=== PATIENT | female | born 1955 | race Caucasian/White ===

== ENCOUNTER → 2018-02-27 07:04 | Outpatient (CLI) | payer OTHER, SELFPAY ==
[2018-02-27 08:33] LABS: AST(SGOT) 20 U/L (15-37); Alanine Aminotransfer ALT/SGPT 25 U/L (13-56); Albumin, Serum 4.2 g/dL (3.2-5.0); Alkaline Phosphatase 101 U/L (45-117); Bilirubin, Direct 0.16 mg/dL (0.00-0.30); Cholesterol 98 mg/dL (200); Globulin 3.2 g/dL (2.2-4.2); High Density Lipoprotein 42 mg/dL; Protein, Total 7.4 g/dL (6.4-8.2); Triglycerides 97 mg/dL; Very Low Density Lipoprotein 19 mg/dL (5-40)
== END ==
PROVIDERS: Family Provider Family Medicine; PCP Family Medicine; Visit Provider Physician Assistant Medical
DX: E78.5 Hyperlipidemia, unspecified (principal); Z79.899 Other long term (current) drug therapy
CPT/HCPCS: 36415; 80061; 80076

== ENCOUNTER → 2018-04-23 06:12 | Outpatient (CLI) | payer OTHER, SELFPAY ==
--- NOTE | 2018-04-23 08:55 | STRESSREP ---
Stress Test Report Exercise myocardial perfusion stress test. 62-year-old lady with a history of chest pain. Medications: Aspirin simvastatin metoprolol. Stress protocol: Resting EKG demonstrates sinus bradycardia with a rate of 48 bpm normal intervals are noted. The patient exercised according to the regular Ld protocol for a total duration of 12 minutes. The patient completed stage IV of the Ld protocol the maximum heart rate attained was 136 bpm which was 85% of maximum predicted heart rate the maximum workload was 13.4 metabolic equivalents. Patient maintained sinus rhythm throughout the recording at rest there were no ST or T-wave changes noted suggest ischemia peak exercise upsloping ST changes only were noted with no meet the criteria for ischemia no clinical angina was noted the test was terminated due to leg fatigue. The resting blood pressure is 104/68 with a peak blood pressure 142/78 mmHg. Myocardial perfusion protocol. 10.8 mCi of technetium 99m sestamibi was injected at rest. Patient exercised according to regular Ld protocol for 12 minutes at peak exercise 33.3 mCi of technetium 99m sestamibi was injected stress images were obtained stress and rest images were reconstructed and compared in the short axis vertical long and horizontal long axis. Gated images were also obtained. Perfusion SPECT analysis: Review of the stress images demonstrate normal uptake of tracer noted in all areas of the myocardium. The resting images similarly demonstrate normal uptake of tracer noted in all areas of the myocardium. No previous infarct is noted and no ischemia is present. Gated SPECT analysis: The gated ejection fraction is 71%. Conclusion: Normal exercise myocardial perfusion stress test at a high workload. Preserved ejection fraction. Excellent functional aerobic capacity.
== END ==
PROVIDERS: Family Provider Family Medicine; PCP Family Medicine; Visit Provider Internal Medicine Cardiovascular Disease
DX: Z95.5 Presence of coronary angioplasty implant and graft (principal)
CPT/HCPCS: 78452; 93017; A9500; A4216

== ENCOUNTER → 2019-02-24 | Outpatient (CLI) | payer OTHER, SELFPAY ==
[2019-01-18 08:15] VITALS: BMI 19.1
[2019-02-24 07:57] LABS: AST(SGOT) 29 U/L (15-37); Alanine Aminotransfer ALT/SGPT 34 U/L (13-56); Alkaline Phosphatase 118 U/L (45-117); Bilirubin, Direct 0.14 mg/dL (0.00-0.30); Cholesterol 123 mg/dL (200); High Density Lipoprotein 46 mg/dL; Triglycerides 118 mg/dL; Very Low Density Lipoprotein 24 mg/dL (5-40)
== END | disposition home or self-care (01) ==
LOC: LAB 07:08
PROVIDERS: Family Provider Family Medicine; PCP Family Medicine; Referring Provider Physician Assistant Medical; Visit Provider Physician Assistant Medical
DX: E78.5 Hyperlipidemia, unspecified (principal)
CPT/HCPCS: 36415; 80061; 80076

== ENCOUNTER → 2019-11-03 10:51 | Outpatient (CLI) | payer OTHER, SELFPAY ==
[2019-03-05 08:34] VITALS: BMI 18.6
[2019-11-03 12:25] LABS: Absolute Lymphocyte Count 1.28 X10^3/uL (0.83-4.51); Absolute Neutrophil Count 3.1 X10^3/uL (2.0-7.7); Basophil# 0.03 X10^3/uL; Basophil% 0.6 % (0-1); Eosinophil# 0.06 X10^3/uL; Eosinophils% 1.2 % (0-5); Hematocrit 40.4 % (37-47); Hemoglobin 12.9 g/dL (12.0-15.0); Lymphocyte # 1.28 X10^3/ul (4.0); Lymphocyte % 26.2 % (19-41); Mean Corp Hgb Conc 31.9 g/dL (32-36); Mean Corpuscular Hgb 28.4 pg (27.0-32.0); Mean Platelet Vol. 9.6 fl (6.2-12.0); Monocyte# 0.35 X10^3/uL; Monocyte% 7.2 % (0-10); NRBC Flagged by Analyzer 0 % (0-5); Neutrophil # 3.14 X10^3/uL (2.7-7.7); Neutrophil % 64.4 % (47-70); Platelet Count 329 K/mm3 (150-450); RBC Distribution Width CV 12.2 % (11.6-14.6); RBC Distribution Width SD 39.9 fl (35.1-43.9); Red Blood Count 4.54 M/mm3 (4.2-5.4); White Blood Count 4.9 K/mm3 (4.4-11.0)
[2019-11-03 13:01] LABS: ALB/GLOB Ratio 1.1 RATIO (0.9-2.4); AST(SGOT) 18 U/L (15-37); Alanine Aminotransfer ALT/SGPT 31 U/L (13-56); Alkaline Phosphatase 115 U/L (45-117); Anion Gap 4 (5-15); BUN 10 mg/dL (7-18); BUN/Creat Ratio 12.2 RATIO (10-20); Calcium,Total 9.2 mg/dL (8.5-10.1); Chloride 101 mmol/L (98-107); Creatinine, Serum 0.82 mg/dL (0.55-1.02); EST Glomerular Filtration Rate 75 mL/min (>60); Est Glom Filt Rate - Afr Amer 91 mL/min (>60); Ferritin 28 ng/mL (8-252); Globulin 3.6 g/dL (2.2-4.2); Glucose 77 mg/dL (74-106); Potassium 4.3 mmol/L (3.5-5.1); Protein, Total 7.6 g/dL (6.4-8.2); Sodium Level 134 mmol/L (136-145); Thyroid Stim Hormone (TSH) 2.63 uIU/mL (0.358-3.74)
[2019-11-04 11:42] LABS: Thyroid Peroxidase AB 81 IU/mL (0-34)
[2019-11-05 10:58] LABS: Anti-Nuclear Antibody Test Negative (.)
== END ==
PROVIDERS: Family Provider Family Medicine; PCP Family Medicine; Referring Provider Dermatology Pediatric Dermatology; Visit Provider Dermatology Pediatric Dermatology
DX: D64.9 Anemia, unspecified (principal); L82.0 Inflamed seborrheic keratosis; L53.8 Other specified erythematous conditions; L29.8 Other pruritus; L64.8 Other androgenic alopecia; L98.8 Other specified disorders of the skin and subcutaneous tissue
CPT/HCPCS: 36415; 80053; 82728; 84439; 84443; 84480; 85025; 86038; 86376

== ENCOUNTER → 2020-02-19 14:07 | Outpatient (CLI) | payer OTHER, SELFPAY ==
[2019-03-05 08:34] VITALS: BMI 18.6
[2020-02-19 16:22] LABS: Free T3 3.4 pg/mL (2.18-3.98); Thyroid Stim Hormone (TSH) 3.31 uIU/mL (0.358-3.74)
[2020-02-22 14:01] LABS: Thyroid Stim Immunoglob <0.10 IU/L (0.00-0.55)
== END ==
PROVIDERS: PCP Family Medicine; Referring Provider Family Medicine; Visit Provider Family Medicine
DX: E07.9 Disorder of thyroid, unspecified (principal)
CPT/HCPCS: 36415; 84436; 84443; 84445; 84481

== ENCOUNTER → 2020-02-25 13:08 | Outpatient (CLI) | payer OTHER, SELFPAY ==
[2019-03-05 08:34] VITALS: BMI 18.6
[2020-02-25 13:47] LABS: AST(SGOT) 22 U/L (15-37); Alanine Aminotransfer ALT/SGPT 25 U/L (13-56); Albumin, Serum 4.1 g/dL (3.2-5.0); Alkaline Phosphatase 107 U/L (45-117); Cholesterol 122 mg/dL (200); Globulin 3.1 g/dL (2.2-4.2); High Density Lipoprotein 47 mg/dL; Protein, Total 7.2 g/dL (6.4-8.2); Triglycerides 76 mg/dL; Very Low Density Lipoprotein 15 mg/dL (5-40)
== END ==
PROVIDERS: PCP Family Medicine; Referring Provider Internal Medicine Cardiovascular Disease; Visit Provider Internal Medicine Cardiovascular Disease
DX: E78.5 Hyperlipidemia, unspecified (principal)
CPT/HCPCS: 80061; 80076

== ENCOUNTER 2020-06-08 10:26 | Day surgery (SDC) | payer OTHER, SELFPAY ==
[2020-05-25 11:29] VITALS: BMI 18.1
--- NOTE | 2020-05-29 06:42 | HP_ITS ---
Intake Vital Signs 05/25/20 Height 5 ft 6 in 05/25/20 Weight: 112 lb 05/25/20 BMI 18.1 05/25/20 BP 165/76 H 05/25/20 Blood Pressure Location Rt brachial 05/25/20 Position Sitting 05/25/20 Respiration 18 05/25/20 Pulse 67 05/25/20 Pulse Source Monitor 05/25/20 Temp 97.5 F L 05/25/20 Temp Source Temporal 05/25/20 Pulse Oximetry (%) 100 05/25/20 Oxygen Delivery Method room air Intake Visit Reasons: Cyst top of left leg close to buttocks Chief Complaint: lump on buttocks Provider Relations Consultant Required: No Is patient in pain?: No Allergies cephalexin Allergy (Verified 05/25/20 11:29) Unknown latex Allergy (Verified 05/25/20 11:29) rash Penicillins Allergy (Verified 05/25/20 11:29) Unknown atorvastatin calcium [From Lipitor] Adverse Reaction (Verified 05/25/20 11:29) Unknown carvedilol [From Coreg] Adverse Reaction (Verified 05/25/20 11:29) myalgias, cough, diarrhea ticagrelor [From Brilinta] Adverse Reaction (Verified 05/25/20 11:29) rash bee stings Allergy (Uncoded 03/05/19 08:34) Swelling Medications Aspirin [Adult Low Dose Aspirin EC] 81 mg PO 11/30/15 [History Confirmed 05/25/20] flaxseed oil 1,000 mg capsule 1,000 mg PO DAILY 01/18/19 [History Confirmed 05/25/20] nitroglycerin 0.4 mg sublingual tablet 0.4 mg SUBLINGUAL Q5-15M PRN #25 tab 07/09/19 [Rx Confirmed 05/25/20] clopidogrel 75 mg tablet 75 mg PO .COMPLEX #45 tab 03/03/20 [Rx Confirmed 05/25/20] metoprolol succinate 25 mg tablet,extended release 24 hr 25 mg PO QDAY #90 tab 03/03/20 [Rx Confirmed 05/25/20] simvastatin 20 mg tablet 20 mg PO QHS #90 tab 03/03/20 [Rx Confirmed 05/25/20] [facility] Medical History 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 Thad Longoria MD) Smoking Status: Never smoker alcohol intake: never substance use type: does not use caffeine: Yes Type: coffee what type of physical activity do you participate in: weight training, other details: cardio frequency: 3-4 times per week duration: 30-45 minutes/day seatbelt use: always do you feel safe at home: Yes HPI HPI Surgical H&P: Yes HPI: CARRI ACEVEDO, is a 64 F who presents to the office today for Is subcutaneous lesion on her left buttocks. She is noticed this over the last 2 months is been increasing in size. It is firm and is irritating when she sits down.She cannot recall any trauma to the area. ROS General General: No weight change, appetite, fatigue, colon cancer, breast cancer or weakness HEENT HEENT: No difficulty swallowing, eye injury, eye surgery, swollen glands or hoarseness Endo Endocrine: No thyroid disease, diabetes mellitus, thyroid cancer, Hair loss, heat intolerance or cold intolerance Skin Skin: No rash or changing moles Breast Breast: No left breast lump, right breast lump, nipple discharge, breast pain, abnormal mammogram, abnormal US or breast enlargement Musc Musculoskeletal: No back problems, arthritis, rheumatoid arthritis, gout or joint pain Cardio Cardiovascular: Yes heart disease, heart attack and heart stent; no murmur, pacemaker, atrial fibrillation, high blood pressure, palpitations, shortness of breat with exertion or chest pain Psych Psychiatric: No depression, anxiety or hearing voices Resp Respiratory: No shortness of breath, No sleep apnea, No cough, No COPD, No asthma, No emphysema, No wheezing Gastro Gastrointestinal: No abdominal pain, No nausea or vomiting, No diarrhea, No constipation, No blood in stool, No acid reflux, No hemorrhoids, No ulcers, No gallbladder problem, No black,tarry stools [place] Hematologic: Yes blood thinners, No blood disorders, Yes bleeding, No anemia, No blood clots Neuro Neurologic: No system reviewed and no additional complaints, except as docu, No as per HPI, No abnormal walking, No abnormal hearing, No abnormal movements, No abnormal speech, No behavioral changes, No burning sensations, No confusion, No seizure-like activity, No unsteadiness, No dizziness, No localized weakness, No frequent falls, No headache(s), No lack of coordination, No loss of vision, No memory loss, No numbness, No other visual disturbances, No radiating pain, No restless legs, No sensory deficit, No fainting, No tingling, No tremor(s), No weakness, No other Exam Const General: no acute distress, well developed, well hydrated Orientation: oriented to person, oriented to place, oriented to time [facility] Head: normocephalic, atraumatic Ears: external ears normal Mouth: moist mucous membranes Eyes Sclera: sclerae normal Pupils: normal by confrontation Neck Neck: no lymphadenopathy noted Neck mass: No Thyroid: thyroid normal, symmetrical Chest Chest palpation & inspection: normal inspection of the chest Breast Palpation: No nipple discharge Resp Effort & Inspection: normal respiratory effort Auscultation: clear to auscultation bilaterally Percussion: percussion normal Cardio Rate: regular rate Rhythm: regular rhythm Heart Sounds: no murmurs GI Palpation: soft, no hepatosplenomegaly, no masses, nontender Rectal Exam: other Other: Rectal exam deferred. Skin Other: On her left buttocks when her knee is brought up to her chest you can clearly feel a 2.5 cm firm lesion. It is not appreciably tender to touch it is firm and is noticeable Extrem General: normal to inspection, no clubbing, cyanosis or edema Assessment & Plan Problems 1. Lesion of subcutaneous tissue L98.9 Plan My plan is to excise this in the OR. I think this can be safely done under local MAC. Risks include bleeding and infection. She also understands that she could have a recurrence. I told her given the location I am going to put sutures in the do have to be removed since this is going to be traumatized. Coding Level of Care Code Off vis,new,level 2 Diagnoses Lesion of subcutaneous tissue L98.9 COVID (Procedure Consent) Procedure Criteria Procedure Criteria: Yes Elective The surgeon/proceduralist and patient have discussed in detail the risk of exposure to and/or potential harm posed by the COVID-19 virus with having a surgery/procedure at this time versus the risk of? delaying the surgery/procedure. It is not possible to know either the risk of delaying the surgery or procedure or chance of getting an infection with perfect accuracy, but a joint decision was made between the patient and the surgeon/proceduralist ?to proceed at this time with the scheduled surgery/procedure as indicated on the consent form. 05/29/20 2512 <Electronically signed by Thad saab MD> Date _ Thad Longoria MD I have re-examined the patient. There are no clinical changes since date of exam.
[2020-06-08 10:55] VITALS: BP 141/67; PULSE 52; RESP 15; TEMP 36.6; O2SAT 100; BMI 18.5
[2020-06-08] MEDS: Lactated Ringers 1,000 ML 100 ML IV (11:07)
--- NOTE | 2020-06-08 12:07 | OP.PCM_ITS ---
Problem List (1) Lesion of subcutaneous tissue Status: Acute Report of Operation Date of Procedure: 06/08/20 Pre-Operative Diagnosis: 2-1/2 cm subcutaneous lesion to left buttocks Post-Operative Diagnosis: Same Surgery/Procedure Performed:: Excision of a 2-1/2 cm subcutaneous lesion to left buttocks Type of Anesthesia:: General Anesthesiologist: Winston Hoffman Specimen's removed: Subcutaneous lesion Estimated Blood Loss (mL): < 25 cc Description of Procedure: Patient was brought into the operating room. Placed in the supine position. Under excellent general trach intubation she was then placed on her left lateral decubitus side. Patient had a soft subcutaneous mass on her left buttocks. Local was injected 2-1/2 cm incision was made. Is I dissected down I got into the soft fatty tissue and I remove this but there was a much firmer larger mass down on the rami area. I dissected slightly further took out a little bit of thickened tissue but it was very clear that the mass that was originally seen was not the mass that I could feel when she was asleep I do not think doing an ything further was appropriate. I thought about sticking a needle in this however since I did not have any other imaging I thought it was best that we not do anything further. What I originally saw in the office and what I was feeling now while the patient was asleep was much deeper. I brought the wound together with subcu of 0 Vicryl. Deep dermals of 3-0 Vicryl then interrupted 4-0 nylon. Sterile dressings were applied and the patient tolerated the procedure well. I am to see her back in the office remove the sutures and more than likely get first some pelvis x-rays and then more likely an MRI of her pelvis to see what things look like. But it will take some time for this subcutaneous tissue to normalize from the surgery. - Admit VTE Documentation VTE Present on Admission: No VTE Mechan Device Prophylaxis: SCD's VTE Pharm Prophylaxis ordered?: No Reason prophylaxis not ordered:: Treatment Not Indicated 114x: [id number] Exc tr-ext b9+andrey 2.1-3cm/<
--- NOTE | 2020-06-08 12:09 | DCINST_ITS ---
Discharge Diet: Light diet - advance as tolerated - If you have questions about your diet instructions, please talk to your doctor. Discharge Activity: May Not Drive - for 1 week or while taking narcotic pain medicine. May shower in (days): 1 Lifting Restrictions: 10 pounds Call your doctor if your incision/area has: Continuous Slow Oozing, Sudden Increased Bleeding, Increased Pain/ Swelling, Increased Redness, Foul Smelling Discharge Call your doctor if you observe: Fever of 101 or Higher Suture Line Care: Avoid Pulling/Pushing, Avoid Pinching/Bending Additional Dressing/Incision Instructions:: Change or remove dressing in 4 days. Leave steri-strips in place for 1 week. Allergies/Adverse Reactions: Allergies cephalexin Allergy (Verified 06/08/20 10:49) Unknown latex Allergy (Verified 06/08/20 10:49) rash Penicillins Allergy (Verified 06/08/20 10:49) Unknown atorvastatin calcium [From Lipitor] Adverse Reaction (Verified 06/08/20 10:49) Unknown carvedilol [From Coreg] Adverse Reaction (Verified 06/08/20 10:49) myalgias, cough, diarrhea ticagrelor [From Brilinta] Adverse Reaction (Verified 06/08/20 10:49) rash bee stings Allergy (Uncoded 06/08/20 10:49) Swelling has epi pen Medications to take at Discharge Aspirin [Adult Low Dose Aspirin EC] 81 mg PO DAILY 11/30/15 flaxseed oil 1,000 mg capsule 1,000 mg PO DAILY 01/18/19 nitroglycerin 0.4 mg sublingual tablet 0.4 mg SUBLINGUAL Q5-15M PRN #25 tab 07/09/19 metoprolol succinate 25 mg tablet,extended release 24 hr 25 mg PO QDAY #90 tab 03/03/20 simvastatin 20 mg tablet 20 mg PO QHS #90 tab 03/03/20 Clopidogrel Bisulfate [Clopidogrel] 75 mg PO MOWEFR 06/01/20 Oxycodone HCl/Acetaminophen [Percocet 5/325] 1 - 2 tablet PO Q4H PRN PRN 6 Days #20 tablet 06/08/20 The following prescriptions were given: Oxycodone HCl/Acetaminophen [Percocet 5/325] 1 - 2 tablet PO Q4H PRN PRN 6 Days #20 tablet PRN Reason: Pain Transmission Status: Received by [id number] Primary Care Physician: Asad Baron MD [Primary Care Provider] - Test Results: Test results from this visit will be discussed in further detail at your follow- up appointment, if applicable. Please Follow Up With: Thad Longoria MD - [phone] When: Call to make an appointment to be seen in about 10 days.
--- NOTE | 2020-06-08 12:30 | LES_PTH ---
PATIENT: CARIR ACEVEDO LOC: [facility] U#:[id number] AGE/SX: 64/F ROOM: RE06/08/[address]: Dr. Thad Longoria MD : [id number] BED: DIS: 06/08/2020 SPEC #: [id number] RECD: 06/08/20 13:50 STATUS: EVELIN VI #: [id number] BENNIE: 06/08/20 12:[address]: Thad Longoria DEPT: SURGICAL PATHOLOGY RECD BY: Viral Rivera ENTERED: 06/09/20 09:49 SP TYPE: Lesion OTHR DR: Dr. Asad Baron MD Tissues: Skin of buttock, NOS Procedures: Surgery Specimen Level IV HEADER OPERATION: Excision lipoma buttock PRE-OP DIAGNOSIS: Lesion of subcutaneous tissue TISSUE SUBMITTED: Lesion of subcutaneous tissue left buttock MICROSCOPIC DIAGNOSIS Soft tissue mass, left buttock, excision: Granulation with associated mild chronic inflammation. See comment. AM:varun 06/10/20 COMMENT Clinical correlation is suggested. Case has been reviewed in consultation with Dr. Rey who concurs with the above diagnosis. IDC:PATTI MICROSCOPIC DESCRIPTION Slides are reviewed. GROSS DESCRIPTION Received in fixative is one container labeled with the patient's name and designated lesion of subcutaneous tissue left buttock. The specimen consists of an irregular piece of fibroadipose tissue measuring 4 x 3.6 x 1 cm. The external surface appears focally congested. Sections reveal yellow adipose cut surfaces without any area of hemorrhage, necrosis or cystic degeneration. The specimen is inked and serially sectioned and reveals yellow adipose cut surfaces without area of hemorrhagic, necrosis or cystic degeneration. Tube Cutter sections are submitted in two cassettes. / PATTI:varun 06/09/20 TC:3 CPT: 79990
[2020-06-08] MEDS: Bupivacaine Mpf 0.5% 30 ML VIAL (12:35)
[2020-06-08 13:14] VITALS: BP 132/87; BP 141/67; PULSE 59; RESP 16; TEMP 36.7; O2SAT 100
[2020-06-08 13:30] VITALS: BP 140/76; BP 141/67; PULSE 50; RESP 16; O2SAT 100
[2020-06-08 13:45] VITALS: BP 141/67; BP 144/80; PULSE 49; RESP 16; O2SAT 100
[2020-06-08 14:01] VITALS: BP 136/79; BP 141/67; PULSE 48; RESP 16; TEMP 36.6; O2SAT 99
[2020-06-08 14:40] VITALS: BP 141/67; BP 141/74; PULSE 62; RESP 16; TEMP 36.7; O2SAT 99
== END 2020-06-08 15:01 | disposition home or self-care (01) ==
LOC: SDC 10:26 → AC 10:26
PROVIDERS: Anesthesiology; PCP Family Medicine; Referring Provider Surgery; Visit Provider Surgery
PROC: (CPT 11403; principal; 2020-06-08 12:15)
DX: L98.9 Disorder of the skin and subcutaneous tissue, unspecified (principal); Z11.59 Encounter for screening for other viral diseases; I25.2 Old myocardial infarction; E78.00 Pure hypercholesterolemia, unspecified; I25.10 Atherosclerotic heart disease of native coronary artery without angina pectoris; Z78.0 Asymptomatic menopausal state; Z95.5 Presence of coronary angioplasty implant and graft; Z79.82 Long term (current) use of aspirin; Z79.02 Long term (current) use of antithrombotics/antiplatelets; Z79.899 Other long term (current) drug therapy
CPT/HCPCS: 00400; 11403; 87635; 88305; 94799; J7120; J2405; U0003

== ENCOUNTER → 2020-07-12 10:52 | Outpatient (CLI) | payer OTHER, SELFPAY ==
--- NOTE | 2020-07-12 10:53 | MRI_ITS ---
STUDY: MRI BILATERAL HIPS T PELVIS WITH AND WITHOUT CONTRAST REASON FOR EXAM: Pelvic soft tissue mass, lipoma removed 06/08/2020. TECHNIQUE: Standardized fat and water weighted pulse sequences were obtained in all 3 orthogonal planes before and after intravenous administration of 10 mL of Dotarem. COMPARISON: None. FINDINGS: RIGHT HIP Normal hip joint without articular joint space narrowing. Normal right acetabulum. Normal right labrum. Normal right femoral head. Normal right femoral neck and intratrochanteric region. Normal right gluteus minimus, medius and iliopsoas tendons and distal insertions. Normal right superior and inferior pubic rami. Normal right pubic symphysis. Normal right ischial tuberosity. Normal origin of the right hamstring tendons. Normal visualized right iliac wing, sacroiliac joint, and sacral ala. LEFT HIP Normal left hip joint without articular joint space narrowing. Normal left acetabulum. Normal left labrum. There is a herniation pit at the anterolateral aspect of the left femoral head (inversion recovery coronal image 19). Normal left femoral neck and intratrochanteric region. Normal left gluteus minimus, medius and iliopsoas tendons and distal insertions. Normal left superior and inferior pubic rami. Normal left pubic symphysis. Normal left ischial tuberosity. Normal origin of the left hamstring tendons. Normal visualized left iliac wing, sacroiliac joint, and sacral ala. There is a well-defined lesion extending posteriorly and inferiorly from the left ischial tuberosity with fluid-fluid levels (T2 sagittal images 13-18) measuring 2.7 x 4.3 x 5.1 cm (AP x transverse x length). The lesion demonstrates mildly hyperintense T1 signal (T1 axial images 21-27) consistent with blood products. There is mild contrast enhancement of the wall of the lesion (postcontrast T1 axial images 20-26). MRI/Pelvis W/WO Contrast IMPRESSION: Soft tissue mass consistent with hematoma extending distal to the left ischial tuberosity. Electronically Signed: Neri Cantu MD at 12:25 EDT Tel , Service support ,
[2020-07-12 11:15] LABS: CREATININE FINGERSTICK 0.7 mg/dL (0.55-1.02); EGFR FINGERSTICK > 60.0000 mL/min (>60)
== END ==
PROVIDERS: PCP Family Medicine; Referring Provider Surgery; Visit Provider Surgery
DX: M79.89 Other specified soft tissue disorders (principal)
CPT/HCPCS: 72197; A9575

== ENCOUNTER → 2020-09-02 07:38 | Outpatient (CLI) | payer OTHER, SELFPAY ==
[2020-07-19 08:57] VITALS: BMI 18.5
[2020-09-02 10:39] LABS: AST(SGOT) 24 U/L (15-37); Alanine Aminotransfer ALT/SGPT 28 U/L (13-56); Albumin, Serum 4.2 g/dL (3.2-5.0); Alkaline Phosphatase 122 U/L (45-117); Bilirubin, Direct 0.17 mg/dL (0.00-0.30); Cholesterol 137 mg/dL (200); Globulin 3.2 g/dL (2.2-4.2); High Density Lipoprotein 57 mg/dL; Protein, Total 7.4 g/dL (6.4-8.2); Thyroid Stim Hormone (TSH) 4.09 uIU/mL (0.358-3.74); Triglycerides 103 mg/dL; Very Low Density Lipoprotein 21 mg/dL (5-40)
== END ==
PROVIDERS: Internal Medicine Cardiovascular Disease; PCP Family Medicine; Referring Provider Family Medicine; Visit Provider Family Medicine
DX: E78.00 Pure hypercholesterolemia, unspecified (principal); E78.5 Hyperlipidemia, unspecified; E07.9 Disorder of thyroid, unspecified
CPT/HCPCS: 36415; 80061; 80076; 84436; 84443; 84481

== ENCOUNTER → 2020-09-30 15:46 | Outpatient (CLI) | payer OTHER, SELFPAY ==
[2020-07-19 08:57] VITALS: BMI 18.5
--- NOTE | 2020-09-30 15:51 | CT_ITS ---
CT of the left hip without contrast INDICATION: Left buttock mass. The technique: Multiple thin section axial CT images of the left hip joint were obtained without the administration of intravenous contrast and filmed in soft tissue and bone windows. Furthermore, multiple sagittal and coronal reconstructions were performed. Dose limiting techniques were utilized. FINDINGS: No abnormal soft tissue mass, lymphadenopathy, fluid collection. Normal appearance to the musculature of the pelvis and hip. No acute fracture or dislocation. No lytic or blastic lesions. Normal appearance to the hip joint. IMPRESSION: Normal CT of the left hip. Electronically Signed: Jaspal Sterling MD at 11:41 EST Tel , Service support , CT/Extremity Lower without Contra
== END ==
PROVIDERS: PCP Family Medicine; Referring Provider Orthopaedic Surgery; Visit Provider Orthopaedic Surgery
DX: R22.2 Localized swelling, mass and lump, trunk (principal)
CPT/HCPCS: 73700

== ENCOUNTER → 2021-02-09 07:59 | Outpatient (CLI) | payer OTHER, SELFPAY ==
[2021-01-13 08:07] VITALS: BMI 19.1
--- NOTE | 2021-02-09 08:11 | MRI_ITS ---
STUDY: MRI BILATERAL HIPS T PELVIS WITH AND WITHOUT CONTRAST REASON FOR EXAM: Left hip pain for 3 weeks, resection of lipoma in April 2020. TECHNIQUE: Standardized fat and water weighted pulse sequences were obtained in all 3 orthogonal planes before and after intravenous administration of 10 mL of Dotarem. COMPARISON: MRI images 07/12/2020. FINDINGS: RIGHT HIP Normal hip joint without articular joint space narrowing. Normal right acetabulum. Normal right labrum. Normal right femoral head. Normal right femoral neck and intratrochanteric region. Normal right gluteus minimus, medius and iliopsoas tendons and distal insertions. Normal right superior and inferior pubic rami. Normal right pubic symphysis. Normal right ischial tuberosity. Normal origin of the right hamstring tendons. Normal visualized right iliac wing, sacroiliac joint, and sacral ala. LEFT HIP Normal left hip joint without articular joint space narrowing. Normal left acetabulum. Normal left labrum. There is a herniation pit in the anterior aspect of the left femoral head (T2 sagittal image 8) as on the prior study. Otherwise, unremarkable left femoral head. Normal left femoral neck and intratrochanteric region. Normal left gluteus minimus, medius and iliopsoas tendons and distal insertions. Normal left superior and inferior pubic rami. Normal left pubic symphysis. Normal left ischial tuberosity. Normal origin of the left hamstring tendons. Normal visualized left iliac wing, sacroiliac joint, and sacral ala. There is mild scarring of the medial aspect of the proximal left thigh at the site of prior previous surgery with complete resolution of the hematoma without demonstrated recurrent lipoma (T1 axial images 38, 39). There is mild contrast enhancement of the scarring (postcontrast T1 coronal images 7-9). MRI/Pelvis W/WO Contrast IMPRESSION: Mild scarring with mild contrast enhancement of the scarring along the medial aspect of the proximal left thigh without demonstrated recurrent lipoma, and resolution of the hematoma. Herniation pit in the anterior aspect of the left femoral head without interval change. Otherwise, unremarkable MRI of the pelvis/bilateral hips. Electronically Signed: Neri Cantu MD at 9:59 EDT Tel , Service support ,
[2021-02-09 08:26] LABS: CREATININE FINGERSTICK 0.9 mg/dL (0.55-1.02); EGFR FINGERSTICK > 60.0000 mL/min (>60)
== END ==
PROVIDERS: PCP Family Medicine; Referring Provider Orthopaedic Surgery; Visit Provider Orthopaedic Surgery
DX: R22.2 Localized swelling, mass and lump, trunk (principal); Z85.79 Personal history of other malignant neoplasms of lymphoid, hematopoietic and related tissues
CPT/HCPCS: 72197; A9575

== ENCOUNTER → 2021-02-17 07:03 | Outpatient (CLI) | payer OTHER, SELFPAY ==
[2021-01-13 08:07] VITALS: BMI 19.1
[2021-02-17 10:38] LABS: Vitamin D,25 Hydroxy 39.5 ng/mL
[2021-02-17 10:48] LABS: AST(SGOT) 20 U/L (15-37); Alanine Aminotransfer ALT/SGPT 29 U/L (13-56); Alkaline Phosphatase 110 U/L (45-117); Bilirubin, Direct 0.15 mg/dL (0.00-0.30); Cholesterol 133 mg/dL (200); Globulin 3.2 g/dL (2.2-4.2); High Density Lipoprotein 52 mg/dL; Protein, Total 7.2 g/dL (6.4-8.2); Triglycerides 110 mg/dL; Very Low Density Lipoprotein 22 mg/dL (5-40)
[2021-02-17 10:50] LABS: T4 Free Direct 1.14 ng/dL (0.76-1.46); Thyroid Stim Hormone (TSH) 2.06 uIU/mL (0.358-3.74)
== END ==
PROVIDERS: Internal Medicine Cardiovascular Disease; PCP Family Medicine; Referring Provider Internal Medicine Endocrinology, Diabetes & Metabolism; Visit Provider Internal Medicine Endocrinology, Diabetes & Metabolism
DX: E03.8 Other specified hypothyroidism (principal); E06.3 Autoimmune thyroiditis; E55.9 Vitamin D deficiency, unspecified; E78.00 Pure hypercholesterolemia, unspecified; E78.5 Hyperlipidemia, unspecified
CPT/HCPCS: 36415; 80061; 80076; 82306; 84439; 84443

== ENCOUNTER → 2021-09-05 08:06 | Outpatient (CLI) | payer OTHER, SELFPAY ==
[2021-09-05 10:40] LABS: ALB/GLOB Ratio 1.1 RATIO (0.9-2.4); AST(SGOT) 20 U/L (15-37); Alanine Aminotransfer ALT/SGPT 29 U/L (13-56); Albumin, Serum 3.7 g/dL (3.2-5.0); Alkaline Phosphatase 106 U/L (45-117); Anion Gap 2 (5-15); BUN 8 mg/dL (7-18); BUN/Creat Ratio 10.2 RATIO (10-20); Calcium,Total 8.8 mg/dL (8.5-10.1); Chloride 101 mmol/L (98-107); Cholesterol 121 mg/dL (200); Creatinine, Serum 0.78 mg/dL (0.55-1.02); EST Glomerular Filtration Rate 78 mL/min (>60); Est Glom Filt Rate - Afr Amer 95 mL/min (>60); Free T3 2.7 pg/mL (2.18-3.98); Globulin 3.3 g/dL (2.2-4.2); Glucose 80 mg/dL (74-106); High Density Lipoprotein 46 mg/dL; Potassium 4.6 mmol/L (3.5-5.1); Sodium Level 132 mmol/L (136-145); Thyroid Stim Hormone (TSH) 1.26 uIU/mL (0.358-3.74); Triglycerides 129 mg/dL; Very Low Density Lipoprotein 26 mg/dL (5-40)
== END ==
PROVIDERS: PCP Family Medicine; Referring Provider Family Medicine; Visit Provider Family Medicine
DX: E78.00 Pure hypercholesterolemia, unspecified (principal); E07.9 Disorder of thyroid, unspecified
CPT/HCPCS: 36415; 80053; 80061; 84443; 84481

== ENCOUNTER 2022-02-13 15:06 | Outpatient (CLI) | payer MEDICARE, SELFPAY ==
[2022-02-13 16:54] LABS: AST(SGOT) 17 U/L (15-37); Alanine Aminotransfer ALT/SGPT 28 U/L (13-56); Albumin, Serum 3.6 g/dL (3.2-5.0); Alkaline Phosphatase 114 U/L (45-117); Bilirubin, Direct 0.08 mg/dL (0.00-0.30); Cholesterol 131 mg/dL (200); Globulin 3.2 g/dL (2.2-4.2); High Density Lipoprotein 45 mg/dL; Protein, Total 6.8 g/dL (6.4-8.2); Triglycerides 138 mg/dL; Very Low Density Lipoprotein 28 mg/dL (5-40)
[2022-02-13 17:05] LABS: T4 Free Direct 1.14 ng/dL (0.76-1.46); Thyroid Stim Hormone (TSH) 0.77 uIU/mL (0.358-3.74)
== END 2022-02-13 23:59 | disposition home or self-care (01) ==
PROVIDERS: Internal Medicine Cardiovascular Disease; PCP Family Medicine; Referring Provider Internal Medicine Endocrinology, Diabetes & Metabolism; Visit Provider Internal Medicine Endocrinology, Diabetes & Metabolism
DX: E78.00 Pure hypercholesterolemia, unspecified (principal); E78.5 Hyperlipidemia, unspecified
CPT/HCPCS: 36415; 80061; 80076; 84439; 84443

== ENCOUNTER → 2022-03-15 | Outpatient (CLI) | payer MEDICARE, SELFPAY ==
--- NOTE | 2022-03-15 13:03 | STRESSREP ---
Stress Test Report Exercise mild cardial perfusion stress test. 66-year-old lady with a history of chest pain. Stress protocol: Resting EKG demonstrates normal sinus rhythm with a rate of 61 bpm normal intervals are noted resting blood pressure is 114/66 mmHg. The patient exercised according to regular Ld protocol for total duration of 12 minutes. Patient completed stage IV of the Ld protocol. The maximum heart rate attained was 134 bpm which was 86% of max impact at heart rate the maximum workload attained was 13.7 metabolic equivalents. At rest there were no ST or T wave changes noted to suggest ischemia and at peak exercise upsloping ST changes were noted which did not meet the criteria for ischemia. No clinical angina was noted. The test was terminated due to the target heart rate being achieved. Myocardial perfusion protocol. 11.3 mCi of technetium 99m sestamibi was injected at rest. The patient exercised according to regular Ld protocol for total duration of 12 minutes and at peak exercise 33.8 mCi of technetium 99m sestamibi was injected stress images were obtained stress and rest images were reconstructed and compared in the short axis vertical long and horizontal long axis. Gated images were also obtained. Perfusion SPECT analysis: Review of the stress images demonstrate normal uptake of tracer noted in all areas of the myocardium. The resting images similarly demonstrate normal uptake of tracer noted in all areas of the myocardium. No areas of reversibility are noted to suggest ischemia and no previous infarct is noted. Gated SPECT analysis: The gated ejection fraction is 76%. Conclusion: Normal exercise myocardial perfusion stress test at a high workload. Preserved ejection fraction.
== END | disposition home or self-care (01) ==
LOC: CVS 06:33
PROVIDERS: PCP Family Medicine; Referring Provider Internal Medicine Cardiovascular Disease; Visit Provider Internal Medicine Cardiovascular Disease
DX: I25.10 Atherosclerotic heart disease of native coronary artery without angina pectoris (principal)
CPT/HCPCS: 78452; 93017; A9500; A4216

== ENCOUNTER → 2022-04-23 | Outpatient (CLI) | payer MEDICARE, SELFPAY ==
--- NOTE | 2022-04-23 14:09 | BI_ITS ---
MAMMOGRAPHY - BILATERAL SCREENING REASON FOR EXAM: Female, 66 years old. Routine annual screening examination. PERTINENT HISTORY: Aunt with breast cancer. TECHNIQUE: Digital bilateral breast ramya (3D mammographic acquisition) in the CC and MLO projections. 2-D mediolateral oblique (MLO) and craniocaudad (CC) views of both breasts were obtained. CAD: Full Field Digital Mammography with Computer Added Detection was performed. COMPARISON: Comparison is made with prior outside examination dated 04/21/2021. FINDINGS: Breast Composition: There are scattered areas of fibroglandular density. There are no dominant masses or suspicious calcifications. No other significant abnormalities are identified. There has been no significant change since the prior study. BI/SCRN MAMM (CAD)W/RAMYA BILAT IMPRESSION: Stable bilateral screening mammogram. Yearly follow-up mammogram recommended. (A) ASSESSMENT CATEGORY: BIRADS Category 1: Negative. A letter regarding these results will be sent to the patient by the facility within 30 days. Approximately 10% of breast cancers are not detected by mammography. A normal mammogram should not delay biopsy of a clinically suspicious abnormality. [id number] Electronically Signed: Kevin Cox MD at 14:55 EDT ,
== END | disposition home or self-care (01) ==
LOC: OPBI 14:07
PROVIDERS: PCP Family Medicine; Visit Provider Family Medicine
DX: Z12.31 Encounter for screening mammogram for malignant neoplasm of breast (principal)
CPT/HCPCS: 77063; 77067

== ENCOUNTER → 2022-05-17 | Outpatient (CLI) | payer MEDICARE, SELFPAY ==
--- NOTE | 2022-05-17 12:29 | MRI_ITS ---
EXAM: MR HEAD WITHOUT AND WITH INTRAVENOUS CONTRAST, INTERNAL AUDITORY CANAL PROTOCOL CLINICAL INDICATION: ATAXIA;SENSORINEURAL HEARING LOSS TECHNIQUE: Multiplanar and multisequence MR images of the internal auditory canal were obtained without and with intravenous contrast. This report was created using [email or web address] report [employer] technology. CONTRAST: Dotarem 10 cc IV. COMPARISON: None. FINDINGS: CRANIAL NERVES: Unremarkable. No mass. No abnormal enhancement. COCHLEA AND SEMICIRCULAR CANALS: Unremarkable. CEREBELLOPONTINE ANGLES: Unremarkable. No mass. BRAIN AND EXTRA-AXIAL SPACES: Unremarkable as visualized. No intra- or extra-axial hemorrhage. No intracranial mass or mass effect. There is preservation of the medae/white matter interface. Posterior fossa structures are unremarkable. Ventricles are appropriate for age. No hydrocephalus. Basal cisterns are patent. BONES/JOINTS: Unremarkable. No discrete lytic or blastic abnormalities. SINUSES: Unremarkable as visualized. Clear. MASTOID AIR CELLS: Unremarkable as visualized. Clear. ORBITS: Unremarkable as visualized. Both globes, extraocular muscles, optic nerves and retrobulbar fat appear unremarkable. MRI/Brain W/WO Contrast IMPRESSION: Unremarkable MRI of the brain and internal auditory canals. Electronically Signed: Brody Persaud MD at 4:33 EDT ,
[2022-05-17 13:05] LABS: CREATININE FINGERSTICK < 0.9 mg/dL (0.55-1.02); EGFR FINGERSTICK > 60.0000 mL/min (>60)
== END | disposition home or self-care (01) ==
PROVIDERS: PCP Family Medicine; Referring Provider Otolaryngology Otolaryngology/Facial Plastic Surgery; Visit Provider Otolaryngology Otolaryngology/Facial Plastic Surgery
DX: H90.5 Unspecified sensorineural hearing loss (principal); R27.0 Ataxia, unspecified
CPT/HCPCS: 70553; A9575

== ENCOUNTER → 2023-02-01 | Outpatient (CLI) | payer MEDICARE, SELFPAY ==
[2023-02-01 10:45] LABS: ALB/GLOB Ratio 1.2 RATIO (0.9-2.4); AST(SGOT) 23 U/L (15-37); Alanine Aminotransfer ALT/SGPT 24 U/L (13-56); Albumin, Serum 3.9 g/dL (3.2-5.0); Alkaline Phosphatase 101 U/L (45-117); Anion Gap 6 (5-15); BUN 10 mg/dL (7-18); BUN/Creat Ratio 13.5 RATIO (10-20); Bilirubin, Direct 0.15 mg/dL (0.00-0.30); Calcium,Total 9.1 mg/dL (8.5-10.1); Chloride 102 mmol/L (98-107); Cholesterol 123 mg/dL (200); Creatinine, Serum 0.74 mg/dL (0.55-1.02); EST Glomerular Filtration Rate 83 mL/min (>60); Est Glom Filt Rate - Afr Amer 101 mL/min (>60); Free T3 2.7 pg/mL (2.18-3.98); Globulin 3.2 g/dL (2.2-4.2); Glucose 87 mg/dL (74-106); High Density Lipoprotein 51 mg/dL; Potassium 4.2 mmol/L (3.5-5.1); Protein, Total 7.1 g/dL (6.4-8.2); Sodium Level 137 mmol/L (136-145); T4 Free Direct 1.22 ng/dL (0.76-1.46); Thyroid Stim Hormone (TSH) 1.28 uIU/mL (0.358-3.74); Triglycerides 75 mg/dL; Very Low Density Lipoprotein 15 mg/dL (5-40)
== END | disposition home or self-care (01) ==
PROVIDERS: PCP Family Medicine; Referring Provider Family Medicine; Visit Provider Family Medicine
DX: E78.00 Pure hypercholesterolemia, unspecified (principal); E07.9 Disorder of thyroid, unspecified
CPT/HCPCS: 36415; 80053; 80061; 82248; 84439; 84443; 84481

== ENCOUNTER 2023-02-09 22:33 | Emergency (ER) | payer MEDICARE, SELFPAY ==
[2023-02-09 22:34] VITALS: BP 181/66; PULSE 65; RESP 16; TEMP 36.6; O2SAT 100; BMI 19.4
[2023-02-10] MEDS: Acetaminophen 325 MG Tablet 650 MG PO (02:05)
--- NOTE | 2023-02-10 04:24 | EX.ED.UPPERE ---
HPI History of Present Illness HPI Narrative: Patient is a 67-year-old female that is on aspirin and Plavix presenting with bleeding wound to her thumb. Patient states she was unloading the underwear hemmer when a glass broke in her hand and shattered. She cut the distal aspect of her right hand. She is right-hand dominant. She has tried ice and elevation but it continues to bleed. She came in for further evaluation. 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) Screening for osteoporosis Home Medications aspirin 81 mg tablet,delayed release 81 mg PO DAILY 11/30/15 [History Last Taken 05/31/20] flaxseed oil 1,000 mg capsule ([place]-3 Flaxseed Oil) 1,000 mg PO DAILY 01/18/19 [History Last Taken Unknown] epinephrine 0.3 mg/0.3 mL injection, auto-injector 0.3 mg IM Q5-15M PRN Allergy Symptoms 01/13/21 [History Last Taken Unknown] biotin 10,000 mcg capsule 10,000 mcg PO DAILY 03/02/21 [History Last Taken Unknown] cholecalciferol (vitamin D3) 50 mcg (2,000 unit) capsule 50 mcg PO DAILY 03/02/21 [History Last Taken Unknown] cyanocobalamin (vitamin B-12) 5,000 mcg capsule 5,000 mcg PO SA 03/02/21 [History Last Taken Unknown] metronidazole 0.75 % topical gel 1 applic topical DAILY PRN Rash 03/02/21 [History Last Taken Unknown] nitroglycerin 0.4 mg sublingual tablet (Nitrostat) 0.4 mg sublingual Q5-15M PRN chest pain #25 tabs 10/31/21 [Rx Last Taken Unknown] levothyroxine 50 mcg tablet 50 mcg PO DAILY #90 tabs 02/13/22 [Rx Last Taken Unknown] metoprolol succinate 25 mg tablet,extended release 24 hr (Toprol XL) 25 mg PO QDAY #90 tabs 04/05/22 [Rx Last Taken Unknown] simvastatin 20 mg tablet 20 mg PO QHS #90 tabs 04/05/22 [Rx Last Taken Unknown] clopidogrel 75 mg tablet 75 mg PO MOWEFR 02/09/23 [History Last Taken Unknown] Allergy/AdvReac Type Severity Reaction Status Date / Time cephalexin Allergy Unknown Verified 02/09/23 22:36 latex Allergy rash Verified 02/09/23 22:36 Penicillins Allergy Unknown Verified 02/09/23 22:36 venom-honey bee Allergy Swelling Verified 02/09/23 22:36 atorvastatin calcium AdvReac Unknown Verified 02/09/23 22:36 [From Lipitor] carvedilol [From Coreg] AdvReac myalgias, Verified 02/09/23 22:36 cough, diarrhea ticagrelor [From Brilinta] AdvReac rash Verified 02/09/23 22:36 Family History Father Myocardial infarction Heart disease Mother Colon cancer Aunt CAD (coronary artery disease) hx cardiac stents Other Cancer Melanoma Surgical History history excision buttock mass (06/08/20) History of coronary artery stent placement (11/01/15) History of hysterectomy (1995) Social History Smoking Status: Never smoker alcohol intake: never substance use type: does not use caffeine: Yes Type: coffee what type of physical activity do you participate in: weight training and other details: cardio frequency: 3-4 times per week duration: 30-45 minutes/day seatbelt use: always do you feel safe at home: Yes ROS ROS ED Constitutional Constitutional ED: Reports other Details: Denies lightheadedness ; Denies chills or fever(s) Eyes Eyes: Denies blurry vision Gastrointestinal Gastrointestinal: Denies nausea or vomiting Musculoskeletal Musculoskeletal: Reports other Details: Right thumb pain Integumentary Reports Abrasions Hematologic/Lymphatic Hematologic/Lymphatic: Reports easy bleeding and easy bruising EXAM Physical Exam Const Vital Signs: 02/09/23 22:34 02/09/23 23:45 Temperature 97.8 F Temperature Source Temporal Pulse Rate 65 Respiratory Rate 16 Blood Pressure 181/66 H Blood Pressure Mean 104 Pulse Ox 100 Oxygen Delivery Method Room Air Room Air Positive well nourished and well developed General Appearance ED: well developed and NAD HEENT Reports moist mucous membranes Eyes EOMs intact bilaterally Neck supple Chest Wall inspection of chest normal Resp normal respiratory effort Extremity normal to inspection and full ROM Extremity Narrative: No joint deformity. Normal range of motion of the thumb. Neuro Sensorium / Orientation: alert Psych mental status grossly normal Skin Skin Narrative: 2 superficial avulsion injuries to the tip of the right thumb. They are actively bleeding. They are partial-thickness. Not amenable to suture repair. MDM MDM MDM Narrative Medical decision making narrative: Patient is evaluated for a continuously bleeding wound from earlier in the day. It has not stopped despite direct pressure. Gelfoam was applied with direct pressure and it continues to bleed. Ultimately I had to inject lidocaine with epinephrine locally and then apply pressure dressing with Gelfoam in place to get the bleeding to stop. Patient tolerated this well. While she has continued to bleed she does not have symptoms consistent with acute blood loss anemia. I do not think lab work is indicated. Patient is given return precautions as well as wound care precautions. Is discharged home. Discharge Plan Triage Chief Complaint: Laceration ED Provider: Uzma Torres Dx/Rx/DC Orders Clinical Impression: Avulsion of skin of right thumb, Bleeding Instructions: ED Skin Avulsion Prescriptions: No Action flaxseed oil [[place]-3 Flaxseed Oil] 1,000 mg capsule 1,000 mg PO DAILY biotin 10,000 mcg capsule 10,000 mcg PO DAILY cyanocobalamin (vitamin B-12) 5,000 mcg capsule 5,000 mcg PO SA cholecalciferol (vitamin D3) 50 mcg (2,000 unit) capsule 50 mcg PO DAILY metronidazole 0.75 % gel 1 applic topical DAILY PRN (Reason: Rash) epinephrine 0.3 mg/0.3 mL auto-injector 0.3 mg IM Q5-15M PRN (Reason: Allergy Symptoms) Rx Instructions: do not exceed 3 doses per episode aspirin 81 MG tablet,delayed release (DR/EC) 81 mg PO DAILY clopidogrel 75 mg tablet 75 mg PO MOWEFR nitroglycerin [Nitrostat] 0.4 mg tablet, sublingual 0.4 mg SUBLINGUAL Q5-15M PRN (Reason: chest pain) Qty: 25 3RF levothyroxine 50 mcg tablet 50 mcg PO DAILY Qty: 90 3RF metoprolol succinate [Toprol XL] 25 mg tablet extended release 24 hr 25 mg PO QDAY Qty: 90 3RF simvastatin 20 mg tablet 20 mg PO QHS Qty: 90 3RF Primary Care Provider: Asad Baron Referrals: Asad Baron MD [Primary Care Provider] - Activity Restrictions/Additional Instructions: Keep pressure dressing on for at least 24 hours. When you change the dressing, keep the Gelfoam on it for at least 48 hours. If it does start bleeding again take the Gelfoam off, apply direct pressure and then put on new Gelfoam which you have been given. When you go to change the dressing to soak in water for so it comes off easily does not pull off any scabs. Disposition Disposition: Home, Self Care Discharge Date/Time: 02/10/23 04:31
[2023-02-10] MEDS: Lidocaine 1% /Epi 1:100 (20ml) 20 ML Vial INFILT (04:30)
== END 2023-02-10 04:31 | disposition home or self-care (01) ==
PROVIDERS: Emergency Provider Emergency Medicine; PCP Family Medicine; Visit Provider Emergency Medicine
DX: S61.011A Laceration without foreign body of right thumb without damage to nail, initial encounter (principal); I25.10 Atherosclerotic heart disease of native coronary artery without angina pectoris; Z79.82 Long term (current) use of aspirin; Z79.02 Long term (current) use of antithrombotics/antiplatelets; W25.XXXA Contact with sharp glass, initial encounter; Y93.G1 Activity, food preparation and clean up; E03.9 Hypothyroidism, unspecified; I25.2 Old myocardial infarction; E78.5 Hyperlipidemia, unspecified
CPT/HCPCS: 99283; A4216

== ENCOUNTER → 2023-05-01 | Outpatient (CLI) | payer MEDICARE, SELFPAY ==
--- NOTE | 2023-05-01 09:58 | BI_ITS ---
MAMMOGRAPHY - BILATERAL SCREENING REASON FOR EXAM: Female, 67 years old. Routine annual screening examination. PERTINENT HISTORY: Aunt with breast cancer. TECHNIQUE: Digital bilateral breast ramya (3D mammographic acquisition) in the CC and MLO projections. 2-D mediolateral oblique (MLO) and craniocaudad (CC) views of both breasts were obtained. CAD: Full Field Digital Mammography with Computer Added Detection was performed. COMPARISON: Comparison is made with prior study dated April 23, 2022. FINDINGS: Breast Composition: There are scattered areas of fibroglandular density. There are no dominant masses or suspicious calcifications. No other significant abnormalities are identified. There has been no significant change since the prior study. BI/SCRN MAMM (CAD)W/RAMYA BILAT IMPRESSION: Stable bilateral screening mammogram. Yearly follow-up mammogram recommended. (A) ASSESSMENT CATEGORY: BIRADS Category 1: Negative. A letter regarding these results will be sent to the patient by the facility within 30 days. Approximately 10% of breast cancers are not detected by mammography. A normal mammogram should not delay biopsy of a clinically suspicious abnormality. [id number] Electronically Signed: Kevin Cox MD at 11:22 EDT ,
== END | disposition home or self-care (01) ==
LOC: OPBI 09:57
PROVIDERS: PCP Family Medicine; Referring Provider Family Medicine; Visit Provider Family Medicine
DX: Z12.31 Encounter for screening mammogram for malignant neoplasm of breast (principal); Z80.3 Family history of malignant neoplasm of breast
CPT/HCPCS: 77063; 77067

== ENCOUNTER 2024-01-31 13:41 | Emergency (ER) | payer MEDICARE, SELFPAY ==
[2024-01-31 13:43] VITALS: BP 173/76; PULSE 53; RESP 14; TEMP 36.8; O2SAT 100; BMI 19.8
--- NOTE | 2024-01-31 13:56 | RAD_ITS ---
STUDY: X-RAY CHEST REASON FOR EXAM: Female, 68 years old. Chest pain TECHNIQUE: PA and lateral views of the chest. COMPARISON: Comparison is made with prior study dated November 01, 2015. FINDINGS: There is hyperinflation of the lungs consistent with chronic obstructive lung disease (COPD). There is no demonstrated pleural abnormality. Normal size heart. Normal mediastinum and obi. Normal visualized pulmonary arteries. Normal visualized aortic arch and descending thoracic aorta. There is a mild dextroscoliosis of the thoracic spine. Normal visualized ribs, clavicles, and shoulders. There is no demonstrated abnormality of the visualized soft tissue structures of the upper abdomen. RAD/Chest PA and Lateral IMPRESSION: Hyperinflation. The lungs are clear. Electronically Signed: Kevin Cox MD at 14:41 EDT ,
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
[2024-01-31 14:17] LABS: Absolute Neutrophil Count 3.8 X10^3/uL (2.0-7.7); Basophil# 0.03 X10^3/uL; Basophil% 0.5 % (0-1); Eosinophil# 0.06 X10^3/uL; Hematocrit 35.6 % (37-47); Hemoglobin 12.1 g/dL (12.0-15.0); Lymphocyte % 28.2 % (19-41); Mean Corpuscular Hgb 29.3 pg (27.0-32.0); Mean Corpuscular Volume 86.2 fL (81-99); Mean Platelet Vol. 9.1 fl (6.2-12.0); Monocyte# 0.46 X10^3/uL; Monocyte% 7.6 % (0-10); NRBC Flagged by Analyzer 0 % (0-5); Neutrophil # 3.76 X10^3/uL (2.7-7.7); Neutrophil % 62.4 % (47-70); Platelet Count 276 K/mm3 (150-450); RBC Distribution Width CV 12.1 % (11.6-14.6); RBC Distribution Width SD 38.4 fl (35.1-43.9); Red Blood Count 4.13 M/mm3 (4.2-5.4)
[2024-01-31 14:31] LABS: Anion Gap 5 (5-15); BUN 8 mg/dL (7-18); BUN/Creat Ratio 11.3 RATIO (10-20); Calcium,Total 8.8 mg/dL (8.5-10.1); Chloride 97 mmol/L (98-107); EST Glomerular Filtration Rate 88 mL/min (>60); Est Glom Filt Rate - Afr Amer 106 mL/min (>60); Estimated Creatinine Clearance 58.28 ml/min; Glucose 105 mg/dL (74-106); Potassium 4.1 mmol/L (3.5-5.1); Sodium Level 129 mmol/L (136-145); Troponin-I HS 6 pg/mL (3.0-54.0)
[2024-01-31] MEDS: Ketorolac 15 MG/ML Vial IV (14:52)
[2024-01-31 15:18] VITALS: BP 152/70; PULSE 80; RESP 16; TEMP 36.4; O2SAT 98
== END 2024-01-31 15:19 | disposition home or self-care (01) ==
PROVIDERS: Physician Assistant; Emergency Provider Emergency Medicine; PCP Family Medicine; Visit Provider Emergency Medicine
DX: R07.89 Other chest pain (principal); X58.XXXA Exposure to other specified factors, initial encounter; I25.10 Atherosclerotic heart disease of native coronary artery without angina pectoris; I25.2 Old myocardial infarction; E78.5 Hyperlipidemia, unspecified; Z79.82 Long term (current) use of aspirin; Z79.899 Other long term (current) drug therapy; E03.9 Hypothyroidism, unspecified; Z95.5 Presence of coronary angioplasty implant and graft; Z90.710 Acquired absence of both cervix and uterus
CPT/HCPCS: 71046; 80048; 84484; 85025; 93005; 96374; 99283; A4216

== ENCOUNTER → 2024-04-23 | Outpatient (CLI) | payer MEDICARE, SELFPAY ==
[2024-04-23 10:28] LABS: AST(SGOT) 22 U/L (15-37); Alanine Aminotransfer ALT/SGPT 25 U/L (13-56); Albumin, Serum 3.9 g/dL (3.2-5.0); Alkaline Phosphatase 113 U/L (45-117); Bilirubin, Direct 0.16 mg/dL (0.00-0.30); Cholesterol 124 mg/dL (200); Globulin 3.1 g/dL (2.2-4.2); High Density Lipoprotein 55 mg/dL; Triglycerides 92 mg/dL; Very Low Density Lipoprotein 18 mg/dL (5-40)
== END | disposition home or self-care (01) ==
LOC: MTLAB 08:07
PROVIDERS: PCP Family Medicine; Referring Provider Internal Medicine Cardiovascular Disease; Visit Provider Internal Medicine Cardiovascular Disease
DX: I25.10 Atherosclerotic heart disease of native coronary artery without angina pectoris (principal); E78.00 Pure hypercholesterolemia, unspecified
CPT/HCPCS: 36415; 80061; 80076

== ENCOUNTER → 2024-05-11 | Outpatient (CLI) | payer MEDICARE, SELFPAY ==
--- NOTE | 2024-05-11 11:49 | BI_ITS ---
MAMMOGRAPHY - BILATERAL SCREENING REASON FOR EXAM: Female, 68 years old. Routine annual screening examination. PERTINENT HISTORY: Aunt with breast cancer. TECHNIQUE: Digital bilateral breast ramya (3D mammographic acquisition) in the CC and MLO projections. 2-D mediolateral oblique (MLO) and craniocaudad (CC) views of both breasts were obtained. CAD: Full Field Digital Mammography with Computer Added Detection was performed. COMPARISON: Comparison is made with prior study dated May 01, 2023 and April 23, 2022. FINDINGS: Breast Composition: There are scattered areas of fibroglandular density. There are no dominant masses or suspicious calcifications. No other significant abnormalities are identified. There has been no significant change since the prior study. BI/SCRN MAMM (CAD)W/RAMYA BILAT IMPRESSION: Stable bilateral screening mammogram. Yearly follow-up mammogram recommended. (A) ASSESSMENT CATEGORY: BIRADS Category 1: Negative. A letter regarding these results will be sent to the patient by the facility within 30 days. Approximately 10% of breast cancers are not detected by mammography. A normal mammogram should not delay biopsy of a clinically suspicious abnormality. [id number] Electronically Signed: Kevin Cox MD at 13:19 EDT ,
== END | disposition home or self-care (01) ==
LOC: OPBI 11:49
PROVIDERS: PCP Family Medicine; Referring Provider Family Medicine; Visit Provider Family Medicine
DX: Z12.31 Encounter for screening mammogram for malignant neoplasm of breast (principal)
CPT/HCPCS: 77063; 77067

== ENCOUNTER → 2024-06-24 | Outpatient (CLI) | payer MEDICARE, SELFPAY ==
[2024-06-24 12:44] LABS: Anion Gap 7 (5-15); BUN 9 mg/dL (7-18); Calcium,Total 9.1 mg/dL (8.5-10.1); Chloride 95 mmol/L (98-107); Creatinine, Serum 0.75 mg/dL (0.55-1.02); EST Glomerular Filtration Rate 82 mL/min (>60); Est Glom Filt Rate - Afr Amer 99 mL/min (>60); Glucose 72 mg/dL (74-106); Sodium Level 130 mmol/L (136-145)
== END | disposition home or self-care (01) ==
LOC: MTLAB 10:14
PROVIDERS: PCP Family Medicine; Referring Provider Family Medicine; Visit Provider Family Medicine
DX: E87.1 Hypo-osmolality and hyponatremia (principal)
CPT/HCPCS: 36415; 80048

== ENCOUNTER → 2024-07-01 | Outpatient (CLI) | payer MEDICARE, SELFPAY ==
--- NOTE | 2024-07-01 12:32 | BD_ITS ---
STUDY: DUAL ENERGY X-RAY ABSORPTIOMETRY / DXA REASON FOR EXAM: Female, 68 years old. Z78.0 TECHNIQUE: Bone Mineral Density (BMD) measurements of lumbar spine and bilateral hips were obtained. COMPARISON: None. FINDINGS: Lumbar Spine (L1-L4): g/cm2 (0.816) / T-score (-2.2) / Z-score (-0.2) Findings are suggestive of osteopenia with a high fracture risk. Left Femur Total: g/cm2 (0.617) / T-score (-2.7) / Z-score (-1.3) Left Femoral Neck: g/cm2 (0.584) / T-score (-2.4) / Z-score (-0.7) Right Femur Total: g/cm2 (0.607) / T-score (-2.7) / Z-score (-1.4) Right Femoral Neck: g/cm2 (0.553) / T-score (-2.7) / Z-score (-1.0) BD/Dexa Bone Density Study IMPRESSION: The patient is considered osteoporotic as outlined below according to World [employer] Organization (WHO) criteria with a high fracture risk. Reference Information: The T-score is the number of standard deviations above or below the standard which is normal for young adults at their peak bone mineral density. The World Health Organization (WHO) interprets the T-scores as follows: Above -1 Normal bone density Between -1 and -2.5 Osteopenia Equal to / or below -2.5 Osteoporosis As a practical clinical guideline, osteopenia may be graded as follows: Mild -1 through -1.5 Moderate -1.6 through -2.0 Severe -2.1 through -2.4 The Z-score is the number of standard deviations above or below age-matched controls. A Z-score of less than -1.5 would be considered abnormal. References: 1. NIH Osteoporosis and Related Bone Diseases www osteo.org 2. International Society for Clinical Densitometry www iscd.org 3. National Osteoporosis Foundation www nof.org Electronically Signed: Kevin Cox MD at 13:27 EDT ,
== END | disposition home or self-care (01) ==
LOC: OPBD 12:26
PROVIDERS: PCP Family Medicine; Referring Provider Family Medicine; Visit Provider Family Medicine
DX: Z00.00 Encounter for general adult medical examination without abnormal findings (principal); Z78.0 Asymptomatic menopausal state
CPT/HCPCS: 77080

== ENCOUNTER → 2025-05-12 | Outpatient (CLI) | payer MEDICARE, SELFPAY ==
--- OUTSIDE RECORDS SUMMARY | 2025-05-12 08:49 | XMS RPT_ITS | CCD ---
Author Organization [facility] Care Team Providers Care Capacity Manager Name Role Phone RAO Fuchs, Kathy King Unavailable Rivka Garcia Unavailable Unavailable Loraine, Dr. Kamara Primary Care Provider Dr. Asad Baron Referring Provider Dr. Tony Dai Attending Provider Dr. Silvestre Lassiter Attending Provider Dr. Silvestre Lassiter Referring Provider Dr. Silvestre Lassiter Other Provider Asad Baron MD Primary Care Provider Agnes Murguia Unavailable Dr. Asad Baron Primary Care Provider Loraine, Dr. Kamara Referring Provider Alireza GALVAN, SHAHBAZC Alma Attending Provider Asad Baron Primary Care Unavailable Silvestre Lassiter Attending Unavailable Loraine, Asad Referring Unavailable Baron, Asad Primary Care Unavailable Sheri Larsen Attending Unavailable Baron, Asad Referring Unavailable Baron, Asad Primary Care Unavailable Baron, Asad Attending Unavailable Baron, Asad Referring Unavailable Baron, Asad Primary Care Unavailable Baron, Asad Attending Unavailable Baron, Asad Referring Unavailable Baron, Asad Primary Care Unavailable Baron, Asad Attending Unavailable Baron, Asad Referring Unavailable Baron, Asad Attending Unavailable Baron, Asad Referring Unavailable Baron, Asad Primary Care Unavailable Allergies Allergy Classification Reported Allergen(s) Allergy Type Date of Onset Reaction(s) Facility (5 sources) apis mellifera venom; Translations: [BEE STINGS] allergy to substance 6 Swelling [facility] Work Phone: [phone] (2 sources) atorvastatin Drug Allergy 6 Vomiting, diarrhea [facility] Work Phone: [phone] (2 sources) carvedilol Drug Allergy 6 Diarrhea, muscle aches, cough [facility] Work Phone: [phone] (10 sources) cephalexin; Translations: [cephalexin] Drug Allergy 6 Unknown [facility] Work Phone: [phone] (4 sources) Penicillins (Antibiotic) drug allergy 6 Rash, PCN [facility] Work Phone: [phone] (2 sources) BRILLINTA drug allergy 6 red rash [facility] Work Phone: [phone] (7 sources) atorvastatin; Translations: [atorvastatin calcium] Drug Allergy 2 Unknown [facility] (6 sources) carvedilol Drug Allergy 2 myalgias, cough, diarrhea [facility] (6 sources) Latex Allergy to substance 2 rash [facility] (8 sources) Penicillins; Translations: [Penicillins] Allergy to substance 6 Rash [facility] Work Phone: (6 sources) Ticagrelor Drug Allergy 2 rash [facility] (1 source) bee stings [Other] Propensity to adverse reactions 9 Rash, Swelling [facility] Work Phone: (3 sources) venom-honey bee Allergy to substance 2 Swelling [facility] (1 source) carvedilol Drug Allergy 4 [facility] (1 source) Latex Drug allergy (disorder) 4 [facility] (1 source) Ticagrelor Drug Allergy 4 [facility] (1 source) venom-honey bee Drug allergy (disorder) 4 [facility] Medications Current Medications Medication Drug Class(es) Dates Sig (Normalized) Sig (Original) aspirin 81 mg delayed release oral tablet (11 sources) Nonsteroidal Anti-inflammatory Drug Start: 11-21-2015 take 81 mg by mouth once daily Aspirin Active 81 MG PO DAILY November 30, 2015 1:00am Start: 04-25-2009 take 1 tablet by helio th once daily ASPIRIN 81 MG TABS One tablet by mouth daily ASPIRIN [id number] Jelly Redd, RANEJET Comment on above: Take one(1) tablet d aily. biotin 10 mg oral capsule (6 sources) Start: 03-02-20 take 79994 ug by mouth once daily Biotin Active 86851 MCG PO DAILY March 02, 2021 12:00am [id number] 0.3 ml EPINEPHrine 1 mg/ml auto-injector (6 sources) alpha-Adrenergic Agonist, beta-Adrenergic Agonist, Catecholamine Start: 01-14-20 Epinephrine Active 0.3 MG IM every 5 to 15 minutes January 13, 2021 12:00am do not exceed 3 doses per episode levothyroxine sodium 0.05 mg oral tablet (18 sources) l-Thyroxine Start: 01-02-20 End: 02-14-20 22 take 50 ug by mouth once daily Levothyroxine Active 50 MCG PO DAILY February 13, 2022 5:06pm Start: 01-13-2021 End: 01-01-2022 take 50 ug by mouth once daily Levothyroxine Discontin ued 50 MCG PO DAILY January 13, 2021 12:00am January 01, 2022 2:15pm 24 hr metoprolol succinate 25 mg extended release oral tablet (20 sources) beta-Adrenergic Jeanne Start: 07-30-2016 End: 10-29-2023 take 1 tablet by mouth once daily Metoprolol Succinate (Toprol Xl) 25 mg tablet extended release 24 hr Active 25 MG PO daily October 29, 2023 10:37am Comment on above: Take 25 mg by mouth once daily. metroNIDAZOLE 0.0075 mg/mg topical gel (19 sources) Nitroimidazole Antimicrobial Start: 03-02-2021 Metronidazole Active 1 APPLIC TOPICAL DAILY March 02, 2021 12:00am Start: 01-13-2021 End: 03-02-2021 Metronidazole Discontinued G TOPICAL January 13, 2021 12:00am March 02, 2021 11:04am Start: 03-04-2018 End: 01-18-2019 Metronidazole Discontinued T OPICAL 45 March 04, 2018 12:00am January 18, 2019 8:18am metroNIDAZOLE 1 % glwp Apply to affected area. 0 Active Comment on above: Apply to affected ar ea. simvastatin 20 mg oral tablet (20 sources) HMG-CoA Reductase Inhibitor Start: 6 End: 4 take 20 mg by mouth at bedtime Simvastatin Active 20 MG PO AT BEDTIME October 29, 2023 10:37am Comment on above: Take 20 mg by mouth once daily. vitamin b12 5 mg oral capsule (6 sources) Vitamin B12 Start: 1 Cyanocobalamin (Vitamin B-12) Active 5000 MCG PO SA March 02, 2021 12:00am Completed/Discontinued Medications Medication Drug Class(es) Dates Sig (Normalized) Sig (Original) acetaminophen 325 mg / oxyCODONE hydrochloride 5 mg oral tablet (6 sources) Opioid Agonist Start: 06-08-2020 End: 06-14-2020 take 1 tablet by mouth every four hours as needed Oxycodone-Acetamin ophen Discontinued 1 - 2 TABLET PO EVERY 4 HOURS NEEDED 16 04June 08, 2020 June 14, 2020 12:02am atorvastatin 80 mg oral tablet (4 sources) HMG-CoA Reductase Inhibitor Start: 11-21-2015 End: 11-23-2015 take 1 tablet by mouth once daily in the evening ATORVASTATIN CALCIUM 80 MG TABS One tablet by mouth every evening ATORVASTATIN CALCIUM [id number] Jelly Redd RN azithromycin 250 mg oral tablet (6 sources) Macrolide Antimicrobial Start: 01-18-2019 End: 03-05-2019 take 2-5 tablets by mouth once daily Azithromycin (Zithromax Z-Victor Hugo) 250 mg tablet Discontinued 0 PO .COMPLEX January 18, 2019 12:00am March 05, 2019 9:16am take 500 mg today (day 1), then 250 mg for 4 days (days 2-5) carvedilol 6.25 mg oral tablet (14 sources) alpha-Adrenergic Jeanne, beta-Adrenergic Jeanne Start: 11-21-2015 End: 03-03-2018 take 6.25 mg by mouth twice daily Carvedilol Discontinued 6.25 MG PO TWICE A DAY November 30, 2015 1:00am March 03, 2018 9:42am Start: 11-21-2015 End: 07-30-2016 take 1 tablet by mouth twice daily COREG 3.125 MG TABS One tablet by mouth twice daily CARVEDILOL [id number] Silvestre Lassiter MD cholecalciferol 0.05 mg oral capsule (6 sources) Vitamin D Start: 03-02-2021 End: 03-04-2023 take 50 ug by mouth once daily Cholecalciferol (Vitamin D3) Discontinued 50 MCG PO DAILY March 02, 2021 12:00am March 04, 2023 9:08am clopidogrel 75 mg oral tablet (20 sources) P2Y12 Platelet Inhibitor Start: 03-04-2018 End: 03-04-2023 take 1 tablet by mouth three times weekly Clopidogrel Discontinued 0 .ROUTE .COMPLEX 45 April 05, 2022 12:26pm February 09, 2023 11:47pm TAKE 1 TABLET BY MOUTH THREE TIMES A WEEK Start: 03-03-2018 End: 03-04-2018 take 1 tablet by mouth once daily Clopidogrel (Plavix) 75 mg tablet Discontinued 75 MG PO daily March 03, 2018 12:00am March 04, 2018 9:08am Start: 03-20-2016 take 1 tablet by helio th once daily PLAVIX 75 MG TABS One tablet by mouth daily CLOPIDOGREL BISULFATE [id number] Silvestre Lassiter MD doxycycline hyclate 100 mg oral capsule (3 sources) Tetracycline-class Drug Start: 08-11-2022 End: 08-21-2022 take 100 mg by mouth twice daily Doxycycline Hyclate Discontinued 100 MG PO TWICE A DAY 16 08August 11, 2022 12:00am August 21, 2022 12:05am 84 hr estradiol 0.39054 mg/hr transdermal system (10 sources) Estrogen Start: 11-21-2015 End: 12-13-2015 VIVELLE-DOT 0.05 MG/24HR PTTW transdermal as directed ESTRADIOL [id number] Jelly Redd RN Start: 11-01-2015 End: 03-03-2018 Estradiol Discontinued 1 PAT CH November 01, 2015 1:00am March 03, 2018 9:42am flaxseed extract (2 sources) Non-Standardized Food Allergenic Extract, Non-Standardized Plant Allergenic Extract Start: 02-01-2016 take 1 tablet by mouth once daily FLAX SEED OIL CAPS One tablet by mouth daily FLAXSEED (LINSEED) CAPS [id number] Jelly Redd RN Flaxseed Oil oil (1 source) Flaxseed Oil oil linseed oil 1000 mg oral capsule (12 sources) Start: 01-13-2021 End: 03-02-2021 take 1000 mg by mouth twice daily at mealtime Flaxseed Oil Discontinued 1000 MG PO TWICE A DAY January 13, 2021 12:00am March 02, 2021 11:01am administer with meals Start: 01-18-2019 take 1 capsule by mo [facility] once daily Flaxseed Oil ([place]-3 Flaxseed Oil) 1,000 mg capsule Active 1000 MG PO DAILY January 18, 2019 12:00am Multivitamin (Daily Multi-Vitamin) tablet (6 sources) Start: 01-13-2021 End: 03-02-2021 take 1 tablet by mouth once daily Multivitamin (Daily Multi-Vitamin) tablet Discontinued 1 TABLET PO DAILY January 13, 2021 8:07am March 02, 2021 11:02am Start: 01-13-2021 End: 03-02-2021 take 1 tablet by mouth once daily Multivitamin (Daily Multi-Vitamin) tablet Discontinued 1 TABLET PO DAILY January 13, 2021 12:00am March 02, 2021 11:02am multivitamins(DAILY MULTIVITAMIN TAB) (1 source) Start: 04-25-2009 multivitamins(DAILY MULTIVITAMIN TAB) Take one(1) tablet daily. 0 04/25/2009 Active Comment on above: Take one(1) tablet d aily. nitroglycerin 0.4 mg sublingual tablet (20 sources) Nitrate Vasodilator Start: 03-03-2018 End: 03-11-2023 Nitroglycerin (Nitrostat) 0.4 mg tablet, sublingual Discontinued 0.4 MG SL every 5 to 15 minutes October 31, 2021 2:01pm March 11, 2023 4:26pm Start: 11-23-2015 End: 03-03-2018 Nitroglycerin Discontinued Nneka márquez 2015 1:00am March 03, 2018 9:42am Start: 11-23-2015 NITROGLYCERIN 0.4 MG SUBL 1 tablet under the tongue every 5 minutes times 3 as needed for chest pain. NITROGLYCERIN [id number] Silvestre Lassiter MD Comment on above: Dissolve 0.3 mg unde r the tongue every 5 minutes as needed. sulfacetamide sodium 100 mg/ml / sulfur 10 mg/ml medicated liquid soap (1 source) Sulfonamide Antibacterial Sulfacetamide Sodium-Sulfur 10-1 % clsr Apply to affected area. 0 Active Comment on above: Apply to affected ar ea. ticagrelor 90 mg oral tablet (10 sources) Start: 2015 End: 2017 take 90 mg by mouth twice daily Ticagrelor Discontinued 90 MG PO TWICE A DAY November 30, 2015 1:00am March 03, 2018 9:42am triamcinolone acetonide 40 mg/ml injectable suspension (2 sources) Corticosteroid Start: 2017 End: 2017 inject 1 mg by intramuscular injection once Kenalog (triamcinolone acetonide) 10 mg/mL suspension for injection Discontinued 1 MG IM ONCE 0.1 March 03, 2018 2:17pm March 03, 2018 3:00pm Problems Active Problems Problem Classification Problem Date Documented Da te Episodic/Chronic Acute myocardial infarction (2 sources) Acute myocardial infarction of anterolateral wall; Translations: [ST elevation (STEMI) myocardial infarction involving other coronary artery of anterior wall] Onset: 11-21-2015 11-21-2015 Chronic Coronary atherosclerosis and other heart disease (18 sources) Old myocardial infarction; Translations: [Atherosclerotic heart disease of [place] coronary artery without angina pectoris] Onset: 10-28-2015 09-05-2016 Chronic Disorders of lipid metabolism (13 sources) Hyperlipidemia; Translations: [Hyperlipidemia, unspecified] Onset: 02-15-2016 02-15-2016 Chronic Hemorrhoids (2 sources) Internal hemorrhoids; Translations: [Other hemorrhoids] 04-22-2009 Episodic Menopausal disorders (1 source) Menopausal symptom; Translations: [Menopausal and female climacteric states] Onset: 09-08-2009 09-08-2009 Chronic Nonspecific chest pain (1 source) Chest wall pain; Translations: [Other chest pain] 01-31-2024 Episodic Open wounds of extremities (2 sources) Avulsion of skin; Translations: [Unspecified open wound of right thumb without damage to nail, initial encounter] 04-24-2023 Episodic Other circulatory disease (2 sources) Bleeding; Translations: [Hemorrhage, not elsewhere classified] 02-18-2023 Episodic Other screening for suspected conditions (not mental disorders or infectious disease) (11 sources) Patient encounter status; Translations: [Encounter for screening for osteoporosis] Onset: 05-28-2024 08-11-2022 Episodic Other skin disorders (6 sources) Disorder of subcutaneous tissue; Translations: [Disorder of the skin and subcutaneous tissue, unspecified] 02-15-2021 Episodic Other upper respiratory infections (9 sources) Acute maxillary sinusitis; Translations: [Acute maxillary sinusitis, unspecified] 08-11-2022 Episodic Thyroid disorders (8 sources) 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; Translations: [Other specified hypothyroidism] Chronic Unclassified (2 sources) Placement of stent in coronary artery ; Translations: [Presence of coronary angioplasty implant and graft] Onset: 11-21-2015 11-21-2015 Unclassified (2 sources) Long-term drug therapy; Translations: [Other continuous churn buttermaker (current) drug therapy] Onset: 11-21-2015 11-21-2015 Past or Other Problems Problem Classification Problem Date Documented Da te Episodic/Chronic Coronary atherosclerosis and other heart disease (3 sources) Presence of coronary angioplasty implant and graft; Translations: [Percutaneous transluminal coronary angioplasty status] Onset: 6 Episodic Fluid and electrolyte disorders (1 source) Hypo-osmolality and hyponatremia; Translations: [Hypo-osmolality and hyponatremia] Onset: 4 Episodic Other aftercare (2 sources) residential (current) use of antithrombotics/antipl atelets; Translations: [residential (current) use of antithrombotics/antipl atelets] Onset: 6 11-21-2015 Episodic Other connective tissue disease (2 sources) Prepatellar bursitis, right knee; Translations: [Prepatellar bursitis, right knee] Onset: 7 05-09-2017 Episodic Other gastrointestinal disorders (1 source) Diarrhea, unspecified; Translations: [Diarrhea, unspecified] Onset: 4 Episodic Other non-traumatic joint disorders (2 sources) Knee pain; Translations: [Pain in right knee] Onset: 7 04-29-2017 Episodic Residual codes; unclassified (1 source) Family history of malignant neoplasm of gastrointestinal tract; Translations: [Family history of malignant neoplasm of digestive organs] Onset: 9 04-25-2009 Episodic Superficial injury; contusion (2 sources) Contusion of right knee, initial encounter; Translations: [Contusion of right knee, initial encounter] Onset: 7 05-09-2017 Episodic Unclassified (2 sources) Family history of ischemic heart disease and other diseases of the circulatory system; Translations: [Family history of ischemic heart disease and other diseases of the circulatory system] 11-23-2015 Episodic Results Test Name Value Interpretation Reference Range Facility Gastroenterology Visit Repor ton 07-29-2024 Gastroenterology Visit Report [facility] [address] [place] [address] OFFICE VISIT Date of Service: 07/29/24 MR#: [id number] Acct: [id number] Name: IVETTE ACEVEDO Rep #: [id number] : 1955 Provider: LAWRENCE Luz Age/Sex: 68/F [place] [facility] [place]: Signed Intake Vital Signs 03/04/23 09:05 05/22/24 13:07 Height 5 ft 6 in 5 ft 5 in Intake Visit Reasons: Diarrhea Chief Complaint: establishment Allergies cephalexin Allergy (Verified 05/22/24 13:09) Unknown latex Allergy (Verified 05/22/24 13:09) rash Penicillins Allergy (Verified 05/22/24 13:09) Unknown venom-honey bee Allergy (Verified 05/22/24 13:09) Swelling atorvastatin calcium (From Lipitor) Adverse Reaction (Verified 05/22/24 13:09) Unknown carvedilol (From Coreg) Adverse Reaction (Verified 05/22/24 13:09) myalgias, cough, diarrhea ticagrelor (From Brilinta) Adverse Reaction (Verified 05/22/24 13:09) rash Medications ???Medication ???Instructions ???Recorded ???Confirmed ???Type aspirin 81 mg tablet,delayed 81 mg PO DAILY 11/30/15 07/29/24 History release flaxseed oil 1,000 mg capsule 1,000 mg PO DAILY 01/18/19 07/29/24 History ([place]-3 Flaxseed Oil) epinephrine 0.3 mg/0.3 mL 0.3 mg IM Q5-15M PRN Allergy 01/13/21 07/29/24 History injection, auto-injector Symptoms biotin 10,000 mcg capsule 10,000 mcg PO DAILY 03/02/21 07/29/24 History cyanocobalamin (vitamin B-12) 5,000 mcg PO SA 03/02/21 07/29/24 History 5,000 mcg capsule metronidazole 0.75 % topical gel 1 applic topical DAILY PRN Rash 03/02/21 07/29/24 History levothyroxine 50 mcg tablet 50 mcg PO DAILY #90 tabs 02/13/22 07/29/24 Rx nitroglycerin 0.4 mg sublingual 0.4 mg sublingual Q5-15M PRN chest 03/11/23 07/29/24 Rx tablet (Nitrostat) pain #25 tabs metoprolol succinate 25 mg 25 mg PO QDAY #90 tabs 10/29/23 07/29/24 Rx tablet,extended release 24 hr (Toprol XL) simvastatin 20 mg tablet 20 mg PO QHS #90 tabs 10/29/23 07/29/24 Rx Have you fallen in the past year?: No PFSH Medical History Rosacea Ganglion Constipation Screening for osteoporosis History of ST elevation myocardial infarction (STEMI) (11/01/15) 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 Bleeding disorder Arthritis Hematoma 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) HLD (hyperlipidemia) Atherosclerotic heart disease of [place] coronary artery without angina pectoris Surgical History history excision buttock mass (06/08/20) History of hysterectomy (1995) History of coronary artery stent placement (11/01/15) Family History Father Myocardial infarction Heart disease Mother Colon cancer Aunt CAD (coronary artery disease) hx cardiac stents Other Cancer Melanoma Social History Smoking Status: Never smoker alcohol intake: never substance use type: does not use caffeine: Yes Type: coffee what type of physical activity do you participate in: weight training and other details: cardio frequency: 3-4 times per week duration: 30-45 minutes/day seatbelt use: always do you feel safe at home: Yes HPI HPI Chief Complaint: establishment Details: IVETTE ACEVEDO, is a 68 F who presents to the office today for establishment with [facility]. Pt was previously seeing Dr. Rendon but wanted to move her care here. She has a family hx of colon cancer and has been having screening colonoscopies since age 41. Her mother was diagnosed with colon cancer at age 49 and 7 years later. Her last colonoscopy was in Nov. She has no complaints today. She denies abdominal pain, n/v, diarrhea, heartburn, constipation or diarrhea. ROS Const Constitutional: No fatigue, fever(s) or weight change ENT ENT: No difficulty swallowing Gastro GI: No abdominal pain, belching, bloating, change in bowel habits, change in stool character, coffee ground emesis, constipation, cramping, diarrhea, heartburn, difficulty swallowing, feeling full early, excessive flatus, incontinent of stools, Vomiting blood/hematemesis, Blood in stool, loose stools, Black,tarry stools, nausea/dyspepsia, pain with swallowing, vomiting or other Musc Musculoskeletal: Positive for back pain; No joint pain Skin Skin: No yellowing of the eye or itchy eyes Psych Psychiatric: No anxiety and No depression Endo Endocrine: No fatigue or weight change Aller/Imm Allergy/Immunologic: No itchy eyes Geovany/Lymp Hematologic/Lymphati c: No easy bleeding or easy bruising Exam Const General: cooperative and comfortable Nutritional Appearance: average body habitus and well nourished [facility] Head: (more content not included)... Normal [facility] Dexa Bone Density Studyon Dexa Bone Density Study [facility] Imaging Services [address] [place], [place] [id number] Dexa Bone Density Study MR#: [id number] Acct: [id number] Name: IVETTE ACEVEDO Rep #: [id number] : 1955 F 68 From: Kevin saravia MD PCP: Dr. Asad Baron MD Status: REG CLI Study: Dexa Bone Density Study Date of Exam: 07/01/24 Exam# [id number] Ordering Dr: Asad Baron MD [id number] STUDY: DUAL ENERGY X-RAY ABSORPTIOMETRY / DXA REASON FOR EXAM: Female, 68 years old. Z78.0 TECHNIQUE: Bone Mineral Density (BMD) measurements of lumbar spine and bilateral hips were obtained. COMPARISON: None. FINDINGS: Lumbar Spine (L1-L4): g/cm2 (0.816) / T-score (-2.2) / Z-score (-0.2) Findings are suggestive of osteopenia with a high fracture risk. Left Femur Total: g/cm2 (0.617) / T-score (-2.7) / Z-score (-1.3) Left Femoral Neck: g/cm2 (0.584) / T-score (-2.4) / Z-score (-0.7) Right Femur Total: g/cm2 (0.607) / T-score (-2.7) / Z-score (-1.4) Right Femoral Neck: g/cm2 (0.553) / T-score (-2.7) / Z-score (-1.0) BD/Dexa Bone Density Study IMPRESSION: The patient is considered osteoporotic as outlined below according to World [employer] Organization (WHO) criteria with a high fracture risk. Reference Information: The T-score is the number of standard deviations above or below the standard which is normal for young adults at their peak bone mineral density. The World Health Organization (WHO) interprets the T-scores as follows: Above -1 Normal bone density Between -1 and -2.5 Osteopenia Equal to / or below -2.5 Osteoporosis As a practical clinical guideline, osteopenia may be graded as follows: Mild -1 through -1.5 Moderate -1.6 through -2.0 Severe -2.1 through -2.4 The Z-score is the number of standard deviations above or below age-matched controls. A Z-score of less than -1.5 would be considered abnormal. References: 1. NIH Osteoporosis and Related Bone Diseases www osteo.org 2. International Society for Clinical Densitometry www iscd.org 3. National Osteoporosis Foundation www nof.org Electronically Signed: Kevin Cox MD at 13:27 EDT , CC: Dr. Asad Baron MD Data Reporting Analyst: Signed Normal [facility] Basic Metabolic Profile (BMP )on 06-24-2024 BUN/CRE 12.0 RATIO Normal 10-20 [facility] Comment on above: Performed By: #### L 500.2500 #### [facility] [address] [place], [address] CA,Total 9.1 mg/dL Normal 8.5-10.1 [facility] Comment on above: Performed By: #### L 500.2500 #### [facility] [address] [place], [address] Chloride [Moles/Vol] 95 mmol/L Low 98-107 [facility] Comment on above: Performed By: #### L 500.2500 #### [facility] [address] [place], [address] CO2 [Moles/Vol] 28.0 mmol/L Normal 21.0-32.0 [facility] Comment on above: Performed By: #### L 500.2500 #### [facility] [address] [place], [address] Creatinine [Mass/Vol] 0.75 mg/dL Normal 0.55-1.02 [facility] Comment on above: Result Comment: The validity of the calculated GFR GFRAA in patients over 70 years has not been determined. Clinical correlation is essential. Performed By: #### L 500.2500 #### [facility] [address] [place], [address] EST GFR - AA 99 mL/min Normal >60 [facility] Comment on above: Result Comment: Afri can [place] GFR Calc Performed By: #### L 500.2500 #### [facility] [address] [place], [address] GAP 7 Normal 5-15 [facility] Comment on above: Performed By: #### L 500.2500 #### [facility] [address] [place], [address] GFR/1.73 sq M.predicted among non-blacks MDRD (S/P/Bld) [Vol rate/Area] 82 mL/min/{1.73_m2} Normal >60 [facility] Comment on above: Result Comment: Non- GFR Calc Performed By: #### L 500.2500 #### [facility] [address] [place], [address] Glucose [Mass/Vol] 72 mg/dL Low 74-106 [facility] Comment on above: Performed By: #### L 500.2500 #### [facility] [address] [place], [address] Potassium [Moles/Vol] 4.0 mmol/L Normal 3.5-5.1 [facility] Comment on above: Performed By: #### L 500.2500 #### [facility] [address] [place], [address] Sodium [Moles/Vol] 130 mmol/L Low 136-145 [facility] Comment on above: Performed By: #### L 500.2500 #### [facility] [address] [place], [address] Urea nitrogen [Mass/Vol] 9 mg/dL Normal 7-18 [facility] Comment on above: Performed By: #### L 500.2500 #### [facility] [address] [place], [address] Cardiology Visit Reporton Cardiology Visit Report [facility] [address] [place] [address] OFFICE VISIT Date of Service: 05/22/24 MR#: [id number] Acct: [id number] Name: IVETTE ACEVEDO Rep #: [id number] : 1955 Provider: Dr. Silvestre Lassiter MD Age/Sex: 68/F Location: [facility] Status: Signed HPI HPI History of Present Illness Details: Ms. acevedo is a pleasant 68-year-old lady who presents to the office for a cardiovascular follow-up visit. She has a history of previous anterolateral myocardial infarction in October 2015.??? She had an LAD with a 90% stenosis, and a circumflex artery with an 80% stenosis for which she underwent angioplasty and stenting.??? She has been doing quite well.??? 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 Her last stress test did not demonstrate any evidence of ischemia she has been on a plant-based diet. She is tolerating this well. From a cardiac standpoint, the patient is doing well. She denies any palpitations, chest pain, pressure or heaviness. She denies SOB, Orthopnea, and PND. She states she was recently in the ER for a cut on her finger that she could not get to stop bleeding. She denies blood in urine, stool or nosebleeds. She denies any decrease in energy level, myalgias, or claudication. She does not have edema, or sudden weight gain. She denies dizziness, lightheadedness, syncopal or near syncopal episodes, and headaches. 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 Radioactive Waste Disposal Required: No Accompanied by: Self Is patient in pain?: No Allergies cephalexin Allergy (Verified 05/22/24 13:09) Unknown latex Allergy (Verified 05/22/24 13:09) rash Penicillins Allergy (Verified 05/22/24 13:09) Unknown venom-honey bee Allergy (Verified 05/22/24 13:09) Swelling atorvastatin calcium (From Lipitor) Adverse Reaction (Verified 05/22/24 13:09) Unknown carvedilol (From Coreg) Adverse Reaction (Verified 05/22/24 13:09) myalgias, cough, diarrhea ticagrelor (From Brilinta) Adverse Reaction (Verified 05/22/24 13:09) rash Medications ???Medication ???Instructions ???Recorded ???Confirmed ???Type aspirin 81 mg tablet,delayed 81 mg PO DAILY 11/30/15 05/22/24 History release flaxseed oil 1,000 mg capsule 1,000 mg PO DAILY 01/18/19 05/22/24 History ([place]-3 Flaxseed Oil) epinephrine 0.3 mg/0.3 mL 0.3 mg IM Q5-15M PRN Allergy 01/13/21 05/22/24 History injection, auto-injector Symptoms biotin 10,000 mcg capsule 10,000 mcg PO DAILY 03/02/21 05/22/24 History cyanocobalamin (vitamin B-12) 5,000 mcg PO SA 03/02/21 05/22/24 History 5,000 mcg capsule metronidazole 0.75 % topical gel 1 applic topical DAILY PRN Rash 03/02/21 05/22/24 History levothyroxine 50 mcg tablet 50 mcg PO DAILY #90 tabs 02/13/22 05/22/24 Rx nitroglycerin 0.4 mg sublingual 0.4 mg sublingual Q5-15M PRN chest 03/11/23 05/22/24 Rx tablet (Nitrostat) pain #25 tabs metoprolol succinate 25 mg 25 mg PO QDAY #90 tabs 10/29/23 05/22/24 Rx tablet,extended release 24 hr (Toprol XL) simvastatin 20 mg tablet 20 mg PO QHS #90 tabs 10/29/23 05/22/24 Rx Have you fallen in the past year?: No PFSH Medical History Rosacea Ganglion Constipation Screening for osteoporosis History of ST elevation myocardial infarction (STEMI) (11/01/15) 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 Bleeding disorder Arthritis Hematoma 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) HLD (hyperlipidemia) Atherosclerotic heart disease of [place] coronary artery without angina pectoris Surgical History history excision buttock mass (06/08/20) History of hysterectomy (1995) History of coronary artery stent placement (11/01/15) Family History Father Myocardial infarction Heart disease Mother Colon cancer Aunt CAD (coronary artery disease) hx cardiac stents Other Cancer Melanoma Social History Smoking Status: Never smoker alcohol intake: never substance use type: does not use caffeine: Yes Type: coffee what type of physical activity do you participate in: weight training and other details: cardio frequency: 3-4 times per week duration: 30-45 minutes/day seatbelt use: always do you feel safe at home: Yes ROS Const Const: Negative for fatigue, weakness, headache(s), daytime sleepiness or difficulty sleeping ENT ENT: Negative for headache(s), d (more content not included)... Normal [facility] SCRN MAMM (CAD)W/RAMYA BILATo n 05-11-2024 SCRN MAMM (CAD)W/RAMYA BILAT [facility] Imaging Services [address] [place] [address] SCRN MAMM (CAD)W/RAMYA BILAT MR#: [id number] Acct: [id number] Name: IVETTE ACEVEDO Rep #: [id number] : 1955 F 68 From: Kevin saravia MD PCP: Dr. Asad Baron MD Status: REG CLI Study: SCRN MAMM (CAD)W/RAMYA BILAT Date of Exam: 04/27 03/20 Exam# [id number] Ordering Dr: Asad Baron MD [id number] MAMMOGRAPHY - BILATERAL SCREENING REASON FOR EXAM: Female, 68 years old. Routine annual screening examination. PERTINENT HISTORY: Aunt with breast cancer. TECHNIQUE: Digital bilateral breast ramya (3D mammographic acquisition) in the CC and MLO projections. 2-D mediolateral oblique (MLO) and craniocaudad (CC) views of both breasts were obtained. CAD: Full Field Digital Mammography with Computer Added Detection was performed. COMPARISON: Comparison is made with prior study dated May 01, 2023 and April 23, 2022. FINDINGS: Breast Composition: There are scattered areas of fibroglandular density. There are no dominant masses or suspicious calcifications. No other significant abnormalities are identified. There has been no significant change since the prior study. BI/SCRN MAMM (CAD)W/RAMYA BILAT IMPRESSION: Stable bilateral screening mammogram. Yearly follow-up mammogram recommended. (A) ASSESSMENT CATEGORY: BIRADS Category 1: Negative. A letter regarding these results will be sent to the patient by the facility within 30 days. Approximately 10% of breast cancers are not detected by mammography. A normal mammogram should not delay biopsy of a clinically suspicious abnormality. [id number] Electronically Signed: Kevin Cox MD at 13:19 EDT , CC: Dr. Asad Baron MD Data Reporting Analyst: Signed Normal [facility] Absolute lymphocyte countOrd ered By: Italia Guerrero on 01-31-2024 Lymphocytes Auto (Unsp spec) [#/Vol] 1.70 10*3/uL 0.83-4.51 [facility] Automated lymphocyte count a s percentage of total leukocytesOrdered By: Italia Guerrero on 01-31-2024 Lymphocytes/100 WBC Auto (Unsp spec) 28.2 % 19-41 [facility] Basophil percentageOrdered B y: Italia Guerrero on 01-31-2024 Basophils/100 WBC (Bld) 0.5 % 0-1 [facility] Chloride [Moles/Vol] 97 mmol/L 98-107 [facility] Eosinophils/100 WBC (Bld) 1.0 % 0-5 [facility] Glucose [Mass/Vol] 105 mg/dL 74-106 [facility] Comment on above: Fasting Glucose resu lt from 100 to 125 mg/dL suggests IMPAIRED HOMEOSTASIS per A.D.A. criteria. Hemoglobin (Bld) [Mass/Vol] 12.1 g/dL 12.0-15.0 [facility] Monocytes/100 WBC (Bld) 7.6 % 0-10 [facility] Neutrophils (Bld) [#/Vol] 3.8 10*3/uL 2.0-7.7 [facility] Neutrophils/100 WBC (Bld) 62.4 % 47-70 [facility] Potassium [Moles/Vol] 4.1 mmol/L 3.5-5.1 [facility] Sodium [Moles/Vol] 129 mmol/L 136-145 [facility] WBC (Bld) [#/Vol] 6.0 10*3/uL 4.4-11.0 [facility] Determination of erythrocyte mean corpuscular volume (MCV)Ordered By: Italia Guerrero on 01-31-2024 MCV (RBC) [Entitic vol] 86.2 fL 81-99 [facility] Erythrocyte distribution wid th ratioOrdered By: Italia Guerrero on 01-31-2024 Erythrocyte distribution width (RBC) [Ratio] 12.1 % 11.6-14.6 [facility] Erythrocyte distribution wid th standard deviationOrdered By: Italia Guerrero on 01-31-2024 Erythrocyte distribution width (RBC) [Entitic vol] 38.4 fL 35.1-43.9 [facility] Hematocrit Auto (Bld) [Volum e fraction]Ordered By: Italia Guerrero on 01-31-2024 Hematocrit (Bld) [Volume fraction] 35.6 % 37-47 [facility] Immature granulocytes/100 WB C Auto (Bld)Ordered By: Italia Guerrero on 01-31-2024 Immature granulocytes/100 WBC (Bld) 0.300 % 0.0-0.9 [facility] Comment on above: IG% - Immature Granu locytes (promyelocytes, myelocytes and metamyelocytes) > 1% indicates that a LEFT SHIFT is Present. Laboratory - Chemistry and C hemistry - challengeOrdered By: Italia Guerrero on 01-31-2024 CO2 [Moles/Vol] 27.0 mmol/L 21.0-32.0 [facility] Urea nitrogen/Creatinine [Mass ratio] 11.3 mg/mg 10-20 [facility] - Hematology and Cell countsOrdered By: Italia Guerrero on 01-31-2024 MCH (RBC) [Entitic mass] 29.3 pg 27.0-32.0 [facility] MCHC (RBC) [Mass/Vol] 34.0 g/dL 32-36 [facility] Nucleated RBC/100 WBC (Bld) [Ratio] 0 % 0-5 [facility] Platelet mean volume (Bld) [Entitic vol] 9.1 fL 6.2-12.0 [facility] Platelets (Bld) [#/Vol] 276 10*3/uL 150-450 [facility] No Panel InformationOrdered By: Italia Guerrero on 01-31-2024 Estimated Creatinine Clearance Calc 58.28 ml/min [facility] Estimated GFR (MDRD) Amer 106 mL/min >60 [facility] Comment on above: GFR Calc Estimated GFR (MDRD) Non-Af Amer 88 mL/min >60 [facility] Comment on above: Non- GFR Calc Troponin I High Sensitivity 6 pg/mL 3.0-54.0 [facility] Comment on above: Please Note: New Laure t Units and Gender Specific Reference Ranges. For more information see Policy Stat Procedure [place] High Sensitivity Troponin (TNIH) and attachments. RBC Auto (Bld) [#/Vol]Ordere d By: Italia Guerrero on 01-31-2024 RBC (Bld) [#/Vol] 4.13 10*6/uL 4.2-5.[address] [facility] Serum or plasma calcium anderson urement (mass/volume)Ordered By: Italia Guerrero on 01-31-2024 Calcium [Mass/Vol] 8.8 mg/dL 8.5-10.1 [facility] Serum or plasma creatinine m easurement (mass/volume)Ordered By: Italia Guerrero on 01-31-2024 Creatinine [Mass/Vol] 0.70 mg/dL 0.55-1.02 [facility] Comment on above: The validity of the calculated GFR & GFRAA in patients over 70 years has not been determined. Clinical correlation is essential. Serum or plasma urea nitroge n measurement (mass/volume)Ordered By: Italia Guerrero on 01-31-2024 Urea nitrogen [Mass/Vol] 8 mg/dL 7-18 [facility] Thin prep Papanicolaou smear with manual screeningOrdered By: Italia Guerrero on 01-31-2024 Thin prep Papanicolaou smear with manual screening 5 5-15 [facility] Basophil percentageOrdered B y: Dr. Baron on 02-01-2023 Bilirubin [Mass/Vol] 0.50 mg/dL 0.20-1.00 [facility] Comment on above: For patients on eltr ombopag therapy, use of Dimension [place] TBIL is not recommended. Chloride [Moles/Vol] 102 mmol/L 98-107 [facility] Cholesterol [Mass/Vol] 123 mg/dL <200 [facility] Comment on above: <200 mg/dL Desirable 200-240 mg/dL Borderline >240 mg/dL High Risk Glucose [Mass/Vol] 87 mg/dL 74-106 [facility] Potassium [Moles/Vol] 4.2 mmol/L 3.5-5.1 [facility] Protein [Mass/Vol] 7.1 g/dL 6.4-8.2 [facility] Sodium [Moles/Vol] 137 mmol/L 136-145 [facility] Triglyceride [Mass/Vol] 75 mg/dL <199 [facility] Comment on above: The drugs N-Acetylcy steine and Metamizole may falsely depress this assay.Serum Triglycerides Reference Interval Normal <150 mg/dL Borderline high 150 - 199 mg/dL High 200 - 499 mg/dL Very High > or = 500 mg/dL Direct bilirubinOrdered By: Dr. Baron on 02-01-2023 Bilirubin.direct [Mass/Vol] 0.15 mg/dL 0.00-0.30 [facility] - Chemistry and C hemistry - challengeOrdered By: Dr. Baron on 02-01-2023 ALP [Catalytic activity/Vol] 101 U/L 45-117 [facility] ALT [Catalytic activity/Vol] 24 U/L 13-56 [facility] CO2 [Moles/Vol] 29.0 mmol/L 21.0-32.0 [facility] Free T4 [Mass/Vol] 1.22 ng/dL 0.76-1.46 [facility] Globulin (S) [Mass/Vol] 3.2 g/dL 2.2-4.2 [facility] Urea nitrogen/Creatinine [Mass ratio] 13.5 mg/mg 10-20 [facility] No Panel InformationOrdered By: Dr. Baron on 02-01-2023 Estimated GFR (MDRD) Amer 101 mL/min >60 [facility] Comment on above: GFR Calc Estimated GFR (MDRD) Non-Af Amer 83 mL/min >60 [facility] Comment on above: Non- GFR Calc Free Triiodothyronine (T3) pg/dL 2.7 pg/mL 2.18-3.98 [facility] Thyroid Stimulating Hormone (TSH) 1.28 uIU/mL 0.358-3.74 [facility] Serum or plasma albumin anderson urement (mass/volume)Ordered By: Dr. Baron on 02-01-2023 Albumin [Mass/Vol] 3.9 g/dL 3.2-5.0 [facility] Serum or plasma albumin/glob ulin mass ratioOrdered By: Dr. Baron on 02-01-2023 Albumin/Globulin [Mass ratio] 1.2 {ratio} 0.9-2.4 [facility] Serum or plasma calcium anderson urement (mass/volume)Ordered By: Dr. Baron on 02-01-2023 Calcium [Mass/Vol] 9.1 mg/dL 8.5-10.1 [facility] Serum or plasma cholesterol in HDL measurement (mass/volume)Ordered By: Dr. Baron on 02-01-2023 Cholesterol in HDL [Mass/Vol] 51 mg/dL >40 [facility] Comment on above: The drugs N-Acetylcy steine and Metamizole may falsely depress this assay. Reference Range HDL <40 mg/dL Low HDL Cholesterol HDL >or= 60 mg/dL High HDL Cholesterol Serum or plasma cholesterol in VLDL measurement (mass/volume)Ordered By: Dr. Baron on 02-01-2023 Cholesterol in VLDL [Mass/Vol] 15 mg/dL 5-40 [facility] Serum or plasma creatinine m easurement (mass/volume)Ordered By: Dr. Baron on 02-01-2023 Creatinine [Mass/Vol] 0.74 mg/dL 0.55-1.02 [facility] Comment on above: The validity of the calculated GFR & GFRAA in patients over 70 years has not been determined. Clinical correlation is essential. Serum or plasma low density lipoprotein (LDL) cholesterol measurement (mass/volume)Ordered By: Dr. Baron on 02-01-2023 Cholesterol in LDL [Mass/Vol] 57 mg/dL 0-130 [facility] Serum or plasma urea nitroge n measurement (mass/volume)Ordered By: Dr. Baron on 02-01-2023 Urea nitrogen [Mass/Vol] 10 mg/dL 7-18 [facility] Thin prep Papanicolaou smear with manual screeningOrdered By: Dr. Baron on 02-01-2023 Thin prep Papanicolaou smear with manual screening 23 U/L 15-37 [facility] Thin prep Papanicolaou smear with manual screening 6 5-15 [facility] CNPNon 04-09-2022 CNPN Telephone ([facility]) IVETTE ACEVEDO ([id number]) 1955 F Date Time Provider Department 04/09/22 ARPITA JAIMES During your visit today, we recorded the following information about you: Rom Montiel 04/09/2022 2:06 PM Signed Patient needs all mammograms sent to [facility] to their imaging dept. Thank you. Arpita Jaimes, PSS 04/09/2022 3:23 PM Signed Sent the last 2 yrs to [facility] release in syngo Allergies As of Date: 04/09/2022 Noted Allergy Reaction bee stings [Other] 09/08/2009 2 - Rash 7 - Swelling CEPHALEXIN 01/06/2018 16 - Unknown PENICILLINS 06/06/2006 2 - Rash Date Reviewed: 10/03/2018 Reviewed by: Stacy Galvin MA - Fully Assessed Reason for Visit: Mammogram Request [Other] Prescriptions as of 04/13/2022 - metroNIDAZOLE 1 % glwp Apply to affected area. - Sulfacetamide Sodium-Sulfur 10-1 % clsr Apply to affected area. - Flaxseed Oil oil - metoprolol succinate ER (TOPROL XL) 25 mg 24 hr tablet Take 25 mg by mouth once daily. - NITROSTAT 0.3 mg SL tablet Dissolve 0.3 mg under the tongue every 5 minutes as needed. - simvastatin (ZOCOR) 20 mg tablet Take 20 mg by mouth once daily. - multivitamins(DAILY MULTIVITAMIN TAB) Take one(1) tablet daily. - ASPIRIN 81 MG TAB Take one(1) tablet daily. Problem List As Of Date 04/09/2022 Noted Resolved Unspecified constipation [K59.00] 09/12/2010 INT HEMORRHOID W/O COMPL [K64.8] EXT HEMORRHOID W/O COMPL [K64.4] FAMILY HX GI MALIGNANCY [Z80.0] 04/25/2009 Symptomatic Menopausal or Female Climacteric St*09/08/2009 Encounter Status:Closed by ROM MONTIEL on 04/13/22 [facility] Basophil percentageon 2021 Bilirubin [Mass/Vol] 0.30 mg/dL 0.20-1.00 [facility] Work Phone: Comment on above: For patients on eltr ombopag therapy, use of Dimension [place] TBIL is not recommended. Cholesterol [Mass/Vol] 131 mg/dL <200 [facility] Work Phone: [phone] Comment on above: <200 mg/dL Desirable 200-240 mg/dL Borderline >240 mg/dL High Risk Protein [Mass/Vol] 6.8 g/dL 6.4-8.2 [facility] Work Phone: [phone] Triglyceride [Mass/Vol] 138 mg/dL <199 [facility] Work Phone: [phone] Comment on above: The drugs N-Acetylcy steine and Metamizole may falsely depress this assay.Serum Triglycerides Reference Interval Normal <150 mg/dL Borderline high 150 - 199 mg/dL High 200 - 499 mg/dL Very High > or = 500 mg/dL Direct bilirubinon Bilirubin.direct [Mass/Vol] 0.08 mg/dL 0.00-0.30 [facility] Work Phone: [phone] Laboratory - Chemistry and C hemistry - challengeon 02-13-2022 ALP [Catalytic activity/Vol] 114 U/L 45-117 [facility] Work Phone: [phone] ALT [Catalytic activity/Vol] 28 U/L 13-56 [facility] Work Phone: [phone] Free T4 [Mass/Vol] 1.14 ng/dL 0.76-1.46 [facility] Work Phone: [phone] Globulin (S) [Mass/Vol] 3.2 g/dL 2.2-4.2 [facility] Work Phone: [phone] No Panel Informationon 02-13 Thyroid Stimulating Hormone (TSH) 0.77 uIU/mL 0.358-3.74 [facility] Work Phone: [phone] Serum or plasma albumin anderson urement (mass/volume)on 02-13-2022 Albumin [Mass/Vol] 3.6 g/dL 3.2-5.0 [facility] Work Phone: [phone] Serum or plasma cholesterol in HDL measurement (mass/volume)on 02-13-2022 Cholesterol in HDL [Mass/Vol] 45 mg/dL >40 [facility] Work Phone: Comment on above: The drugs N-Acetylcy steine and Metamizole may falsely depress this assay. Reference Range HDL <40 mg/dL Low HDL Cholesterol HDL >or= 60 mg/dL High HDL Cholesterol Serum or plasma cholesterol in VLDL measurement (mass/volume)on 02-13-2022 Cholesterol in VLDL [Mass/Vol] 28 mg/dL 5-40 [facility] Work Phone: Serum or plasma low density lipoprotein (LDL) cholesterol measurement (mass/volume)on 02-13-2022 Cholesterol in LDL [Mass/Vol] 58 mg/dL 0-130 [facility] Work Phone: Thin prep Papanicolaou smear with manual screeningon 02-13-2022 Thin prep Papanicolaou smear with manual screening 17 U/L 15-37 [facility] Work Phone: [facility] 04-21-2021 [facility] HNO ID: [id number] Author: Mammography Coordinator Service: ? Author Type: Physician Type: Letter Filed: 04/24/2021 11:35 PM Note Text: April 21, 2021 PID: [id number] Ivette Acevedo [address] [place] [address] Dear Ms. Acevedo, We are pleased to inform you that the results of your recent breast imaging exam on 04/21/2021 are normal. Early detection of cancer is very important. We also understand recommendations regarding breast cancer screening are controversial. Please discuss with your primary care provider which strategy is best for you and whether a mammogram is right for you. Your imaging studies and report will be kept on file at [facility] as part of your permanent medical record and are available for your continuing care. Thank you for allowing us to help in meeting your health care needs. Sincerely, Dr. Perrin Interpreting Radiologist [facility] (Normal over 40) Normal [facility] SCREENING W TOMOon 04-21 CHUY SCREENING W RAMYA * * *Final Report* * * DATE OF EXAM: Apr 21 2021 10:00AM WRW [id number] - [facility] SCREENING W RAMYA / PROCEDURE REASON: breast cancer screening * * * * Physician Interpretation * * * * RESULT: #[id number] - [facility] SCREENING W RAMYA BILATERAL DIGITAL SCREENING MAMMOGRAM TOMOSYNTHESIS WITH CAD: 04/21/2021 HISTORY: Screening Mammogram with RAMYA - patient reports NO breast symptoms. RESULT: TECHNIQUE: The study was acquired using full field digital technology and interpreted from soft copy. Digital Breast Tomosynthesis (DBT) images were obtained and used to assist in the interpretation of this examination. Current study was also evaluated with a Computer Aided Detection (CAD). Comparison is made to exams dated: 04/01/2020 mammogram - [facility], 01/13/2019 mammogram, 01/06/2018 mammogram, 12/26/2015 mammogram, and 11/11/2014 mammogram - [facility]. There are scattered fibroglandular elements in both breasts. No significant masses, calcifications, or other findings are seen in either breast. There has been no significant interval change. IMPRESSION: NEGATIVE There is no mammographic evidence of malignancy. A 1 year screening mammogram is recommended. Lottie Perrin M.D. fa/penrad:04/21/2021 11:37:49 Rail Grinder(s): Brissa Hernandez RT(R)(M), [facility] letter sent: Normal over 40 Mammogram BI-RADS: 1 Negative Multiple national specialty organizations have released breast cancer screening guidelines for women at average risk for developing breast cancer - guidelines that are based on both evidence and opinion, yet differ on when to start and how often to screen for breast cancer. With representation from Breast Imaging, Internal Medicine, Women's Health, Family Medicine, and Medical/Surgical Oncology, the [facility] has carefully reviewed the data and reached the following consensus: 1) All women should engage in shared decision-making with their providers to decide when to start and how often to screen; 2) All women should have the opportunity to start screening mammography at age 40; 3) For women ages 45-55, we recommend annual screening mammograms; 4) For women ages 55 and over, we support both the transition from an annual to a biennial interval if this aligns more with patient's values and preferences, or continuation with annual screening; 5) All women should discuss with their providers when to stop screening mammograms. Data Reporting Analyst: Lyndsey Transcribe Date/Time: Apr 21 2021 9:22A Dictated by: LOTTIE PERRIN MD This examination was interpreted and the report reviewed and electronically signed by: LOTTIE PERRIN MD on Apr 21 2021 11:37AM EST [id number] CN Normal [facility] Lab Report: Lipid Profileon 09-06-2017 Cholesterol 139 mg/dL Invalid Interpretation Code 200 [employer] Work Phone: [phone] HDL Cholesterol 62 mg/dL Invalid Interpretation Code [employer] Work Phone: [phone] LDL Cholesterol 59 mg/dL Invalid Interpretation Code 0-130 [employer] Work Phone: [phone] Triglyceride 92 mg/dL Invalid Interpretation Code [employer] Work Phone: [phone] very low density lipoproteins 18 mg/dL Invalid Interpretation Code 5-40 [employer] Work Phone: [phone] Lab Report: Liver Profileon 09-06-2017 Alanine aminotransferase (ALT) 22 U/L Invalid Interpretation Code 12-78 [employer] Work Phone: [phone] Albumin 4.0 g/dL Invalid Interpretation Code 3.4-5.0 [employer] Phone: [phone] Alkaline phosphatase (ALP) 96 U/L Invalid Interpretation Code 45-117 [employer] Phone: [phone] Aspartate aminotransferase (AST) 17 U/L Invalid Interpretation Code 15-37 [employer] Phone: [phone] Bilirubin (direct) 0.15 mg/dL Invalid Interpretation Code 0.00-0.30 [employer] Work Phone: [phone] Bilirubin (total) 0.60 mg/dL Invalid Interpretation Code 0.20-1.00 [employer] Work Phone: [phone] Globulin 3.3 g/dL Invalid Interpretation Code 2.2-4.2 [employer] Phone: [phone] Protein 7.3 g/dL Invalid Interpretation Code 6.4-8.2 [employer] Phone: [phone] Office Visiton 04-29-2017 Documentation of current medications (procedure) Done Invalid Interpretation Code [employer] Work Phone: [phone] Tobacco use CPHS Never smoker Invalid Interpretation Code [employer] Work Phone: [phone] Office Visiton 03-05-2017 Fall risk assessment Fall risk assessment Invali d Interpretation Code [employer] Work Phone: [phone] Clinical Lists Update: community artist 03-01-2017 Left ventricular Ejection fraction 35-40 Invalid Interpretation Code [employer] Work Phone: [phone] External Other: Preferred Me thod of Contacton 11-23-2015 methcontact phone Invalid Interpretation Code [employer] Work Phone: [phone] Office Visiton 11-23-2015 cardiac risk group C Invalid Interpretation Code [employer] Work Phone: [phone] General cardiovascular disease 10Y risk [#] [place].Maria T'Lyssa N/A Invalid Interpretation Code [employer] Work Phone: [phone] Replaced Document: Renay Dutton CG Observationson 11-23-2015 EKG QRS axis 64 deg Invalid Interpretation Code [employer] Work Phone: [phone] Interpretation Sinus Bradycardia - Extensive T-abnormality - Anterior/lateral and inferior ischemia. ABNORMAL Invalid Interpretation Code [employer] Work Phone: [phone] P [place] 58 deg Invalid Interpretation Code [employer] Work Phone: [phone] [place] Interval 120 ms Invalid Interpretation Code [employer] Work Phone: [phone] Pulse (Heart Rate) 57 /min Invalid Interpretation Code [employer] Work Phone: [phone] QRS Duration 102 ms Invalid Interpretation Code [employer] Work Phone: [phone] QT Interval new path ms Invalid Interpretation Code [employer] Work Phone: [phone] QTc [place] 481 ms Invalid Interpretation Code [employer] Work Phone: [phone] T [place] 155 deg Invalid Interpretation Code [employer] Work Phone: [phone] Clinical Lists Update: Pre community artist 11-03-2015 Anion gap 9 mmol/L Invalid Interpretation Code [employer] Work Phone: [phone] Calcium 8.2 mg/dL Low [facility] Work Phone: [phone] Chloride 107 mmol/L Invalid Interpretation Code [facility] Work Phone: [phone] CO2 24 mmol/L Invalid Interpretation Code [facility] Work Phone: [phone] Creatinine 0.83 mg/dL Invalid Interpretation Code [facility] Work Phone: [phone] Erythrocytes (RBC) 4.35 10*6/uL Invalid Interpretation Code [facility] Work Phone: [phone] Glucose mass conc 91 mg/dL Invalid Interpretation Code [facility] Work Phone: [phone] Hematocrit (HCT) 37.2 % Invalid Interpretation Code [facility] Work Phone: [phone] Hemoglobin mass conc (Bld) 12.1 g/dL Invalid Interpretation Code [facility] Work Phone: [phone] Platelets 263 10*3/mm3 Invalid Interpretation Code [facility] Work Phone: [phone] Potassium molar conc 4.2 mmol/L Invalid Interpretation Code [facility] Work Phone: [phone] Sodium 135 mmol/L Invalid Interpretation Code [facility] Work Phone: [phone] Urea nitrogen 8 mg/dL Invalid Interpretation Code [facility] Work Phone: [phone] WBC (Leukocytes) 6.7 10*3/uL Invalid Interpretation Code [facility] Work Phone: [phone] Clinical Lists Update: 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 BUN/Creatinine Ratio 9.2 mg/mg Low [facility] Work Phone: [phone] Vital Signs Date Time Vital Sign Value Performing Clinician Faci lity 01-31-2024 15:18-0400 Body temperature 97.6 [degF] [facility] 01-31-2024 15:18-0400 Diastolic blood pressure 70 mm[Hg] [facility] 01-31-2024 15:18-0400 Heart rate 80 /min [facility] 01-31-2024 15:18-0400 Respiratory rate 16 /min [facility] 01-31-2024 15:18-0400 SaO2% (BldA) [Mass fraction] 98 % [facility] 01-31-2024 15:18-0400 Systolic blood pressure 152 mm[Hg] [facility] 01-31-2024 13:43-0400 Body height 165.1 cm [facility] 01-31-2024 13:43-0400 Body mass index (BMI) [Ratio] 19.8 kg/m2 [facility] 01-31-2024 13:43-0400 Body weight 54.1 kg [facility] 03-04-2023 09:05-0400 Body height 167.[address] Asad Baron Work Phone: [facility] 03-04-2023 09:05-0400 Heart rate 62 /min Dr. Asad Baron Work Phone: [facility] 03-04-2023 09:04-0400 Body mass index (BMI) [Ratio] 19 kg/m2 Dr. Asad Baron Work Phone: [facility] 03-04-2023 09:04-0400 Body weight 53.[address] Asad Baron Work Phone: [facility] 03-04-2023 09:04-0400 Diastolic blood pressure 81 mm[Hg] Dr. Asad Baron Work Phone: [facility] 03-04-2023 09:04-0400 Respiratory rate 18 /min Dr. Asad Baron Work Phone: [facility] 03-04-2023 09:04-0400 SaO2% (BldA) [Mass fraction] 100 % Dr. Asad Baron Work Phone: [facility] 03-04-2023 09:04-0400 Systolic blood pressure 131 mm[Hg] Dr. Asad Baron Work Phone: [facility] 02-09-2023 22:34-0400 Body mass index (BMI) [Ratio] 19.4 kg/m2 Dr. Asad Baron Work Phone: [facility] 02-09-2023 22:34-0400 Body temperature 97.8 [degF] Dr. Asad Baron Work Phone: [facility] 02-09-2023 22:34-0400 Body weight 54.[address] Asad Baron Work Phone: [facility] 02-09-2023 22:34-0400 Diastolic blood pressure 66 mm[Hg] Dr. Asad Baron Work Phone: [facility] 02-09-2023 22:34-0400 Heart rate 65 /min Dr. Asad Baron Work Phone: [facility] 02-09-2023 22:34-0400 Respiratory rate 16 /min Dr. Asad Baron Work Phone: [facility] 02-09-2023 22:34-0400 SaO2% (BldA) [Mass fraction] 100 % Dr. Asad Baron Work Phone: [facility] 02-09-2023 22:34-0400 Systolic blood pressure 181 mm[Hg] Dr. Asad Baron Work Phone: [facility] 03-06-2022 09:13-0400 Body height 166.[address] Asad Baron Work Phone: [facility] Work Phone: 03-06-2022 09:13-0400 Body mass index (BMI) [Ratio] 19.3 kg/m2 Dr. Asad Baron Work Phone: [facility] Work Phone: 03-06-2022 09:13-0400 Body weight 53.[address] Asad Baron Work Phone: [facility] Work Phone: 03-06-2022 09:13-0400 Diastolic blood pressure 67 mm[Hg] Dr. Asad Baron Work Phone: [facility] Work Phone: 03-06-2022 09:13-0400 Heart rate 71 /min Dr. Asad Baron Work Phone: [facility] Work Phone: 03-06-2022 09:13-0400 Respiratory rate 18 /min Dr. Asad Baron Work Phone: [facility] Work Phone: 03-06-2022 09:13-0400 SaO2% (BldA) [Mass fraction] 100 % Dr. Asad Baron Work Phone: [facility] Work Phone: 03-06-2022 09:13-0400 Systolic blood pressure 110 mm[Hg] Dr. Asad Baron Work Phone: [facility] Work Phone: 03-06-2022 09:13-0400 Body height 166.[address] Asad aBron Work Phone: [facility] Work Phone: 03-06-2022 09:13-0400 Body mass index (BMI) [Ratio] 19.3 kg/m2 Dr. Asad Baron Work Phone: [facility] Work Phone: 03-06-2022 09:13-0400 Body weight 53.[address] Asad Baron Work Phone: [facility] Work Phone: 03-06-2022 09:13-0400 Diastolic blood pressure 67 mm[Hg] Dr. Asad Baron Work Phone: [facility] Work Phone: 03-06-2022 09:13-0400 Heart rate 71 /min Dr. Asad Baron Work Phone: [facility] Work Phone: 03-06-2022 09:13-0400 Respiratory rate 18 /min Dr. Asad Baron Work Phone: [facility] Work Phone: 03-06-2022 09:13-0400 SaO2% (BldA) [Mass fraction] 100 % Dr. Asad Baron Work Phone: [facility] Work Phone: 03-06-2022 09:13-0400 Systolic blood pressure 110 mm[Hg] Dr. Asad Baron Work Phone: [facility] Work Phone: 02-13-2022 14:46-0400 Body mass index (BMI) [Ratio] 19.1 kg/m2 Dr. Asad Baron Work Phone: [facility] Work Phone: 02-13-2022 14:42-0400 Body mass index (BMI) [Ratio] 19.4 kg/m2 Dr. Asad Baron Work Phone: [facility] Work Phone: 02-13-2022 14:42-0400 Body temperature 96.8 [degF] Dr. Asad Baron Work Phone: [facility] Work Phone: 02-13-2022 14:42-0400 Body weight 53.[address] Asad Baron Work Phone: [facility] Work Phone: 02-13-2022 14:42-0400 Diastolic blood pressure 76 mm[Hg] Dr. Asad Baron Work Phone: [facility] Work Phone: 02-13-2022 14:42-0400 Heart rate 71 /min Dr. Asad Baron Work Phone: [facility] Work Phone: 02-13-2022 14:42-0400 Respiratory rate 16 /min Dr. Asad Baron Work Phone: [facility] Work Phone: 02-13-2022 14:42-0400 SaO2% (BldA) [Mass fraction] 88 % Dr. Asad Baron Work Phone: [facility] Work Phone: 02-13-2022 14:42-0400 Systolic blood pressure 110 mm[Hg] Dr. Asad Baron Work Phone: [facility] Work Phone: 02-13-2022 14:42-0400 Body height 166.[address] Asad Baron Work Phone: [facility] Work Phone: 02-13-2022 14:42-0400 Body mass index (BMI) [Ratio] 19.4 kg/m2 Dr. Asad Baron Work Phone: [facility] Work Phone: 02-13-2022 14:42-0400 Body temperature 96.8 [degF] Dr. Asad Baron Work Phone: [facility] Work Phone: 02-13-2022 14:42-0400 Body weight 53.[address] Asad Baron Work Phone: [facility] Work Phone: 02-13-2022 14:42-0400 Diastolic blood pressure 76 mm[Hg] Dr. Asad Baron Work Phone: [facility] Work Phone: 02-13-2022 14:42-0400 Heart rate 71 /min Dr. Asad Baron Work Phone: [facility] Work Phone: 02-13-2022 14:42-0400 Respiratory rate 16 /min Dr. Asad Baron Work Phone: [facility] Work Phone: 02-13-2022 14:42-0400 SaO2% (BldA) [Mass fraction] 88 % Dr. Asad Baron Work Phone: [facility] Work Phone: 02-13-2022 14:42-0400 Systolic blood pressure 110 mm[Hg] Dr. Asad Baron Work Phone: [facility] Work Phone: 04-29-2017 09:23-0400 BMI (Body Mass Index) 20.17 kg/m2 Kathy Fuchs PA-C [facility] Work Phone: 04-29-2017 09:23-0400 Weight 56.7 kg Kathy Fuchs PA-C [facility] Work Phone: 03-05-2017 11:18-0400 BP Diastolic 60 mm[Hg] Kathy Fuchs PA-C [facility] Work Phone: 03-05-2017 11:18-0400 BP Systolic 110 mm[Hg] [facility] Work Phone: 03-05-2017 11:18-0400 Height 167.64 cm Kathy Fuchs PA-C [facility] Work Phone: 03-05-2017 11:18-0400 Pulse (Heart Rate) 60 /min Kathy Fuchs PA-C [facility] Work Phone: 03-05-2017 11:18-0400 Respiratory Rate 20 /min Kathy Fuchs PA-C [facility] Work Phone: 09-05-2016 11:31-0500 BSA (Body Surface Area) 1.68 m2 Kathy Fuchs PA-C [facility] Work Phone: Encounters Encounter Date Encounter Type Care Provider Facility Start: 06-03-[facility] Start: 07-29-2024 End: 07-29-2024 ambulatory [facility] Start: 07-21-2024 Encounter for genera l adult medical examination without abnormal findings Asad Baron [facility] Start: 07-01-2024 End: 07-01-2024 ambulatory [facility] Facility:[facility] Start: 06-24-2024 End: 06-24-2024 ambulatory [facility] Facility:[facility] Start: 05-22-2024 End: 05-22-2024 ambulatory [facility] Start: 05-11-2024 End: 05-11-2024 ambulatory Asad Baron Facility:[facility] Start: 01-31-2024 End: 01-31-2024 Emergency department patient visit [facility] Work Phone: Start: 05-01-2023 End: 05-01-[address] Asad Baron Work Phone: [facility] Work Phone: Start: 05-01-2023 End: 05-01-[address] Asad Baron Work Phone: [facility] Work Phone: Start: 03-04-2023 End: 03-04-[address] Asad Baron Work Phone: [facility] Work Phone: Start: 02-09-2023 End: 02-10-2023 Emergency department patient visit Dr. Asad Baron Work Phone: [facility] Work Phone: Start: 02-01-2023 End: 02-01-2023 ambulatory [facility] Work Phone: Start: 02-01-2023 End: 02-01-2023 Patient encounter procedure [facility] Start: 04-23-2022 End: 04-23-[address] Asad Baron Work Phone: [facility] Start: 04-09-2022 Telephone encounter Arpita Jaimes PSS Radiology Comment on above: Mammogram Request Start: 03-15-2022 Non-patient / Non-visit Dr. Lawrence Baron Work Phone: [facility] Start: 03-15-2022 End: 03-15-[address] Asad Baron Work Phone: [facility] Start: 03-06-2022 End: 03-06-[address] Asad Baron Work Phone: [facility] Start: 02-13-2022 End: 02-13-[address] Asad Baron Work Phone: [facility]Laboratory, [facility] Procedures Date Procedure Procedure Detail Performing Clinician Start: 01-31-2024 Plain chest X-ray Start: 05-01-[address] Asad Baron Work Phone: Start: 04-23-[address] Asad Baron Work Phone: Start: 03-15-2022 Radionuclide imaging of perfusion of myocardium under exercise stress Dr. Asad Baron Work Phone: Start: 04-21-2021 Mammography Arpita Jaimes PSS Start: 08-28-2017 End: 09-09-2017 *Hepatic Function Panel Kathy lopez PA-C Work Phone: Start: 08-28-2017 End: 09-09-2017 Lipid 1996 panel - Serum or Plasma Kathy Fuchs PA-C Work Phone: Start: 04-29-2017 End: 05-09-2017 Arthrocentesis aspir&/inj major jt/bursa w/o us Agnes Cabrera Work Phone: Start: 03-05-2017 End: 03-05-2017 KENROY Lassiter MD Start: 03-05-2017 End: 03-05-2017 Follow Up Appt 1 year Silvestre Lassiter MD Start: 02-21-2017 End: 02-25-2017 *Hepatic Function Panel Kathy lopez PA-C Work Phone: Start: 02-21-2017 End: 02-25-2017 Lipid 1996 panel - Serum or Plasma Kathy Fuchs PA-C Work Phone: Start: 09-05-2016 End: 09-05-2016 KENROY Lassiter MD Start: 09-05-2016 End: 09-05-2016 Follow Up Appt 6 months Christine Velazco Start: 08-14-2016 End: 08-21-2016 *Hepatic Function Panel Christine Velazco Start: 08-14-2016 End: 08-21-2016 Lipid 1996 panel - Serum or Plasma Silvestre Lassiter MD Start: 06-11-2016 End: 06-11-2016 Nurse, Teaching, Wound Check (no charge) Silvestre Lassiter MD Start: 11-23-2015 End: 02-13-2016 *Hepatic Function Panel Christine Velazco Start: 11-23-2015 End: 11-23-2015 BUSINESS OFFICE MANAGER Silvestre Lassiter MD Start: 11-23-2015 End: 02-25-2017 Ecg routine ecg w/least 12 lds w/i&r Silvestre Lassiter MD Start: 11-23-2015 End: 11-23-2015 Follow Up Appt 3 months Christine Velazco Start: 11-23-2015 End: 02-13-2016 Lipid 1996 panel - Serum or Plasma Silvestre Lassiter MD Start: 11-01-2015 History of placement of stent for coronary artery disease History of coronary artery stent placement Dr. Asad Baron Work Phone: Start: 09-22-2014 Colonoscopy Arpita BESS Plan of Treatment Date Care Activity Detail Author Start: 01-31-2024 [facility] Start: 06-28-2022 Influenza vaccination INFLUENZA (Season Ended) [facility] Start: 04-21-2022 Mammography MAMMOGRAM [facility] Start: 10-28-2021 ADVANCE DIRECTIVE DISCUSSION ADVANCE DIRECTIVE DISCUSSION [facility] Start: 2021 PNEUMOCOCCAL: 65+ (1 - PCV) PNEUMOCOCCAL: 65+ (1 - PCV) [facility] Start: 10-03-2021 DIABETES SCREEN DIABETES SCREEN [facility] Start: 07-04-2021 COVID-19 VACCINE (3 - Booster for Pfizer series) COVID-19 VACCINE (3 - Booster for Pfizer series) [facility] Start: 11-02-2020 LIPID SCREEN LIPID SCREEN [facility] Start: 09-22-2019 Colonoscopy COLONOSCOPY [facility] Start: 09-22-2019 COLORECTAL CANCER SCREENING COLORECTAL CANCER SCREENING [facility] Start: 03-10-2018 End: 09-11-2017 *Hepatic Function Panel *Hepatic Function Panel [facility] Work Phone: Start: 03-10-2018 End: 09-11-2017 Lipid panel [AGGREGATE] *Lipid Profile CC PCP [facility] Work Phone: Start: 03-04-2018 End: 03-04-2018 Appointment Appointment [facility] Work Phone: Start: 08-28-2017 End: 09-09-2017 *Hepatic Function Panel *Hepatic Function Panel [facility] Work Phone: Start: 08-28-2017 End: 09-09-2017 Lipid panel [AGGREGATE] *Lipid Profile CC PCP [facility] Work Phone: Start: 04-29-2017 End: 04-29-2017 Radiologic exam knee complete 4/more views X-Ray, Knee [facility] Work Phone: Start: 03-05-2017 End: 03-05-2017 BUSINESS OFFICE MANAGER BUSINESS OFFICE MANAGER [facility] Work Phone: Start: 03-05-2017 End: 03-05-2017 Follow Up Appt 1 year Follow Up Appt 1 year [facility] Work Phone: Start: 02-21-2017 End: 02-25-2017 *Hepatic Function Panel *Hepatic Function Panel [facility] Work Phone: Start: 02-21-2017 End: 02-25-2017 Lipid panel [AGGREGATE] *Lipid Profile CC PCP [facility] Work Phone: Start: 09-05-2016 End: 09-05-2016 BUSINESS OFFICE MANAGER BUSINESS OFFICE MANAGER [facility] Work Phone: Start: 09-05-2016 End: 09-05-2016 Follow Up Appt 6 months Follow Up Appt 6 months [facility] Work Phone: Start: 08-14-2016 End: 08-21-2016 *Hepatic Function Panel *Hepatic Function Panel [facility] Work Phone: Start: 08-14-2016 End: 08-21-2016 Lipid panel [AGGREGATE] *Lipid Profile CC PCP [facility] Work Phone: Start: 02-21-2016 End: 02-21-2016 BUSINESS OFFICE MANAGER BUSINESS OFFICE MANAGER [facility] Work Phone: Start: 02-21-2016 End: 02-21-2016 Follow Up Appt 6 months Follow Up Appt 6 months [facility] Work Phone: Start: 02-21-2016 End: 02-21-2016 Nuclear stress test -exercise Nuclear stress test -exercise [facility] Work Phone: Start: 11-23-2015 End: 02-13-2016 *Hepatic Function Panel *Hepatic Function Panel [facility] Work Phone: Start: 11-23-2015 End: 11-23-2015 Cardiac Rehab Cardiac Rehab [facility] Work Phone: Start: 11-23-2015 End: 11-23-2015 BUSINESS OFFICE MANAGER BUSINESS OFFICE MANAGER [facility] Work Phone: Start: 11-23-2015 End: 02-25-2017 Ecg routine ecg w/least 12 lds w/i&r EKG (In office) [facility] Work Phone: Start: 11-23-2015 End: 11-23-2015 Follow Up Appt 3 months Follow Up Appt 3 months [facility] Work Phone: Start: 11-23-2015 End: 02-13-2016 Lipid panel [AGGREGATE] *Lipid Profile CC PCP [facility] Work Phone: Start: 2006 SHINGRIX VACCINE (1 of 2) SHINGRIX VACCINE (1 of 2) [facility] Start: 2001 COLOGUARD (FIT-DNA) COLOGUARD (FIT-DNA) [facility] Start: [address] COLONOGRAPHY [facility] Start: 2001 FECAL OCCULT BLOOD FECAL OCCULT BLOOD [facility] Start: 2001 SIGMOIDOSCOPY SIGMOIDOSCOPY [facility] Start: 1975 Urine microalbumin profile DTAP,TDAP,TD (1 - Tdap) [facility] Start: 1974 HEPATITIS C SCREENING HEPATITIS C SCREENING [facility] Start: 1974 HIV SCREENING HIV SCREENING [facility] Start: 1968 Adult depression screening assessment DEPRESSION SCREENING [facility] Patient Education [facility] Work Phone: Patient referral [facility] Work Phone: Payers Date Payer Category Payer Self-pay [id number] 2024 Private Health Insurance 101 [id number] 2020 Unknown [employer] PPO [id number] 2020-Present [phone] [address] [place] [address] PPO [id number] Unknown [id number] 62 Unknown [id number] 62 Unknown [id number] 62 Unknown [id number] 62 Unknown [id number] 62 Unknown [id number] Social History Date Type Detail Facility Start: 02-13-2022 End: 01-31-2024 Tobacco smoking status NHIS Unknown if ever smoked [facility] Start: 06-01-2020 Non-smoker [facility] Start: 1955 Sex Assigned At Female C [facility] Tobacco smoking stat us NHIS Never smoked tobacco [facility] Start: 01-06-2018 Alcohol intake Current non-dr operations assistant of alcohol (finding) [facility] Mental Status Date Assessment Result Facility 01-31-2024 Cognitive function Level Of Cons ciousness Awake;Alert;Appropriate;Follow s Commands [facility] Work Phone: Note 04-09-2022 Telephone Encounter - MARIA ALEJANDRA Luo - 04/09/2022 3:22 PM EDTTelephone Encounter - Rom Montiel - 04/09/2022 2:02 PM EDT Note Date & Type Note Facility 04-09-2022 Miscellaneous Notes Sent the last 2 yrs to [facility] release in [place] Patient needs all mammograms sent to [facility] to their imaging dept. Thank you. documented in this encounter [facility] Progress note 04-21-2021 Note Date & Type Note Facility 04-21-2021 Note HNO ID: [id number] Author: Jesika Amanda Service: ? Author Type: Print Line Supervisor Type: Progress Notes Filed: 04/21/2021 9:22 AM Note Text: Radiology Service Progress Note PATIENT NAME: Ivette Acevedo DATE OF SERVICE: April 21, 2021 TIME: 9:21 AM PATIENT IDENTITY VERIFICATION COMPLETED USING TWO (2) IDENTIFIERS: Name and Date of confirmed by patient verbally. FALL SCREENING: Has the patient had 2 falls in the last year or 1 fall with injury or currently using an Ambulatory Assistive Device (Walker, Cane, Wheelchair, Crutches, etc.)? No PATIENT GENDER DATA: Female. status: Unknown status: NO. 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 HLD (hyperlipidemia) chronic History of coronary artery stent placement November 01, 2015 resolved [facility] Work Phone: Evaluation note 11-01-2015 Note Date & Type Note Facility 11-01-2015 Evaluation note Diagnosis Onset Date HLD (hyperlipidemia) chronic History of coronary artery stent placement November 01, 2015 resolved [facility] Work Phone: History of Past illness Narrative 09-12-2010 Note Date & Type Note Facility 09-12-2010 History of Past i llness Narrative Problem Noted Date Resolved Date Unspecified constipation 010 documented as of this encounter (statuses as of 04/13/2022) [facility] Evaluation note Note Date & Type Note Facility Evaluation note No assessment information availa ble [facility] Work Phone: Hospital Discharge instructions Note Date & Type Note Facility Hospital Discharge instructions Additional Instructions Alternate Tylenol and ibuprofen every 3 hours as needed and use ice. 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 HLD (hyperlipidemia) History of coronary artery stent placement Chief Complaint 1 Y FU 1 Y FU CAD Coronary artery disease SCREENING NEED FILMS FROM [facility] Reason for Visit HLD (hyperlipidemia) 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 HLD (hyperlipidemia) History of coronary artery stent placement Chief Complaint 2 DRS/ 2 ORDERS- EOR KRUNAL FOR SANDI Chief Complaint 2 DRS/ 2 ORDERS- EOR KRUNAL FOR SANDI LACERATION 1 YR FU SCREENING Reason for Visit HLD (hyperlipidemia) History of coronary artery stent placement Chief Complaint STERNUM Family History No Family History Records Found Relationship Condition Age at Onset Recorded Date/T oneyda Not Specified Malignant melanoma Unknown Malignant neoplasm Unknown father Myocardial infarction Unknown Cardiac disease Unknown mother Malignant neoplasm of colon Unknown aunt Coronary artery disease Unknown Advance Directives No Advanced Directives Records Found Advance Directive Response Recorded Date/ Time Living Will Yes October 12, 020 10:45am Power of Major Donor Coordinator Yes October 12, 2020 10:45am Advance Directive Response Recorded Date/ Time Name of Medical Power of Major Donor Coordinator Juan Acevedo, February 09, 2023 11:48pm Living Will Yes February 09, 2023 11:48pm Power of Major Donor Coordinator Yes February 09 11:48pm Advance Directive Response Recorded Date/ Time Living Will Yes January 31, 2024 1:51pm Power of Major Donor Coordinator Yes January 30 1:51pm Name of Medical Power of Major Donor Coordinator agnes January 31, 2024 1:51pm Summary Purpose Additional Source Comments Goals (unrecognized section and content) Goals may be documented in a n alternate sectionGoals may be documented in an alternate sectionGoals may be documented in an alternate sectionGoals may be documented in an alternate sectionGoals may be documented in an alternate sectionGoals may be documented in an alternate section Source Comments (unrecognize d section and content) In the event this informatio n is protected by the Federal Confidentiality of Alcohol and Drug Abuse Patient Records regulations: The Federal rules restrict any use of the information to criminally investigate or prosecute any alcohol or drug abuse patient.[facility] Reason for Visit (unrecogniz ed section and content) Reason Comments Mammogram Request Care Teams (unrecognized sec tion and content) Capacity Manager Relationship Specialty Start Date End Date Asad Baron MD [address] [facility] [address] [place] [address] PCP - General Family Practice 04/01/20 Agnes Murguia [address] [facility] [place] [address] Referring General Surgery 07/05/20 Team Status: Active Member Role Status Dates Dr. Pineda Lucas MD Family Provider Active Dr. Asad Baron MD Primary Care Provider Active Team Status: Inactive Member Role Status Dates Dr. Asad Baron MD Primary Care Provi krunal, Attending Provider, Referring Provider Active Dr. Silvestre Lassiter MD Other Provider Active Team Status: Inactive Member Role Status Dates Dr. Asad Baron MD Primary Care Provider, Referring Provider Active Alma Lay SPECIAL INSPECTOR, SPECIAL INSPECTOR-C Attending Provider Active Team Status: Inactive Member Role Status Dates Dr. Asad Baron MD Primary Care Provider Active Dr. Uzma Torres DO Attending Provider, Emergency P anaid Active Team Status: Inactive Member Role Status Dates Dr. Asad Baron MD Primary Care Provi krunal, Attending Provider, Referring Provider Active Team Status: Inactive Member Role Status Dates Dr. Asad Baron MD Primary Care Provider Active Dr. Elina Alonzo MD Emergency Provider Active INFORMATION SOURCE (unrecogn ized section and content) DATE CREATED AUTHOR 04/14/2022 [facility] DATE CREATED AUTHOR AUTHOR'S ORGANIZ ATION 05/07/2025 [facility] FOR RECORDS PERTAINING TO PATIENTS WHO ARE OR HAVE BEEN ENROLLED IN A CHEMICAL DEPENDENCY/SUBSTANCEABUSE PROGRAM, SOME INFORMATION MAY BE OMITTED. This clinical summary was aggregated from multiple sources. Caution should be exercised in using it in the provision of clinical care. This summary normalizes information from multiple sources, and as a consequence, information in this document may materially change the coding, format and clinical context of patient data. In addition, data may be omitted in some cases. CLINICAL DECISIONS SHOULD BE BASED ON THE PRIMARY CLINICAL RECORDS. [employer] provides no warranty or guarantee of the accuracy or completeness of information in this document.
--- OUTSIDE RECORDS SUMMARY | 2025-05-12 08:49 | XMS RPT_ITS | CCD ---
Author Organization [facility] Care Team Providers Care Cardiac Nurse Practitioner Name Role Phone RAO Fuchs, Kathy King Unavailable Rivka Garcia Unavailable Unavailable Loraine, Dr. Kamara Primary Care Provider Dr. Asad Baron Referring Provider Dr. Tony Dai Attending Provider Dr. Silvestre Lassiter Attending Provider Dr. Silvestre Lassiter Referring Provider Dr. Silvestre Lassiter Other Provider Asad Baron MD Primary Care Provider [phone] Asad Baron Primary [...] [BEE STINGS] allergy to substance 6 Swelling [facility] Work Phone: [phone] (2 sources) atorvastatin Drug Allergy 6 Vomiting, diarrhea [facility] Work Phone: [phone] (2 sources) carvedilol Drug Allergy 6 Diarrhea, muscle aches, cough [facility] Work Phone: [phone] (10 sources) cephalexin; Translations: [cephalexin] Drug Allergy 6 Unknown [facility] Work Phone: [phone] (4 sources) Penicillins (Antibiotic) drug allergy 6 Rash, PCN [facility] Work Phone: [phone] (2 sources) BRILLINTA drug allergy 6 red rash [facility] Work Phone: [phone] (7 sources) atorvastatin; Translations: [atorvastatin calcium] Drug Allergy [address] [facility] (6 sources) carvedilol Drug Allergy 2 myalgias, cough, diarrhea [facility] (6 sources) Latex Allergy to substance [address] [facility] (8 sources) Penicillins; Translations: [Penicillins] Allergy to substance 6 Rash [facility] Work Phone: (6 sources) Ticagrelor Drug Allergy [address] [facility] (1 source) bee stings [Other] Propensity to adverse reactions 9 Rash, Swelling [facility] Work Phone: (3 sources) venom-honey bee Allergy to substance [address] [facility] (1 source) carvedilol Drug Allergy 4 [facility] (1 source) Latex Drug allergy (disorder) 4 [facility] (1 source) Ticagrelor Drug Allergy 4 [facility] (1 source) venom-honey bee Drug allergy (disorder) 4 [facility] Medications Current Medications Medication Drug [...] TABS One tablet by mouth daily ASPIRIN [id number] Jelly Redd, RANJEET Comment on above: Take one(1) tablet d aily. biotin 10 mg oral capsule (6 sources) Start: 03-02-20 take 45545 ug by mouth once daily Biotin Active 21426 MCG PO DAILY March 02, 2021 12:00am [id number] 0.3 ml EPINEPHrine 1 mg/ml auto-injector (6 [...] tablet by mouth every evening ATORVASTATIN CALCIUM [id number] Jelly Redd RN azithromycin 250 mg oral [...] One tablet by mouth twice daily CARVEDILOL [id number] Silvestre Lassiter MD cholecalciferol 0.05 mg oral [...] One tablet by mouth daily CLOPIDOGREL BISULFATE [id number] Silvestre Lassiter MD doxycycline hyclate 100 mg oral capsule (3 sources) Tetracycline-class Drug Start: 08-11-2022 End: 08-21-2022 take 100 mg by mouth twice daily Doxycycline Hyclate Discontinued 100 MG PO TWICE A DAY 16 08August 11, 2022 12:00am August 21, 2022 12:05am 84 hr estradiol 0.20513 mg/hr transdermal system (10 sources) Estrogen Start: 11-21-2015 End: 12-13-2015 VIVELLE-DOT 0.05 MG/24HR PTTW transdermal as directed ESTRADIOL [id number] Jelly Redd RN Start: 11-01-2015 End: 03-03-2018 Estradiol Discontinued 1 PAT CH November 01, 2015 1:00am March 03, 2018 9:42am flaxseed extract (2 sources) Non-Standardized Food Allergenic Extract, Non-Standardized Plant Allergenic Extract Start: 02-01-2016 take 1 tablet by mouth once daily FLAX SEED OIL CAPS One tablet by mouth daily FLAXSEED (LINSEED) CAPS [id number] Jelly Redd RN Flaxseed Oil oil (1 source) Flaxseed Oil oil linseed oil 1000 mg oral capsule (12 sources) Start: 01-13-2021 End: 03-02-2021 take 1000 mg by mouth twice daily at mealtime Flaxseed Oil Discontinued 1000 MG PO TWICE A DAY January 13, 2021 12:00am March 02, 2021 11:01am administer with meals Start: 01-18-2019 take 1 capsule by mo [facility] once daily Flaxseed Oil ([place]-3 Flaxseed Oil) 1,000 mg capsule Active 1000 [...] 3 as needed for chest pain. 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) drug therapy] Onset: 11-21-2015 11-21-2015 Past or Other Problems Problem Classification Problem Date Documented Da te Episodic/Chronic Coronary atherosclerosis and other heart disease (3 sources) Presence of coronary angioplasty implant and graft; Translations: [Percutaneous transluminal coronary angioplasty status] Onset: 6 Episodic Fluid and electrolyte disorders (1 source) Hypo-osmolality and hyponatremia; Translations: [Hypo-osmolality and hyponatremia] Onset: 4 Episodic Other aftercare (2 sources) senior living (current) use of antithrombotics/antipl atelets; Translations: [senior living (current) use of antithrombotics/antipl atelets] Onset: 6 [...] Visit Repor ton 07-29-2024 Gastroenterology Visit Report [facility] [address] [place] [address] OFFICE VISIT Date of Service: 07/29/24 MR#: [id number] Acct: [id number] Name: IVETTE ACEVEDO Rep #: [id number] : 1955 Provider: LAWRENCE Luz Age/Sex: 68/F [place] [facility] [place]: Signed Intake Vital Signs 03/04/23 09:05 [...] 1,000 mg PO DAILY 01/18/19 07/29/24 History ([place]-3 Flaxseed Oil) epinephrine 0.3 mg/0.3 mL 0.3 [...] (10/2015) HLD (hyperlipidemia) 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 Pt was previously seeing Dr. Rendon but [...] Appearance: average body habitus and well nourished [facility] Head: (more content not included)... Normal [facility] Dexa Bone Density Studyon Dexa Bone Density Study [facility] Imaging Services [address] [place], [place] [id number] Dexa Bone Density Study MR#: [id number] Acct: [id number] Name: IVETTE ACEVEDO Rep #: [id number] : 1955 F 68 From: Kevin saravia MD PCP: Dr. Asad Baron MD Status: REG CLI Study: Dexa Bone Density Study Date of Exam: 07/01/24 Exam# [id number] Ordering Dr: Asad Baron MD [id number] STUDY: DUAL ENERGY X-RAY ABSORPTIOMETRY / DXA [...] EDT , CC: Dr. Asad Baron MD Stone Finisher: Signed Normal [facility] Basic Metabolic Profile (BMP )on 06-24-2024 BUN/CRE 12.0 RATIO Normal 10-20 [facility] Comment on above: Performed By: #### L 500.2500 #### [facility] [address] [place], [address] CA,Total 9.1 mg/dL Normal 8.5-10.1 [facility] Comment on above: Performed By: #### L 500.2500 #### [facility] [address] [place], [address] Chloride [Moles/Vol] 95 mmol/L Low 98-107 [facility] Comment on above: Performed By: #### L 500.2500 #### [facility] [address] [place], [address] CO2 [Moles/Vol] 28.0 mmol/L Normal 21.0-32.0 [facility] Comment on above: Performed By: #### L 500.2500 #### [facility] [address] [place], [address] Creatinine [Mass/Vol] 0.75 mg/dL Normal 0.55-1.02 [facility] Comment on above: Result Comment: The validity of the calculated GFR GFRAA in patients over 70 years has not been determined. Clinical correlation is essential. Performed By: #### L 500.2500 #### [facility] [address] [place], [address] EST GFR - AA 99 mL/min Normal >60 [facility] Comment on above: Result Comment: Afri can Montserr[place]ian GFR Calc Performed By: #### L 500.2500 #### [facility] [address] [place], [address] GAP 7 Normal 5-15 [facility] Comment on above: Performed By: #### L 500.2500 #### [facility] [address] [place], [address] GFR/1.73 sq M.predicted among non-blacks MDRD (S/P/Bld) [Vol rate/Area] 82 mL/min/{1.73_m2} Normal >60 [facility] Comment on above: Result Comment: Non- GFR Calc Performed By: #### L 500.2500 #### [facility] [address] [place], [address] Glucose [Mass/Vol] 72 mg/dL Low 74-106 [facility] Comment on above: Performed By: #### L 500.2500 #### [facility] [address] [place], [address] Potassium [Moles/Vol] 4.0 mmol/L Normal 3.5-5.1 [facility] Comment on above: Performed By: #### L 500.2500 #### [facility] [address] [place], [address] Sodium [Moles/Vol] 130 mmol/L Low 136-145 [facility] Comment on above: Performed By: #### L 500.2500 #### [facility] [address] [place], [address] Urea nitrogen [Mass/Vol] 9 mg/dL Normal 7-18 [facility] Comment on above: Performed By: #### L 500.2500 #### [facility] [address] [place], [address] Cardiology Visit Reporton Cardiology Visit Report [facility] [place] [facility] [address] [place] [address] OFFICE VISIT Date of Service: 05/22/24 MR#: [id number] Acct: [id number] Name: IVETTE ACEVEDO Rep #: [id number] : 1955 Provider: Dr. Silvestre Lassiter MD Age/Sex: 68/F [place] [facility] Status: Signed HPI HPI History of Present [...] Monitor Intake Visit Reasons: 1 Y FU Operations Director Required: No Accompanied by: Self Is patient [...] 1,000 mg PO DAILY 01/18/19 05/22/24 History ([place]-3 Flaxseed Oil) epinephrine 0.3 mg/0.3 mL 0.3 [...] (10/2015) HLD (hyperlipidemia) Atherosclerotic heart disease of [place] coronary artery without angina pectoris Surgical History [...] headache(s), d (more content not included)... Normal [facility] SCRN MAMM (CAD)W/RAMYA BILATo n 05-11-2024 SCRN MAMM (CAD)W/RAMYA BILAT [facility] Imaging Services [address] [place] [address] SCRN MAMM (CAD)W/RAMYA BILAT MR#: [id number] Acct: [id number] Name: IVETTE ACEVEDO Rep #: [id number] : 1955 F 68 From: Kevin saravia MD PCP: Dr. Asad Baron MD Status: REG CLI Study: SCRN MAMM (CAD)W/RAMYA BILAT Date of Exam: 04/27 03/20 Exam# [id number] Ordering Dr: Asad Baron MD [id number] MAMMOGRAPHY - BILATERAL SCREENING REASON FOR EXAM: [...] delay biopsy of a clinically suspicious abnormality. [id number] Electronically Signed: Kevin Cox MD at 13:19 EDT , CC: Dr. Asad Baron MD Stone Finisher: Signed Normal [facility] Absolute lymphocyte countOrd ered By: Italia Guerrero on 01-31-2024 Lymphocytes Auto (Unsp spec) [#/Vol] 1.70 10*3/uL 0.83-4.51 [facility] Automated lymphocyte count a s percentage of total leukocytesOrdered By: Italia Guerrero on 01-31-2024 Lymphocytes/100 WBC Auto (Unsp spec) 28.2 % 19-41 [facility] Basophil percentageOrdered B y: Italia Guerrero on 01-31-2024 Basophils/100 WBC (Bld) 0.5 % 0-1 [facility] Chloride [Moles/Vol] 97 mmol/L 98-107 [facility] Eosinophils/100 WBC (Bld) 1.0 % 0-5 [facility] Glucose [Mass/Vol] 105 mg/dL 74-106 [facility] Comment on above: Fasting Glucose resu lt from 100 to 125 mg/dL suggests IMPAIRED HOMEOSTASIS per A.D.A. criteria. Hemoglobin (Bld) [Mass/Vol] 12.1 g/dL 12.0-15.0 [facility] Monocytes/100 WBC (Bld) 7.6 % 0-10 [facility] Neutrophils (Bld) [#/Vol] 3.8 10*3/uL 2.0-7.7 [facility] Neutrophils/100 WBC (Bld) 62.4 % 47-70 [facility] Potassium [Moles/Vol] 4.1 mmol/L 3.5-5.1 [facility] Sodium [Moles/Vol] 129 mmol/L 136-145 [facility] WBC (Bld) [#/Vol] 6.0 10*3/uL 4.4-11.0 [facility] Determination of erythrocyte mean corpuscular volume (MCV)Ordered By: Italia Guerrero on 01-31-2024 MCV (RBC) [Entitic vol] 86.2 fL 81-99 [facility] Erythrocyte distribution wid th ratioOrdered By: Italia Guerrero on 01-31-2024 Erythrocyte distribution width (RBC) [Ratio] 12.1 % 11.6-14.6 [facility] Erythrocyte distribution wid th standard deviationOrdered By: Italia Guerrero on 01-31-2024 Erythrocyte distribution width (RBC) [Entitic vol] 38.4 fL 35.1-43.9 [facility] Hematocrit Auto (Bld) [Volum e fraction]Ordered By: Italia Guerrero on 01-31-2024 Hematocrit (Bld) [Volume fraction] 35.6 % 37-47 [facility] Immature granulocytes/100 WB C Auto (Bld)Ordered By: Italia Guerrero on 01-31-2024 Immature granulocytes/100 WBC (Bld) 0.300 % 0.0-0.9 [facility] Comment on above: IG% - Immature Granu locytes (promyelocytes, myelocytes and metamyelocytes) > 1% indicates that a LEFT SHIFT is Present. Laboratory - Chemistry and C hemistry - challengeOrdered By: Italia Guerrero on 01-31-2024 CO2 [Moles/Vol] 27.0 mmol/L 21.0-32.0 [facility] Urea nitrogen/Creatinine [Mass ratio] 11.3 mg/mg 10-20 [facility] Laboratory - Hematology and Cell countsOrdered By: Italia Guerrero on 01-31-2024 MCH (RBC) [Entitic mass] 29.3 pg 27.0-32.0 [facility] MCHC (RBC) [Mass/Vol] 34.0 g/dL 32-36 [facility] Nucleated RBC/100 WBC (Bld) [Ratio] 0 % 0-5 [facility] Platelet mean volume (Bld) [Entitic vol] 9.1 fL 6.2-12.0 [facility] Platelets (Bld) [#/Vol] 276 10*3/uL 150-450 [facility] No Panel InformationOrdered By: Italia Guerrero on 01-31-2024 Estimated Creatinine Clearance Calc 58.28 ml/min [facility] Estimated GFR (MDRD) Amer 106 mL/min >60 [facility] Comment on above: GFR Calc Estimated GFR (MDRD) Non-Af Amer 88 mL/min >60 [facility] Comment on above: Non- GFR Calc Troponin I High Sensitivity 6 pg/mL 3.0-54.0 [facility] Comment on above: Please Note: New Laure t Units and Gender Specific Reference Ranges. For more information see Policy Stat Procedure [place] High Sensitivity Troponin (TNIH) and attachments. RBC Auto (Bld) [#/Vol]Ordere d By: Italia Guerrero on 01-31-2024 RBC (Bld) [#/Vol] 4.13 10*6/uL 4.2-5.4 [facility] Serum or plasma calcium anderson urement (mass/volume)Ordered By: Italia Guerrero on 01-31-2024 Calcium [Mass/Vol] 8.8 mg/dL 8.5-10.1 [facility] Serum or plasma creatinine m easurement (mass/volume)Ordered By: Italia Guerrero on 01-31-2024 Creatinine [Mass/Vol] 0.70 mg/dL 0.55-1.02 [facility] Comment on above: The validity of the calculated GFR & GFRAA in patients over 70 years has not been determined. Clinical correlation is essential. Serum or plasma urea nitroge n measurement (mass/volume)Ordered By: Italia Guerrero on 01-31-2024 Urea nitrogen [Mass/Vol] 8 mg/dL 7-18 [facility] Thin prep Papanicolaou smear with manual screeningOrdered By: Italia Guerrero on 01-31-2024 Thin prep Papanicolaou smear with manual screening 5 5-15 [facility] Basophil percentageOrdered B y: Dr. Baron on 02-01-2023 Bilirubin [Mass/Vol] 0.50 mg/dL 0.20-1.00 [facility] Comment on above: For patients on eltr ombopag therapy, use of Dimension [place] TBIL is not recommended. Chloride [Moles/Vol] 102 mmol/L 98-107 [facility] Cholesterol [Mass/Vol] 123 mg/dL <[address] [facility] Comment on above: <200 mg/dL Desirable 200-240 mg/dL Borderline >240 mg/dL High Risk Glucose [Mass/Vol] 87 mg/dL 74-106 [facility] Potassium [Moles/Vol] 4.2 mmol/L 3.5-5.1 [facility] Protein [Mass/Vol] 7.1 g/dL 6.4-8.2 [facility] Sodium [Moles/Vol] 137 mmol/L 136-145 [facility] Triglyceride [Mass/Vol] 75 mg/dL <199 [facility] Comment on above: The drugs N-Acetylcy steine and Metamizole may falsely depress this assay.Serum Triglycerides Reference Interval Normal <150 mg/dL Borderline high 150 - 199 mg/dL High 200 - 499 mg/dL Very High > or = 500 mg/dL Direct bilirubinOrdered By: Dr. Baron on 02-01-2023 Bilirubin.direct [Mass/Vol] 0.15 mg/dL 0.00-0.30 [facility] Laboratory - Chemistry and C hemistry - challengeOrdered By: Dr. Baron on 02-01-2023 ALP [Catalytic activity/Vol] 101 U/L 45-117 [facility] ALT [Catalytic activity/Vol] 24 U/L 13-56 [facility] CO2 [Moles/Vol] 29.0 mmol/L 21.0-32.0 [facility] Free T4 [Mass/Vol] 1.22 ng/dL 0.76-1.46 [facility] Globulin (S) [Mass/Vol] 3.2 g/dL 2.2-4.2 [facility] Urea nitrogen/Creatinine [Mass ratio] 13.5 mg/mg 10-20 [facility] No Panel InformationOrdered By: Dr. Baron on 02-01-2023 Estimated GFR (MDRD) Amer 101 mL/min >60 [facility] Comment on above: GFR Calc Estimated GFR (MDRD) Non-Af Amer 83 mL/min >60 [facility] Comment on above: Non- GFR Calc Free Triiodothyronine (T3) pg/dL 2.7 pg/mL 2.18-3.98 [facility] Thyroid Stimulating Hormone (TSH) 1.28 uIU/mL 0.358-3.74 [facility] Serum or plasma albumin anderson urement (mass/volume)Ordered By: Dr. Baron on 02-01-2023 Albumin [Mass/Vol] 3.9 g/dL 3.2-5.0 [facility] Serum or plasma albumin/glob ulin mass ratioOrdered By: Dr. Baron on 02-01-2023 Albumin/Globulin [Mass ratio] 1.2 {ratio} 0.9-2.4 [facility] Serum or plasma calcium anderson urement (mass/volume)Ordered By: Dr. Baron on 02-01-2023 Calcium [Mass/Vol] 9.1 mg/dL 8.5-10.1 [facility] Serum or plasma cholesterol in HDL measurement (mass/volume)Ordered By: Dr. Baron on 02-01-2023 Cholesterol in HDL [Mass/Vol] 51 mg/dL >40 [facility] Comment on above: The drugs N-Acetylcy steine and Metamizole may falsely depress this assay. Reference Range HDL <40 mg/dL Low HDL Cholesterol HDL >or= 60 mg/dL High HDL Cholesterol Serum or plasma cholesterol in VLDL measurement (mass/volume)Ordered By: Dr. Baron on 02-01-2023 Cholesterol in VLDL [Mass/Vol] 15 mg/dL 5-40 [facility] Serum or plasma creatinine m easurement (mass/volume)Ordered By: Dr. Baron on 02-01-2023 Creatinine [Mass/Vol] 0.74 mg/dL 0.55-1.02 [facility] Comment on above: The validity of the calculated GFR & GFRAA in patients over 70 years has not been determined. Clinical correlation is essential. Serum or plasma low density lipoprotein (LDL) cholesterol measurement (mass/volume)Ordered By: Dr. Baron on 02-01-2023 Cholesterol in LDL [Mass/Vol] 57 mg/dL 0-130 [facility] Serum or plasma urea nitroge n measurement (mass/volume)Ordered By: Dr. Baron on 02-01-2023 Urea nitrogen [Mass/Vol] 10 mg/dL 7-18 [facility] Thin prep Papanicolaou smear with manual screeningOrdered By: Dr. Baron on 02-01-2023 Thin prep Papanicolaou smear with manual screening 23 U/L 15-37 [facility] Thin prep Papanicolaou smear with manual screening 6 5-15 [facility] CNPNon 04-09-2022 CNPN Telephone ([facility]) IVETTE ACEVEDO ([id number]) 1955 F Date Time Provider Department 04/09/22 ARPITA JAIMES During your visit today, we recorded the following information about you: Rom Montiel 04/09/2022 2:06 PM Signed Patient needs all mammograms sent to [facility] to their imaging dept. Thank you. Arpita Jaimes, PSS 04/09/2022 3:23 PM Signed Sent the last 2 yrs to [facility] release in syngo Allergies As of Date: [...] Status:Closed by ROM MONTIEL on 04/13/22 [facility] Bas[facility] percentage[facility] 2021 Bilirubin [Mass/Vol] 0.30 mg/dL 0.20-1.00 [facility] Work Phone: Comment on above: For patients on eltr ombopag therapy, use of Dimension [place] TBIL is not recommended. Cholesterol [Mass/Vol] 131 mg/dL <[address] [facility] Work Phone: [phone] Comment on above: <200 mg/dL Desirable 200-240 mg/dL Borderline >240 mg/dL High Risk Protein [Mass/Vol] 6.8 g/dL 6.4-8.2 [facility] Work Phone: [phone] Triglyceride [Mass/Vol] 138 mg/dL <199 [facility] Work Phone: [phone] Comment on above: The drugs N-Acetylcy steine and Metamizole may falsely depress this assay.Serum Triglycerides Reference Interval Normal <150 mg/dL Borderline high 150 - 199 mg/dL High 200 - 499 mg/dL Very High > or = 500 mg/dL Direct bilirubinon Bilirubin.direct [Mass/Vol] 0.08 mg/dL 0.00-0.30 [facility] Work Phone: [phone] Laboratory - Chemistry and C hemistry - challengeon 02-13-2022 ALP [Catalytic activity/Vol] 114 U/L 45-117 [facility] Work Phone: [phone] ALT [Catalytic activity/Vol] 28 U/L 13-56 [facility] Work Phone: [phone] Free T4 [Mass/Vol] 1.14 ng/dL 0.76-1.46 [facility] Work Phone: [phone] Globulin (S) [Mass/Vol] 3.2 g/dL 2.2-4.2 [facility] Work Phone: [phone] No Panel Informationon 02-13 Thyroid Stimulating Hormone (TSH) 0.77 uIU/mL 0.358-3.74 [facility] Work Phone: [phone] Serum or plasma albumin anderson urement (mass/volume)on 02-13-2022 Albumin [Mass/Vol] 3.6 g/dL 3.2-5.0 [facility] Work Phone: [phone] Serum or plasma cholesterol in HDL measurement (mass/volume)on 02-13-2022 Cholesterol in HDL [Mass/Vol] 45 mg/dL >40 [facility] Work Phone: Comment on above: The drugs N-Acetylcy steine and Metamizole may falsely depress this assay. Reference Range HDL <40 mg/dL Low HDL Cholesterol HDL >or= 60 mg/dL High HDL Cholesterol Serum or plasma cholesterol in VLDL measurement (mass/volume)on 02-13-2022 Cholesterol in VLDL [Mass/Vol] 28 mg/dL 5-40 [facility] Work Phone: Serum or plasma low density lipoprotein (LDL) cholesterol measurement (mass/volume)on 02-13-2022 Cholesterol in LDL [Mass/Vol] 58 mg/dL 0-130 [facility] Work Phone: Thin prep Papanicolaou smear with manual screeningon 02-13-2022 Thin prep Papanicolaou smear with manual screening 17 U/L 15-37 [facility] Work Phone: [facility] 04-21-2021 [facility] HNO ID: [id number] Author: Mammography Coordinator Service: ? Author Type: Physician Type: Letter Filed: 04/24/2021 11:35 PM Note Text: April 21, 2021 PID: [id number] Ivette Acevedo [address] [place] [address] Dear Ms. Acevedo, We are pleased to [...] report will be kept on file at [facility] as part of your permanent medical record and are available for your continuing care. Thank you for allowing us to help in meeting your health care needs. Sincerely, Dr. Perrin Interpreting Radiologist [facility] (Normal over 40) Normal [facility] SCREENING W TOMOon 04-21 CHUY SCREENING W RAMYA * * *Final Report* * * DATE OF EXAM: Apr 21 2021 10:00AM [id number] - [facility] SCREENING W RAMYA / PROCEDURE REASON: breast cancer screening * * * * Physician Interpretation * * * * RESULT: #[id number] - [facility] SCREENING W RAMYA BILATERAL DIGITAL SCREENING MAMMOGRAM [...] made to exams dated: 04/01/2020 mammogram - [facility], 01/13/2019 mammogram, 01/06/2018 mammogram, 12/26/2015 mammogram, and 11/11/2014 mammogram - [facility]. There are scattered fibroglandular elements in both breasts. No significant masses, calcifications, or other findings are seen in either breast. There has been no significant interval change. IMPRESSION: NEGATIVE There is no mammographic evidence of malignancy. A 1 year screening mammogram is recommended. Lottie Perrin M.D. fa/penrad:04/21/2021 11:37:49 Arch Support Maker(s): Brissa Hernandez RT(R)(M), [facility] letter sent: Normal over 40 Mammogram BI-RADS: [...] Health, Family Medicine, and Medical/Surgical Oncology, [facility] [facility] has carefully reviewed the data and reached [...] their providers when to stop screening mammograms. Stone Finisher: Lyndsey Transcribe Date/Time: Apr 21 2021 9:22A Dictated by: LOTTIE PERRIN MD This examination was interpreted and the report reviewed and electronically signed by: LOTTIE PERRIN MD on Apr 21 2021 11:37AM EST [id number] CN Normal [facility] Lab Report: Lipid Profileon 09-06-2017 Cholesterol 139 mg/dL Invalid Interpretation Code 200 [facility] Work Phone: [phone] HDL Cholesterol 62 mg/dL Invalid Interpretation Code [facility] Work Phone: [phone] LDL Cholesterol 59 mg/dL Invalid Interpretation Code 0-130 [facility] Work Phone: [phone] Triglyceride 92 mg/dL Invalid Interpretation Code [facility] Work Phone: [phone] very low density lipoproteins 18 mg/dL Invalid Interpretation Code 5-40 [facility] Work Phone: [phone] Lab Report: Liver Profileon 09-06-2017 Alanine aminotransferase (ALT) 22 U/L Invalid Interpretation Code 12-78 [facility] Work Phone: [phone] Albumin 4.0 g/dL Invalid Interpretation Code 3.4-5.0 [facility] Phone: [phone] Alkaline phosphatase (ALP) 96 U/L Invalid Interpretation Code 45-117 [facility] Phone: [phone] Aspartate aminotransferase (AST) 17 U/L Invalid Interpretation Code 15-37 [facility] Phone: [phone] Bilirubin (direct) 0.15 mg/dL Invalid Interpretation Code 0.00-0.30 [facility] Work Phone: [phone] Bilirubin (total) 0.60 mg/dL Invalid Interpretation Code 0.20-1.00 [facility] Work Phone: [phone] Globulin 3.3 g/dL Invalid Interpretation Code 2.2-4.2 [facility] Phone: [phone] Protein 7.3 g/dL Invalid Interpretation Code 6.4-8.2 [facility] Phone: [phone] Office Visiton 04-29-2017 Documentation of current medications (procedure) Done Invalid Interpretation Code [facility] Work Phone: [phone] Tobacco use CPHS Never smoker Invalid Interpretation Code [facility] Work Phone: [phone] Office Visiton 03-05-2017 Fall risk assessment Fall risk assessment Invali d Interpretation Code [facility] Work Phone: [phone] Clinical Lists Update: 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 childhood worker 03-01-2017 Left ventricular Ejection fraction 35-40 Invalid Interpretation Code [facility] Work Phone: [phone] External Other: Preferred Me thod of Contacton 11-23-2015 methcontact phone Invalid Interpretation Code [facility] Work Phone: [phone] Office Visiton 11-23-2015 cardiac risk group C Invalid Interpretation Code [facility] Work Phone: [phone] General cardiovascular disease 10Y risk [#] [place].Maria T'Lyssa N/A Invalid Interpretation Code [facility] Work Phone: [phone] Replaced Document: Renay Dutton CG Observationson 11-23-2015 EKG QRS axis 64 deg Invalid Interpretation Code [facility] Work Phone: [phone] 00 Interpretation Sinus Bradycardia - Extensive T-abnormality - Anterior/lateral and inferior ischemia. ABNORMAL Invalid Interpretation Code [facility] Work Phone: [phone] P [place] 58 deg Invalid Interpretation Code [facility] Work Phone: [phone] UT Interval 120 ms Invalid Interpretation Code [facility] Work Phone: [phone] Pulse (Heart Rate) 57 /min Invalid Interpretation Code [facility] Work Phone: [phone] QRS Duration 102 ms Invalid Interpretation Code [facility] Work Phone: [phone] QT Interval new path ms Invalid Interpretation Code [facility] Work Phone: [phone] QTc Lambert 481 ms Invalid Interpretation Code [facility] Work Phone: [phone] T [place] 155 deg Invalid Interpretation Code [facility] Work Phone: [phone] Clinical 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 Anion gap 9 mmol/L Invalid Interpretation Code [facility] Work Phone: [phone] Calcium 8.2 mg/dL Low [facility] Work Phone: [phone] Chloride 107 mmol/L Invalid Interpretation Code [facility] Work Phone: [phone] CO2 24 mmol/L Invalid Interpretation Code [facility] Work Phone: [phone] Creatinine 0.83 mg/dL Invalid Interpretation Code [facility] Work Phone: [phone] Erythrocytes (RBC) 4.35 10*6/uL Invalid Interpretation Code [facility] Work Phone: [phone] Glucose mass conc 91 mg/dL Invalid Interpretation Code [facility] Work Phone: [phone] Hematocrit (HCT) 37.2 % Invalid Interpretation Code [facility] Work Phone: [phone] Hemoglobin mass conc (Bld) 12.1 g/dL Invalid Interpretation Code [facility] Work Phone: [phone] Platelets 263 10*3/mm3 Invalid Interpretation Code [facility] Work Phone: [phone] Potassium molar conc 4.2 mmol/L Invalid Interpretation Code [facility] Work Phone: [phone] Sodium 135 mmol/L Invalid Interpretation Code [facility] Work Phone: [phone] Urea nitrogen 8 mg/dL Invalid Interpretation Code [facility] Work Phone: [phone] WBC (Leukocytes) 6.7 10*3/uL Invalid Interpretation Code [facility] Work Phone: [phone] Clinical Lists Update: 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 01-31-2024 15:18-0400 Heart rate 80 /min [facility] 01-31-2024 15:18-0400 Respiratory rate 16 /min [facility] 01-31-2024 15:18-0400 SaO2% (BldA) [Mass fraction] 98 % [facility] 01-31-2024 15:18-0400 Systolic blood pressure 152 mm[Hg] [facility] 01-31-2024 13:43-0400 Body height 165.1 cm [facility] 01-31-2024 13:43-0400 Body mass index (BMI) [Ratio] 19.8 kg/m2 [facility] 01-31-2024 13:43-0400 Body weight 54.1 kg [facility] 03-04-2023 09:05-0400 Body height 167.[address] Asad Baron Work Phone: [facility] 03-04-2023 09:05-0400 Heart rate 62 /min Dr. Asad Baron Work Phone: [facility] 03-04-2023 09:04-0400 Body mass index (BMI) [Ratio] 19 kg/m2 Dr. Asad Baron Work Phone: [facility] 03-04-2023 09:04-0400 Body weight 53.[address] Asad Baron Work Phone: [facility] 03-04-2023 09:04-0400 Diastolic blood pressure 81 mm[Hg] Dr. Asad Baron Work Phone: [facility] 03-04-2023 09:04-0400 Respiratory rate 18 /min Dr. Asad Baron Work Phone: [facility] 03-04-2023 09:04-0400 SaO2% (BldA) [Mass fraction] 100 % Dr. Asad Baron Work Phone: [facility] 03-04-2023 09:04-0400 Systolic blood pressure 131 mm[Hg] Dr. Asad Baron Work Phone: [facility] 02-09-2023 22:34-0400 Body mass index (BMI) [Ratio] 19.4 kg/m2 Dr. Asad Baron Work Phone: [facility] 02-09-2023 22:34-0400 Body temperature 97.8 [degF] Dr. Asad Baron Work Phone: [facility] 02-09-2023 22:34-0400 Body weight 54.[address] Asad Baron Work Phone: [facility] 02-09-2023 22:34-0400 Diastolic blood pressure 66 mm[Hg] Dr. Asad Baron Work Phone: [facility] 02-09-2023 22:34-0400 Heart rate 65 /min Dr. Asad Baron Work Phone: [facility] 02-09-2023 22:34-0400 Respiratory rate 16 /min Dr. Asad Baron Work Phone: [facility] 02-09-2023 22:34-0400 SaO2% (BldA) [Mass fraction] 100 % Dr. Asad Baron Work Phone: [facility] 02-09-2023 22:34-0400 Systolic blood pressure 181 mm[Hg] Dr. Asad Baron Work Phone: [facility] 03-06-2022 09:13-0400 Body height 166.[address] Asad Baron Work Phone: [facility] Work Phone: 03-06-2022 09:13-0400 Body mass index (BMI) [Ratio] 19.3 kg/m2 Dr. Asad Baron Work Phone: [facility] Work Phone: 03-06-2022 09:13-0400 Body weight 53.[address] Asad Baron Work Phone: [facility] Work Phone: 03-06-2022 09:13-0400 Diastolic blood pressure 67 mm[Hg] Dr. Asad Baron Work Phone: [facility] Work Phone: 03-06-2022 09:13-0400 Heart rate 71 /min Dr. Asad Baron Work Phone: [facility] Work Phone: 03-06-2022 09:13-0400 Respiratory rate 18 /min Dr. Asad Baron Work Phone: [facility] Work Phone: 03-06-2022 09:13-0400 SaO2% (BldA) [Mass fraction] 100 % Dr. Asad Baron Work Phone: [facility] Work Phone: 03-06-2022 09:13-0400 Systolic blood pressure 110 mm[Hg] Dr. Asad Baron Work Phone: [facility] Work Phone: 03-06-2022 09:13-0400 Body height 166.[address] Asad Baron Work Phone: [facility] Work Phone: 03-06-2022 09:13-0400 Body mass index (BMI) [Ratio] 19.3 kg/m2 Dr. Asad Baron Work Phone: [facility] Work Phone: 03-06-2022 09:13-0400 Body weight 53.[address] Asad Baron Work Phone: [facility] Work Phone: 03-06-2022 09:13-0400 Diastolic blood pressure 67 mm[Hg] Dr. Asad Baron Work Phone: [facility] Work Phone: 03-06-2022 09:13-0400 Heart rate 71 /min Dr. Asad Baron Work Phone: [facility] Work Phone: 03-06-2022 09:13-0400 Respiratory rate 18 /min Dr. Asad Baron Work Phone: [facility] Work Phone: 03-06-2022 09:13-0400 SaO2% (BldA) [Mass fraction] 100 % Dr. Asad Baron Work Phone: [facility] Work Phone: 03-06-2022 09:13-0400 Systolic blood pressure 110 mm[Hg] Dr. Asad Baron Work Phone: [facility] Work Phone: 02-13-2022 14:46-0400 Body mass index (BMI) [Ratio] 19.1 kg/m2 Dr. Asad Baron Work Phone: [facility] Work Phone: 02-13-2022 14:42-0400 Body mass index (BMI) [Ratio] 19.4 kg/m2 Dr. Asad Baron Work Phone: [facility] Work Phone: 02-13-2022 14:42-0400 Body temperature 96.8 [degF] Dr. Asad Baron Work Phone: [facility] Work Phone: 02-13-2022 14:42-0400 Body weight 53.[address] Asad Baron Work Phone: [facility] Work Phone: 02-13-2022 14:42-0400 Diastolic blood pressure 76 mm[Hg] Dr. Asad Baron Work Phone: [facility] Work Phone: 02-13-2022 14:42-0400 Heart rate 71 /min Dr. Asad Baron Work Phone: [facility] Work Phone: 02-13-2022 14:42-0400 Respiratory rate 16 /min Dr. Asad Baron Work Phone: [facility] Work Phone: 02-13-2022 14:42-0400 SaO2% (BldA) [Mass fraction] 88 % Dr. Asad Baron Work Phone: [facility] Work Phone: 02-13-2022 14:42-0400 Systolic blood pressure 110 mm[Hg] Dr. Asad Baron Work Phone: [facility] Work Phone: 02-13-2022 14:42-0400 Body height 166.[address] Asad Baron Work Phone: [facility] Work Phone: 02-13-2022 14:42-0400 Body mass index (BMI) [Ratio] 19.4 kg/m2 Dr. Asad Baron Work Phone: [facility] Work Phone: 02-13-2022 14:42-0400 Body temperature 96.8 [degF] Dr. Asad Baron Work Phone: [facility] Work Phone: 02-13-2022 14:42-0400 Body weight 53.[address] Asad Baron Work Phone: [facility] Work Phone: 02-13-2022 14:42-0400 Diastolic blood pressure 76 mm[Hg] Dr. Asad Baron Work Phone: [facility] Work Phone: 02-13-2022 14:42-0400 Heart rate 71 /min Dr. Asad Baron Work Phone: [facility] Work Phone: 02-13-2022 14:42-0400 Respiratory rate 16 /min Dr. Asad Baron Work Phone: [facility] Work Phone: 02-13-2022 14:42-0400 SaO2% (BldA) [Mass fraction] 88 % Dr. Asad Baron Work Phone: [facility] Work Phone: 02-13-2022 14:42-0400 Systolic blood pressure 110 mm[Hg] Dr. Asad Baron Work Phone: [facility] Work Phone: 04-29-2017 09:23-0400 BMI (Body Mass Index) 20.17 kg/m2 Kathy Fuchs PA-C [facility] Work Phone: 04-29-2017 09:23-0400 Weight 56.7 kg Kathy Fuchs PA-C [facility] Work Phone: 03-05-2017 11:18-0400 BP Diastolic 60 mm[Hg] Kathy Fuchs PA-C [facility] Work Phone: 03-05-2017 11:18-0400 BP Systolic 110 mm[Hg] [facility] Work Phone: 03-05-2017 11:18-0400 Height 167.64 cm Kathy Fuchs PA-C [facility] Work Phone: 03-05-2017 11:18-0400 Pulse (Heart Rate) 60 /min Kathy Fuchs PA-C [facility] Work Phone: 03-05-2017 11:18-0400 Respiratory Rate 20 /min Kathy Fuchs PA-C [facility] Work Phone: 09-05-2016 11:31-0500 BSA (Body Surface Area) 1.68 m2 Kathy Fuchs PA-C [facility] Work Phone: Encounters Encounter Date Encounter Type Care Provider Facility Start: 06-03-2025 [facility] Start: 07-29-2024 End: 07-29-2024 ambulatory [facility] Start: 07-21-2024 Encounter for genera l adult medical examination without abnormal findings Asad Baron [facility] Start: 07-01-2024 End: 07-01-2024 ambulatory [facility] Facility:[facility] Start: 06-24-2024 End: 06-24-2024 ambulatory [facility] Facility:[facility] Start: 05-22-2024 End: 05-22-2024 ambulatory [facility] Facility[facility] Start: 05-11-2024 End: 05-11-2024 ambulatory Asad Baron Facility:[facility] Start: 01-31-2024 End: 01-31-2024 Emergency department patient visit [facility] Work Phone: Start: 05-01-2023 End: 05-01-[address] Asad Baron Work Phone: [facility] Work Phone: Start: 05-01-2023 End: 05-01-[address] Asad Baron Work Phone: [facility]-Outpatient Breast Imaging Work Phone: Start: 03-04-2023 End: 03-04-[address] Asad Baron Work Phone: [facility] Work Phone: Start: 02-09-2023 End: 02-10-2023 Emergency department patient visit Dr. Asad Baron Work Phone: [facility] Work Phone: Start: 02-01-2023 End: 02-01-[address] [facility] Work Phone: Start: 02-01-2023 End: 02-01-[address] [facility] Start: 04-23-2022 End: 04-23-[address] Asad Baron Work Phone: [facility]Outpatient Breast Imaging Start: 04-09-2022 Telephone encounter Arpita Jaimes PSS Radiology Comment on above: Mammogram Request Start: 03-15-2022 Non-patient / Non-visit Dr. Lawrence Baron Work Phone: [facility] Start: 03-15-2022 End: 03-15-[address] Asad Baron Work Phone: [facility]-Cardiovascular Services Start: 03-06-2022 End: 03-06-[address] Asad Baron Work Phone: [facility] Start: 02-13-2022 End: 02-13-[address] Asad Baron Work Phone: [facility]-Laboratory, [facility] Procedures Date Procedure Procedure Detail [...] Panel Christine Velazco Start: 11-23-2015 End: 11-23-2015 VP ANALYTICS Silvestre Lassiter MD Start: 11-23-2015 End: 02-25-2017 [...] Date Care Activity Detail Author Start: 01-31-2024 [facility] Start: 06-28-2022 Influenza vaccination INFLUENZA (Season Ended) [facility] Start: 04-21-2022 Mammography MAMMOGRAM [facility] Start: 10-28-2021 ADVANCE DIRECTIVE DISCUSSION ADVANCE DIRECTIVE DISCUSSION [facility] Start: 2021 PNEUMOCOCCAL: 65+ (1 - PCV) PNEUMOCOCCAL: 65+ (1 - PCV) [facility] Start: 10-03-2021 DIABETES SCREEN DIABETES SCREEN [facility] Start: 07-04-2021 COVID-19 VACCINE (3 - Booster for Pfizer series) COVID-19 VACCINE (3 - Booster for Pfizer series) [facility] Start: 11-02-2020 LIPID SCREEN LIPID SCREEN [facility] Start: 09-22-2019 Colonoscopy COLONOSCOPY [facility] Start: 09-22-2019 COLORECTAL CANCER SCREENING COLORECTAL CANCER SCREENING [facility] Start: 03-10-2018 End: 09-11-2017 *Hepatic Function Panel *Hepatic Function Panel [facility] Work Phone: Start: 03-10-2018 [...] Group Work Phone: Start: 03-05-2017 End: 03-05-2017 VP ANALYTICS VP A[facility] Work Phone: Start: 03-05-2017 End: 03-05-2017 Follow Up Appt 1 year Follow Up Appt 1 year [facility] Work Phone: Start: 02-21-2017 End: 02-25-2017 *Hepatic Function Panel *Hepatic Function Panel [facility] Work Phone: Start: 02-21-2017 End: 02-25-2017 Lipid panel [AGGREGATE] *Lipid Profile CC PCP [facility] Work Phone: Start: 09-05-2016 End: 09-05-2016 VP ANALYTICS VP ANALYTICS [facility] Work Phone: Start: 09-05-2016 End: 09-05-2016 Follow Up Appt 6 months Follow Up Appt 6 months [facility] Work Phone: Start: 08-14-2016 End: 08-21-2016 *Hepatic Function Panel *Hepatic Function Panel [facility] Work Phone: Start: 08-14-2016 End: 08-21-2016 Lipid panel [AGGREGATE] *Lipid Profile CC PCP [facility] Work Phone: Start: 02-21-2016 End: 02-21-2016 VP ANALYTICS VP ANALYTICS [facility] Work Phone: Start: 02-21-2016 End: 02-21-2016 Follow Up Appt 6 months Follow Up Appt 6 months [facility] Work Phone: Start: 02-21-2016 End: 02-21-2016 Nuclear stress test -exercise Nuclear stress test -exercise [facility] Work Phone: Start: 11-23-2015 End: 02-13-2016 *Hepatic Function Panel *Hepatic Function Panel [facility] Work Phone: Start: 11-23-2015 End: 11-23-2015 Cardiac Rehab Cardiac Rehab [facility] Work Phone: Start: 11-23-2015 End: 11-23-2015 VP ANALYTICS VP ANALYTICS [facility] Work Phone: Start: 11-23-2015 [...] of 2) SHINGRIX VACCINE (1 of 2) [facility] Start: 2001 COLOGUARD (FIT-DNA) COLOGUARD (FIT-DNA) [facility] Start: [address] COLONOGRAPHY [facility] Start: 2001 FECAL OCCULT BLOOD FECAL OCCULT BLOOD [facility] Start: 2001 SIGMOIDOSCOPY SIGMOIDOSCOPY [facility] Start: 1975 Urine microalbumin profile DTAP,TDAP,TD (1 - Tdap) [facility] Start: 1974 HEPATITIS C SCREENING HEPATITIS C SCREENING [facility] Start: 1974 HIV SCREENING HIV SCREENING [facility] Start: 1968 Adult depression screening assessment DEPRESSION SCREENING [facility] Patient Education [facility] Work Phone: Patient referral [facility] Work Phone: Payers Date Payer Category Payer Self-pay [id number] 2024 Private Health Insurance 101 [id number] 2020 Unknown [employer] PPO [id number] 2020-Present [phone] [address] [place] [address] PPO [id number] Unknown [id number] Unknown [id number] 62 Unknown [id number] 62 Unknown [id number] 62 Unknown [id number] 62 Unknown [id number] 62 Unknown [id number] Social History Date Type Detail Facility Start: 02-13-2022 End: 01-31-2024 Tobacco smoking status NHIS Unknown if ever smoked [facility] Start: 06-01-2020 Non-smoker [facility] Start: 1955 Sex Assigned At Female [facility] Tobacco smoking stat us NHIS Never smoked tobacco [facility] Start: 01-06-2018 Alcohol intake Current non-dr phone engineer of alcohol (finding) [facility] Mental Status Date Assessment Result Facility 01-31-2024 Cognitive function Level Of Cons ciousness Awake;Alert;Appropriate;Follow s Commands [facility] Work Phone: Note 04-09-2022 Telephone Encounter - MARIA ALEJANDRA Luo - 04/09/2022 3:22 PM EDTTelephone Encounter - Rom Montiel - 04/09/2022 2:02 PM EDT Note Date & Type Note Facility 04-09-2022 Miscellaneous Notes Sent the last 2 yrs to [facility] release in [place] Patient needs all mammograms sent to [facility] to their imaging dept. Thank you. documented in this encounter [facility] Progress note 04-21-2021 Note Date & Type Note Facility 04-21-2021 Note HNO ID: [id number] Author: Jesika Amanda Service: ? 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 Work Phone: Evaluation note 11-01-2015 Note Date & Type Note Facility 11-01-2015 Evaluation note Diagnosis Onset Date HLD (hyperlipidemia) chronic History of coronary artery stent placement November 01, [address] [facility] Work Phone: History of Past illness Narrative 09-12-2010 Note Date & Type Note Facility 09-12-2010 History of Past i llness Narrative Problem Noted Date Resolved Date Unspecified constipation 010 documented as of this encounter (statuses as of 04/13/2022) [facility] Evaluation note Note Date & Type Note Facility Evaluation note No assessment information availa ble [facility] Work Phone: Hospital Discharge instructions Note Date & Type Note Facility Hospital Discharge instructions Additional Instructions Alternate Tylenol and ibuprofen every 3 hours as needed and use ice. [facility] Work Phone: Chief Complaint and Reason [...] Yes October 12, 020 10:45am Power of Latent Print Examiner Yes October 12, 2020 10:45am Advance Directive Response Recorded Date/ Time Name of Medical Power of Latent Print Examiner Juan Acevedo, February 09, 2023 11:48pm Living Will Yes February 09, 2023 11:48pm Power of Latent Print Examiner Yes February 09 11:48pm Advance Directive Response Recorded Date/ Time Living Will Yes January 31, 2024 1:51pm Power of Latent Print Examiner Yes January 30 1:51pm Name of Medical Power of Latent Print Examiner agnes January 31, 2024 1:51pm Summary Purpose [...] or prosecute any alcohol or drug abuse patient.[facility] Reason for Visit (unrecogniz ed section and content) Reason Comments Mammogram Request Care Teams (unrecognized sec tion and content) Cardiac Nurse Practitioner Relationship Specialty Start Date End Date Asad Baron MD [address] [facility][1] [address] [place] [address] PCP - General Family Practice 04/01/20 Agnes Murguia [address] [facility] [place] [address] Referring General Surgery 07/05/20 Team [...] Care Provider, Referring Provider Active Alma Lay [employer], [employer] Attending Provider Active Team Status: Inactive Member [...] section and content) DATE CREATED AUTHOR 04/14/2022 [facility] DATE CREATED AUTHOR AUTHOR'S ORGANIZ ATION 05/07/2025 [facility] FOR RECORDS PERTAINING TO PATIENTS WHO [...] BE BASED ON THE PRIMARY CLINICAL RECORDS. [employer] provides no warranty or guarantee of the accuracy or completeness of information in this document.
[2025-05-12 12:50] LABS: AST(SGOT) 26 U/L (<=31); Alanine Aminotransfer ALT/SGPT 15 U/L (<=34); Albumin, Serum 4.3 g/dL (3.4-4.8); Alkaline Phosphatase 78 U/L (35-104); Bilirubin, Direct 0.23 mg/dL (0.00-0.30); Cholesterol 129 mg/dL (<=200); Globulin 2.5 g/dL (2.2-4.2); Low Density Lipoprotein Calc. 65 mg/dL; Triglycerides 71 mg/dL; Very Low Density Lipoprotein 14 mg/dL (5-40); cholesterol:hdl ratio screen 2.59
== END | disposition home or self-care (01) ==
LOC: MTLAB 08:21
PROVIDERS: PCP Family Medicine; Referring Provider Internal Medicine Cardiovascular Disease; Visit Provider Internal Medicine Cardiovascular Disease
DX: E78.5 Hyperlipidemia, unspecified (principal); I25.10 Atherosclerotic heart disease of native coronary artery without angina pectoris; E78.00 Pure hypercholesterolemia, unspecified
CPT/HCPCS: 36415; 80061; 80076

== ENCOUNTER → 2025-06-08 | Outpatient (CLI) | payer MEDICARE, SELFPAY ==
--- NOTE | 2025-06-08 10:40 | BI_ITS ---
EXAM: SCRN MAMM (CAD)W/RAMYA BILAT DATE: 06/08/2025 CLINICAL HISTORY: F, Age 69 y/o , SCREENING TECHNIQUE: SCRN MAMM (CAD)W/RAMYA BILAT COMPARISON: Prior exam(s) dated 05/11/2024, 05/01/2023, 04/23/2022. FINDINGS: TISSUE DENSITY: There are scattered areas of fibroglandular density. Bilateral Breast Mammographic Findings: No significant masses, calcifications or other abnormalities are identified. BI/SCRN MAMM (CAD)W/RAMYA BILAT IMPRESSION: There is no mammographic evidence of malignancy. OVERALL FINAL ASSESSMENT BI-RADS 1: NEGATIVE. RECOMMENDATION: Routine annual follow-up in 1 Year A letter with findings and recommendations will be mailed to the patient. Reading Location: [id number]
--- OUTSIDE RECORDS SUMMARY | 2025-06-08 20:16 | XMS RPT_ITS | CCD ---
Author Organization [facility] Care Team Providers Care Loss Prevention And Safety Manager Name Role Phone RAO Fuchs, Kathy King Unavailable [phone] Rivka Garcia Unavailable Unavailable Dr. Asad Baron Primary Care Provider Dr. Asad Baron Referring Provider Dr. Tony Dai Attending Provider Dr. Silvestre Lassiter Attending Provider Dr. Silvestre Lassiter Referring Provider Dr. Silvestre Lassiter Other Provider Asad Baron MD Primary Care Provider [phone] Asad Baron Primary Care Provider Dr. Asad Baron Referring Provider Alireza GALVAN, SHAHBAZC Alma Attending Provider Dr. Asad Baron MD Primary Care Provider Dr. Silvestre Lassiter MD Attending Provider Dr. Silvestre Lassiter MD Referring Provider Dr. Asad Baron MD Referring Provider [phone] Asad Baron Primary Care Unavailable Sheri Larsen Attending Unavailable Asad Baron Referring Unavailable Silvestre Lassiter Attending Unavailable Asad Baron Referring Unavailable Loraine, Asad Primary Care Unavailable Asad Baron Primary Care Unavailable Sravani, Silvestre Attending Unavailable Silvestre Lassiter Referring Unavailable Asad Baron Primary Care Unavailable Asad Baron Attending Unavailable Asad Baron Referring Unavailable Asad Baron Primary Care Unavailable Asad Baron Attending Unavailable Asad Baron Referring Unavailable Asad Baron Primary Care Unavailable Loraine, Asad Attending Unavailable Loraine, Asad Referring Unavailable Allergies Allergy Classification Reported Allergen(s) Allergy Type Date of Onset Reaction(s) Facility (5 sources) apis mellifera venom; Translations: [BEE STINGS] allergy to substance 6 Swelling [facility] Work Phone: [phone] (2 sources) atorvastatin Drug Allergy 6 Vomiting, diarrhea [facility] Work Phone: [phone] (2 sources) carvedilol Drug Allergy 6 Diarrhea, muscle aches, cough [facility] Work Phone: [phone] (12 sources) cephalexin; Translations: [cephalexin] Drug Allergy 6 Unknown [facility] Work Phone: [phone] (4 sources) Penicillins (Antibiotic) drug allergy 6 [facility]: [phone] (2 sources) BRILLINTA drug allergy 6 red rash [facility] Work Phone: [phone] (9 sources) atorvastatin; Translations: [atorvastatin calcium] Drug Allergy 2 Unknown [facility] (8 sources) carvedilol Drug Allergy 2 myalgias, cough, diarrhea [facility] (8 sources) Latex Allergy to substance 2 rash [facility] (10 sources) Penicillins; Translations: [Penicillins] Allergy to substance 6 Rash [facility] Work Phone: (8 sources) Ticagrelor Drug Allergy 2 rash [facility] (1 source) bee stings [Other] Propensity to adverse reactions 9 Rash, Swelling [facility] Work Phone: (5 sources) venom-honey bee Allergy to substance 2 Swelling [facility] (1 source) carvedilol Drug Allergy 5 [facility] (1 source) Latex Drug allergy (disorder) 5 [facility] (1 source) Ticagrelor Drug Allergy 5 [facility] (1 source) venom-honey bee Drug allergy (disorder) 5 [facility] Medications Current Medications Medication Drug Class(es) Dates Sig (Normalized) Sig (Original) alendronic acid 70 mg oral tablet (1 source) Bisphosphonate Start: 05-28-2025 take 1 tablet by mouth every week Alendronate 70 mg tablet Active 70 mg PO EVERY WEEK May 28, 2025 12:00am Osteoporosis aspirin 81 mg delayed release oral tablet (13 sources) Nonsteroidal Anti-inflammatory Drug Start: 11-21-2015 take 1 tablet by mouth once daily Aspirin 81 MG tablet,delayed release (DR/EC) Active 81 mg PO DAILY November 30, 2015 1:00am Start: 04-25-2009 take 1 tablet by helio th once daily ASPIRIN 81 MG TABS One tablet by mouth daily ASPIRIN [id number] Jelly Redd RN Comment on above: Take one(1) tablet d aily. biotin 10 mg oral capsule (8 sources) Start: 03-02-20 take 1 capsule by mouth once daily Biotin 10,000 mcg capsule Active 19850 ug PO DAILY March 02, 2021 12:00am [id number] 0.3 ml EPINEPHrine 1 mg/ml auto-injector (8 sources) alpha-Adrenergic Agonist, beta-Adrenergic Agonist, Catecholamine Start: 01-14-20 Epinephrine 0.3 mg/0.3 mL auto-injector Active 0.3 mg IM every 5 to 15 minutes as needed for Allergy Symptoms January 13, 2021 12:00am do not exceed 3 doses per episode levothyroxine sodium 0.05 mg oral tablet (20 sources) l-Thyroxine Start: 01-02-20 End: 02-14-20 take 1 tablet by mouth once daily Levothyroxine 50 mcg tablet Active 50 ug PO DAILY 90 3 February 13, 2022 5:06pm Start: 01-13-2021 End: 01-01-2022 take 1 capsule by mouth once daily Levothyroxine 50 mcg capsule Discontinued 50 ug PO DAILY 90 3 January 13, 2021 12:00am January 01, 2022 2:15pm metroNIDAZOLE 0.0075 mg/mg topical gel (20 sources) Nitroimidazole Antimicrobial Start: 03-02-2021 Metronidazole 0.75 % gel Active 1 NMA TOPICAL DAILY as needed for Rash March 02, 2021 12:00am Start: 01-13-2021 End: 03-02-2021 Metronidazole 1 % gel Discon tinued NMA TOPICAL January 13, 2021 12:00am March 02, 2021 11:04am Start: 01-13-2021 End: 03-02-2021 Metronidazole Discontinued G TOPICAL January 13, 2021 12:00am March 02, 2021 11:04am Start: 03-04-2018 End: 01-18-2019 Metronidazole 0.75 % cream D iscontinued TOPICAL 45 30 0 March 04, 2018 12:00am January 18, 2019 8:18am Start: 03-04-2018 End: 01-18-2019 Metronidazole Discontinued T OPICAL 45 30 March 04, 2018 12:00am January 18, 2019 8:18am metroNIDAZOLE 1 % glwp Apply to affected area. 0 Active Comment on above: Apply to affected ar ea. vitamin b12 5 mg oral capsule (8 sources) Vitamin B12 Start: 03-02-2021 Cyanocobalamin (Vitamin B-12) 5,000 mcg capsule Active 5000 ug PO SA March 02, 2021 12:00am Completed/Discontinued Medications Medication Drug Class(es) Dates Sig (Normalized) Sig (Original) acetaminophen 325 mg / oxyCODONE hydrochloride 5 mg oral tablet (8 sources) Opioid Agonist Start: 06-08-2020 End: 06-14-2020 Oxycodone-Acetamino phen 1 TABLET tablet Discontinued 1 - 2 {tbl} PO EVERY 4 HOURS NEEDED as needed for Pain 16 04June 08, 2020 June 13, 2020 12:00am June 14, 2020 12:02am Lesion of subcutaneous tissue Disorder of the skin and subcutaneous tissue, unspecified Start: 06-08-2020 End: 06-14-2020 take 1 tablet by mouth every four hours as needed Oxycodone-Acetaminophen Discontinued 1 - 2 TABLET PO EVERY 4 HOURS NEEDED 16 04June 08, 2020 June 14, 2020 12:02am atorvastatin 80 mg oral tablet (4 sources) HMG-CoA Reductase Inhibitor Start: 11-21-2015 End: 11-23-2015 take 1 tablet by mouth once daily in the evening ATORVASTATIN CALCIUM 80 MG TABS One tablet by mouth every evening ATORVASTATIN CALCIUM [id number] Jelly Redd RN azithromycin 250 mg oral tablet (8 sources) Macrolide Antimicrobial Start: 01-18-2019 End: 03-05-2019 take 2-5 tablets by mouth once daily Azithromycin (Zithromax Z-Victor Hugo) 250 mg tablet Discontinued 0 PO .COMPLEX 6 0 January 18, 2019 12:00am March 05, 2019 9:16am Acute maxillary sinusitis, unspecified take 500 mg today (day 1), then 250 mg for 4 days (days 2-5) carvedilol 6.25 mg oral tablet (16 sources) alpha-Adrenergic Jeanne, beta-Adrenergic Jeanne Start: 11-21-2015 End: 03-03-2018 take 1 tablet by mouth twice daily Carvedilol 6.25 MG tablet Discontinued 6.25 mg PO TWICE A DAY November 30, 2015 1:00am March 03, 2018 9:42am Start: 11-21-2015 End: 07-30-2016 take 1 tablet by mouth twice daily COREG 3.125 MG TABS One tablet by mouth twice daily CARVEDILOL [id number] Silvestre Lassiter MD cholecalciferol 0.05 mg oral capsule (8 sources) Vitamin D Start: 03-02-2021 End: 03-04-2023 take 1 capsule by mouth once daily Cholecalciferol (Vitamin D3) 50 mcg (2,000 unit) capsule Discontinued 50 ug PO DAILY March 02, 2021 12:00am March 04, 2023 9:08am clopidogrel 75 mg oral tablet (20 sources) P2Y12 Platelet Inhibitor Start: 03-04-2018 End: 03-04-2023 take 1 tablet by mouth three times weekly Clopidogrel 75 mg tablet Discontinued 0 .ROUTE .COMPLEX 45 3 April 05, 2022 12:26pm February 09, 2023 11:47pm TAKE 1 TABLET BY MOUTH THREE TIMES A WEEK Start: 03-03-2018 End: 03-04-2018 take 1 tablet by mouth once daily Clopidogrel (Plavix) 75 mg tablet Discontinued 75 mg PO daily March 03, 2018 12:00am March 04, 2018 9:08am Start: 03-20-2016 take 1 tablet by helio once daily PLAVIX 75 MG TABS One tablet by mouth daily CLOPIDOGREL BISULFATE [id number] Silvestre Lassiter MD doxycycline hyclate 100 mg oral capsule (5 sources) Tetracycline-class Drug Start: 08-11-2022 End: 08-21-2022 take 1 capsule by mouth twice daily Doxycycline Hyclate 100 mg capsule Discontinued 100 mg PO TWICE A DAY 20 10 0 August 11, 2022 12:00am August 20, 2022 12:00am August 21, 2022 12:05am sinusitis 84 hr estradiol 0.91096 mg/hr transdermal system (12 sources) Estrogen Start: 11-21-2015 End: 12-13-2015 VIVELLE-DOT 0.05 MG/24HR PTTW transdermal as directed ESTRADIOL [id number] Jelly Redd RN Start: 11-01-2015 End: 03-03-2018 Estradiol 1 EACH patch semiw eekly Discontinued 1 NMA November 01, 2015 1:00am March 03, 2018 9:42am flaxseed extract (2 sources) Non-Standardized Food Allergenic Extract, Non-Standardized Plant Allergenic Extract Start: 02-01-2016 take 1 tablet by mouth once daily FLAX SEED OIL CAPS One tablet by mouth daily FLAXSEED (LINSEED) CAPS [id number] Jelly Redd RN Flaxseed Oil oil (1 source) Flaxseed Oil oil linseed oil 1000 mg oral capsule (16 sources) Start: 01-13-2021 End: 03-02-2021 take 1 capsule by mouth twice daily at mealtime Flaxseed Oil 1,000 mg capsule Discontinued 1000 mg PO TWICE A DAY January 13, 2021 12:00am March 02, 2021 11:01am administer with meals Start: 01-18-2019 take 1 capsule by mo [facility] once daily Flaxseed Oil ([place]-3 Flaxseed Oil) 1,000 mg capsule Active 1000 mg PO DAILY January 18, 2019 12:00am 24 hr metoprolol succinate 25 mg extended release oral tablet (20 sources) beta-Adrenergic Jeanne Start: 07-30-2016 End: 11-30-2024 take 1 tablet by mouth once daily Metoprolol Succinate (Toprol Xl) 25 mg tablet extended release 24 hr Discontinued 25 mg PO daily October 29, 2023 10:37am November 30, 2024 3:00pm Comment on above: Take 25 mg by mouth once daily. Multivitamin (Daily Multi-Vitamin) tablet (8 sources) Start: 01-13-2021 End: 03-02-2021 take 1 tablet by mouth once daily Multivitamin (Daily Multi-Vitamin) tablet Discontinued 1 TABLET PO DAILY January 13, 2021 8:07am March 02, 2021 11:02am Start: 01-13-2021 End: 03-02-2021 Multivitamin (Daily Multi-Vi tamin) tablet Discontinued 1 {tbl} PO DAILY January 13, 2021 12:00am March 02, 2021 11:02am Start: 01-13-2021 End: [...] (Nitrostat) 0.4 mg tablet, sublingual Discontinued 0.4 mg SL every 5 to 15 minutes as needed for chest pain 19 01October 31, 2021 2:01pm March 11, 2023 4:26pm Start: 03-03-2018 End: 03-11-2023 Nitroglycerin (Nitrostat) 0. 4 mg tablet, sublingual Discontinued 0.4 MG SL every 5 to 15 minutes October 31, 2021 2:01pm March 11, 2023 4:26pm Start: 11-30-2015 End: 03-03-2018 Nitroglycerin 0.3 MG tablet, sublingual Discontinued as needed for Pain November 30, 2015 1:00am March 03, 2018 9:42am Start: 11-23-2015 End: 03-03-2018 Nitroglycerin Discontinued F ebruary 2015 1:00am March 03, 2018 9:42am Start: 11-23-2015 NITROGLYCERIN 0.4 MG SUBL 1 tablet under the tongue every 5 minutes times 3 as needed for chest pain. NITROGLYCERIN [id number] Silvestre Lassiter MD Comment on above: Dissolve 0.3 mg unde r the tongue every 5 minutes as needed. simvastatin 20 mg oral tablet (20 sources) HMG-CoA Reductase Inhibitor Start: 2015 End: 2024 take 1 tablet by mouth at bedtime Simvastatin 20 mg tablet Discontinued 20 mg PO AT BEDTIME 90 3 October 29, 2023 10:37am November 30, 2024 3:00pm Comment on above: Take 20 mg by mouth once daily. sulfacetamide sodium 100 mg/ml / sulfur 10 mg/ml medicated liquid soap (1 source) Sulfonamide Antibacterial Sulfacetamide Sodium-Sulfur 10-1 % clsr Apply to affected area. 0 Active Comment on above: Apply to affected ar ea. ticagrelor 90 mg oral tablet (12 sources) Start: 2015 End: 2017 take 1 tablet by mouth twice daily Ticagrelor 90 MG tablet Discontinued 90 mg PO TWICE A DAY November 30, 2015 [...] Chronic Coronary atherosclerosis and other heart disease (20 sources) Old myocardial infarction; Translations: [Atherosclerotic heart disease of [place] coronary artery without angina pectoris] Onset: 10-28-2015 09-05-2016 Chronic Disorders of lipid metabolism (16 sources) Hyperlipidemia; Translations: [Hyperlipidemia, unspecified] Onset: 02-15-2016 02-15-2016 Chronic Hemorrhoids (2 sources) Internal hemorrhoids; Translations: [Other hemorrhoids] 04-22-2009 Episodic Menopausal disorders (1 source) Menopausal symptom; Translations: [Menopausal and female climacteric states] Onset: 09-08-2009 09-08-2009 Chronic Nonspecific chest pain (3 sources) Chest wall pain; Translations: [Other chest pain] 01-31-2024 Episodic Open wounds of extremities (4 sources) Avulsion of skin; Translations: [Unspecified open wound of right thumb without damage to nail, initial encounter] 02-18-2023 Episodic Other circulatory disease (4 sources) Bleeding; Translations: [Hemorrhage, not elsewhere classified] 02-18-2023 Episodic Other gastrointestinal disorders (1 source) Diarrhea, unspecified; Translations: [Diarrhea, unspecified] Onset: 05-11-2025 Episodic Other screening for suspected conditions (not mental disorders or infectious disease) (14 sources) Patient encounter status; Translations: [Encounter for screening for osteoporosis] Onset: 06-04-2025 08-11-2022 Episodic Other skin disorders (8 sources) Disorder of subcutaneous tissue; Translations: [Disorder of the skin and subcutaneous tissue, unspecified] 02-15-2021 Episodic Other upper respiratory infections (13 sources) Acute maxillary sinusitis; Translations: [Acute maxillary sinusitis, unspecified] 08-11-2022 Episodic Residual codes; unclassified (2 sources) Family history of cancer of colon; Translations: [Family history of malignant neoplasm of digestive organs] 07-29-2024 Episodic Residual codes; unclassified (1 source) Family history of malignant neoplasm of digestive organs; Translations: [Family history of malignant neoplasm of digestive organs] Onset: 05-11-2025 Episodic Thyroid disorders (10 sources) 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; Translations: [Other specified hypothyroidism] Chronic Comment on above: abnormal TSH with po sitive thyroid antibodies Unclassified (2 sources) Placement of stent in coronary artery ; Translations: [Presence of coronary angioplasty implant and graft] Onset: 11-21-2015 11-21-2015 Unclassified (2 sources) Long-term drug therapy; Translations: [Other terminal clerk (current) drug therapy] Onset: 11-21-2015 11-21-2015 Past or Other Problems Problem Classification Problem Date Documented Date Episodic/Chronic Coronary atherosclerosis and other heart disease (3 sources) Presence of coronary angioplasty implant and graft; Translations: [Percutaneous transluminal coronary angioplasty status] Onset: 11-01-2015 Episodic Fluid and electrolyte disorders (1 source) Hypo-osmolality and hyponatremia; Translations: [Hypo-osmolality and hyponatremia] Onset: 07-03-2024 Episodic Other aftercare (2 sources) jail (current) use of antithrombotics/antipl atelets; Translations: [jail (current) use of antithrombotics/antipl atelets] Onset: 11-21-2015 11-21-2015 Episodic Other connective tissue disease (2 sources) Prepatellar bursitis, right knee; Translations: [Prepatellar bursitis, right knee] Onset: 04-29-2017 05-09-2017 Episodic Other non-traumatic joint disorders (2 sources) Knee pain; Translations: [Pain in right knee] Onset: 04-29-2017 04-29-2017 Episodic Residual codes; unclassified (1 source) Family history of malignant neoplasm of gastrointestinal tract; Translations: [Family history of malignant neoplasm of digestive organs] Onset: 04-25-2009 04-25-2009 Episodic Superficial injury; contusion (2 sources) Contusion of right knee, initial encounter; Translations: [Contusion of right knee, initial encounter] Onset: 04-29-2017 05-09-2017 Episodic Unclassified (2 sources) Family history of ischemic heart disease and other diseases of the circulatory system; Translations: [Family history of ischemic heart disease and other diseases of the circulatory system] 11-23-2015 Episodic Results Test Name Value Interpretation Reference Range Facility Cardiology Visit Reporton Cardiology Visit Report [facility] [address] [place] [address] OFFICE VISIT Date of Service: 05/28/25 MR#: [id number] Acct: [id number] Name: IVETTE ACEVEDO Rep #: [id number] : 1955 Provider: Dr. Silvestre Lassiter MD Age/Sex: 69/F Location: [facility] [place] Status: Signed HPI HPI History of Present Illness Details: Ms. acevedo is a pleasant 69-year-old lady who presents to the office for [...] syncopal episodes, and headaches. 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 Accompanied by: Self Is patient in pain?: No Allergies cephalexin Allergy (Verified 05/28/25 09:35) Unknown latex Allergy (Verified 05/28/25 09:35) rash Penicillins Allergy (Verified 05/28/25 09:35) Unknown venom-honey bee Allergy (Verified 05/28/25 09:35) Swelling atorvastatin calcium (From Lipitor) Adverse Reaction (Verified 05/28/25 09:35) Unknown carvedilol (From Coreg) Adverse Reaction (Verified 05/28/25 09:35) myalgias, cough, diarrhea ticagrelor (From Brilinta) Adverse Reaction (Verified 05/28/25 09:35) rash Medications ???Medication ???Instructions ???Recorded ???Confirmed ???Type aspirin 81 mg tablet,delayed 81 mg PO DAILY 11/30/15 05/28/25 H istory release flaxseed oil 1,000 mg capsule 1,000 mg PO DAILY 01/18/19 5 History ([place]-3 Flaxseed Oil) epinephrine 0.3 mg/0.3 mL 0.3 mg IM Q5-15M PRN Allergy 01/1305/28/25 History injection, auto-injector Symptoms biotin 10,000 mcg capsule 10,000 mcg PO DAILY 03/02/2105/28 History cyanocobalamin (vitamin B-12) 5,000 mcg PO SA 03/02/21 05/28/25 History 5,000 mcg capsule metronidazole 0.75 % topical gel 1 applic topical DAILY PRN Rash 05/28/25 History levothyroxine 50 mcg tablet 50 mcg PO DAILY #90 tabs 02/13/22 05/28/25 Rx nitroglycerin 0.4 mg sublingual 0.4 mg sublingual Q5-15M PRN chest 03/11/23 05/28/25 Rx tablet (Nitrostat) pain #25 tabs metoprolol succinate 25 mg 25 mg PO QDAY #90 tabs 11/30/24 Rx tablet,extended release 24 hr (Toprol XL) simvastatin 20 mg tablet 20 mg PO QHS #90 tabs 11/30/2411/21 Rx alendronate 70 mg tablet 70 mg PO QWEEK Osteoporosis 05/28/25 History Have you fallen in the past year?: No PFSH Medical History Rosacea Ganglion Constipation Screening for osteoporosis History of ST elevation myocardial infarction (STEMI) (11/01/15) 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 Normal [facility] Bilirubin directOrdered By: Silvestre Lassiter on 05-12-2025 Bilirubin.direct [Mass/Vol] 0.23 mg/dL 0.00-0.30 [facility] Bilirubin, totalOrdered By: Silvestre Lassiter on 05-12-2025 Bilirubin [Mass/Vol] 0.53 mg/dL 0.00-1.30 [facility] Calculated very low density lipoprotein (VLDL) cholesterol measurementOrdered By: Silvestre Lassiter on 05-12-2025 Calculated very low density lipoprotein (VLDL) cholesterol measurement 14 mg/dL 5-40 [facility] LDL calc ser/plasOrdered By: Silvestre Lassiter on 05-12-2025 Cholesterol in LDL [Mass/Vol] 65 mg/dL [facility] Comment on above: Ddnrpgvhhd=229-168 m g/dL & Higher Lvin=335 mg/dL or greater Laboratory - Chemistry and C hemistry - challengeOrdered By: Silvestre Lassiter on 05-12-2025 AST [Catalytic activity/Vol] 26 U/L <32 [facility] Lipid Profileon 05-12-2025 CHOL:HDL 2.59 Normal [facility] Comment on above: Performed By: #### L 500.4100, L500.3400 #### [facility] [address] [place], [address] Cholesterol [Mass/Vol] 129 mg/dL Normal <=200 [facility] Comment on above: Result Comment: Chol esterol level, Desirable <200 mg/dL Borderline high cholesterol 200-239 mg/dL High cholesterol >=240 mg/dL Recommendations of the NCEP Adult Treatment Panel for the following risk-cutoff thresholds for the [place] population. Performed By: #### L 500.4100, L500.3400 #### [facility] [address] [place], [address] Cholesterol in HDL [Mass/Vol] 50 mg/dL Normal [facility] Comment on above: Result Comment: Kathy onal Cholesterol Education Program (NCEP) guidelines: <40 mg/dL: Low HDL-cholesterol (major risk factor for CHD) >= 60 mg/dL: High HDL-cholesterol (negative risk factor for CHD) HDL-cholesterol is affected by a number of factors, e.g. smoking, exercise, hormones, sex and age. Performed By: #### L 500.4100, L500.3400 #### [facility] [address] [place], [address] Cholesterol in LDL [Mass/Vol] 65 mg/dL Normal [facility] Comment on above: Result Comment: Bord ksebtc=013-310 mg/dL Higher Csmt=529 mg/dL or greater Performed By: #### L 500.4100, L500.3400 #### [facility] [address] [place], [address] Cholesterol in VLDL [Mass/Vol] 14 mg/dL Normal 5-40 [facility] Comment on above: Performed By: #### L 500.4100, L500.3400 #### [facility] [address] [place], [address] Triglyceride [Mass/Vol] 71 mg/dL Normal [facility] Comment on above: Result Comment: The drugs N-Acetylcysteine and Metamizole may falsely depress this assay. Normal range: <150 mg/dL Borderline High: 150-199 mg/dL High: 200-499 mg/dL Very High: >500 mg/dL Performed By: #### L 500.4100, L500.3400 #### [facility] [address] [place], [address] Liver Profileon 05-12-2025 Albumin [Mass/Vol] 4.3 g/dL Normal 3.4-4.8 [facility] Comment on above: Performed By: #### L 500.4100, L500.3400 #### [facility] [address] [place], [address] ALK PHOS 78 U/L Normal 35-104 [facility] Comment on above: Performed By: #### L 500.4100, L500.3400 #### [facility] [address] [place], [address] ALT [Catalytic activity/Vol] 15 U/L Normal <=34 [facility] Comment on above: Performed By: #### L 500.4100, L500.3400 #### [facility] [address] [place], [address] AST [Catalytic activity/Vol] 26 U/L Normal <=31 [facility] Comment on above: Performed By: #### L 500.4100, L500.3400 #### [facility] [address] [place], [address] Bilirubin [Mass/Vol] 0.53 mg/dL Normal 0.00-1.30 [facility] Comment on above: Performed By: #### L 500.4100, L500.3400 #### [facility] [address] [place], [address] Bilirubin.direct [Mass/Vol] 0.23 mg/dL Normal 0.00-0.30 [facility] Comment on above: Performed By: #### L 500.4100, L500.3400 #### [facility] [address] [place], [address] Globulin (S) [Mass/Vol] 2.5 g/dL Normal 2.2-4.2 [facility] Comment on above: Performed By: #### L 500.4100, L500.3400 #### [facility] [address] [place], [address] T PROT 6.8 g/dL Normal 5.9-8.4 [facility] Comment on above: Performed By: #### L 500.3746, L500.8053 #### [facility] [address] [place], [address] Screening total cholesterol/ high density lipoprotein (HDL) cholesterol ratioOrdered By: Silvestre Lassiter on 05-12-2025 Cholesterol.total/Chol esterol in HDL [Mass ratio] 2.59 {ratio} [facility] Serum globulin measurementOr dered By: Silvestre Lassiter on 05-12-2025 Globulin (S) [Mass/Vol] 2.5 g/dL 2.2-4.2 [facility] Serum or plasma alanine chung otransferase (ALT) measurementOrdered By: Silvestre Lassiter on 05-12-2025 ALT [Catalytic activity/Vol] 15 U/L <35 [facility] Serum or plasma albumin anderson urement (mass/volume)Ordered By: Silvestre Lassiter on 05-12-2025 Albumin [Mass/Vol] 4.3 g/dL 3.4-4.8 [facility] Serum or plasma alkaline cadence sphatase measurementOrdered By: Silvestre Sravani on 05-12-2025 ALP [Catalytic activity/Vol] 78 U/L 35-104 [facility] Serum or plasma cholesterol in HDL measurement (mass/volume)Ordered By: Silvestre Lassiter on 05-12-2025 Cholesterol in HDL [Mass/Vol] 50 mg/dL >40 [facility] Comment on above: National Cholesterol Education Program (NCEP) guidelines:<40 mg/dL: Low HDL-cholesterol (major risk factor for CHD)>= 60 mg/dL: High HDL-cholesterol (negative risk factor for CHD)HDL-cholesterol is affected by a number of factors, e.g. smoking, exercise, hormones, sex and age. Serum or plasma cholesterol measurement (mass/volume)Ordered By: Silvestre Lassiter on 05-12-2025 Cholesterol [Mass/Vol] 129 mg/dL <201 [facility] Comment on above: Cholesterol level, D esirable <200 mg/dLBorderline high cholesterol 200-239 mg/dLHigh cholesterol >=240 mg/dLRecommendations of the NCEP Adult Treatment Panel for the following risk-cutoff thresholds for the [place] population. Total proteinOrdered By: Yumiko lakeshia Lassiter on 05-12-2025 Protein [Mass/Vol] 6.8 g/dL 5.9-8.4 [facility] Triglycerides measurementOrd ered By: Silvestre Lassiter on 05-12-2025 Triglyceride [Mass/Vol] 71 mg/dL <199 [facility] Comment on above: The drugs N-Acetylcy steine and Metamizole may falsely depress this assay. Normal range: <150 mg/dLBorderline High: 150-199 mg/dLHigh: 200-499 mg/dLVery High: >500 mg/dL Gastroenterology Visit Repor ton 07-29-2024 Gastroenterology Visit Report [facility] Gastroenterology [address] [place] [address] OFFICE VISIT Date of Service: 07/29/24 MR#: [id number] Acct: [id number] Name: IVETTE ACEVEDO Rep #: [id number] : 1955 Provider: LAWRENCE Luz Age/Sex: 68/F Location: [facility] Status: Signed Intake Vital Signs 03/04/23 09:05 [...] 1,000 mg PO DAILY 01/18/19 07/29/24 History ([place]-3 Flaxseed Oil) epinephrine 0.3 mg/0.3 mL 0.3 [...] (10/2015) HLD (hyperlipidemia) Atherosclerotic heart disease of [place] coronary artery without angina pectoris Surgical History [...] to the office today for establishment with [facility]. Pt was previously seeing Dr. Rendon [...] Appearance: average body habitus and well nourished [facility] Head: (more content not included)... Normal [facility] Dexa Bone Density Studyon Dexa Bone Density Study [facility] Imaging Services [address] [place] [address] Dexa Bone Density Study MR#: [id number] Acct: [id number] Name: IVETTE ACEVEDO Rep #: [id number] : 1955 F 68 From: Kevin saravia MD PCP: Dr. Asad Baron MD Status: [facility] Study: Dexa Bone Density Study Date of Exam: 07/01/24 Exam# [id number] Ordering Dr: Asad Baron MD [id number] STUDY: DUAL ENERGY X-RAY ABSORPTIOMETRY / DXA [...] EDT , CC: Dr. Asad Baron MD Pinking Machine Operator: Signed Normal [facility] Basic Metabolic Profile (BMP )on 06-24-2024 BUN/CRE 12.0 RATIO Normal 10-20 [facility] Comment on above: Performed By: #### L 500.2500 #### [facility] [address] [place], [address] CA,Total 9.1 mg/dL Normal 8.5-10.1 [facility] Comment on above: Performed By: #### L 500.2500 #### [facility] [address] [place], [address] Chloride [Moles/Vol] 95 mmol/L Low 98-107 [facility] Comment on above: Performed By: #### L 500.2500 #### [facility] [address] [place], [address] CO2 [Moles/Vol] 28.0 mmol/L Normal 21.0-32.0 [facility] Comment on above: Performed By: #### L 500.2500 #### [facility] [address] [place], [address] Creatinine [Mass/Vol] 0.75 mg/dL Normal 0.55-1.02 [facility] Comment on above: Result Comment: The validity of the calculated GFR GFRAA in patients over 70 years has not been determined. Clinical correlation is essential. Performed By: #### L 500.2500 #### [facility] [address] [place], [address] EST GFR - AA 99 mL/min Normal >60 [facility] Comment on above: Result Comment: Afri can [place]an GFR Calc Performed By: #### L 500.2500 #### [facility] [address] [place], [address] GAP 7 Normal 5-15 [facility] Comment on above: Performed By: #### L 500.2500 #### [facility] [address] [place], [address] GFR/1.73 sq M.predicted among non-blacks MDRD (S/P/Bld) [Vol rate/Area] 82 mL/min/{1.73_m2} Normal >60 [facility] Comment on above: Result Comment: Non- GFR Calc Performed By: #### L 500.2500 #### [facility] [address] [place], [address] Glucose [Mass/Vol] 72 mg/dL Low 74-106 [facility] Comment on above: Performed By: #### L 500.2500 #### [facility] [address] [place], [address] Potassium [Moles/Vol] 4.0 mmol/L Normal 3.5-5.1 [facility] Comment on above: Performed By: #### L 500.2500 #### [facility] [address] [place], [address] Sodium [Moles/Vol] 130 mmol/L Low 136-145 [facility] Comment on above: Performed By: #### L 500.2500 #### [facility] [address] [place], [address] Urea nitrogen [Mass/Vol] 9 mg/dL Normal 7-18 [facility] Comment on above: Performed By: #### L 500.2500 #### [facility] [address] [place], [address] Absolute lymphocyte countOrd ered By: Italia Guerrero on 01-31-2024 Lymphocytes Auto (Unsp spec) [#/Vol] 1.70 10*3/uL 0.83-4.51 [facility] Automated lymphocyte count a s percentage of total leukocytesOrdered By: Italia Guerrero on 01-31-2024 Lymphocytes/100 WBC Auto (Unsp spec) 28.2 % 19-41 [facility] Basophil percentageOrdered B y: Italia Guerrero on 01-31-2024 Basophils/100 WBC (Bld) 0.5 % 0-1 [facility] Chloride [Moles/Vol] 97 mmol/L 98-107 [facility] Eosinophils/100 WBC (Bld) 1.0 % 0-5 [facility] Glucose [Mass/Vol] 105 mg/dL 74-106 [facility] Comment on above: Fasting Glucose resu lt from 100 to 125 mg/dL suggests IMPAIRED HOMEOSTASIS per A.D.A. criteria. Hemoglobin (Bld) [Mass/Vol] 12.1 g/dL 12.0-15.0 [facility] Monocytes/100 WBC (Bld) 7.6 % 0-10 [facility] Neutrophils (Bld) [#/Vol] 3.8 10*3/uL 2.0-7.7 [facility] Neutrophils/100 WBC (Bld) 62.4 % 47-70 [facility] Potassium [Moles/Vol] 4.1 mmol/L 3.5-5.1 [facility] Sodium [Moles/Vol] 129 mmol/L 136-145 [facility] WBC (Bld) [#/Vol] 6.0 10*3/uL 4.4-11.0 [facility] Determination of erythrocyte mean corpuscular volume (MCV)Ordered By: Italia Guerrero on 01-31-2024 MCV (RBC) [Entitic vol] 86.2 fL 81-99 [facility] Erythrocyte distribution wid th ratioOrdered By: Italia Guerrero on 01-31-2024 Erythrocyte distribution width (RBC) [Ratio] 12.1 % 11.6-14.6 [facility] Erythrocyte distribution wid th standard deviationOrdered By: Italia Guerrero on 01-31-2024 Erythrocyte distribution width (RBC) [Entitic vol] 38.4 fL 35.1-43.9 [facility] Hematocrit Auto (Bld) [Volum e fraction]Ordered By: Italia Guerrero on 01-31-2024 Hematocrit (Bld) [Volume fraction] 35.6 % 37-47 [facility] Immature granulocytes/100 WB C Auto (Bld)Ordered By: Italia Guerrero on 01-31-2024 Immature granulocytes/100 WBC (Bld) 0.300 % 0.0-0.9 [facility] Comment on above: IG% - Immature Granu locytes (promyelocytes, myelocytes and metamyelocytes) > 1% indicates that a LEFT SHIFT is Present. Laboratory - Chemistry and C hemistry - challengeOrdered By: Italia Guerrero on 01-31-2024 CO2 [Moles/Vol] 27.0 mmol/L 21.0-32.0 [facility] Urea nitrogen/Creatinine [Mass ratio] 11.3 mg/mg 10-20 [facility] - Hematology and Cell countsOrdered By: Italia Guerrero on 01-31-2024 MCH (RBC) [Entitic mass] 29.3 pg 27.0-32.0 [facility] MCHC (RBC) [Mass/Vol] 34.0 g/dL 32-36 [facility] Nucleated RBC/100 WBC (Bld) [Ratio] 0 % 0-5 [facility] Platelet mean volume (Bld) [Entitic vol] 9.1 fL 6.2-12.0 [facility] Platelets (Bld) [#/Vol] 276 10*3/uL 150-450 [facility] No Panel InformationOrdered By: Italia Guerrero on 01-31-2024 Estimated Creatinine Clearance Calc 58.28 ml/min [facility] Estimated GFR (MDRD) Amer 106 mL/min >60 [facility] Comment on above: GFR Calc Estimated GFR (MDRD) Non-Af Amer 88 mL/min >60 [facility] Comment on above: Non- GFR Calc Troponin I High Sensitivity 6 pg/mL 3.0-54.0 [facility] Comment on above: Please Note: New Laure t Units and Gender Specific Reference Ranges. For more information see Policy Stat Procedure Harper High Sensitivity Troponin (TNIH) and attachments. RBC Auto (Bld) [#/Vol]Ordere d By: Italia Guerrero on 01-31-2024 RBC (Bld) [#/Vol] 4.13 10*6/uL 4.2-5.[address] [facility] Serum or plasma calcium anderson urement (mass/volume)Ordered By: Italia Guerrero on 01-31-2024 Calcium [Mass/Vol] 8.8 mg/dL 8.5-10.1 [facility] Serum or plasma creatinine m easurement (mass/volume)Ordered By: Italia Guerrero on 01-31-2024 Creatinine [Mass/Vol] 0.70 mg/dL 0.55-1.02 [facility] Comment on above: The validity of the calculated GFR & GFRAA in patients over 70 years has not been determined. Clinical correlation is essential. Serum or plasma urea nitroge n measurement (mass/volume)Ordered By: Italia Guerrero on 01-31-2024 Urea nitrogen [Mass/Vol] 8 mg/dL 7-18 [facility] Thin prep Papanicolaou smear with manual screeningOrdered By: Italia Guerrero on 01-31-2024 Thin prep Papanicolaou smear with manual screening 5 5-15 [facility] Basophil percentageOrdered B y: Dr. Barno on 02-01-2023 Bilirubin [Mass/Vol] 0.50 mg/dL 0.20-1.00 [facility] Comment on above: For patients on eltr ombopag therapy, use of Dimension [place] TBIL is not recommended. Chloride [Moles/Vol] 102 mmol/L 98-107 [facility] Cholesterol [Mass/Vol] 123 mg/dL <200 [facility] Comment on above: <200 mg/dL Desirable 200-240 mg/dL Borderline >240 mg/dL High Risk Glucose [Mass/Vol] 87 mg/dL 74-106 [facility] Potassium [Moles/Vol] 4.2 mmol/L 3.5-5.1 [facility] Protein [Mass/Vol] 7.1 g/dL 6.4-8.2 [facility] Sodium [Moles/Vol] 137 mmol/L 136-145 [facility] Triglyceride [Mass/Vol] 75 mg/dL <199 [facility] Comment on above: The drugs N-Acetylcy steine and Metamizole may falsely depress this assay.Serum Triglycerides Reference Interval Normal <150 mg/dL Borderline high 150 - 199 mg/dL High 200 - 499 mg/dL Very High > or = 500 mg/dL Direct bilirubinOrdered By: Dr. Baron on 02-01-2023 Bilirubin.direct [Mass/Vol] 0.15 mg/dL 0.00-0.30 [facility] - Chemistry and C hemistry - challengeOrdered By: Dr. Baron on 02-01-2023 ALP [Catalytic activity/Vol] 101 U/L 45-117 [facility] ALT [Catalytic activity/Vol] 24 U/L 13-56 [facility] CO2 [Moles/Vol] 29.0 mmol/L 21.0-32.0 [facility] Free T4 [Mass/Vol] 1.22 ng/dL 0.76-1.46 [facility] Globulin (S) [Mass/Vol] 3.2 g/dL 2.2-4.2 [facility] Urea nitrogen/Creatinine [Mass ratio] 13.5 mg/mg 10-20 [facility] No Panel InformationOrdered By: Dr. Baron on 02-01-2023 Estimated GFR (MDRD) Amer 101 mL/min >60 [facility] Comment on above: GFR Calc Estimated GFR (MDRD) Non-Af Amer 83 mL/min >60 [facility] Comment on above: Non- GFR Calc Free Triiodothyronine (T3) pg/dL 2.7 pg/mL 2.18-3.98 [facility] Thyroid Stimulating Hormone (TSH) 1.28 uIU/mL 0.358-3.74 [facility] Serum or plasma albumin anderson urement (mass/volume)Ordered By: Dr. Baron on 02-01-2023 Albumin [Mass/Vol] 3.9 g/dL 3.2-5.0 [facility] Serum or plasma albumin/glob ulin mass ratioOrdered By: Dr. Baron on 02-01-2023 Albumin/Globulin [Mass ratio] 1.2 {ratio} 0.9-2.4 [facility] Serum or plasma calcium anderson urement (mass/volume)Ordered By: Dr. Baron on 02-01-2023 Calcium [Mass/Vol] 9.1 mg/dL 8.5-10.1 [facility] Serum or plasma cholesterol in HDL measurement (mass/volume)Ordered By: Dr. Baron on 02-01-2023 Cholesterol in HDL [Mass/Vol] 51 mg/dL >40 [facility] Comment on above: The drugs N-Acetylcy steine and Metamizole may falsely depress this assay. Reference Range HDL <40 mg/dL Low HDL Cholesterol HDL >or= 60 mg/dL High HDL Cholesterol Serum or plasma cholesterol in VLDL measurement (mass/volume)Ordered By: Dr. Baron on 02-01-2023 Cholesterol in VLDL [Mass/Vol] 15 mg/dL 5-40 [facility] Serum or plasma creatinine m easurement (mass/volume)Ordered By: Dr. Baron on 02-01-2023 Creatinine [Mass/Vol] 0.74 mg/dL 0.55-1.02 [facility] Comment on above: The validity of the calculated GFR & GFRAA in patients over 70 years has not been determined. Clinical correlation is essential. Serum or plasma low density lipoprotein (LDL) cholesterol measurement (mass/volume)Ordered By: Dr. Baron on 02-01-2023 Cholesterol in LDL [Mass/Vol] 57 mg/dL 0-130 [facility] Serum or plasma urea nitroge n measurement (mass/volume)Ordered By: Dr. Baron on 02-01-2023 Urea nitrogen [Mass/Vol] 10 mg/dL 7-18 [facility] Thin prep Papanicolaou smear with manual screeningOrdered By: Dr. Baron on 02-01-2023 Thin prep Papanicolaou smear with manual screening 23 U/L 15-37 [facility] Thin prep Papanicolaou smear with manual screening 6 5-15 [facility] CNPNon 04-09-2022 CNPN Telephone (RGMOB) IVETTE ACEVEDO ([id number]) 1955 F Date Time Provider Department 04/09/22 ARPITA JAIMES During your visit today, we recorded the following information about you: Rom Montiel 04/09/2022 2:06 PM Signed Patient needs all mammograms sent to [facility] to their imaging dept. Thank you. Arpita Jaimes, PSS 04/09/2022 3:23 PM Signed Sent the last 2 yrs to [facility] release in syngo Allergies As of Date: [...] Status:Closed by ROM MONTIEL on 04/13/22 Normal [facility] Basophil percentageon 2021 Bilirubin [Mass/Vol] 0.30 mg/dL 0.20-1.00 [facility] Work Phone: [phone] Comment on above: For patients on eltr ombopag therapy, use of Dimension [place] TBIL is not recommended. Cholesterol [Mass/Vol] 131 mg/dL <200 [facility] Work Phone: Comment on above: <200 mg/dL Desirable 200-240 mg/dL Borderline >240 mg/dL High Risk Protein [Mass/Vol] 6.8 g/dL 6.4-8.2 [facility] Work Phone: [phone] Triglyceride [Mass/Vol] 138 mg/dL <199 [facility] Work Phone: [phone] Comment on above: The drugs N-Acetylcy steine and Metamizole may falsely depress this assay.Serum Triglycerides Reference Interval Normal <150 mg/dL Borderline high 150 - 199 mg/dL High 200 - 499 mg/dL Very High > or = 500 mg/dL Direct bilirubinon 2 Bilirubin.direct [Mass/Vol] 0.08 mg/dL 0.00-0.30 [facility] Work Phone: [phone] Laboratory - Chemistry and C hemistry - challengeon 02-13-2022 ALP [Catalytic activity/Vol] 114 U/L 45-117 [facility] Work Phone: [phone] ALT [Catalytic activity/Vol] 28 U/L 13-56 [facility] Work Phone: [phone] Free T4 [Mass/Vol] 1.14 ng/dL 0.76-1.46 [facility] Work Phone: [phone] Globulin (S) [Mass/Vol] 3.2 g/dL 2.2-4.2 [facility] Work Phone: No Panel Informationon 02-13 Thyroid Stimulating Hormone (TSH) 0.77 uIU/mL 0.358-3.74 [facility] Work Phone: Serum or plasma albumin anderson urement (mass/volume)on 02-13-2022 Albumin [Mass/Vol] 3.6 g/dL 3.2-5.0 [facility] Work Phone: Serum or plasma cholesterol in HDL measurement (mass/volume)on 02-13-2022 Cholesterol in HDL [Mass/Vol] 45 mg/dL >40 [facility] Work Phone: Comment on above: The drugs N-Acetylcy steine and Metamizole may falsely depress this assay. Reference Range HDL <40 mg/dL Low HDL Cholesterol HDL >or= 60 mg/dL High HDL Cholesterol Serum or plasma cholesterol in VLDL measurement (mass/volume)on 02-13-2022 Cholesterol in VLDL [Mass/Vol] 28 mg/dL 5-40 [facility] Work Phone: Serum or plasma low density lipoprotein (LDL) cholesterol measurement (mass/volume)on 02-13-2022 Cholesterol in LDL [Mass/Vol] 58 mg/dL 0-130 [facility] Work Phone: Thin prep Papanicolaou smear with manual screeningon 02-13-2022 Thin prep Papanicolaou smear with manual screening 17 U/L 15-37 [facility] Work Phone: CNCOon 04-21-2021 [facility] HNO ID: [id number] Author: Mammography Coordinator Service: ? Author Type: Physician Type: Letter Filed: 04/24/2021 11:35 PM Note Text: April 21, 2021 PID: [id number] Ivette Acevedo [address] [place] [address] Dear Ms. Acevedo, We are pleased to [...] report will be kept on file at [facility] as part of your permanent medical record and are available for your continuing care. Thank you for allowing us to help in meeting your health care needs. Sincerely, Dr. Perrin Interpreting Radiologist [facility] (Normal over 40) Normal [facility] CHUY SCREENING W TOMOon 04-21 CHUY SCREENING W RAMYA * * *Final Report* * * DATE OF EXAM: Apr 21 2021 10:00AM WRW [id number] - CHUY SCREENING W RAMYA / PROCEDURE REASON: breast cancer screening * * * * Physician Interpretation * * * * RESULT: #[id number] - CHUY SCREENING W RAMYA BILATERAL DIGITAL SCREENING MAMMOGRAM [...] made to exams dated: 04/01/2020 mammogram - [facility], 01/13/2019 mammogram, 01/06/2018 mammogram, 12/26/2015 mammogram, and 11/11/2014 mammogram - [facility]. There are scattered fibroglandular elements in both breasts. No significant masses, calcifications, or other findings are seen in either breast. There has been no significant interval change. IMPRESSION: NEGATIVE There is no mammographic evidence of malignancy. A 1 year screening mammogram is recommended. Lottie Perrin M.D. fa/penrad:04/21/2021 11:37:49 Prosthetic Dentist(s): RT Tima(Ced)(M), [facility] letter sent: Normal over 40 Mammogram BI-RADS: [...] Health, Family Medicine, and Medical/Surgical Oncology, the [facility] has carefully reviewed the data [...] their providers when to stop screening mammograms. Pinking Machine Operator: Lyndsey Transcribe Date/Time: Apr 21 2021 9:22A Dictated by: LOTTIE PERRIN MD This examination was interpreted and the report reviewed and electronically signed by: LOTTIE PERRIN MD on Apr 21 2021 11:37AM EST [id number] Normal [facility] Lab Report: Lipid Profileon 09-06-2017 Cholesterol 139 mg/dL Invalid Interpretation Code 200 [employer] Work Phone: [phone] HDL Cholesterol 62 mg/dL Invalid Interpretation Code [employer] Work Phone: [phone] LDL Cholesterol 59 mg/dL Invalid Interpretation Code 0-130 [employer] Work Phone: [phone] Triglyceride 92 mg/dL Invalid Interpretation Code [employer] Work Phone: [phone] very low density lipoproteins 18 mg/dL Invalid Interpretation Code 5-40 [facility] Work Phone: [phone] Lab Report: Liver Profileon 09-06-2017 Alanine aminotransferase (ALT) 22 U/L Invalid Interpretation Code 12-78 [employer] Work Phone: [phone] Albumin 4.0 g/dL Invalid Interpretation Code 3.4-5.0 [employer] Phone: [phone] Alkaline phosphatase (ALP) 96 U/L Invalid Interpretation Code 45-117 [employer] Work Phone: [phone] Aspartate aminotransferase (AST) 17 U/L Invalid Interpretation Code 15-37 [employer] Phone: [phone] Bilirubin (direct) 0.15 mg/dL Invalid Interpretation Code 0.00-0.30 [employer] Work Phone: [phone] Bilirubin (total) 0.60 mg/dL Invalid Interpretation Code 0.20-1.00 [employer] Work Phone: [phone] Globulin 3.3 g/dL Invalid Interpretation Code 2.2-4.2 [employer] Work Phone: [phone] Protein 7.3 g/dL Invalid Interpretation Code 6.4-8.2 [employer] Work Phone: [phone] Office Visiton 04-29-2017 Documentation of current medications (procedure) Done Invalid Interpretation Code [employer] Work Phone: [phone] Tobacco use CPHS Never smoker Invalid Interpretation Code [employer] Work Phone: [phone] Office Visiton 03-05-2017 Fall risk assessment Fall risk assessment Invali d Interpretation Code [employer] Phone: [phone] Clinical Lists Update: Prelo internal medicine hospitalist 03-01-2017 Left ventricular Ejection fraction 35-40 Invalid Interpretation Code [employer] Work Phone: [phone] External Other: Preferred Me thod of Contacton 11-23-2015 methcontact phone Invalid Interpretation Code [employer] Work Phone: [phone] Office Visiton 11-23-2015 cardiac risk group C Invalid Interpretation Code [employer] Work Phone: [phone] General cardiovascular disease 10Y risk [#] [place].Maria T'Lyssa N/A Invalid Interpretation Code [employer] Work Phone: [phone] Replaced Document: Renay E CG Observationson 11-23-2015 EKG QRS axis 64 deg Invalid Interpretation Code [employer] Work Phone: [phone] Interpretation Sinus Bradycardia - Extensive T-abnormality - Anterior/lateral and inferior ischemia. ABNORMAL Invalid Interpretation Code [employer] Work Phone: [phone] P [place] 58 deg Invalid Interpretation Code [employer] Work Phone: [phone] RI Interval 120 ms Invalid Interpretation Code [employer] Work Phone: [phone] Pulse (Heart Rate) 57 /min Invalid Interpretation Code [employer] Work Phone: [phone] QRS Duration 102 ms Invalid Interpretation Code [employer] Work Phone: [phone] QT Interval new path ms Invalid Interpretation Code [facility] Work Phone: [phone] QTc [place] 481 ms Invalid Interpretation Code [facility] Work Phone: [phone] T [place] 155 deg Invalid Interpretation Code [facility] Work Phone: [phone] Clinical Lists Update: 11-03-2015 Anion gap 9 mmol/L Invalid Interpretation Code [facility] Work Phone: [phone] Calcium 8.2 mg/dL Low [facility] Work Phone: [phone] Chloride 107 mmol/L Invalid Interpretation Code [facility] Work Phone: [phone] CO2 24 mmol/L Invalid Interpretation Code [facility] Work Phone: [phone] Creatinine 0.83 mg/dL Invalid Interpretation Code [facility] Work Phone: [phone] Erythrocytes (RBC) 4.35 10*6/uL Invalid Interpretation Code [facility] Work Phone: [phone] Glucose mass conc 91 mg/dL Invalid Interpretation Code [facility] Work Phone: [phone] Hematocrit (HCT) 37.2 % Invalid Interpretation Code [facility] Work Phone: [phone] Hemoglobin mass conc (Bld) 12.1 g/dL Invalid Interpretation Code [facility] Work Phone: [phone] Platelets 263 10*3/mm3 Invalid Interpretation Code [facility] Work Phone: [phone] Potassium molar conc 4.2 mmol/L Invalid Interpretation Code [facility] Work Phone: [phone] Sodium 135 mmol/L Invalid Interpretation Code [facility] Work Phone: [phone] Urea nitrogen 8 mg/dL Invalid Interpretation Code [facility] Work Phone: [phone] WBC (Leukocytes) 6.7 10*3/uL Invalid Interpretation Code [facility] Work Phone: [phone] Clinical Lists Update: 11-01-2015 BUN/Creatinine Ratio 9.2 mg/mg [facility] Work Phone: [phone] Vital Signs Date Time Vital Sign Value Performing Clinician [facility] 05-28-2025 09:30-0400 Body height 165.[address] Asad Baron MD Work Phone: [facility] 05-28-2025 09:30-0400 Body mass index (BMI) [Ratio] 19.3 kg/m2 Dr. Asad Baron MD Work Phone: [facility] 05-28-2025 09:30-0400 Body weight 52.[address] Asad Baron MD Work Phone: [facility] 05-28-2025 09:30-0400 Diastolic blood pressure 68 mm[Hg] Dr. Asad Baron MD Work Phone: [facility] 05-28-2025 09:30-0400 Heart rate 60 /min Dr. Asad Baron MD Work Phone: [facility] 05-28-2025 09:30-0400 Respiratory rate 16 /min Dr. Asad Baron MD Work Phone: [facility] 05-28-2025 09:30-0400 Systolic blood pressure 112 mm[Hg] Dr. Asad Baron MD Work Phone: [facility] 01-31-2024 15:18-0400 Body temperature 97.6 [degF] [facility] 01-31-2024 15:18-0400 Diastolic blood pressure 70 mm[Hg] [facility] 01-31-2024 15:18-0400 Heart rate 80 /min [facility] 01-31-2024 15:18-0400 Respiratory rate 16 /min [facility] 01-31-2024 15:18-0400 SaO2% (BldA) [Mass fraction] 98 % [facility] 01-31-2024 15:18-0400 Systolic blood pressure 152 mm[Hg] [facility] 01-31-2024 13:43-0400 Body height 165.1 cm [facility] 01-31-2024 13:43-0400 Body mass index (BMI) [Ratio] 19.8 kg/m2 [facility] 01-31-2024 13:43-0400 Body weight 54.1 kg [facility] 03-04-2023 09:05-0400 Body height 167.[address] Asad Baron Work Phone: [facility] 03-04-2023 09:05-0400 Heart rate 62 /min Dr. Asad Baron Work Phone: 3(599)[phone] [place] [address] 03-04-2023 09:04-0400 Body mass index (BMI) [Ratio] 19 kg/m2 Dr. Asad Baron Work Phone: 5(981)[phone] [address] 03-04-2023 09:04-0400 Body weight 53.[address] Asad Baron Work Phone: 5(713)942-142780 [place] [address] 03-04-2023 09:04-0400 Diastolic blood pressure 81 mm[Hg] Dr. Asad Baron Work Phone: 4(104)069-882080 [place] [address] 03-04-2023 09:04-0400 Respiratory rate 18 /min Dr. Asad Baron Work Phone: 2(443)802-859535 [address] 03-04-2023 09:04-0400 SaO2% (BldA) [Mass fraction] 100 % Dr. Asad Baron Work Phone: 1(844)097-894280 [place] [address] 03-04-2023 09:04-0400 Systolic blood pressure 131 mm[Hg] Dr. Asad Baron Work Phone: 4(175)093-958880 [place] [address] 02-09-2023 22:34-0400 Body mass index (BMI) [Ratio] 19.4 kg/m2 Dr. Asad Baron Work Phone: 3(988)[phone] [place] [address] 02-09-2023 22:34-0400 Body temperature 97.8 [degF] Dr. Asad Baron Work Phone: 2(618)761-758780 [place] [address] 02-09-2023 22:34-0400 Body weight 54.[address] Asad Baron Work Phone: 9(580)[phone] [place] [address] 02-09-2023 22:34-0400 Diastolic blood pressure 66 mm[Hg] Dr. Asad Baron Work Phone: 1(681)505-069941 [place] [address] 02-09-2023 22:34-0400 Heart rate 65 /min Dr. Asad Baron Work Phone: [facility] 02-09-2023 22:34-0400 Respiratory rate 16 /min Dr. Asad Baron Work Phone: [facility] 02-09-2023 22:34-0400 SaO2% (BldA) [Mass fraction] 100 % Dr. Asad Baron Work Phone: [facility] 02-09-2023 22:34-0400 Systolic blood pressure 181 mm[Hg] Dr. Asad Baron Work Phone: [facility] 03-06-2022 09:13-0400 Body height 166.[address] Asad Baron Work Phone: [facility] Work Phone: 03-06-2022 09:13-0400 Body mass index (BMI) [Ratio] 19.3 kg/m2 Dr. Asad Baron Work Phone: [facility] Work Phone: 03-06-2022 09:13-0400 Body weight 53.[address] Asad Baron Work Phone: [facility] Work Phone: 03-06-2022 09:13-0400 Diastolic blood pressure 67 mm[Hg] Dr. Asad Baron Work Phone: [facility] Work Phone: 03-06-2022 09:13-0400 Heart rate 71 /min Dr. Asad Baron Work Phone: [facility] Work Phone: 03-06-2022 09:13-0400 Respiratory rate 18 /min Dr. Asad Baron Work Phone: [facility] Work Phone: 03-06-2022 09:13-0400 SaO2% (BldA) [Mass fraction] 100 % Dr. Asad Baron Work Phone: [facility] Work Phone: 03-06-2022 09:13-0400 Systolic blood pressure 110 mm[Hg] Dr. Asad Baron Work Phone: [facility] Work Phone: 03-06-2022 09:13-0400 Body height 166.[address] Asad Baron Work Phone: [facility] Work Phone: 03-06-2022 09:13-0400 Body mass index (BMI) [Ratio] 19.3 kg/m2 Dr. Asad Baron Work Phone: [facility] Work Phone: 03-06-2022 09:13-0400 Body weight 53.[address] Asad Baron Work Phone: [facility] Work Phone: 03-06-2022 09:13-0400 Diastolic blood pressure 67 mm[Hg] Dr. Asad Baron Work Phone: [facility] Work Phone: 03-06-2022 09:13-0400 Heart rate 71 /min Dr. Asad Baron Work Phone: [facility] Work Phone: 03-06-2022 09:13-0400 Respiratory rate 18 /min Dr. Asad Baron Work Phone: [facility] Work Phone: 03-06-2022 09:13-0400 SaO2% (BldA) [Mass fraction] 100 % Dr. Asad Baron Work Phone: [facility] Work Phone: 03-06-2022 09:13-0400 Systolic blood pressure 110 mm[Hg] Dr. Asad Baron Work Phone: [facility] Work Phone: 02-13-2022 14:46-0400 Body mass index (BMI) [Ratio] 19.1 kg/m2 Dr. Asad Baron Work Phone: [facility] Work Phone: 02-13-2022 14:42-0400 Body mass index (BMI) [Ratio] 19.4 kg/m2 Dr. Asad Baron Work Phone: [facility] Work Phone: 02-13-2022 14:42-0400 Body temperature 96.8 [degF] Dr. Asad Baron Work Phone: [facility] Work Phone: 02-13-2022 14:42-0400 Body weight 53.[address] Asad Baron Work Phone: [facility] Work Phone: 02-13-2022 14:42-0400 Diastolic blood pressure 76 mm[Hg] Dr. Asad Baron Work Phone: [facility] Work Phone: 02-13-2022 14:42-0400 Heart rate 71 /min Dr. Asad Baron Work Phone: [facility] Work Phone: 02-13-2022 14:42-0400 Respiratory rate 16 /min Dr. Asad Baron Work Phone: [facility] Work Phone: 02-13-2022 14:42-0400 SaO2% (BldA) [Mass fraction] 88 % Dr. Asad Baron Work Phone: [facility] Work Phone: 02-13-2022 14:42-0400 Systolic blood pressure 110 mm[Hg] Dr. Asad Baron Work Phone: [facility] Work Phone: 02-13-2022 14:42-0400 Body height 166.[address] Asad Baron Work Phone: [facility] Work Phone: 02-13-2022 14:42-0400 Body mass index (BMI) [Ratio] 19.4 kg/m2 Dr. Asad Baron Work Phone: [facility] Work Phone: 02-13-2022 14:42-0400 Body temperature 96.8 [degF] Dr. Asad Baron Work Phone: [facility] Work Phone: 02-13-2022 14:42-0400 Body weight 53.[address] Asad Baron Work Phone: [facility] Work Phone: 02-13-2022 14:42-0400 Diastolic blood pressure 76 mm[Hg] Dr. Asad Baron Work Phone: [facility] Work Phone: 02-13-2022 14:42-0400 Heart rate 71 /min Dr. Asad Baron Work Phone: [facility] Work Phone: 02-13-2022 14:42-0400 Respiratory rate 16 /min Dr. Asad Baron Work Phone: [facility] Work Phone: 02-13-2022 14:42-0400 SaO2% (BldA) [Mass fraction] 88 % Dr. Asad Baron Work Phone: [facility] Work Phone: 02-13-2022 14:42-0400 Systolic blood pressure 110 mm[Hg] Dr. Asad Baron Work Phone: [facility] Work Phone: 04-29-2017 09:23-0400 BMI (Body Mass Index) 20.17 kg/m2 Kathy Fuchs PA-C [facility] Work Phone: 04-29-2017 09:23-0400 Weight 56.7 kg Kathy Fuchs PA-C [facility] Work Phone: 03-05-2017 11:18-0400 BP Diastolic 60 mm[Hg] Kathy Fuchs PA-C [facility] Work Phone: 03-05-2017 11:18-0400 BP Systolic 110 mm[Hg] Kathy Fuchs PA-C [facility] Work Phone: 03-05-2017 11:18-0400 Height 167.64 cm Kathy Fuchs PA-C [facility] Work Phone: 03-05-2017 11:18-0400 Pulse (Heart Rate) 60 /min Kathy Fuchs PA-C [facility] Work Phone: 03-05-2017 11:18-0400 Respiratory Rate 20 /min Kathy Fuchs PA-C [facility] Work Phone: 09-05-2016 11:31-0500 BSA (Body Surface Area) 1.68 m2 Kathy Fuchs PA-C [facility] Work Phone: Encounters Encounter Date Encounter Type Care Provider Facility Start: 05-28-2025 End: 05-28-[address] Silvestre Lassiter MD -[facility] Work Phone: Start: 05-28-2025 End: 05-28-[address] Asad Baron MD Work Phone: -[facility] Start: 05-12-2025 End: 05-12-[address] [facility] Start: 05-12-2025 End: 05-12-[address] Silvestre Lassiter MD -[facility] Work Phone: Start: 05-12-2025 End: 05-12-2025 ambulatory Asad Baron Facility:[facility] Start: 07-29-2024 End: 07-29-2024 ambulatory Asad Baron Facility:[facility] Start: 07-21-2024 Encounter for genera l adult medical examination without abnormal findings [facility] Start: 07-01-2024 End: 07-01-2024 ambulatory Asad Baron Facility:[facility] Start: 06-24-2024 End: 06-24-2024 ambulatory Asad Baron Facility:[facility] Start: 01-31-2024 End: 01-31-2024 Emergency department patient visit [facility] Work Phone: Start: 05-01-2023 End: 05-01-[address] Asad Baron Work Phone: [facility] Work Phone: Start: 05-01-2023 End: 05-01-[address] Asad Baron Work Phone: [facility] Work Phone: Start: 03-04-2023 End: 03-04-[address] Asad Baron Work Phone: [facility] Work Phone: Start: 02-09-2023 End: 02-10-2023 Emergency department patient visit Dr. Asad Baron Work Phone: [facility] Work Phone: Start: 02-01-2023 End: 02-01-2023 ambulatory [facility] Work Phone: Start: 02-01-2023 End: 02-01-2023 Patient encounter procedure [facility] Start: 04-23-2022 End: 04-23-[address] Asad Baron Work Phone: [facility] Start: 04-09-2022 Telephone encounter Arpita Jaimes [facility] Radiology Comment on above: Mammogram Request Start: 03-15-2022 Non-patient / Non-visit Dr. Lawrence Baron Work Phone: [facility] Start: 03-15-2022 End: 03-15-[address] Asad Baron Work Phone: [facility]Cardi[facility] Start: 03-06-2022 End: 03-06-[address] Asad Baron Work Phone: [facility] Start: 02-13-2022 End: 02-13-[address] Asad Baron Work Phone: [facility]atory[facility] Procedures Date Procedure Procedure Detail Performing Clinician Start: 01-31-2024 Plain chest X-ray Start: 05-01-2023 Screening mammography Maria T Baron Work Phone: Start: 04-23-2022 Screening mammography Maria T Baron Work Phone: Start: 03-15-2022 Radionuclide imaging of perfusion of myocardium under exercise stress Dr. Asad Baron Work Phone: Start: 04-21-2021 Mammography Arpita Scho nauer [facility] Start: 08-28-2017 End: 09-09-2017 *Hepatic Function Panel Kathy lopez PA-C Work Phone: Start: 08-28-2017 End: 09-09-2017 Lipid 1996 panel - Serum or Plasma Kathy Fuchs PA-C Work Phone: Start: 04-29-2017 End: 05-09-2017 Arthrocentesis aspir&/inj major jt/bursa w/o Agnes Cabrera Work Phone: Start: 03-05-2017 End: 03-05-2017 [employer] Silvestre Lassiter MD Start: 03-05-2017 End: 03-05-2017 Follow [...] Panel Christine Velazco Start: 11-23-2015 End: 11-23-2015 KENROY Lassiter MD Start: 11-23-2015 End: 02-25-2017 Ecg routine ecg w/least 12 lds w/i&r Silvestre Lassiter MD Start: 11-23-2015 End: 11-23-2015 Follow Up Appt 3 months Christine Velazco Start: 11-23-2015 End: 02-13-2016 Lipid 1996 panel - Serum or Plasma Silvestre Lassiter MD Start: 11-01-2015 History of placement of stent for coronary artery disease History of coronary artery stent placement Dr. Asad Baron Work Phone: Comment on above: PMS-[id number]-[id number]-Mid LAD w/ 2.5 x 18 mm Resolute Integrity Stent 11/01/2015 Start: 09-22-2014 Colonoscopy Arpita BESS Plan of Treatment Date Care Activity Detail Author Start: 06-08-2025 ambulatory Ambulatory Facility:[facility] Start: 01-31-2024 [facility] Start: 06-28-2022 [facility]enza [facility] Start: 04-21-2022 Mammography MAMMOGRAM [facility] Start: 10-28-2021 ADVANCE DIRECTIVE DISCUSSION ADVANCE DIRECTIVE DISCUSSION [facility] Start: 2021 PNEUMOCOCCAL: 65+ (1 - PCV) PNEUMOCOCCAL: 65+ (1 - PCV) [facility] Start: 10-03-2021 DIABETES SCREEN DIABETES SCREEN [facility] Start: 07-04-2021 COVID-19 VACCINE (3 - Booster for Pfizer series) COVID-19 VACCINE (3 - Booster for Pfizer series) [facility] Start: 11-02-2020 LIPID SCREEN LIPID SCREEN [facility] Start: 09-22-2019 Colonoscopy COLONOSCOPY [facility] Start: 09-22-2019 COLORECTAL CANCER SCREENING COLORECTAL CANCER SCREENING [facility] Start: 03-10-2018 End: 09-11-2017 *Hepatic Function Panel *Hepatic Function Panel [facility] Work Phone: Start: 03-10-2018 End: 09-11-2017 Lipid panel [AGGREGATE] *Lipid Profile CC PCP [facility] Work Phone: Start: 03-04-2018 End: 03-04-2018 Appointment Appointment [facility] Work Phone: Start: 08-28-2017 End: 09-09-2017 *Hepatic Function Panel *Hepatic Function Panel [employer] Work Phone: Start: 08-28-2017 End: 09-09-2017 Lipid panel [AGGREGATE] *Lipid Profile CC PCP [facility] Work Phone: Start: 04-29-2017 End: 04-29-2017 Radiologic exam knee complete 4/more views X-Ray, Knee [facility] Work Phone: Start: 03-05-2017 End: 03-05-2017 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[employer] [facility] Work Phone: Start: 03-05-2017 End: 03-05-2017 Follow Up Appt 1 year Follow Up Appt 1 year [facility] Work Phone: Start: 02-21-2017 End: 02-25-2017 *Hepatic Function Panel *Hepatic Function Panel [facility] Work Phone: Start: 02-21-2017 End: 02-25-2017 Lipid panel [AGGREGATE] *Lipid Profile CC PCP [facility] Work Phone: Start: 09-05-2016 End: 09-05-2016 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 [facility] Work Phone: Start: 09-05-2016 End: 09-05-2016 Follow Up Appt 6 months Follow Up Appt 6 months [facility] Work Phone: Start: 08-14-2016 End: 08-21-2016 *Hepatic Function Panel *Hepatic Function Panel [facility] Work Phone: Start: 08-14-2016 End: 08-21-2016 Lipid panel [AGGREGATE] *Lipid Profile CC PCP [facility] Work Phone: Start: 02-21-2016 End: 02-21-2016 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 [facility] Work Phone: Start: 02-21-2016 End: 02-21-2016 Follow Up Appt 6 months Follow Up Appt 6 months [facility] Work Phone: Start: 02-21-2016 End: 02-21-2016 Nuclear stress test -exercise Nuclear stress test -exercise [facility] Work Phone: Start: 11-23-2015 End: 02-13-2016 *Hepatic Function Panel *Hepatic Function Panel [facility] Work Phone: Start: 11-23-2015 End: 11-23-2015 Cardiac Rehab Cardiac Rehab [facility] Work Phone: Start: 11-23-2015 End: 11-23-2015 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 [facility] Work Phone: Start: 11-23-2015 End: [...] of 2) SHINGRIX VACCINE (1 of 2) [facility] Start: 2001 COLOGUARD (FIT-DNA) COLOGUARD (FIT-DNA) [facility] Start: [address] COLONOGRAPHY [facility] Start: 2001 FECAL OCCULT BLOOD FECAL OCCULT BLOOD [facility] Start: 2001 SIGMOIDOSCOPY SIGMOIDOSCOPY [facility] Start: 1975 Urine microalbumin profile DTAP,TDAP,TD (1 - Tdap) [facility] Start: 1974 HEPATITIS C SCREENING HEPATITIS C SCREENING [facility] Start: 1974 HIV SCREENING HIV SCREENING [facility] Start: 1968 Adult depression screening assessment DEPRESSION SCREENING [facility] Patient Education [facility] Work Phone: Patient referral [facility] [place] [place] Work Phone: Payers Date Payer Category Payer Self-pay [id number] 2024 Private Health Insurance 101 [id number] 2020 Unknown [employer] PPO [id number] 2020-Present [phone] [address] [place] [address] PPO [id number] Unknown [id number] Unknown [id number] Unknown [id number] Unknown [id number] Unknown [id number] 62 Unknown [id number] Social History Date Type Detail Facility Start: 02-13-2022 End: 01-31-2024 Tobacco smoking status PRIS Unknown if ever smoked [facility] Start: 06-01-2020 Non-smoker [facility] Start: 1955 Sex Assigned At Female [facility] Start: 01-31-2024 Tobacco smoking stat us PRIS Never smoked tobacco [facility] Start: 01-06-2018 Alcohol intake 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 Thank you. documented in this encounter [facility] Progress note 04-21-2021 Note Date & Type Note Facility 04-21-2021 Note HNO ID: [id number] Author: Jesika Amanda Service: ? 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 HLD (hyperlipidemia) chronic History of coronary artery stent placement November 01, 2015 resolved [facility] Work Phone: Evaluation note 11-01-2015 Note Date & Type Note Facility 11-01-2015 Evaluation note Diagnosis Onset Date HLD (hyperlipidemia) chronic History of coronary artery stent placement November 01, 2015 resolved [facility] Work Phone: History of Past illness Narrative 09-12-2010 Note Date & Type Note Facility 09-12-2010 History of Past i llness Narrative Problem Noted Date Resolved Date Unspecified constipation 010 documented as of this encounter (statuses as of 04/13/2022) [facility] Evaluation note Note Date & Type Note Facility Evaluation note No assessment information availa ble [facility] Work Phone: Hospital Discharge instructions Note Date & Type Note Facility Hospital Discharge instructions Additional Instructions Alternate Tylenol and ibuprofen every 3 hours as needed and use ice. [facility] Work Phone: Reason for referral (narrative) Note Date & Type Note Facility Reason for referral (narrative) No reason for referral information available [facility] Work Phone: Chief Complaint and Reason for [...] 2 DRS/ 2 ORDERS- EOR KRUNAL FOR SRAVANI Chief Complaint 2 DRS/ 2 ORDERS- EOR KRUNAL FOR SRAVANI LACERATION 1 YR FU SCREENING Reason for Visit HLD (hyperlipidemia) History of coronary artery stent placement Chief Complaint STERNUM Chief Complaint Admit Date EORDERS May 12, 2025 8:20 am Chief Complaint Admit Date EORDERS May 12, 2025 8:20 am 1 y fu w HELIX COIL WINDER per PT REQ May 28, 2025 9:29am Family History No Family History Records Found Relationship Condition Age at Onset Recorded Date/T oneyda Not Specified Malignant melanoma Unknown Malignant neoplasm Unknown father Myocardial infarction Unknown Cardiac disease Unknown mother Malignant neoplasm of colon Unknown aunt Coronary artery disease Unknown Advance Directives No Advanced Directives Records Found Advance Directive Response Recorded Date/ Time Living Will Yes October 12 10:45am Power of Exceptional Student Education Teacher Yes October 12, 2020 10:45am Advance Directive Response Recorded Date/ Time Name of Medical Power of Exceptional Student Education Teacher Juan Acevedo, February 09, 2023 11:48pm Living Will Yes February 09, 2023 11:48pm Power of Exceptional Student Education Teacher Yes February 09 11:48pm Advance Directive Response Recorded Date/ Time Living Will Yes January 31, 2024 1:51pm Power of Exceptional Student Education Teacher Yes January 30 1:51pm Name of Medical Power of Exceptional Student Education Teacher agnes January 31, 2024 1:51pm Advance Directive Response Recorded Date/ Time Living Will Yes January 31, 2024 1:51pm Do you have a Healthcare Power of Exceptional Student Education Teacher? Yes January 31, 2024 1:51pm Summary Purpose Additional [...] or prosecute any alcohol or drug abuse patient.[facility] Reason for Visit (unrecogniz ed section and content) Reason Comments Mammogram Request Care Teams (unrecognized sec tion and content) Loss Prevention And Safety Manager Relationship Specialty Start Date End Date Asad Baron MD [address] [place] [address] [address] [place], [place] [id number] PCP - General Family Practice 04/01/20 Agnes Murguia [address] [place] [address] Referring General Surgery 07/05/20 Team Status: Active Member Role Status Dates Dr. Pineda Lucas MD Family Provider Active Dr. Asad Baron MD Primary Care Provider Active Team Status: Inactive Member Role Status Dates Dr. Asad Baron MD Primary Care Minh hector, Attending Provider, Referring Provider Active Dr. Silvestre Lassiter MD Other Provider Active Team Status: Inactive Member Role Status Dates Dr. Asad Baron MD Primary Care Provider, Referring Provider Active Alma Lay NP, EMBROIDERY MACHINE OPERATOR-C Attending Provider Active Team Status: Inactive Member [...] Dr. Elina Alonzo MD Emergency Provider Active Team Status: Active Member Role/Relationship Status Dates Dr. Asad Baron MD Primary Care Provider Active Team Status: Inactive Member Role/Relationship Status Dates Dr. Asad Baron MD Primary Care Provider Active Start: May 12, 2025 End: May 12, 2025 Dr. Silvestre Lassiter MD Attending Provider Active S tart: May 12, 2025 End: May 12, 2025 Dr. Silvestre Lassiter MD Referring Provider Active S tart: May 12, 2025 End: May 12, 2025 Team Status: Inactive Member Role/Relationship Status Dates Dr. Asad Baron MD Primary Care Provider Active Start: May 28, 2025 End: May 28, 2025 Dr. Asad Baron MD Referring Provider Active Start: May 28, 2025 End: May 28, 2025 Dr. Silvestre Lassiter MD Attending Provider Active S tart: May 28, 2025 End: May 28, 2025 INFORMATION SOURCE (unrecogn ized section and content) DATE CREATED AUTHOR 04/14/2022 [facility] DATE CREATED AUTHOR AUTHOR'S ORGANIZ ATION 06/05/2025 [facility] FOR RECORDS PERTAINING TO PATIENTS WHO ARE [...] BE BASED ON THE PRIMARY CLINICAL RECORDS. [employer] provides no warranty or guarantee of the accuracy or completeness of information in this document.
== END | disposition home or self-care (01) ==
LOC: OPBI 10:39
PROVIDERS: PCP Family Medicine; Referring Provider Family Medicine; Visit Provider Family Medicine
DX: Z12.31 Encounter for screening mammogram for malignant neoplasm of breast (principal)
CPT/HCPCS: 77063; 77067

== ENCOUNTER → 2025-07-28 | Outpatient (CLI) | payer SELFPAY ==
--- NOTE | 2025-07-28 12:27 | BD_ITS ---
PROCEDURE: DEXA BONE DENSITY STUDY 07/28/2025 REASON FOR EXAM: F, age 69 y/o . Postmenopausal screening. TECHNIQUE: Procedure Code: BDDBD Modality: DX Procedure: DEXA BONE DENSITY STUDY COMPARISON: 2023 FINDINGS: BMD and T-SCORES Lumbar spine: 0.905 g/cm2, T-score -1.4 Levels: L1 through L4 Change from prior: Increase of 10.8%. Left femoral neck: 0.582 g/cm2, T-score -2.4 Femoral neck comparison data not recommended for monitoring change. Prior T-score Left total hip: 0.640 g/cm2, T-score -2.5 Change from prior: Increase of 3.7%. Right femoral neck: 0.570 g/cm2, T-score -2.5 Femoral neck comparison data not recommended for monitoring change. Prior T-score Right total hip: 0.614 g/cm2, T-score -2.7 Change from prior: Increase of 1.1%. The World Health Organization has defined the following categories based on bone density: Normal bone density: T-score equal to or greater than -1.0 Osteopenia: T-score between -1.0 and -2.5 Osteoporosis: T-score equal to or less than -2.5 FRAX (or Comparable) Fracture Risk Assessment: 10 Year Probability of Fracture: Major Osteoporotic Fracture: 12% Hip Fracture: 3% (Note: FRAX is not to be reported in setting of normal range bone density, osteoporosis on DEXA, known history of osteoporosis, prior osteoporotic hip or vertebral fracture, or for any patient undergoing pharmacological treatment for bone loss.) The National Osteoporosis Foundation (NOF) recommends pharmacological treatment for patients with a FRAX 10-year risk of 3% or higher for a hip fracture, or 20% or higher for a major osteoporotic fracture, to prevent osteoporosis and reduce fracture risk. The patient does meet the pharmacological treatment recommendations for prevention of osteoporosis. BD/Dexa Bone Density Study IMPRESSION: OSTEOPOROSIS. Recommend follow-up as clinically warranted. Reading Location: [id number]
--- OUTSIDE RECORDS SUMMARY | 2025-07-29 23:51 | XMS RPT_ITS | CCD ---
Author Organization [facility] Care Team Providers Care Asset Availability Leader Name Role Phone RAO Fuchs, Kathy King Unavailable [phone] Rivka Garcia Unavailable Unavailable Dr. Asad Baron Primary Care Provider [phone] Asad Baron Referring Provider Dr. Tony Dai Attending Provider Dr. Silvestre Lassiter Attending Provider Dr. Silvestre Lassiter Referring Provider Dr. Silvestre Lassiter Other Provider Asad Baron MD Primary Care Provider [phone] sAad Baron Primary Care Provider Dr. Asad Baron Referring Provider Alireza GALVAN, RICCO Marquez Attending Provider Dr. Asad Baron MD Primary Care Provider [phone] Dr. Silvestre Lassiter MD Attending Provider Dr. Silvestre Lassiter MD Referring Provider Dr. Asad Baron MD Referring Provider Dr. Asad Baron MD Attending Provider Asad Baron Referring Unavailable Loraine, Asad Primary Care Unavailable Loraine, Asad Attending Unavailable Loraine, Asad Primary Care Unavailable Silvestre Lassiter Attending Unavailable Silvestre Lassiter Referring Unavailable Loraine, Asad Primary Care Unavailable Loraine, Asad Attending Unavailable Asad Baron Referring Unavailable Asad Baron Primary Care Unavailable Silvestre Lassiter Attending Unavailable Asad aBron Referring Unavailable Asad Baron Referring Unavailable Sheri Larsen Attending Unavailable Asad Baron Primary Care Unavailable Allergies Allergy Classification Reported Allergen(s) Allergy Type Date of Onset Reaction(s) Facility (5 sources) apis mellifera venom; Translations: [BEE STINGS] allergy to substance 6 Swelling [facility] Work Phone: [phone] (2 sources) atorvastatin Drug Allergy 6 Vomiting, diarrhea [facility] Work Phone: [phone] (2 sources) carvedilol Drug Allergy 6 Diarrhea, muscle aches, cough [facility] Work Phone: [phone] (13 sources) cephalexin; Translations: [cephalexin] Drug Allergy 6 Unknown [facility] Work Phone: [phone] (4 sources) Penicillins (Antibiotic) drug allergy 6 Rash, PCN [facility] Work Phone: [phone] (2 sources) BRILLINTA drug allergy 6 red rash [facility] Work Phone: [phone] (10 sources) atorvastatin; Translations: [atorvastatin calcium] Drug Allergy 2 Unknown [facility] (9 sources) carvedilol Drug Allergy 2 myalgias, cough, diarrhea [facility] (9 sources) Latex Allergy to substance 2 rash [facility] (11 sources) Penicillins; Translations: [Penicillins] Allergy to substance 6 Rash [facility] Work Phone: (9 sources) Ticagrelor Drug Allergy 2 rash [facility] (1 source) bee stings [Other] Propensity to adverse reactions 9 Rash, Swelling [facility] Work Phone: (6 sources) venom-honey bee Allergy to substance 2 Swelling [facility] (1 source) carvedilol Drug Allergy 5 [facility] Rep[facility] (1 source) Latex Drug allergy (disorder) 5 [facility] (1 source) Ticagrelor Drug Allergy 5 [facility] (1 source) venom-honey bee Drug allergy (disorder) 5 [facility] Repository Medications Current Medications Medication Drug Class(es) Dates Sig (Normalized) Sig (Original) alendronic acid 70 mg oral tablet (2 sources) Bisphosphonate Start: 05-28-2025 take 1 tablet by mouth every week Alendronate 70 mg tablet Active 70 mg PO EVERY WEEK May 28, 2025 12:00am Osteoporosis aspirin 81 mg delayed release oral tablet (14 sources) Nonsteroidal Anti-inflammatory Drug Start: 11-21-2015 take 1 tablet by mouth once daily Aspirin 81 MG tablet,delayed release (DR/EC) Active 81 mg PO DAILY November 30, 2015 1:00am Start: 04-25-2009 take 1 tablet by helio th once daily ASPIRIN 81 MG TABS One tablet by mouth daily ASPIRIN [id number] Jelly Redd RN Comment on above: Take one(1) tablet d aily. biotin 10 mg oral capsule (9 sources) Start: 03-02-20 take 1 capsule by mouth once daily Biotin 10,000 mcg capsule Active 28426 ug PO DAILY March 02, 2021 12:00am [id number] 0.3 ml EPINEPHrine 1 mg/ml auto-injector (9 sources) alpha-Adrenergic Agonist, beta-Adrenergic Agonist, Catecholamine Start: [...] ea. vitamin b12 5 mg oral capsule (9 sources) Vitamin B12 Start: 03-02-2021 Cyanocobalamin (Vitamin B-12) 5,000 mcg capsule Active 5000 ug PO SA March 02, 2021 12:00am Completed/Discontinued Medications Medication Drug Class(es) Dates Sig (Normalized) Sig (Original) acetaminophen 325 mg / oxyCODONE hydrochloride 5 mg oral tablet (9 sources) Opioid Agonist Start: 06-08-2020 End: 06-14-2020 [...] tablet by mouth every evening ATORVASTATIN CALCIUM [id number] Jelly Redd RN azithromycin 250 mg oral tablet (9 sources) Macrolide Antimicrobial Start: 01-18-2019 End: 03-05-2019 take 2-5 tablets by mouth once daily Azithromycin (Zithromax Z-Victor Hugo) 250 mg tablet Discontinued 0 PO .COMPLEX 6 0 January 18, 2019 12:00am March 05, 2019 9:16am Acute maxillary sinusitis, unspecified take 500 mg today (day 1), then 250 mg for 4 days (days 2-5) carvedilol 6.25 mg oral tablet (17 sources) alpha-Adrenergic Jeanne, beta-Adrenergic Jeanne Start: 11-21-2015 End: 03-03-2018 take 1 tablet by mouth twice daily Carvedilol 6.25 MG tablet Discontinued 6.25 mg PO TWICE A DAY November 30, 2015 1:00am March 03, 2018 9:42am Start: 11-21-2015 End: 07-30-2016 take 1 tablet by mouth twice daily COREG 3.125 MG TABS One tablet by mouth twice daily CARVEDILOL [id number] Silvestre Lassiter MD cholecalciferol 0.05 mg oral capsule (9 sources) Vitamin D Start: 03-02-2021 End: 03-04-2023 [...] One tablet by mouth daily CLOPIDOGREL BISULFATE [id number] Silvestre Lassiter MD doxycycline hyclate 100 mg oral capsule (6 sources) Tetracycline-class Drug Start: 08-11-2022 End: 08-21-2022 take 1 capsule by mouth twice daily Doxycycline Hyclate 100 mg capsule Discontinued 100 mg PO TWICE A DAY 20 10 0 August 11, 2022 12:00am August 20, 2022 12:00am August 21, 2022 12:05am sinusitis 84 hr estradiol 0.56387 mg/hr transdermal system (13 sources) Estrogen Start: 11-21-2015 End: 12-13-2015 VIVELLE-DOT 0.05 MG/24HR PTTW transdermal as directed ESTRADIOL [id number] Jelly Redd RN Start: 11-01-2015 End: 03-03-2018 Estradiol 1 EACH patch semiw eekly Discontinued 1 NMA November 01, 2015 1:00am March 03, 2018 9:42am flaxseed extract (2 sources) Non-Standardized Food Allergenic Extract, Non-Standardized Plant Allergenic Extract Start: 02-01-2016 take 1 tablet by mouth once daily FLAX SEED OIL CAPS One tablet by mouth daily FLAXSEED (LINSEED) CAPS [id number] Jelly Redd RN Flaxseed Oil oil (1 source) Flaxseed Oil oil linseed oil 1000 mg oral capsule (18 sources) Start: 01-13-2021 End: 03-02-2021 take 1 capsule by mouth twice daily at mealtime Flaxseed Oil 1,000 mg capsule Discontinued 1000 mg PO TWICE A DAY January 13, 2021 12:00am March 02, 2021 11:01am administer with meals Start: 01-18-2019 take 1 capsule by mo [facility] once daily Flaxseed Oil ([place]-3 Flaxseed Oil) 1,000 mg capsule Active 1000 [...] mouth once daily. Multivitamin (Daily Multi-Vitamin) tablet (9 sources) Start: 01-13-2021 End: 03-02-2021 take 1 [...] 3 as needed for chest pain. NITROGLYCERIN [id number] Silvestre Lassiter MD Comment on above: Dissolve [...] ar ea. 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] Onset: 10-28-2015 09-05-2016 Chronic Disorders of lipid metabolism (18 sources) Hyperlipidemia; Translations: [Hyperlipidemia, unspecified] Onset: 02-15-2016 02-15-2016 Chronic Hemorrhoids (2 sources) Internal hemorrhoids; Translations: [Other hemorrhoids] 04-22-2009 Episodic Menopausal disorders (1 source) Menopausal symptom; Translations: [Menopausal and female climacteric states] Onset: 09-08-2009 09-08-2009 Chronic Nonspecific chest pain (4 sources) Chest wall pain; Translations: [Other chest pain] 01-31-2024 Episodic Open wounds of extremities (5 sources) Avulsion of skin; Translations: [Unspecified open wound of right thumb without damage to nail, initial encounter] 02-18-2023 Episodic Osteoporosis (1 source) Age-related osteoporosis without current pathological fracture; Translations: [Age-related osteoporosis without current pathological fracture] Onset: 07-18-2025 Chronic Other circulatory disease (5 sources) Bleeding; Translations: [Hemorrhage, not elsewhere classified] 02-18-2023 Episodic Other gastrointestinal disorders (1 source) Diarrhea, unspecified; Translations: [Diarrhea, unspecified] Onset: 05-11-2025 Episodic Other screening for suspected conditions (not mental disorders or infectious disease) (16 sources) Patient encounter status; Translations: [Encounter for screening for osteoporosis] Onset: 06-14-2025 08-11-2022 Episodic Other skin disorders (9 sources) Disorder of subcutaneous tissue; Translations: [Disorder of the skin and subcutaneous tissue, unspecified] 02-15-2021 Episodic Other upper respiratory infections (15 sources) Acute maxillary sinusitis; Translations: [Acute maxillary sinusitis, unspecified] 08-11-2022 Episodic Residual codes; unclassified (3 sources) Family history of cancer of colon; Translations: [Family history of malignant neoplasm of digestive organs] 07-29-2024 Episodic Residual codes; unclassified (1 source) Family history of malignant neoplasm of digestive organs; Translations: [Family history of malignant neoplasm of digestive organs] Onset: 05-11-2025 Episodic Thyroid disorders (11 sources) 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; Translations: [Other specified hypothyroidism] Chronic Comment on above: abnormal TSH with po sitive thyroid antibodies Unclassified (2 sources) Placement of stent in coronary artery ; Translations: [Presence of coronary angioplasty implant and graft] Onset: 11-21-2015 11-21-2015 Unclassified (2 sources) Long-term drug therapy; Translations: [Other central processing tech (current) drug therapy] Onset: 11-21-2015 11-21-2015 Past or Other Problems Problem Classification Problem Date Documented Date Episodic/Chronic Coronary atherosclerosis and other heart disease (3 sources) Presence of coronary angioplasty implant and graft; Translations: [Percutaneous transluminal coronary angioplasty status] Onset: 11-01-2015 Episodic Other aftercare (2 sources) correction (current) use of antithrombotics/antipl atelets; 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 Asad Baron MD Status: CARLA MARTIN Study:SCRN MAMM (CAD)W/RAMYA BILAT Date of Exa m: 06/08/25 Exam# [id number] Ordering Dr: Asad Baron MD EXAM: SCRN MAMM (CAD)W/RAMYA BILAT DATE: 06/08/2025 CLINICAL HISTORY: F, Age 69 y/o , SCREENING TECHNIQUE: SCRN MAMM (CAD)W/RAMYA BILAT COMPARISON: Prior exam(s) dated 05/11/2024, 05/01/2023, 04/23/2022. FINDINGS: TISSUE DENSITY: There are scattered areas of fibroglandular density. Bilateral Breast Mammographic Findings: No significant masses, calcifications or other abnormalities are identified. BI/SCRN MAMM (CAD)W/RAMYA BILAT IMPRESSION: There is no mammographic evidence of malignancy. OVERALL FINAL ASSESSMENT BI-RADS 1: NEGATIVE. RECOMMENDATION: Routine annual follow-up in 1 Year A letter with findings and recommendations will be mailed to the patient. Reading Location: [facility] CC: Dr. Asad Baron MD ~ Obstetrical Tech: Signed [facility] SCRN MAMM (CAD)W/RAMYA BILATo n 06-08-2025 SCRN MAMM (CAD)W/RAMYA BILAT [facility] Imaging Services [address] [place] [id number] SCRN MAMM (CAD)W/RAMYA BILAT MR#: [id number] Acct: [id number] Name: IVETTE ACEVEDO Rep #: [id number] : 1955 F 69 From: Amy Ge MD PCP: Dr. Asad Baron MD Status: [facility] Study: SCRN MAMM (CAD)W/RAMYA BILAT Date of Exam: 05/28 12/22 Exam# [id number] Ordering Dr: Asad Baron MD EXAM: SCRN MAMM (CAD)W/RAMYA BILAT DATE: 06/08/2025 CLINICAL HISTORY: F, Age 69 y/o , SCREENING TECHNIQUE: SCRN MAMM (CAD)W/RAMYA BILAT COMPARISON: Prior exam(s) dated 05/11/2024, 05/01/2023, 04/23/2022. FINDINGS: TISSUE DENSITY: There are scattered areas of fibroglandular density. Bilateral Breast Mammographic Findings: No significant masses, calcifications or other abnormalities are identified. BI/SCRN MAMM (CAD)W/RAMYA BILAT IMPRESSION: There is no mammographic evidence of malignancy. OVERALL FINAL ASSESSMENT BI-RADS 1: NEGATIVE. RECOMMENDATION: Routine annual follow-up in 1 Year A letter with findings and recommendations will be mailed to the patient. Reading Location: [id number] CC: Dr. Asad Baron MD Obstetrical Tech: Signed Normal [facility] Cardiology Visit Reporton Cardiology Visit Report [facility] [address] [place] [address] OFFICE VISIT Date of Service: 05/28/25 MR#: [id number] Acct: [id number] Name: IVETTE ACEVEDO Rep #: [id number] : 1955 Provider: Dr. 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 Normal [facility] Bilirubin directOrdered By: Silvestre Lassiter on 05-12-2025 Bilirubin.direct [Mass/Vol] 0.23 mg/dL 0.00-0.30 [facility] Bilirubin, totalOrdered By: Silvestre Lassiter on 05-12-2025 Bilirubin [Mass/Vol] 0.53 mg/dL 0.00-1.30 [facility] Calculated very low density lipoprotein (VLDL) cholesterol measurementOrdered By: Silvestre Lassiter on 05-12-2025 Calculated very low density lipoprotein (VLDL) cholesterol measurement 14 mg/dL 5-40 [facility] LDL calc ser/plasOrdered By: Silvestre Lassiter on 05-12-2025 Cholesterol in LDL [Mass/Vol] 65 mg/dL [facility] Comment on above: Qxylmxhbmd=536-583 m g/dL & Higher Bkkr=321 mg/dL or greater Laboratory - Chemistry and C hemistry - challengeOrdered By: Silvestre Lassiter on 05-12-2025 AST [Catalytic activity/Vol] 26 U/L <32 [facility] Lipid Profileon 05-12-2025 CHOL:HDL 2.59 Normal [facility] Comment on above: Performed By: #### L 500.4100, L500.3400 #### [facility] [address] [place], [address] Cholesterol [Mass/Vol] 129 mg/dL Normal <=200 [facility] Comment on above: Result Comment: Chol esterol level, Desirable <200 mg/dL Borderline high cholesterol 200-239 mg/dL High cholesterol >=240 mg/dL Recommendations of the NCEP Adult Treatment Panel for the following risk-cutoff thresholds for the [place] population. Performed By: #### L 500.4100, L500.3400 #### [facility] [address] [place], [address] Cholesterol in HDL [Mass/Vol] 50 mg/dL Normal [facility] Comment on above: Result Comment: Kathy onal Cholesterol Education Program (NCEP) guidelines: <40 mg/dL: Low HDL-cholesterol (major risk factor for CHD) >= 60 mg/dL: High HDL-cholesterol (negative risk factor for CHD) HDL-cholesterol is affected by a number of factors, e.g. smoking, exercise, hormones, sex and age. Performed By: #### L 500.4100, L500.3400 #### [facility] [address] [place], [place], [id number] [phone] Cholesterol in LDL [Mass/Vol] 65 mg/dL Normal [facility] Comment on above: Result Comment: Bord vrstge=922-121 mg/dL Higher Sypj=026 mg/dL or greater Performed By: #### L 500.4100, L500.3400 #### [facility] [address] [place], [address] Cholesterol in VLDL [Mass/Vol] 14 mg/dL Normal 5-40 [facility] Comment on above: Performed By: #### L 500.4100, L500.3400 #### [facility] [address] [place], [address] Triglyceride [Mass/Vol] 71 mg/dL Normal [facility] Comment on above: Result Comment: The drugs N-Acetylcysteine and Metamizole may falsely depress this assay. Normal range: <150 mg/dL Borderline High: 150-199 mg/dL High: 200-499 mg/dL Very High: >500 mg/dL Performed By: #### L 500.4100, L500.3400 #### [facility] [address] [place], [address] Liver Profileon 05-12-2025 Albumin [Mass/Vol] 4.3 g/dL Normal 3.4-4.8 [facility] Comment on above: Performed By: #### L 500.4100, L500.3400 #### [facility] [address] [place], [address] ALK PHOS 78 U/L Normal 35-104 [facility] Comment on above: Performed By: #### L 500.4100, L500.3400 #### [facility] [address] [place], [address] ALT [Catalytic activity/Vol] 15 U/L Normal <=34 [facility] Comment on above: Performed By: #### L 500.4100, L500.3400 #### [facility] [address] [place], [address] AST [Catalytic activity/Vol] 26 U/L Normal <=31 [facility] Comment on above: Performed By: #### L 500.4100, L500.3400 #### [facility] [address] [place], [address] Bilirubin [Mass/Vol] 0.53 mg/dL Normal 0.00-1.30 [facility] Comment on above: Performed By: #### L 500.4100, L500.3400 #### [facility] [address] [place], [address] Bilirubin.direct [Mass/Vol] 0.23 mg/dL Normal 0.00-0.30 [facility] Comment on above: Performed By: #### L 500.4100, L500.3400 #### [facility] [address] [place], [address] Globulin (S) [Mass/Vol] 2.5 g/dL Normal 2.2-4.2 [facility] Comment on above: Performed By: #### L 500.4100, L500.3400 #### [facility] [address] [place], [address] T PROT 6.8 g/dL Normal 5.9-8.4 [facility] Comment on above: Performed By: #### L 500.4100, L500.3400 #### [facility] [address] [place], [address] Screening total cholesterol/ high density lipoprotein (HDL) cholesterol ratioOrdered By: Silvestre Lassiter on 05-12-2025 Cholesterol.total/Chol esterol in HDL [Mass ratio] 2.59 {ratio} [facility] Serum globulin measurementOr dered By: Silvestre Lassiter on 05-12-2025 Globulin (S) [Mass/Vol] 2.5 g/dL 2.2-4.2 [facility] Serum or plasma alanine chung otransferase (ALT) measurementOrdered By: Silvestre Lassiter on 05-12-2025 ALT [Catalytic activity/Vol] 15 U/L <35 [facility] Serum or plasma albumin anderson urement (mass/volume)Ordered By: Silvestre Lassiter on 05-12-2025 Albumin [Mass/Vol] 4.3 g/dL 3.4-4.8 [facility] Serum or plasma alkaline cadence sphatase measurementOrdered By: Silvestre Sravani on 05-12-2025 ALP [Catalytic activity/Vol] 78 U/L 35-104 [facility] Serum or plasma cholesterol in HDL measurement (mass/volume)Ordered By: Silvestre Sravani on 05-12-2025 Cholesterol in HDL [Mass/Vol] 50 mg/dL >40 [facility] Comment on above: National Cholesterol Education Program (NCEP) guidelines:<40 mg/dL: Low HDL-cholesterol (major risk factor for CHD)>= 60 mg/dL: High HDL-cholesterol (negative risk factor for CHD)HDL-cholesterol is affected by a number of factors, e.g. smoking, exercise, hormones, sex and age. Serum or plasma cholesterol measurement (mass/volume)Ordered By: Silvestre Lassiter on 05-12-2025 Cholesterol [Mass/Vol] 129 mg/dL <201 [facility] Comment on above: Cholesterol level, D esirable <200 mg/dLBorderline high cholesterol 200-239 mg/dLHigh cholesterol >=240 mg/dLRecommendations of the NCEP Adult Treatment Panel for the following risk-cutoff thresholds for the [place] population. Total proteinOrdered By: Yumiko Lassiter on 05-12-2025 Protein [Mass/Vol] 6.8 g/dL 5.9-8.4 [facility] Triglycerides measurementOrd ered By: Silvestre Lassiter on 05-12-2025 Triglyceride [Mass/Vol] 71 mg/dL <199 [facility] Comment on above: The drugs N-Acetylcy steine and Metamizole may falsely depress this assay. Normal range: <150 mg/dLBorderline High: 150-199 mg/dLHigh: 200-499 mg/dLVery High: >500 mg/dL Gastroenterology Visit Repor ton 07-29-2024 Gastroenterology Visit Report [facility] Gastroenterology [address] 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 Pt was previously seeing Dr. Rendon [...] Appearance: average body habitus and well nourished [facility] Head: (more content not included)... Normal [facility] Absolute lymphocyte countOrd ered By: Italia Guerrero on 01-31-2024 Lymphocytes Auto (Unsp spec) [#/Vol] 1.70 10*3/uL 0.83-4.51 [facility] Automated lymphocyte count a s percentage of total leukocytesOrdered By: Italia Guerrero on 01-31-2024 Lymphocytes/100 WBC Auto (Unsp spec) 28.2 % 19-41 [facility] Basophil percentageOrdered B y: Italia Guerrero on 01-31-2024 Basophils/100 WBC (Bld) 0.5 % 0-1 [facility] Chloride [Moles/Vol] 97 mmol/L 98-107 [facility] Eosinophils/100 WBC (Bld) 1.0 % 0-5 [facility] Glucose [Mass/Vol] 105 mg/dL 74-106 [facility] Comment on above: Fasting Glucose resu lt from 100 to 125 mg/dL suggests IMPAIRED HOMEOSTASIS per A.D.A. criteria. Hemoglobin (Bld) [Mass/Vol] 12.1 g/dL 12.0-15.0 [facility] Monocytes/100 WBC (Bld) 7.6 % 0-10 [facility] Neutrophils (Bld) [#/Vol] 3.8 10*3/uL 2.0-7.7 [facility] Neutrophils/100 WBC (Bld) 62.4 % 47-70 [facility] Potassium [Moles/Vol] 4.1 mmol/L 3.5-5.1 [facility] Sodium [Moles/Vol] 129 mmol/L 136-145 [facility] WBC (Bld) [#/Vol] 6.0 10*3/uL 4.4-11.0 [facility] Determination of erythrocyte mean corpuscular volume (MCV)Ordered By: Italia Guerrero on 01-31-2024 MCV (RBC) [Entitic vol] 86.2 fL 81-99 [facility] Erythrocyte distribution wid th ratioOrdered By: Italia Guerrero on 01-31-2024 Erythrocyte distribution width (RBC) [Ratio] 12.1 % 11.6-14.6 [facility] Erythrocyte distribution wid th standard deviationOrdered By: Italia Guerrero on 01-31-2024 Erythrocyte distribution width (RBC) [Entitic vol] 38.4 fL 35.1-43.9 [facility] Hematocrit Auto (Bld) [Volum e fraction]Ordered By: Italia Guerrero on 01-31-2024 Hematocrit (Bld) [Volume fraction] 35.6 % 37-47 [facility] Immature granulocytes/100 WB C Auto (Bld)Ordered By: Italia Guerrero on 01-31-2024 Immature granulocytes/100 WBC (Bld) 0.300 % 0.0-0.9 [facility] Comment on above: IG% - Immature Granu locytes (promyelocytes, myelocytes and metamyelocytes) > 1% indicates that a LEFT SHIFT is Present. Laboratory - Chemistry and C hemistry - challengeOrdered By: Italia Guerrero on 01-31-2024 CO2 [Moles/Vol] 27.0 mmol/L 21.0-32.0 [facility] Urea nitrogen/Creatinine [Mass ratio] 11.3 mg/mg 10-20 [facility] Laboratory - Hematology and Cell countsOrdered By: Italia Guerrero on 01-31-2024 MCH (RBC) [Entitic mass] 29.3 pg 27.0-32.0 [facility] MCHC (RBC) [Mass/Vol] 34.0 g/dL 32-36 [facility] Nucleated RBC/100 WBC (Bld) [Ratio] 0 % 0-5 [facility] Platelet mean volume (Bld) [Entitic vol] 9.1 fL 6.2-12.0 [facility] Platelets (Bld) [#/Vol] 276 10*3/uL 150-450 [facility] No Panel InformationOrdered By: Italia Guerrero on 01-31-2024 Estimated Creatinine Clearance Calc 58.28 ml/min [facility] Estimated GFR (MDRD) Amer 106 mL/min >60 [facility] Comment on above: GFR Calc Estimated GFR (MDRD) Non-Af Amer 88 mL/min >60 [facility] Comment on above: Non- GFR Calc Troponin I High Sensitivity 6 pg/mL 3.0-54.0 [facility] Comment on above: Please Note: [place] t Units and Gender Specific Reference Ranges. For more information see Policy Stat Procedure [place] High Sensitivity Troponin (TNIH) and attachments. RBC Auto (Bld) [#/Vol]Ordere d By: Italia Guerrero on 01-31-2024 RBC (Bld) [#/Vol] 4.13 10*6/uL 4.2-5.4 [facility] Serum or plasma calcium anderson urement (mass/volume)Ordered By: Italia Guerrero on 01-31-2024 Calcium [Mass/Vol] 8.8 mg/dL 8.5-10.1 [facility] Serum or plasma creatinine m easurement (mass/volume)Ordered By: Italia Guerrero on 01-31-2024 Creatinine [Mass/Vol] 0.70 mg/dL 0.55-1.02 [facility] Comment on above: The validity of the calculated GFR & GFRAA in patients over 70 years has not been determined. Clinical correlation is essential. Serum or plasma urea nitroge n measurement (mass/volume)Ordered By: Italia Guerrero on 01-31-2024 Urea nitrogen [Mass/Vol] 8 mg/dL 7-18 [facility] Thin prep Papanicolaou smear with manual screeningOrdered By: Italia Guerrero on 01-31-2024 Thin prep Papanicolaou smear with manual screening 5 5-15 [facility] Basophil percentageOrdered B y: Dr. Baron on 02-01-2023 Bilirubin [Mass/Vol] 0.50 mg/dL 0.20-1.00 [facility] Comment on above: For patients on eltr ombopag therapy, use of Dimension [place] TBIL is not recommended. Chloride [Moles/Vol] 102 mmol/L 98-107 [facility] Cholesterol [Mass/Vol] 123 mg/dL <200 [facility] Comment on above: <200 mg/dL Desirable 200-240 mg/dL Borderline >240 mg/dL High Risk Glucose [Mass/Vol] 87 mg/dL 74-106 [facility] Potassium [Moles/Vol] 4.2 mmol/L 3.5-5.1 [facility] Protein [Mass/Vol] 7.1 g/dL 6.4-8.2 [facility] Sodium [Moles/Vol] 137 mmol/L 136-145 [facility] Triglyceride [Mass/Vol] 75 mg/dL <199 [facility] Comment on above: The drugs N-Acetylcy steine and Metamizole may falsely depress this assay.Serum Triglycerides Reference Interval Normal <150 mg/dL Borderline high 150 - 199 mg/dL High 200 - 499 mg/dL Very High > or = 500 mg/dL Direct bilirubinOrdered By: Dr. Baron on 02-01-2023 Bilirubin.direct [Mass/Vol] 0.15 mg/dL 0.00-0.30 [facility] Laboratory - Chemistry and C hemistry - challengeOrdered By: Dr. Baron on 02-01-2023 ALP [Catalytic activity/Vol] 101 U/L 45-117 [facility] ALT [Catalytic activity/Vol] 24 U/L 13-56 [facility] CO2 [Moles/Vol] 29.0 mmol/L 21.0-32.0 [facility] Free T4 [Mass/Vol] 1.22 ng/dL 0.76-1.46 [facility] Globulin (S) [Mass/Vol] 3.2 g/dL 2.2-4.2 [facility] Urea nitrogen/Creatinine [Mass ratio] 13.5 mg/mg 10-20 [facility] No Panel InformationOrdered By: Dr. Baron on 02-01-2023 Estimated GFR (MDRD) Amer 101 mL/min >60 [facility] Comment on above: GFR Calc Estimated GFR (MDRD) Non-Af Amer 83 mL/min >60 [facility] Comment on above: Non- GFR Calc Free Triiodothyronine (T3) pg/dL 2.7 pg/mL 2.18-3.98 [facility] Thyroid Stimulating Hormone (TSH) 1.28 uIU/mL 0.358-3.74 [facility] Serum or plasma albumin anderson urement (mass/volume)Ordered By: Dr. Baron on 02-01-2023 Albumin [Mass/Vol] 3.9 g/dL 3.2-5.0 [facility] Serum or plasma albumin/glob ulin mass ratioOrdered By: Dr. Baron on 02-01-2023 Albumin/Globulin [Mass ratio] 1.2 {ratio} 0.9-2.4 [facility] Serum or plasma calcium anderson urement (mass/volume)Ordered By: Dr. Baron on 02-01-2023 Calcium [Mass/Vol] 9.1 mg/dL 8.5-10.1 [facility] Serum or plasma cholesterol in HDL measurement (mass/volume)Ordered By: Dr. Baron on 02-01-2023 Cholesterol in HDL [Mass/Vol] 51 mg/dL >40 [facility] Comment on above: The drugs N-Acetylcy steine and Metamizole may falsely depress this assay. Reference Range HDL <40 mg/dL Low HDL Cholesterol HDL >or= 60 mg/dL High HDL Cholesterol Serum or plasma cholesterol in VLDL measurement (mass/volume)Ordered By: Dr. Baron on 02-01-2023 Cholesterol in VLDL [Mass/Vol] 15 mg/dL 5-40 [facility] Serum or plasma creatinine m easurement (mass/volume)Ordered By: Dr. Baron on 02-01-2023 Creatinine [Mass/Vol] 0.74 mg/dL 0.55-1.02 [facility] Comment on above: The validity of the calculated GFR & GFRAA in patients over 70 years has not been determined. Clinical correlation is essential. Serum or plasma low density lipoprotein (LDL) cholesterol measurement (mass/volume)Ordered By: Dr. Baron on 02-01-2023 Cholesterol in LDL [Mass/Vol] 57 mg/dL 0-130 [facility] Serum or plasma urea nitroge n measurement (mass/volume)Ordered By: Dr. Baron on 02-01-2023 Urea nitrogen [Mass/Vol] 10 mg/dL 7-18 [facility] Thin prep Papanicolaou smear with manual screeningOrdered By: Dr. Baron on 02-01-2023 Thin prep Papanicolaou smear with manual screening 23 U/L 15-37 [facility] Thin prep Papanicolaou smear with manual screening 6 5-15 [facility] CNPNon 04-09-2022 CNPN Telephone (RGMOB) IVETTE ACEVEDO ([id number]) 1955 F Date Time Provider Department 04/09/22 ARPITA JAIMES During your visit today, we recorded the following information about you: Rom Montiel 04/09/2022 2:06 PM Signed Patient needs all mammograms sent to [facility] to their imaging dept. Thank you. Arpita Jaimes, PSS 04/09/2022 3:23 PM Signed Sent the last 2 yrs to [facility] release in syngo Allergies As of [...] Status:Closed by ROM MONTIEL on 04/13/22 Normal [facility] Basophil percentageon 2021 Bilirubin [Mass/Vol] 0.30 mg/dL 0.20-1.00 [facility] Work Phone: Comment on above: For patients on eltr ombopag therapy, use of Dimension [place] TBIL is not recommended. Cholesterol [Mass/Vol] 131 mg/dL <200 [facility] Work Phone: Comment on above: <200 mg/dL Desirable 200-240 mg/dL Borderline >240 mg/dL High Risk Protein [Mass/Vol] 6.8 g/dL 6.4-8.2 [facility] Work Phone: Triglyceride [Mass/Vol] 138 mg/dL <199 [facility] Work Phone: Comment on above: The drugs N-Acetylcy steine and Metamizole may falsely depress this assay.Serum Triglycerides Reference Interval Normal <150 mg/dL Borderline high 150 - 199 mg/dL High 200 - 499 mg/dL Very High > or = 500 mg/dL Direct bilirubinon 2 Bilirubin.direct [Mass/Vol] 0.08 mg/dL 0.00-0.30 [facility] Work Phone: Laboratory - Chemistry and C hemistry - challengeon 02-13-2022 ALP [Catalytic activity/Vol] 114 U/L 45-117 [facility] Work Phone: ALT [Catalytic activity/Vol] 28 U/L 13-56 [facility] Work Phone: Free T4 [Mass/Vol] 1.14 ng/dL 0.76-1.46 [facility] Work Phone: Globulin (S) [Mass/Vol] 3.2 g/dL 2.2-4.2 [facility] Work Phone: No Panel Informationon 02-13 Thyroid Stimulating Hormone (TSH) 0.77 uIU/mL 0.358-3.74 [facility] Work Phone: Serum or plasma albumin anderson urement (mass/volume)on 02-13-2022 Albumin [Mass/Vol] 3.6 g/dL 3.2-5.0 [facility] Work Phone: Serum or plasma cholesterol in HDL measurement (mass/volume)on 02-13-2022 Cholesterol in HDL [Mass/Vol] 45 mg/dL >40 [facility] Work Phone: Comment on above: The drugs N-Acetylcy steine and Metamizole may falsely depress this assay. Reference Range HDL <40 mg/dL Low HDL Cholesterol HDL >or= 60 mg/dL High HDL Cholesterol Serum or plasma cholesterol in VLDL measurement (mass/volume)on 02-13-2022 Cholesterol in VLDL [Mass/Vol] 28 mg/dL 5-40 [facility] Work Phone: [phone] Serum or plasma low density lipoprotein (LDL) cholesterol measurement (mass/volume)on 02-13-2022 Cholesterol in LDL [Mass/Vol] 58 mg/dL 0-130 [facility] Work Phone: Thin prep Papanicolaou smear with manual screeningon 02-13-2022 Thin prep Papanicolaou smear with manual screening 17 U/L 15-37 [facility] Work Phone: Ashli 04-21-2021 [facility] HNO ID: [id number] Author: Mammography Coordinator Service: ? Author Type: Physician Type: Letter Filed: 04/24/2021 11:35 PM Note Text: April 21, 2021 PID: [id number] Ivette Acevedo [address] [place] [address] Dear Ms. Acevedo, We are pleased to [...] report will be kept on file at [facility] as part of your permanent medical record and are available for your continuing care. Thank you for allowing us to help in meeting your health care needs. Sincerely, Dr. Perrin Interpreting Radiologist [facility] (Normal over 40) Normal [facility] CHUY SCREENING W TOMOon 04-21 CHUY SCREENING W RAMYA * * *Final Report* * * DATE OF EXAM: Apr 21 2021 10:00AM WRW [id number] - CHUY SCREENING W RAMYA / PROCEDURE REASON: breast cancer screening * * * * Physician Interpretation * * * * RESULT: #[id number] - CHUY SCREENING W RAMYA BILATERAL DIGITAL [...] to exams dated: 04/01/2020 mammogram - [facility], 01/13/2019 mammogram, 01/06/2018 mammogram, 12/26/2015 mammogram, and 11/11/2014 mammogram - [facility]. There are scattered fibroglandular elements in both breasts. No significant masses, calcifications, or other findings are seen in either breast. There has been no significant interval change. IMPRESSION: NEGATIVE There is no mammographic evidence of malignancy. A 1 year screening mammogram is recommended. Lottie Perrin M.D. fa/penrad:04/21/2021 11:37:49 Associate Media Director(s): Brissa Hernandez, RT(R)(M), [facility] letter sent: Normal over 40 Mammogram BI-RADS: [...] Health, Family Medicine, and Medical/Surgical Oncology, the [facility] has carefully reviewed the data and reached [...] their providers when to stop screening mammograms. Obstetrical Tech: Lyndsey Transcribe Date/Time: Apr 21 2021 9:22A Dictated by: LOTTIE PERRIN MD This examination was interpreted and the report reviewed and electronically signed by: LOTTIE PERRIN MD on Apr 21 2021 11:37AM EST [id number] CN Normal [facility] Lab Report: Lipid Profileon 09-06-2017 Cholesterol 139 mg/dL Invalid Interpretation Code 200 [facility] [employer] Work Phone: [phone] HDL Cholesterol 62 mg/dL Invalid Interpretation Code [facility] Work Phone: [phone] LDL Cholesterol 59 mg/dL Invalid Interpretation Code 0-130 [facility] Work Phone: [phone] Triglyceride 92 mg/dL Invalid Interpretation Code [facility] [employer] Work Phone: [phone] very low density lipoproteins 18 mg/dL Invalid Interpretation Code 5-40 [facility] Work Phone: [phone] Lab Report: Liver Profileon 09-06-2017 Alanine aminotransferase (ALT) 22 U/L Invalid Interpretation Code 12-78 [facility] [employer] Work Phone: [phone] Albumin 4.0 g/dL Invalid Interpretation Code 3.4-5.0 [facility] Phone: [phone] Alkaline phosphatase (ALP) 96 U/L Invalid Interpretation Code 45-117 [facility] Work Phone: [phone] Aspartate aminotransferase (AST) 17 U/L Invalid Interpretation Code 15-37 [facility] Phone: [phone] Bilirubin (direct) 0.15 mg/dL Invalid Interpretation Code 0.00-0.30 [facility] Work Phone: [phone] Bilirubin (total) 0.60 mg/dL Invalid Interpretation Code 0.20-1.00 [facility] Phone: [phone] Globulin 3.3 g/dL Invalid Interpretation Code 2.2-4.2 [facility] Phone: [phone] Protein 7.3 g/dL Invalid Interpretation Code 6.4-8.2 [facility] Phone: [phone] Office Visiton 04-29-2017 Documentation of current medications (procedure) Done Invalid Interpretation Code [facility] Phone: [phone] Tobacco use CPHS Never smoker Invalid Interpretation Code [facility] Phone: [phone] Office Visiton 03-05-2017 Fall risk assessment Fall risk assessment Invali d Interpretation Code [facility] Phone: [phone] Clinical Lists Update: Prelo winterizer 03-01-2017 Left ventricular Ejection fraction 35-40 Invalid Interpretation Code [facility] Phone: [phone] External Other: Preferred Me thod of Contacton 11-23-2015 methcontact phone Invalid Interpretation Code [facility] Phone: [phone] Office Visiton 11-23-2015 cardiac risk group C Invalid Interpretation Code [facility] Phone: [phone] General cardiovascular disease 10Y risk [#] [place].D'Agostino N/A Invalid Interpretation Code [facility] Phone: [phone] Replaced Document: [facility] E CG Observationson 11-23-2015 EKG QRS axis 64 deg Invalid Interpretation Code [facility] Phone: [phone] Interpretation Sinus Bradycardia - Extensive T-abnormality - Anterior/lateral and inferior ischemia. ABNORMAL Invalid Interpretation Code [facility] Work Phone: [phone] P [place] 58 deg Invalid Interpretation Code [facility] Work Phone: [phone] RI Interval 120 ms Invalid Interpretation Code [facility] Work Phone: [phone] Pulse (Heart Rate) 57 /min Invalid Interpretation Code [facility] Work Phone: [phone] QRS Duration 102 ms Invalid Interpretation Code [facility] Work Phone: [phone] QT Interval new path ms Invalid Interpretation Code [facility] Work Phone: [phone] QTc [place] 481 ms Invalid Interpretation Code [facility] Work Phone: [phone] T [place] 155 deg Invalid Interpretation Code [facility] Work Phone: [phone] Clinical Lists Update: Prelo winterizer 11-03-2015 Anion gap 9 mmol/L Invalid Interpretation Code [facility] Work Phone: [phone] Calcium 8.2 mg/dL Low [facility] Work Phone: [phone] Chloride 107 mmol/L Invalid Interpretation Code [facility] Work Phone: [phone] CO2 24 mmol/L Invalid Interpretation Code [facility] Work Phone: [phone] Creatinine 0.83 mg/dL Invalid Interpretation Code [facility] Work Phone: [phone] Erythrocytes (RBC) 4.35 10*6/uL Invalid Interpretation Code [facility] Work Phone: [phone] Glucose mass conc 91 mg/dL Invalid Interpretation Code [facility] Work Phone: [phone] Hematocrit (HCT) 37.2 % Invalid Interpretation Code [facility] Work Phone: [phone] Hemoglobin mass conc (Bld) 12.1 g/dL Invalid Interpretation Code [facility] Work Phone: [phone] Platelets 263 10*3/mm3 Invalid Interpretation Code [facility] Work Phone: [phone] Potassium molar conc 4.2 mmol/L Invalid Interpretation Code [facility] Work Phone: [phone] Sodium 135 mmol/L Invalid Interpretation Code [facility] Work Phone: [phone] Urea nitrogen 8 mg/dL Invalid Interpretation Code [facility] Work Phone: [phone] WBC (Leukocytes) 6.7 10*3/uL Invalid Interpretation Code [facility] Work Phone: [phone] Clinical Lists Update: Prelo winterizer 11-01-2015 BUN/Creatinine Ratio 9.2 mg/mg Low [facility] Work Phone: [phone] Vital Signs Date Time Vital Sign Value Performing Clinician Faci lity 05-28-2025 09:30-0400 Body height 165.[address] Asad Baron MD Work Phone: [facility] 05-28-2025 09:30-0400 Body mass index (BMI) [Ratio] 19.3 kg/m2 Dr. Asad Baron MD Work Phone: [facility] 05-28-2025 09:30-0400 Body weight 52.[address] Asad Baron MD Work Phone: [facility] 05-28-2025 09:30-0400 Diastolic blood pressure 68 mm[Hg] Dr. Asad Baron MD Work Phone: [facility] 05-28-2025 09:30-0400 Heart rate 60 /min Dr. Asad Baron MD Work Phone: [facility] 05-28-2025 09:30-0400 Respiratory rate 16 /min Dr. Asad Baron MD Work Phone: [facility] 05-28-2025 09:30-0400 Systolic blood pressure 112 mm[Hg] Dr. Asad Baron MD Work Phone: [facility] 01-31-2024 15:18-0400 Body temperature 97.6 [degF] [facility] 01-31-2024 15:18-0400 Diastolic blood pressure 70 mm[Hg] [facility] 01-31-2024 15:18-0400 Heart rate 80 /min [facility] 01-31-2024 15:18-0400 Respiratory rate 16 /min [facility] 01-31-2024 15:18-0400 SaO2% (BldA) [Mass fraction] 98 % [facility] 01-31-2024 15:18-0400 Systolic blood pressure 152 mm[Hg] [facility] 01-31-2024 13:43-0400 Body height 165.1 cm [facility] 01-31-2024 13:43-0400 Body mass index (BMI) [Ratio] 19.8 kg/m2 [facility] 01-31-2024 13:43-0400 Body weight 54.1 kg [facility] 03-04-2023 09:05-0400 Body height 167.[address] Asad Baron Work Phone: [facility] 03-04-2023 09:05-0400 Heart rate 62 /min Dr. Asad Baron Work Phone: [facility] 03-04-2023 09:04-0400 Body mass index (BMI) [Ratio] 19 kg/m2 Dr. Asad Baron Work Phone: [facility] 03-04-2023 09:04-0400 Body weight 53.[address] Asad Baron Work Phone: [facility] 03-04-2023 09:04-0400 Diastolic blood pressure 81 mm[Hg] Dr. Asad Baron Work Phone: [facility] 03-04-2023 09:04-0400 Respiratory rate 18 /min Dr. Asad Baron Work Phone: [facility] 03-04-2023 09:04-0400 SaO2% (BldA) [Mass fraction] 100 % Dr. Asad Baron Work Phone: [facility] 03-04-2023 09:04-0400 Systolic blood pressure 131 mm[Hg] Dr. Asad Baron Work Phone: [facility] 02-09-2023 22:34-0400 Body mass index (BMI) [Ratio] 19.4 kg/m2 Dr. Asad Baron Work Phone: [facility] 02-09-2023 22:34-0400 Body temperature 97.8 [degF] Dr. Asad Baron Work Phone: [facility] 02-09-2023 22:34-0400 Body weight 54.[address] Asad Baron Work Phone: [facility] 02-09-2023 22:34-0400 Diastolic blood pressure 66 mm[Hg] Dr. Asad Baron Work Phone: [facility] 02-09-2023 22:34-0400 Heart rate 65 /min Dr. Asad Baron Work Phone: [facility] 02-09-2023 22:34-0400 Respiratory rate 16 /min Dr. Asad Baron Work Phone: [facility] 02-09-2023 22:34-0400 SaO2% (BldA) [Mass fraction] 100 % Dr. Asad Baron Work Phone: [facility] 02-09-2023 22:34-0400 Systolic blood pressure 181 mm[Hg] Dr. Asad Baron Work Phone: [facility] 03-06-2022 09:13-0400 Body height 166.[address] Asad Baron Work Phone: [facility] Work Phone: 03-06-2022 09:13-0400 Body mass index (BMI) [Ratio] 19.3 kg/m2 Dr. Asad Baron Work Phone: [facility] Work Phone: 03-06-2022 09:13-0400 Body weight 53.[address] Asad Baron Work Phone: [facility] Work Phone: 03-06-2022 09:13-0400 Diastolic blood pressure 67 mm[Hg] Dr. Asad Baron Work Phone: [facility] Work Phone: 03-06-2022 09:13-0400 Heart rate 71 /min Dr. Asad Baron Work Phone: [facility] Work Phone: 03-06-2022 09:13-0400 Respiratory rate 18 /min Dr. Asad Baron Work Phone: [facility] Work Phone: 03-06-2022 09:13-0400 SaO2% (BldA) [Mass fraction] 100 % Dr. Asad Baron Work Phone: [facility] Work Phone: 03-06-2022 09:13-0400 Systolic blood pressure 110 mm[Hg] Dr. Asad Baron Work Phone: [facility] Work Phone: 03-06-2022 09:13-0400 Body height 166.[address] Asad Baron Work Phone: [facility] Work Phone: 03-06-2022 09:13-0400 Body mass index (BMI) [Ratio] 19.3 kg/m2 Dr. Asad Baron Work Phone: [facility] Work Phone: 03-06-2022 09:13-0400 Body weight 53.[address] Asad Baron Work Phone: [facility] Work Phone: 03-06-2022 09:13-0400 Diastolic blood pressure 67 mm[Hg] Dr. Asad Baron Work Phone: [facility] Work Phone: 03-06-2022 09:13-0400 Heart rate 71 /min Dr. Asad Baron Work Phone: [facility] Work Phone: 03-06-2022 09:13-0400 Respiratory rate 18 /min Dr. Asad Baron Work Phone: [facility] Work Phone: 03-06-2022 09:13-0400 SaO2% (BldA) [Mass fraction] 100 % Dr. Asad Baron Work Phone: [facility] Work Phone: 03-06-2022 09:13-0400 Systolic blood pressure 110 mm[Hg] Dr. Asad Baron Work Phone: [facility] Work Phone: 02-13-2022 14:46-0400 Body mass index (BMI) [Ratio] 19.1 kg/m2 Dr. Asad Baron Work Phone: [facility] Work Phone: 02-13-2022 14:42-0400 Body mass index (BMI) [Ratio] 19.4 kg/m2 Dr. Asad Baron Work Phone: [facility] Work Phone: 02-13-2022 14:42-0400 Body temperature 96.8 [degF] Dr. Asad Baron Work Phone: [facility] Work Phone: 02-13-2022 14:42-0400 Body weight 53.[address] Asad Baron Work Phone: [facility] Work Phone: 02-13-2022 14:42-0400 Diastolic blood pressure 76 mm[Hg] Dr. Asad Baron Work Phone: [facility] Work Phone: 02-13-2022 14:42-0400 Heart rate 71 /min Dr. Asad Baron Work Phone: [facility] Work Phone: 02-13-2022 14:42-0400 Respiratory rate 16 /min Dr. Asad Baron Work Phone: [facility] Work Phone: 02-13-2022 14:42-0400 SaO2% (BldA) [Mass fraction] 88 % Dr. Asad Baron Work Phone: [facility] Work Phone: 02-13-2022 14:42-0400 Systolic blood pressure 110 mm[Hg] Dr. Asad Baron Work Phone: [facility] Work Phone: 02-13-2022 14:42-0400 Body height 166.[address] Asad Baron Work Phone: [facility] Work Phone: 02-13-2022 14:42-0400 Body mass index (BMI) [Ratio] 19.4 kg/m2 Dr. Asad Baron Work Phone: [facility] Work Phone: 02-13-2022 14:42-0400 Body temperature 96.8 [degF] Dr. Asad Baron Work Phone: [facility] Work Phone: 02-13-2022 14:42-0400 Body weight 53.[address] Asad Baron Work Phone: [facility] Work Phone: 02-13-2022 14:42-0400 Diastolic blood pressure 76 mm[Hg] Dr. Asad Baron Work Phone: [facility] Work Phone: 02-13-2022 14:42-0400 Heart rate 71 /min Dr. Asad Baron Work Phone: [facility] Work Phone: 02-13-2022 14:42-0400 Respiratory rate 16 /min Dr. Asad Baron Work Phone: [facility] Work Phone: 02-13-2022 14:42-0400 SaO2% (BldA) [Mass fraction] 88 % Dr. Asad Baron Work Phone: [facility] Work Phone: 02-13-2022 14:42-0400 Systolic blood pressure 110 mm[Hg] Dr. Asad Baron Work Phone: [facility] Work Phone: 04-29-2017 09:23-0400 BMI (Body Mass Index) 20.17 kg/m2 Kathy Fuchs PA-C [facility] Work Phone: 04-29-2017 09:23-0400 Weight 56.7 kg Kathy Fuchs PA-C [facility] Work Phone: 03-05-2017 11:18-0400 BP Diastolic 60 mm[Hg] Kathy Fuchs PA-C [facility] Work Phone: 03-05-2017 11:18-0400 BP Systolic 110 mm[Hg] Kathy Fuchs PA-C [facility] Work Phone: 03-05-2017 11:18-0400 Height 167.64 cm Kathy Fuchs PA-C [facility] Work Phone: 03-05-2017 11:18-0400 Pulse (Heart Rate) 60 /min Kathy Fuchs PA-C [facility] Work Phone: 03-05-2017 11:18-0400 Respiratory Rate 20 /min Kathy Fuchs PA-C [facility] Work Phone: 09-05-2016 11:31-0500 BSA (Body Surface Area) 1.68 m2 Kathy Fuchs PA-C [facility] Work Phone: Encounters Encounter Date Encounter Type Care Provider Facility Start: 07-28-2025 ambulatory Asad Baron Facility:[facility] Start: 06-08-2025 End: 06-08-[address] Asad Baron MD Work Phone: -Outpatient Breast Imaging Start: 06-08-2025 End: 06-08-[address] Asad Baron MD -Outpatient Breast Imaging Work Phone: Start: 06-08-2025 End: 06-08-2025 ambulatory Asad Baron Facility:[facility] Start: 05-28-2025 End: 05-28-[address] Silvestre Lassiter MD -[facility] Work Phone: Start: 05-28-2025 End: 05-28-[address] Asad Baron MD Work Phone: -[facility] Start: 05-12-2025 End: 05-12-[address] Asad Baron MD Work Phone: -[facility] Start: 05-12-2025 End: 05-12-[address] Silvestre Lassiter MD -[facility] Work Phone: Start: 05-12-2025 End: 05-12-2025 ambulatory Asad Baron Facility:[facility] Start: 07-29-2024 End: 07-29-2024 ambulatory Asad Baron [facility] Start: 01-31-2024 End: 01-31-2024 Emergency department patient visit [facility]-Emergency Department Work Phone: Start: 05-01-2023 End: 05-01-[address] Asad Baron Work Phone: [facility] Work Phone: Start: 05-01-2023 End: 05-01-[address] Asad Baron Work Phone: [facility]-Outpatient Breast Imaging Work Phone: Start: 03-04-2023 End: 03-04-[address] Asad Baron Work Phone: [facility] Work Phone: Start: 02-09-2023 End: 02-10-2023 Emergency department patient visit Dr. Asad Baron Work Phone: [facility]-Emergency Department Work Phone: Start: 02-01-2023 End: 02-01-2023 ambulatory [facility] Work Phone: Start: 02-01-2023 End: 02-01-2023 Patient encounter procedure [facility] Start: 04-23-2022 End: 04-23-[address] Asad Baron Work Phone: [facility]-Outpatient Breast Imaging Start: 04-09-2022 Telephone encounter Arpita Jaimes PSS Radiology Comment on above: Mammogram Request Start: 03-15-2022 Non-patient / Non-visit Dr. Lawrence Baron Work Phone: [facility] Start: 03-15-2022 End: 03-15-[address] Asad Baron Work Phone: [facility]-Cardiovascular Services Start: 03-06-2022 End: 03-06-[address] Asad Baron Work Phone: [facility] Start: 02-13-2022 End: 02-13-[address] Asad Baron Work Phone: [facility]-Laboratory, [facility] Procedures Date Procedure Procedure Detail Performing Clinician Start: 06-08-2025 Screening mammography Maria T Baron MD Work Phone: Start: 01-31-2024 Plain chest X-ray Start: 05-01-2023 Screening mammography Maria T Baron Work Phone: Start: 04-23-2022 Screening mammography Maria T Baron Work Phone: Start: 03-15-2022 Radionuclide imaging of perfusion of myocardium under exercise stress Dr. Asad Baron Work Phone: Start: 04-21-2021 Mammography Arpita Sullivan nafitz PSS Start: 08-28-2017 End: 09-09-2017 *Hepatic Function Panel Kathy lopez PA-C Work Phone: Start: 08-28-2017 End: 09-09-2017 Lipid 1996 panel - Serum or Plasma Kathy Fuchs PA-C Work Phone: Start: 04-29-2017 End: 05-09-2017 Arthrocentesis aspir&/inj major jt/bursa w/o Agnes Rodriguez Rick Work Phone: Start: 03-05-2017 End: 03-05-2017 KENROY [...] History of coronary artery stent placement Dr. Silvestre Lassiter MD Comment on above: OEB-ZMT-Khbp-Mid LAD w/ 2.5 x 18 mm Resolute Integrity Stent 11/01/2015 Start: 09-22-2014 Colonoscopy Arpita chiang PSS Plan of Treatment Date Care Activity Detail Author Start: 01-31-2024 [facility] Start: 06-28-2022 Influenza vaccination INFLUENZA (Season Ended) [facility] Start: 04-21-2022 Mammography MAMMOGRAM [facility] Start: 10-28-2021 ADVANCE DIRECTIVE DISCUSSION ADVANCE DIRECTIVE DISCUSSION [facility] Start: 2021 PNEUMOCOCCAL: 65+ (1 - PCV) PNEUMOCOCCAL: 65+ (1 - PCV) [facility] Start: 10-03-2021 DIABETES SCREEN DIABETES SCREEN [facility] Start: 07-04-2021 COVID-19 VACCINE (3 - Booster for Pfizer series) COVID-19 VACCINE (3 - Booster for Pfizer series) [facility] Start: 11-02-2020 LIPID SCREEN LIPID SCREEN [facility] Start: 09-22-2019 Colonoscopy COLONOSCOPY [facility] Start: 09-22-2019 COLORECTAL CANCER SCREENING COLORECTAL CANCER SCREENING [facility] Start: 03-10-2018 End: 09-11-2017 *Hepatic Function Panel *Hepatic Function Panel [facility] Work Phone: Start: 03-10-2018 End: 09-11-2017 Lipid panel [AGGREGATE] *Lipid Profile CC PCP [facility] Work Phone: Start: 03-04-2018 End: 03-04-2018 Appointment Appointment [facility] Work Phone: Start: 08-28-2017 End: 09-09-2017 *Hepatic Function Panel *Hepatic Function Panel [facility] Work Phone: Start: 08-28-2017 End: 09-09-2017 Lipid panel [AGGREGATE] *Lipid Profile CC PCP [facility] Work Phone: Start: 04-29-2017 End: 04-29-2017 Radiologic exam knee complete 4/more views X-Ray, Knee [facility] Work Phone: Start: 03-05-2017 End: 03-05-2017 [employer] 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 [employer] [facility] Work Phone: Start: 03-05-2017 End: 03-05-2017 Follow Up Appt 1 year Follow Up Appt 1 year [facility] Work Phone: Start: 02-21-2017 End: 02-25-2017 *Hepatic Function Panel *Hepatic Function Panel [facility] Work Phone: Start: 02-21-2017 End: 02-25-2017 Lipid panel [AGGREGATE] *Lipid Profile CC PCP [facility] Work Phone: Start: 09-05-2016 End: 09-05-2016 [employer] 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 [employer]KER [facility] Work Phone: Start: 09-05-2016 End: 09-05-2016 Follow Up Appt 6 months Follow Up Appt 6 months [facility] Work Phone: Start: 08-14-2016 End: 08-21-2016 *Hepatic Function Panel *Hepatic Function Panel [facility] Work Phone: Start: 08-14-2016 End: 08-21-2016 Lipid panel [AGGREGATE] *Lipid Profile CC PCP [facility] Work Phone: Start: 02-21-2016 End: 02-21-2016 [employer] 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 [employer]KER [facility] Work Phone: Start: 02-21-2016 End: 02-21-2016 Follow Up Appt 6 months Follow Up Appt 6 months [facility] Work Phone: Start: 02-21-2016 End: 02-21-2016 Nuclear stress test -exercise Nuclear stress test -exercise [facility] Work Phone: Start: 11-23-2015 End: 02-13-2016 *Hepatic Function Panel *Hepatic Function Panel [facility] Work Phone: Start: 11-23-2015 End: 11-23-2015 Cardiac Rehab Cardiac Rehab [facility] Work Phone: Start: 11-23-2015 End: 11-23-2015 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 [employer] [facility] Work Phone: Start: 11-23-2015 End: 02-25-2017 Ecg routine ecg w/least 12 lds w/i&r EKG (In office) [facility] Work Phone: Start: 11-23-2015 End: 11-23-2015 Follow Up Appt 3 months Follow Up Appt 3 months [facility] Work Phone: Start: 11-23-2015 End: 02-13-2016 Lipid panel [AGGREGATE] *Lipid Profile CC PCP [facility] Work Phone: Start: 2006 SHINGRIX VACCINE (1 of 2) SHINGRIX VACCINE (1 of 2) [facility] Start: 2001 COLOGUARD (FIT-DNA) COLOGUARD (FIT-DNA) [facility] Start: [address] COLONOGRAPHY [facility] Start: 2001 FECAL OCCULT BLOOD FECAL OCCULT BLOOD [facility] Start: 2001 SIGMOIDOSCOPY SIGMOIDOSCOPY [facility] Start: 1975 Urine microalbumin profile DTAP,TDAP,TD (1 - Tdap) [facility] Start: 1974 HEPATITIS C SCREENING HEPATITIS C SCREENING [facility] Start: 1974 HIV SCREENING HIV SCREENING [facility] Start: 1968 Adult depression screening assessment DEPRESSION SCREENING [facility] Patient Education [facility] Work Phone: Patient referral [facility] Work Phone: Payers Date Payer Category Payer Self-pay [id number] 2024 Private Health Insurance 101 [id number] 2020 Unknown [employer] PPO [id number] 2020-Present [phone] [address] [place] [address] PPO [id number] Unknown [id number] Unknown [id number] Unknown [id number] Unknown [id number] Unknown [id number] Social History Date Type Detail Facility Start: 02-13-2022 End: 01-31-2024 Tobacco smoking status MNIS Unknown if ever smoked [facility] Start: 06-01-2020 Non-smoker [facility] Start: 1955 Sex Assigned At Female C [facility] Start: 01-31-[address] [facility] Start: 01-06-2018 Alcohol intake Current non-dr seismology technical officer of alcohol (finding) [facility] Mental Status Date Assessment Result Facility 01-31-2024 Cognitive function Level Of Cons ciousness Awake;Alert;Appropriate;Follow s Commands [facility] Work Phone: Evaluation note 05-28-2025 Note Date & Type Note Facility 05-28-2025 Evaluation note Diagnosis Onset Date Resolution HLD (hyperlipidemia) chronic May 28 9:29am History of coronary artery stent placement November 01, 2015 resolved May 28, 2025 9:29am [facility] Work Phone: Note 04-09-2022 Telephone Encounter - MARIA ALEJANDRA Luo - 04/09/2022 3:22 PM EDTTelephone Encounter - Rom Montiel - 04/09/2022 2:02 PM EDT Note Date & Type Note Facility 04-09-2022 Miscellaneous Notes Sent the last 2 yrs to [facility] release in [place] Patient needs all mammograms sent to [facility] to their imaging dept. Thank you. documented in this encounter [facility] Progress note 04-21-2021 Note Date & Type Note Facility 04-21-2021 Note HNO ID: [id number] Author: Jesika Amanda Service: ? Author Type: Directory Assistance Operator Type: Progress Notes Filed: 04/21/2021 9:22 AM [...] Jesika Amanda April 21, 2021 9:21 AM [facility] Evaluation note 11-01-2015 Note Date & Type Note Facility 11-01-2015 Evaluation note Diagnosis Onset Date HLD (hyperlipidemia) chronic 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 chronic HLD (hyperlipidemia) chronic History of coronary artery stent placement November 01, 2015 [facility] Work Phone: Evaluation note 11-01-2015 Note Date & Type Note Facility 11-01-2015 Evaluation note Diagnosis Onset Date HLD (hyperlipidemia) chronic History of coronary artery stent placement November 01, 2015 resolved [facility] Work Phone: History of Past illness Narrative 09-12-2010 Note Date & Type Note Facility 09-12-2010 History of Past i llness Narrative Problem Noted Date Resolved Date Unspecified constipation 010 documented as of this encounter (statuses as of 04/13/2022) [facility] Evaluation note Note Date & Type Note Facility Evaluation note No assessment information availa ble [facility] Work Phone: Hospital Discharge instructions Note Date & Type Note Facility Hospital Discharge instructions Additional Instructions Alternate Tylenol and ibuprofen every 3 hours as needed and use ice. [facility] Work Phone: Reason for referral (narrative) Note Date & Type Note Facility Reason for referral (narrative) No reason for referral information available [facility] Work Phone: Chief Complaint and Reason [...] 2025 8:20 am 1 y fu w [employer] per PT REQ May 28, 2025 9:29am Chief Complaint Admit Date EORDERS May 12, 2025 8:20 am 1 y fu w [employer] per PT REQ May 28, 2025 9:29am SCREENING June 08, 2025 10 :20am Reason for Visit Admit Date HLD (hyperlipidemia) May 28, 2025 9: 29am History of coronary artery stent placeme nt May 28, 2025 9:29am Family History No [...] Will Yes October 12 10:45am Power of Call Center Specialist Yes October 12, 2020 10:45am Advance Directive Response Recorded Date/ Time Name of Medical Power of Call Center Specialist Juan Acevedo, February 09, 2023 11:48pm Living Will Yes February 09, 2023 11:48pm Power of Call Center Specialist Yes February 09 11:48pm Advance Directive Response Recorded Date/ Time Living Will Yes January 31, 2024 1:51pm Power of Call Center Specialist Yes January 30 1:51pm Name of Medical Power of Call Center Specialist agnes January 31, 2024 1:51pm Advance Directive Response Recorded Date/ Time Living Will Yes January 31, 2024 1:51pm Do you have a Healthcare Power of Call Center Specialist? Yes January 31, 2024 1:51pm Summary Purpose [...] or prosecute any alcohol or drug abuse patient.[facility] Reason for Visit (unrecogniz ed section and content) Reason Comments Mammogram Request Care Teams (unrecognized sec tion and content) Asset Availability Leader Relationship Specialty Start Date End Date Asad Baron MD [address] [place], [place] [address] PCP - General Family Practice 04/01/20 Agnes Murguia [address] [place] [address] Referring General Surgery 07/05/20 Team [...] Care Provider, Referring Provider Active Alma Lay BUSINESS OPERATIONS COORDINATOR, BUSINESS OPERATIONS COORDINATOR-C Attending Provider Active Team Status: Inactive Member [...] May 28, 2025 End: May 28, 2025 Team Status: Inactive Member Role/Relationship Status Dates Dr. Asad Baron MD Primary Care Provider Active Start: June 08, 2025 End: June 08, 2025 Dr. Asad Baron MD Attending Provider Active Start: June 08, 2025 End: June 08, 2025 Dr. Asad Baron MD Referring Provider Active Start: June 08, 2025 End: June 08, 2025 INFORMATION SOURCE (unrecogn ized section and content) DATE CREATED AUTHOR 04/14/2022 [facility] DATE CREATED AUTHOR AUTHOR'S ORGANIZ ATION 07/18/2025 [facility] FOR RECORDS PERTAINING TO PATIENTS WHO [...] BE BASED ON THE PRIMARY CLINICAL RECORDS. [employer] provides no warranty or guarantee of the accuracy or completeness of information in this document.
--- OUTSIDE RECORDS SUMMARY | 2025-07-29 23:51 | XMS RPT_ITS | CCD ---
Author Organization [facility] Care Team Providers Care Wheel Press Operator Name Role Phone RAO Fuchs, Kathy King [...] Care Unavailable Silvestre Lassiter Attending Unavailable Asad Baron Referring Unavailable Asad Baron Referring Unavailable Sheri Larsen Attending Unavailable Asad Baron Primary Care Unavailable Allergies Allergy Classification Reported Allergen(s) Allergy Type Date of Onset Reaction(s) Facility (5 sources) apis mellifera venom; Translations: [BEE STINGS] allergy to substance 6 Swelling [facility] Work Phone: [phone] (2 sources) atorvastatin Drug Allergy 6 Vomiting, diarrhea [facility] Work Phone: [phone] (2 sources) carvedilol Drug Allergy 6 Diarrhea, muscle aches, cough [facility] Work Phone: [phone] (13 sources) cephalexin; Translations: [cephalexin] Drug Allergy 6 Unknown [facility] Work Phone: [phone] (4 sources) Penicillins (Antibiotic) drug allergy 6 Rash, [facility]N [facility] Work Phone: [phone] (2 sources) BRILLINTA drug allergy 6 red rash [facility] Work Phone: [phone] (10 sources) atorvastatin; Translations: [atorvastatin calcium] Drug Allergy 2 Unknown [facility] (9 sources) carvedilol Drug Allergy 2 myalgias, cough, diarrhea [facility] (9 sources) Latex Allergy to substance 2 rash [facility] (11 sources) Penicillins; Translations: [Penicillins] Allergy to substance 6 Rash [facility] Work Phone: (9 sources) Ticagrelor Drug Allergy 2 rash [facility] (1 source) bee stings [Other] Propensity to adverse reactions 9 Rash, Swelling [facility] Work Phone: (6 sources) venom-honey bee Allergy to substance 2 Swelling [facility] (1 source) carvedilol Drug Allergy 5 [facility] (1 source) Latex Drug allergy (disorder) 5 [facility] (1 source) Ticagrelor Drug Allergy 5 [facility] (1 source) venom-honey bee Drug allergy (disorder) 5 [facility] Medications Current Medications Medication Drug [...] TABS One tablet by mouth daily ASPIRIN [id number] Jelly Redd RN Comment on above: Take one(1) tablet d aily. biotin 10 mg oral capsule (9 sources) Start: 03-02-20 take 1 capsule by mouth once daily Biotin 10,000 mcg capsule Active 57084 ug PO DAILY March 02, 2021 12:00am [id number] 0.3 ml EPINEPHrine 1 mg/ml auto-injector (9 [...] tablet by mouth every evening ATORVASTATIN CALCIUM [id number] Jelly Redd RN azithromycin 250 mg oral [...] One tablet by mouth twice daily CARVEDILOL [id number] Silvestre Lassiter MD cholecalciferol 0.05 mg oral [...] One tablet by mouth daily CLOPIDOGREL BISULFATE [id number] Silvestre Lassiter MD doxycycline hyclate 100 mg oral capsule (6 sources) Tetracycline-class Drug Start: 08-11-2022 End: 08-21-2022 take 1 capsule by mouth twice daily Doxycycline Hyclate 100 mg capsule Discontinued 100 mg PO TWICE A DAY 20 10 0 August 11, 2022 12:00am August 20, 2022 12:00am August 21, 2022 12:05am sinusitis 84 hr estradiol 0.72220 mg/hr transdermal system (13 sources) Estrogen Start: 11-21-2015 End: 12-13-2015 VIVELLE-DOT 0.05 MG/24HR PTTW transdermal as directed ESTRADIOL [id number] Jelly Redd RN Start: 11-01-2015 End: 03-03-2018 Estradiol 1 EACH patch semiw eekly Discontinued 1 NMA November 01, 2015 1:00am March 03, 2018 9:42am flaxseed extract (2 sources) Non-Standardized Food Allergenic Extract, Non-Standardized Plant Allergenic Extract Start: 02-01-2016 take 1 tablet by mouth once daily FLAX SEED OIL CAPS One tablet by mouth daily FLAXSEED (LINSEED) CAPS [id number] Jelly Redd RN Flaxseed Oil oil (1 source) Flaxseed Oil oil linseed oil 1000 mg oral capsule (18 sources) Start: 01-13-2021 End: 03-02-2021 take 1 capsule by mouth twice daily at mealtime Flaxseed Oil 1,000 mg capsule Discontinued 1000 mg PO TWICE A DAY January 13, 2021 12:00am March 02, 2021 11:01am administer with meals Start: 01-18-2019 take 1 capsule by mo [facility] once daily Flaxseed Oil (Ringgold-3 Flaxseed Oil) 1,000 mg capsule Active 1000 [...] 3 as needed for chest pain. NITROGLYCERIN [id number] Silvestre Lassiter MD Comment on above: Dissolve [...] myocardial infarction; Translations: [Atherosclerotic heart disease of [place] coronary artery without angina pectoris] Onset: 10-28-2015 [...] (2 sources) Long-term drug therapy; Translations: [Other manager intermediate (current) drug therapy] Onset: 11-21-2015 11-21-2015 Past or Other Problems Problem Classification Problem Date Documented Date Episodic/Chronic Coronary atherosclerosis and other heart disease (3 sources) Presence of coronary angioplasty implant and graft; Translations: [Percutaneous transluminal coronary angioplasty status] Onset: 11-01-2015 Episodic Other aftercare (2 sources) longterm (current) use of antithrombotics/antipl atelets; Translations: [manager intermediate (current) use of antithrombotics/antipl atelets] Onset: 11-21-2015 [...] By: Amy Ge on 06-08-2025 Study report [facility] Imaging Services [address] [place], [place] [address] SCRN MAMM (CAD)W/RAMYA BILAT MR#: [id number] Acct: [id number] Name: IVETTE ACEVEDO Rep #: [id number] : 1955 F 69 From: Johanna Ge MD PCP: Dr. Asad Baron MD Status: CARLA MARTIN Study:SCRN MAMM (CAD)W/RAMYA BILAT Date of Exa m: 06/08/25 Exam# [id number] Ordering Dr: Asad Baron MD EXAM: SCRN [...] be mailed to the patient. Reading Location: [facility] CC: Dr. Asad Baron MD ~ Lagging Machine Operator: Signed [facility] SCRN MAMM (CAD)W/RAMYA BILATo n 06-08-2025 SCRN MAMM (CAD)W/RAMYA BILAT [facility] Imaging Services [address] [place] [id number] SCRN MAMM (CAD)W/RAMYA BILAT MR#: [id number] Acct: [id number] Name: IVETTE ACEVEDO Rep #: [id number] : 1955 F 69 From: Amy Ge MD PCP: Dr. Asad Baron MD Status: [facility] Study: SCRN MAMM (CAD)W/RAMYA BILAT Date of Exam: 05/28 12/22 Exam# [id number] Ordering Dr: Asad Baron MD EXAM: SCRN [...] be mailed to the patient. Reading Location: [id number] CC: Dr. Asad Baron MD Lagging Machine Operator: Signed Normal [facility] Cardiology Visit Reporton Cardiology Visit Report [facility] [address] [place] [address] OFFICE VISIT Date of Service: 05/28/25 MR#: [id number] Acct: [id number] Name: IVETTE ACEVEDO Rep #: [id number] : 1955 Provider: Dr. 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 Normal [facility] Bilirubin directOrdered By: Silvestre Lassiter on 05-12-2025 Bilirubin.direct [Mass/Vol] 0.23 mg/dL 0.00-0.30 [facility] Bilirubin, totalOrdered By: Silvestre Lassiter on 05-12-2025 Bilirubin [Mass/Vol] 0.53 mg/dL 0.00-1.30 [facility] Calculated very low density lipoprotein (VLDL) cholesterol measurementOrdered By: Silvestre Lassiter on 05-12-2025 Calculated very low density lipoprotein (VLDL) cholesterol measurement 14 mg/dL 5-40 [facility] LDL calc ser/plasOrdered By: Silvestre Lassiter on 05-12-2025 Cholesterol in LDL [Mass/Vol] 65 mg/dL [facility] Comment on above: Fijmzpzhdq=068-191 m g/dL & Higher Fctj=555 mg/dL or greater Laboratory - Chemistry and C hemistry - challengeOrdered By: Silvestre Lassiter on 05-12-2025 AST [Catalytic activity/Vol] 26 U/L <32 [facility] Lipid Profileon 05-12-2025 CHOL:HDL 2.59 Normal [facility] Comment on above: Performed By: #### L 500.4100, L500.3400 #### [facility] [address] [place], [address] Cholesterol [Mass/Vol] 129 mg/dL Normal <=200 [facility] Comment on above: Result Comment: Chol esterol level, Desirable <200 mg/dL Borderline high cholesterol 200-239 mg/dL High cholesterol >=240 mg/dL Recommendations of the NCEP Adult Treatment Panel for the following risk-cutoff thresholds for the [place] population. Performed By: #### L 500.4100, L500.3400 #### [facility] [address] [place], [address] Cholesterol in HDL [Mass/Vol] 50 mg/dL Normal [facility] Comment on above: Result Comment: Kathy onal Cholesterol Education Program (NCEP) guidelines: <40 mg/dL: Low HDL-cholesterol (major risk factor for CHD) >= 60 mg/dL: High HDL-cholesterol (negative risk factor for CHD) HDL-cholesterol is affected by a number of factors, e.g. smoking, exercise, hormones, sex and age. Performed By: #### L 500.4100, L500.3400 #### [facility] [address] [place], [place], [id number] (193) Cholesterol in LDL [Mass/Vol] 65 mg/dL Normal [facility] Comment on above: Result Comment: Bord isqhfm=756-803 mg/dL Higher Fwar=445 mg/dL or greater Performed By: #### L 500.4100, L500.3400 #### [facility] [address] [place], [address] Cholesterol in VLDL [Mass/Vol] 14 mg/dL Normal 5-40 [facility] Comment on above: Performed By: #### L 500.4100, L500.3400 #### [facility] [address] [place], [address] Triglyceride [Mass/Vol] 71 mg/dL Normal [facility] Comment on above: Result Comment: The drugs N-Acetylcysteine and Metamizole may falsely depress this assay. Normal range: <150 mg/dL Borderline High: 150-199 mg/dL High: 200-499 mg/dL Very High: >500 mg/dL Performed By: #### L 500.4100, L500.3400 #### [facility] [address] [place], [address] Liver Profileon 05-12-2025 Albumin [Mass/Vol] 4.3 g/dL Normal 3.4-4.8 [facility] Comment on above: Performed By: #### L 500.4100, L500.3400 #### [facility] [address] [place], [address] ALK PHOS 78 U/L Normal 35-104 [facility] Comment on above: Performed By: #### L 500.4100, L500.3400 #### [facility] [address] [place], [address] ALT [Catalytic activity/Vol] 15 U/L Normal <=34 [facility] Comment on above: Performed By: #### L 500.4100, L500.3400 #### [facility] [address] [place], [address] AST [Catalytic activity/Vol] 26 U/L Normal <=31 [facility] Comment on above: Performed By: #### L 500.4100, L500.3400 #### [facility] [address] [place], [address] Bilirubin [Mass/Vol] 0.53 mg/dL Normal 0.00-1.30 [facility] Comment on above: Performed By: #### L 500.4100, L500.3400 #### [facility] [address] [place], [address] Bilirubin.direct [Mass/Vol] 0.23 mg/dL Normal 0.00-0.30 [facility] Comment on above: Performed By: #### L 500.4100, L500.3400 #### [facility] [address] [place], [address] Globulin (S) [Mass/Vol] 2.5 g/dL Normal 2.2-4.2 [facility] Comment on above: Performed By: #### L 500.4100, L500.3400 #### [facility] [address] [place], [address] T PROT 6.8 g/dL Normal 5.9-8.4 [facility] Comment on above: Performed By: #### L 500.4100, L500.3400 #### [facility] [address] [place], [address] Screening total cholesterol/ high density lipoprotein (HDL) cholesterol ratioOrdered By: Silvestre Lassiter on 05-12-2025 Cholesterol.total/Chol esterol in HDL [Mass ratio] 2.59 {ratio} [facility] Serum globulin measurementOr dered By: Silvestre Lassiter on 05-12-2025 Globulin (S) [Mass/Vol] 2.5 g/dL 2.2-4.2 [facility] Serum or plasma alanine chung otransferase (ALT) measurementOrdered By: Silvestre Lassiter on 05-12-2025 ALT [Catalytic activity/Vol] 15 U/L <35 [facility] Serum or plasma albumin anderson urement (mass/volume)Ordered By: Silvestre Lassiter on 05-12-2025 Albumin [Mass/Vol] 4.3 g/dL 3.4-4.8 [facility] Serum or plasma alkaline cadence sphatase measurementOrdered By: Silvestre Sravani on 05-12-2025 ALP [Catalytic activity/Vol] 78 U/L 35-104 [facility] Serum or plasma cholesterol in HDL measurement (mass/volume)Ordered By: Silvestre Sravani on 05-12-2025 Cholesterol in HDL [Mass/Vol] 50 mg/dL >40 [facility] Comment on above: National Cholesterol Education Program (NCEP) guidelines:<40 mg/dL: Low HDL-cholesterol (major risk factor for CHD)>= 60 mg/dL: High HDL-cholesterol (negative risk factor for CHD)HDL-cholesterol is affected by a number of factors, e.g. smoking, exercise, hormones, sex and age. Serum or plasma cholesterol measurement (mass/volume)Ordered By: Silvestre Lassiter on 05-12-2025 Cholesterol [Mass/Vol] 129 mg/dL <201 [facility] Comment on above: Cholesterol level, D esirable <200 mg/dLBorderline high cholesterol 200-239 mg/dLHigh cholesterol >=240 mg/dLRecommendations of the NCEP Adult Treatment Panel for the following risk-cutoff thresholds for the [place] population. Total proteinOrdered By: Yumiko Lassiter on 05-12-2025 Protein [Mass/Vol] 6.8 g/dL 5.9-8.4 [facility] Triglycerides measurementOrd ered By: Silvestre Lassiter on 05-12-2025 Triglyceride [Mass/Vol] 71 mg/dL <199 [facility] Comment on above: The drugs N-Acetylcy steine and Metamizole may falsely depress this assay. Normal range: <150 mg/dLBorderline High: 150-199 mg/dLHigh: 200-499 mg/dLVery High: >500 mg/dL Gastroenterology Visit Repor ton 07-29-2024 Gastroenterology Visit Report [facility] [address] [place] [address] OFFICE VISIT Date of Service: 07/29/24 MR#: [id number] Acct: [id number] Name: IVETTE ACEVEDO Rep #: [id number] : 1955 Provider: LAWRENCE Luz Age/Sex: 68/F Location: [facility] [place] Status: Signed Intake Vital Signs 03/04/23 09:05 [...] 1,000 mg PO DAILY 01/18/19 07/29/24 History (Ringgold-3 Flaxseed Oil) epinephrine 0.3 mg/0.3 mL 0.3 [...] (10/2015) HLD (hyperlipidemia) Atherosclerotic heart disease of [place] coronary artery without angina pectoris Surgical History [...] to the office today for establishment with [facility]. Pt was previously seeing Dr. [...] Appearance: average body habitus and well nourished [facility] Head: (more content not included)... Normal [facility] Absolute lymphocyte countOrd ered By: Italia Guerrero on 01-31-2024 Lymphocytes Auto (Unsp spec) [#/Vol] 1.70 10*3/uL 0.83-4.51 [facility] Automated lymphocyte count a s percentage of total leukocytesOrdered By: Italia Guerrero on 01-31-2024 Lymphocytes/100 WBC Auto (Unsp spec) 28.2 % 19-41 [facility] Basophil percentageOrdered B y: Italia Guerrero on 01-31-2024 Basophils/100 WBC (Bld) 0.5 % 0-1 [facility] Chloride [Moles/Vol] 97 mmol/L 98-107 [facility] Eosinophils/100 WBC (Bld) 1.0 % 0-5 [facility] Glucose [Mass/Vol] 105 mg/dL 74-106 [facility] Comment on above: Fasting Glucose resu lt from 100 to 125 mg/dL suggests IMPAIRED HOMEOSTASIS per A.D.A. criteria. Hemoglobin (Bld) [Mass/Vol] 12.1 g/dL 12.0-15.0 [facility] Monocytes/100 WBC (Bld) 7.6 % 0-10 [facility] Neutrophils (Bld) [#/Vol] 3.8 10*3/uL 2.0-7.7 [facility] Neutrophils/100 WBC (Bld) 62.4 % 47-70 [facility] Potassium [Moles/Vol] 4.1 mmol/L 3.5-5.1 [facility] Sodium [Moles/Vol] 129 mmol/L 136-145 [facility] WBC (Bld) [#/Vol] 6.0 10*3/uL 4.4-11.0 [facility] Determination of erythrocyte mean corpuscular volume (MCV)Ordered By: Italia Guerrero on 01-31-2024 MCV (RBC) [Entitic vol] 86.2 fL 81-99 [facility] Erythrocyte distribution wid th ratioOrdered By: Italia Guerrero on 01-31-2024 Erythrocyte distribution width (RBC) [Ratio] 12.1 % 11.6-14.6 [facility] Erythrocyte distribution wid th standard deviationOrdered By: Italia Guerrero on 01-31-2024 Erythrocyte distribution width (RBC) [Entitic vol] 38.4 fL 35.1-43.9 [facility] Hematocrit Auto (Bld) [Volum e fraction]Ordered By: Italia Guerrero on 01-31-2024 Hematocrit (Bld) [Volume fraction] 35.6 % 37-47 [facility] Immature granulocytes/100 WB C Auto (Bld)Ordered By: Italia Guerrero on 01-31-2024 Immature granulocytes/100 WBC (Bld) 0.300 % 0.0-0.9 [facility] Comment on above: IG% - Immature Granu locytes (promyelocytes, myelocytes and metamyelocytes) > 1% indicates that a LEFT SHIFT is Present. Laboratory - Chemistry and C hemistry - challengeOrdered By: Italia Guerrero on 01-31-2024 CO2 [Moles/Vol] 27.0 mmol/L 21.0-32.0 [facility] Urea nitrogen/Creatinine [Mass ratio] 11.3 mg/mg 10-20 [facility] Laboratory - Hematology and Cell countsOrdered By: Italia Guerrero on 01-31-2024 MCH (RBC) [Entitic mass] 29.3 pg 27.0-32.0 [facility] MCHC (RBC) [Mass/Vol] 34.0 g/dL 32-36 [facility] Nucleated RBC/100 WBC (Bld) [Ratio] 0 % 0-5 [facility] Platelet mean volume (Bld) [Entitic vol] 9.1 fL 6.2-12.0 [facility] Platelets (Bld) [#/Vol] 276 10*3/uL 150-450 [facility] No Panel InformationOrdered By: Italia Guerrero on 01-31-2024 Estimated Creatinine Clearance Calc 58.28 ml/min [facility] Estimated GFR (MDRD) Amer 106 mL/min >60 [facility] Comment on above: GFR Calc Estimated GFR (MDRD) Non-Af Amer 88 mL/min >60 [facility] Comment on above: Non- GFR Calc Troponin I High Sensitivity 6 pg/mL 3.0-54.0 [facility] Comment on above: Please Note: [place] t Units and Gender Specific Reference Ranges. For more information see Policy Stat Procedure [place] High Sensitivity Troponin (TNIH) and attachments. RBC Auto (Bld) [#/Vol]Ordere d By: Italia Guerrero on 01-31-2024 RBC (Bld) [#/Vol] 4.13 10*6/uL 4.2-5.4 [facility] Serum or plasma calcium anderson urement (mass/volume)Ordered By: Italia Guerrero on 01-31-2024 Calcium [Mass/Vol] 8.8 mg/dL 8.5-10.1 [facility] Serum or plasma creatinine m easurement (mass/volume)Ordered By: Italia Guerrero on 01-31-2024 Creatinine [Mass/Vol] 0.70 mg/dL 0.55-1.02 [facility] Comment on above: The validity of the calculated GFR & GFRAA in patients over 70 years has not been determined. Clinical correlation is essential. Serum or plasma urea nitroge n measurement (mass/volume)Ordered By: Italia Guerrero on 01-31-2024 Urea nitrogen [Mass/Vol] 8 mg/dL 7-18 [facility] Thin prep Papanicolaou smear with manual screeningOrdered By: Italia Guerrero on 01-31-2024 Thin prep Papanicolaou smear with manual screening 5 5-15 [facility] Basophil percentageOrdered B y: Dr. Baron on 02-01-2023 Bilirubin [Mass/Vol] 0.50 mg/dL 0.20-1.00 [facility] Comment on above: For patients on eltr ombopag therapy, use of Dimension [place] TBIL is not recommended. Chloride [Moles/Vol] 102 mmol/L 98-107 [facility] Cholesterol [Mass/Vol] 123 mg/dL <200 [facility] Comment on above: <200 mg/dL Desirable 200-240 mg/dL Borderline >240 mg/dL High Risk Glucose [Mass/Vol] 87 mg/dL 74-106 [facility] Potassium [Moles/Vol] 4.2 mmol/L 3.5-5.1 [facility] Protein [Mass/Vol] 7.1 g/dL 6.4-8.2 [facility] Sodium [Moles/Vol] 137 mmol/L 136-145 [facility] Triglyceride [Mass/Vol] 75 mg/dL <199 [facility] Comment on above: The drugs N-Acetylcy steine and Metamizole may falsely depress this assay.Serum Triglycerides Reference Interval Normal <150 mg/dL Borderline high 150 - 199 mg/dL High 200 - 499 mg/dL Very High > or = 500 mg/dL Direct bilirubinOrdered By: Dr. Baron on 02-01-2023 Bilirubin.direct [Mass/Vol] 0.15 mg/dL 0.00-0.30 [facility] Laboratory - Chemistry and C hemistry - challengeOrdered By: Dr. Baron on 02-01-2023 ALP [Catalytic activity/Vol] 101 U/L 45-117 [facility] ALT [Catalytic activity/Vol] 24 U/L 13-56 [facility] CO2 [Moles/Vol] 29.0 mmol/L 21.0-32.0 [facility] Free T4 [Mass/Vol] 1.22 ng/dL 0.76-1.46 [facility] Globulin (S) [Mass/Vol] 3.2 g/dL 2.2-4.2 [facility] Urea nitrogen/Creatinine [Mass ratio] 13.5 mg/mg 10-20 [facility] No Panel InformationOrdered By: Dr. Baron on 02-01-2023 Estimated GFR (MDRD) Amer 101 mL/min >60 [facility] Comment on above: GFR Calc Estimated GFR (MDRD) Non-Af Amer 83 mL/min >60 [facility] Comment on above: Non- GFR Calc Free Triiodothyronine (T3) pg/dL 2.7 pg/mL 2.18-3.98 [facility] Thyroid Stimulating Hormone (TSH) 1.28 uIU/mL 0.358-3.74 [facility] Serum or plasma albumin anderson urement (mass/volume)Ordered By: Dr. Baron on 02-01-2023 Albumin [Mass/Vol] 3.9 g/dL 3.2-5.0 [facility] Serum or plasma albumin/glob ulin mass ratioOrdered By: Dr. Baron on 02-01-2023 Albumin/Globulin [Mass ratio] 1.2 {ratio} 0.9-2.4 [facility] Serum or plasma calcium anderson urement (mass/volume)Ordered By: Dr. Baron on 02-01-2023 Calcium [Mass/Vol] 9.1 mg/dL 8.5-10.1 [facility] Serum or plasma cholesterol in HDL measurement (mass/volume)Ordered By: Dr. Baron on 02-01-2023 Cholesterol in HDL [Mass/Vol] 51 mg/dL >40 [facility] Comment on above: The drugs N-Acetylcy steine and Metamizole may falsely depress this assay. Reference Range HDL <40 mg/dL Low HDL Cholesterol HDL >or= 60 mg/dL High HDL Cholesterol Serum or plasma cholesterol in VLDL measurement (mass/volume)Ordered By: Dr. Baron on 02-01-2023 Cholesterol in VLDL [Mass/Vol] 15 mg/dL 5-40 [facility] Serum or plasma creatinine m easurement (mass/volume)Ordered By: Dr. Baron on 02-01-2023 Creatinine [Mass/Vol] 0.74 mg/dL 0.55-1.02 [facility] Comment on above: The validity of the calculated GFR & GFRAA in patients over 70 years has not been determined. Clinical correlation is essential. Serum or plasma low density lipoprotein (LDL) cholesterol measurement (mass/volume)Ordered By: Dr. Baron on 02-01-2023 Cholesterol in LDL [Mass/Vol] 57 mg/dL 0-130 [facility] Serum or plasma urea nitroge n measurement (mass/volume)Ordered By: Dr. Baron on 02-01-2023 Urea nitrogen [Mass/Vol] 10 mg/dL 7-18 [facility] Thin prep Papanicolaou smear with manual screeningOrdered By: Dr. Baron on 02-01-2023 Thin prep Papanicolaou smear with manual screening 23 U/L 15-37 [facility] Thin prep Papanicolaou smear with manual screening 6 5-15 [facility] CNPNon 04-09-2022 CNPN Telephone (RGMOB) IVETTE ACEVEDO ([id number]) 1955 F Date Time Provider Department 04/09/22 ARPITA JAIMES During your visit today, we recorded the following information about you: Rom Montiel 04/09/2022 2:06 PM Signed Patient needs all mammograms sent to [facility] NETWORK to their imaging dept. Thank you. Arpita Jaimes, PSS 04/09/2022 3:23 PM Signed Sent the last 2 yrs to [facility] release in [place] Allergies As of Date: [...] Status:Closed by ROM MONTIEL on 04/13/22 Normal [facility] Basophil percentageon 2021 Bilirubin [Mass/Vol] 0.30 mg/dL 0.20-1.00 [facility] Work Phone: Comment on above: For patients on eltr ombopag therapy, use of Dimension [place] TBIL is not recommended. Cholesterol [Mass/Vol] 131 mg/dL <200 [facility] Work Phone: Comment on above: <200 mg/dL Desirable 200-240 mg/dL Borderline >240 mg/dL High Risk Protein [Mass/Vol] 6.8 g/dL 6.4-8.2 [facility] Work Phone: Triglyceride [Mass/Vol] 138 mg/dL <199 [facility] Work Phone: Comment on above: The drugs N-Acetylcy steine and Metamizole may falsely depress this assay.Serum Triglycerides Reference Interval Normal <150 mg/dL Borderline high 150 - 199 mg/dL High 200 - 499 mg/dL Very High > or = 500 mg/dL Direct bilirubinon 2 Bilirubin.direct [Mass/Vol] 0.08 mg/dL 0.00-0.30 [facility] Work Phone: Laboratory - Chemistry and C hemistry - challengeon 02-13-2022 ALP [Catalytic activity/Vol] 114 U/L 45-117 [facility] Work Phone: ALT [Catalytic activity/Vol] 28 U/L 13-56 [facility] Work Phone: Free T4 [Mass/Vol] 1.14 ng/dL 0.76-1.46 [facility] Work Phone: Globulin (S) [Mass/Vol] 3.2 g/dL 2.2-4.2 [facility] Work Phone: No Panel Informationon 02-13 Thyroid Stimulating Hormone (TSH) 0.77 uIU/mL 0.358-3.74 [facility] Work Phone: Serum or plasma albumin anderson urement (mass/volume)on 02-13-2022 Albumin [Mass/Vol] 3.6 g/dL 3.2-5.0 [facility] Work Phone: Serum or plasma cholesterol in HDL measurement (mass/volume)on 02-13-2022 Cholesterol in HDL [Mass/Vol] 45 mg/dL >40 [facility] Work Phone: Comment on above: The drugs N-Acetylcy steine and Metamizole may falsely depress this assay. Reference Range HDL <40 mg/dL Low HDL Cholesterol HDL >or= 60 mg/dL High HDL Cholesterol Serum or plasma cholesterol in VLDL measurement (mass/volume)on 02-13-2022 Cholesterol in VLDL [Mass/Vol] 28 mg/dL 5-40 [facility] Work Phone: [phone] Serum or plasma low density lipoprotein (LDL) cholesterol measurement (mass/volume)on 02-13-2022 Cholesterol in LDL [Mass/Vol] 58 mg/dL 0-130 [facility] Work Phone: Thin prep Papanicolaou smear with manual screeningon 02-13-2022 Thin prep Papanicolaou smear with manual screening 17 U/L 15-37 [facility] Work Phone: Ashli 04-21-2021 [facility] HNO ID: [id number] Author: Mammography Coordinator Service: ? Author Type: Physician Type: Letter Filed: 04/24/2021 11:35 PM Note Text: April 21, 2021 PID: [id number] Ivette Acevedo [address] [place] [address] Dear Ms. Acevedo, We are pleased to [...] report will be kept on file at [facility] as part of your permanent medical record and are available for your continuing care. Thank you for allowing us to help in meeting your health care needs. Sincerely, Dr. Perrin Interpreting Radiologist [facility] (Normal over 40) Normal [facility] CHUY SCREENING W TOMOon 04-21 CHUY SCREENING W RAMYA * * *Final Report* * * DATE OF EXAM: Apr 21 2021 10:00AM WRW [id number] - CHUY SCREENING W RAMYA / PROCEDURE REASON: breast cancer screening * * * * Physician Interpretation * * * * RESULT: #[id number] - CHUY SCREENING W RAMYA BILATERAL DIGITAL [...] made to exams dated: 04/01/2020 mammogram - [facility], 01/13/2019 mammogram, 01/06/2018 mammogram, 12/26/2015 mammogram, and 11/11/2014 mammogram - [facility]. There are scattered fibroglandular elements in both breasts. No significant masses, calcifications, or other findings are seen in either breast. There has been no significant interval change. IMPRESSION: NEGATIVE There is no mammographic evidence of malignancy. A 1 year screening mammogram is recommended. Lottie Perrin M.D. fa/penrad:04/21/2021 11:37:49 Field Human Resources Manager(s): Brissa Hernandez, RT(R)(M), [facility] letter sent: Normal over 40 Mammogram [...] Health, Family Medicine, and Medical/Surgical Oncology, the [facility] has carefully reviewed the data [...] their providers when to stop screening mammograms. Lagging Machine Operator: Lyndsey Transcribe Date/Time: Apr 21 2021 9:22A Dictated by: LOTTIE PERRIN MD This examination was interpreted and the report reviewed and electronically signed by: LOTTIE PERRIN MD on Apr 21 2021 11:37AM EST [id number] CN Normal [facility] Lab Report: Lipid Profileon 09-06-2017 Cholesterol 139 mg/dL Invalid Interpretation Code 200 [facility] Work Phone: [phone] HDL Cholesterol 62 mg/dL Invalid Interpretation Code [facility] Work Phone: [phone] LDL Cholesterol 59 mg/dL Invalid Interpretation Code 0-130 [facility] Work Phone: [phone] Triglyceride 92 mg/dL Invalid Interpretation Code [facility] Work Phone: [phone] very low density lipoproteins 18 mg/dL Invalid Interpretation Code 5-40 [facility] Work Phone: [phone] Lab Report: Liver Profileon 09-06-2017 Alanine aminotransferase (ALT) 22 U/L Invalid Interpretation Code 12-78 [facility] Work Phone: [phone] Albumin 4.0 g/dL Invalid Interpretation Code 3.4-5.0 [employer] Phone: [phone] Alkaline phosphatase (ALP) 96 U/L Invalid Interpretation Code 45-117 [facility] Work Phone: [phone] Aspartate aminotransferase (AST) 17 U/L Invalid Interpretation Code 15-37 [employer] Phone: [phone] Bilirubin (direct) 0.15 mg/dL Invalid Interpretation Code 0.00-0.30 [facility] Work Phone: [phone] Bilirubin (total) 0.60 mg/dL Invalid Interpretation Code 0.20-1.00 [employer] Phone: [phone] Globulin 3.3 g/dL Invalid Interpretation Code 2.2-4.2 [employer] Phone: [phone] Protein 7.3 g/dL Invalid Interpretation Code 6.4-8.2 [employer] Phone: [phone] Office Visiton 04-29-2017 Documentation of current medications (procedure) Done Invalid Interpretation Code [employer] Phone: [phone] Tobacco use CPHS Never smoker Invalid Interpretation Code [employer] Phone: [phone] Office Visiton 03-05-2017 Fall risk assessment Fall risk assessment Invali d Interpretation Code [employer] Phone: [phone] Clinical Lists Update: 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 Left ventricular Ejection fraction 35-40 Invalid Interpretation Code [employer] Phone: [phone] External Other: Preferred Me thod of Contacton 11-23-2015 methcontact phone Invalid Interpretation Code [employer] Phone: [phone] Office Visiton 11-23-2015 cardiac risk group C Invalid Interpretation Code [employer] Phone: [phone] General cardiovascular disease 10Y risk [#] [place].D'Agostino N/A Invalid Interpretation Code [employer] Phone: [phone] Replaced Document: [facility] E CG Observationson 11-23-2015 EKG QRS axis 64 deg Invalid Interpretation Code [employer] Phone: [phone] Interpretation Sinus Bradycardia - Extensive T-abnormality - Anterior/lateral and inferior ischemia. ABNORMAL Invalid Interpretation Code [facility] Work Phone: [phone] P [place] 58 deg Invalid Interpretation Code [facility] Work Phone: [phone] [place] Interval 120 ms Invalid Interpretation Code [facility] Work Phone: [phone] Pulse (Heart Rate) 57 /min Invalid Interpretation Code [facility] Work Phone: [phone] QRS Duration 102 ms Invalid Interpretation Code [facility] Work Phone: [phone] QT Interval new path ms Invalid Interpretation Code [facility] Work Phone: [phone] QTc [place] 481 ms Invalid Interpretation Code [facility] Work Phone: [phone] T [place] 155 deg Invalid Interpretation Code [facility] Work Phone: [phone] Clinical Lists Update: 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 11-03-2015 Anion gap 9 mmol/L Invalid Interpretation Code [facility] Work Phone: [phone] Calcium 8.2 mg/dL Low [facility] Work Phone: [phone] Chloride 107 mmol/L Invalid Interpretation Code [facility] Work Phone: [phone] CO2 24 mmol/L Invalid Interpretation Code [facility] Work Phone: [phone] Creatinine 0.83 mg/dL Invalid Interpretation Code [facility] Work Phone: [phone] Erythrocytes (RBC) 4.35 10*6/uL Invalid Interpretation Code [facility] Work Phone: [phone] Glucose mass conc 91 mg/dL Invalid Interpretation Code [facility] Work Phone: [phone] Hematocrit (HCT) 37.2 % Invalid Interpretation Code [facility] Work Phone: [phone] Hemoglobin mass conc (Bld) 12.1 g/dL Invalid Interpretation Code [facility] Work Phone: [phone] Platelets 263 10*3/mm3 Invalid Interpretation Code [facility] Work Phone: [phone] Potassium molar conc 4.2 mmol/L Invalid Interpretation Code [facility] Work Phone: [phone] Sodium 135 mmol/L Invalid Interpretation Code [facility] Work Phone: [phone] Urea nitrogen 8 mg/dL Invalid Interpretation Code [facility] Work Phone: [phone] WBC (Leukocytes) 6.7 10*3/uL Invalid Interpretation Code [facility] Work Phone: [phone] Clinical Lists Update: 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 Asad Baron MD Work Phone: [facility] 05-28-2025 09:30-0400 Body mass index (BMI) [Ratio] 19.3 kg/m2 Dr. Asad Baron MD Work Phone: [facility] 05-28-2025 09:30-0400 Body weight 52.[address] Asad Baron MD Work Phone: [facility] 05-28-2025 09:30-0400 Diastolic blood pressure 68 mm[Hg] Dr. Asad Baron MD Work Phone: [facility] 05-28-2025 09:30-0400 Heart rate 60 /min Dr. Asad Baron MD Work Phone: [facility] 05-28-2025 09:30-0400 Respiratory rate 16 /min Dr. Asad Baron MD Work Phone: [facility] 05-28-2025 09:30-0400 Systolic blood pressure 112 mm[Hg] Dr. Asad Baron MD Work Phone: [facility] 01-31-2024 15:18-0400 Body temperature 97.6 [degF] [facility] 01-31-2024 15:18-0400 Diastolic blood pressure 70 mm[Hg] [facility] 01-31-2024 15:18-0400 Heart rate 80 /min [facility] 01-31-2024 15:18-0400 Respiratory rate 16 /min [facility] 01-31-2024 15:18-0400 SaO2% (BldA) [Mass fraction] 98 % [facility] 01-31-2024 15:18-0400 Systolic blood pressure 152 mm[Hg] [facility] 01-31-2024 13:43-0400 Body height 165.1 cm [facility] 01-31-2024 13:43-0400 Body mass index (BMI) [Ratio] 19.8 kg/m2 [facility] 01-31-2024 13:43-0400 Body weight 54.1 kg [facility] 03-04-2023 09:05-0400 Body height 167.[address] Asad Baron Work Phone: [facility] 03-04-2023 09:05-0400 Heart rate 62 /min Dr. Asad Baron Work Phone: [facility] 03-04-2023 09:04-0400 Body mass index (BMI) [Ratio] 19 kg/m2 Dr. Asad Baron Work Phone: [facility] 03-04-2023 09:04-0400 Body weight 53.[address] Asad Baron Work Phone: [facility] 03-04-2023 09:04-0400 Diastolic blood pressure 81 mm[Hg] Dr. Asad Baron Work Phone: [facility] 03-04-2023 09:04-0400 Respiratory rate 18 /min Dr. Asad Baron Work Phone: [facility] 03-04-2023 09:04-0400 SaO2% (BldA) [Mass fraction] 100 % Dr. Asad Baron Work Phone: [facility] 03-04-2023 09:04-0400 Systolic blood pressure 131 mm[Hg] Dr. Asad Baron Work Phone: [facility] 02-09-2023 22:34-0400 Body mass index (BMI) [Ratio] 19.4 kg/m2 Dr. Asad Baron Work Phone: [facility] 02-09-2023 22:34-0400 Body temperature 97.8 [degF] Dr. Asad Baron Work Phone: [facility] 02-09-2023 22:34-0400 Body weight 54.[address] Asad Baron Work Phone: [facility] 02-09-2023 22:34-0400 Diastolic blood pressure 66 mm[Hg] Dr. Asad Baron Work Phone: [facility] 02-09-2023 22:34-0400 Heart rate 65 /min Dr. Asad Baron Work Phone: [facility] 02-09-2023 22:34-0400 Respiratory rate 16 /min Dr. Asad Baron Work Phone: [facility] 02-09-2023 22:34-0400 SaO2% (BldA) [Mass fraction] 100 % Dr. Asad Baron Work Phone: [facility] 02-09-2023 22:34-0400 Systolic blood pressure 181 mm[Hg] Dr. Asad Baron Work Phone: [facility] 03-06-2022 09:13-0400 Body height 166.[address] Asad Baron Work Phone: [facility] Work Phone: 03-06-2022 09:13-0400 Body mass index (BMI) [Ratio] 19.3 kg/m2 Dr. Asad Baron Work Phone: [facility] Work Phone: 03-06-2022 09:13-0400 Body weight 53.[address] Asad Baron Work Phone: [facility] Work Phone: 03-06-2022 09:13-0400 Diastolic blood pressure 67 mm[Hg] Dr. Asad Baron Work Phone: [facility] Work Phone: 03-06-2022 09:13-0400 Heart rate 71 /min Dr. Asad Baron Work Phone: [facility] Work Phone: 03-06-2022 09:13-0400 Respiratory rate 18 /min Dr. Asad Baron Work Phone: [facility] Work Phone: 03-06-2022 09:13-0400 SaO2% (BldA) [Mass fraction] 100 % Dr. Asad Baron Work Phone: [facility] Work Phone: 03-06-2022 09:13-0400 Systolic blood pressure 110 mm[Hg] Dr. Asad Baron Work Phone: [facility] Work Phone: 03-06-2022 09:13-0400 Body height 166.[address] Asad Baron Work Phone: [facility] Work Phone: 03-06-2022 09:13-0400 Body mass index (BMI) [Ratio] 19.3 kg/m2 Dr. Asad Baron Work Phone: [facility] Work Phone: 03-06-2022 09:13-0400 Body weight 53.[address] Asad Baron Work Phone: [facility] Work Phone: 03-06-2022 09:13-0400 Diastolic blood pressure 67 mm[Hg] Dr. Asad Baron Work Phone: [facility] Work Phone: 03-06-2022 09:13-0400 Heart rate 71 /min Dr. Asad Baron Work Phone: [facility] Work Phone: 03-06-2022 09:13-0400 Respiratory rate 18 /min Dr. Asad Baron Work Phone: [facility] Work Phone: 03-06-2022 09:13-0400 SaO2% (BldA) [Mass fraction] 100 % Dr. Asad Baron Work Phone: [facility] Work Phone: 03-06-2022 09:13-0400 Systolic blood pressure 110 mm[Hg] Dr. Asad Baron Work Phone: [facility] Work Phone: 02-13-2022 14:46-0400 Body mass index (BMI) [Ratio] 19.1 kg/m2 Dr. Asad Baron Work Phone: [facility] Work Phone: 02-13-2022 14:42-0400 Body mass index (BMI) [Ratio] 19.4 kg/m2 Dr. Asad Baron Work Phone: [facility] Work Phone: 02-13-2022 14:42-0400 Body temperature 96.8 [degF] Dr. Asad Baron Work Phone: [facility] Work Phone: 02-13-2022 14:42-0400 Body weight 53.[address] Asad Baron Work Phone: [facility] Work Phone: 02-13-2022 14:42-0400 Diastolic blood pressure 76 mm[Hg] Dr. Asad Baron Work Phone: [facility] Work Phone: 02-13-2022 14:42-0400 Heart rate 71 /min Dr. Asad Baron Work Phone: [facility] Work Phone: 02-13-2022 14:42-0400 Respiratory rate 16 /min Dr. Asad Baron Work Phone: [facility] Work Phone: 02-13-2022 14:42-0400 SaO2% (BldA) [Mass fraction] 88 % Dr. Asad Baron Work Phone: [facility] Work Phone: 02-13-2022 14:42-0400 Systolic blood pressure 110 mm[Hg] Dr. Asad Baron Work Phone: [facility] Work Phone: 02-13-2022 14:42-0400 Body height 166.[address] Asad Baron Work Phone: [facility] Work Phone: 02-13-2022 14:42-0400 Body mass index (BMI) [Ratio] 19.4 kg/m2 Dr. Asad Baron Work Phone: [facility] Work Phone: 02-13-2022 14:42-0400 Body temperature 96.8 [degF] Dr. Asad Baron Work Phone: [facility] Work Phone: 02-13-2022 14:42-0400 Body weight 53.[address] Asad Baron Work Phone: [facility] Work Phone: 02-13-2022 14:42-0400 Diastolic blood pressure 76 mm[Hg] Dr. Asad Baron Work Phone: [facility] Work Phone: 02-13-2022 14:42-0400 Heart rate 71 /min Dr. Asad Baron Work Phone: [facility] Work Phone: 02-13-2022 14:42-0400 Respiratory rate 16 /min Dr. Asad Baron Work Phone: [facility] Work Phone: 02-13-2022 14:42-0400 SaO2% (BldA) [Mass fraction] 88 % Dr. Asad Baron Work Phone: [facility] Work Phone: 02-13-2022 14:42-0400 Systolic blood pressure 110 mm[Hg] Dr. sAad Baron Work Phone: [facility] Work Phone: 04-29-2017 09:23-0400 BMI (Body Mass Index) 20.17 kg/m2 Kathy Fuchs PA-C [facility] Work Phone: 04-29-2017 09:23-0400 Weight 56.7 kg Kathy Fuchs PA-C [facility] Work Phone: 03-05-2017 11:18-0400 BP Diastolic 60 mm[Hg] Kathy Fuchs PA-C [facility] Work Phone: 03-05-2017 11:18-0400 BP Systolic 110 mm[Hg] Kathy Fuchs PA-C [facility] Work Phone: 03-05-2017 11:18-0400 Height 167.64 cm Kathy Fuchs PA-C [facility] Work Phone: 03-05-2017 11:18-0400 Pulse (Heart Rate) 60 /min Kathy Fuchs PA-C [facility] Work Phone: 03-05-2017 11:18-0400 Respiratory Rate 20 /min Kathy Fuchs PA-C [facility] Work Phone: 09-05-2016 11:31-0500 BSA (Body Surface Area) 1.68 m2 Kathy Fuchs PA-C [facility] Work Phone: Encounters Encounter Date Encounter Type Care Provider Facility Start: 07-28-2025 ambulatory Asad Baron Facility:[facility] Start: 06-08-2025 End: 06-08-[address] Asad Baron MD Work Phone: -Outpatient Breast Imaging Start: 06-08-2025 End: 06-08-[address] Asad Baron MD -Outpatient Breast Imaging Work Phone: Start: 06-08-2025 End: 06-08-2025 ambulatory Asad Baron Facility:[facility] Start: 05-28-2025 End: 05-28-[address] Silvestre Lassiter MD -[facility] Work Phone: Start: 05-28-2025 End: 05-28-[address] Asad Baron MD Work Phone: -[facility] Start: 05-12-2025 End: 05-12-[address] Asad Baron MD Work Phone: -[facility] Start: 05-12-2025 End: 05-12-[address] Silvestre Lassiter MD -[facility] Work Phone: Start: 05-12-2025 End: 05-12-2025 ambulatory Asad Baron Facility:[facility] Start: 07-29-2024 End: 07-29-2024 ambulatory Asad Baron Facility:[facility] Start: 01-31-2024 End: 01-31-2024 Emergency department patient visit [facility]Emergency [facility] Work Phone: Start: 05-01-2023 End: 05-01-[address] Asad Baron Work Phone: [facility] Work Phone: Start: 05-01-2023 End: 05-01-[address] Asad Baron Work Phone: [facility]-Outpatient Breast Imaging Work Phone: Start: 03-04-2023 End: 03-04-[address] Asad Baron Work Phone: [facility] Work Phone: Start: 02-09-2023 End: 02-10-2023 Emergency department patient visit Dr. Asad Baron Work Phone: [facility]-Emergency Department Work Phone: Start: 02-01-2023 End: 02-01-2023 ambulatory [facility] Work Phone: Start: 02-01-2023 End: 02-01-2023 Patient encounter procedure [facility] Start: 04-23-2022 End: 04-23-[address] Asad Baron Work Phone: [facility]-Outpatient Breast Imaging Start: 04-09-2022 Telephone encounter Arpita Jaimes PSS Radiology Comment on above: Mammogram Request Start: 03-15-2022 Non-patient / Non-visit Dr. Lawrence Baron Work Phone: [facility] Start: 03-15-2022 End: 03-15-[address] Asad Baron Work Phone: [facility]-Cardiovascular Services Start: 03-06-2022 End: 03-06-[address] Asad Baron Work Phone: [facility] Start: 02-13-2022 End: 02-13-[address] Asad Baron Work Phone: [facility]-Laboratory, [facility] Procedures Date Procedure Procedure Detail [...] Dr. Silvestre Lassiter MD Comment on above: ARA-RIC-Vnka-Mid LAD w/ 2.5 x 18 mm Resolute Integrity Stent 11/01/2015 Start: 09-22-2014 Colonoscopy Arpita chiang PSS Plan of Treatment Date Care Activity Detail Author Start: 01-31-2024 [facility] Start: 06-28-2022 Influenza vaccination [facility]FLUENZA (Season Ended) [facility] Start: 04-21-2022 Mammography MAMMOGRAM [facility] Start: 10-28-2021 ADVANCE DIRECTIVE DISCUSSION ADVANCE DIRECTIVE DISCUSSION [facility] Start: 2021 PNEUMOCOCCAL: 65+ (1 - PCV) PNEUMOCOCCAL: 65+ (1 - PCV) [facility] Start: 10-03-2021 DIABETES SCREEN DIABETES SCREEN [facility] Start: 07-04-2021 COVID-19 VACCINE (3 - Booster for Pfizer series) COVID-19 VACCINE (3 - Booster for Pfizer series) [facility] Start: 11-02-2020 LIPID SCREEN LIPID SCREEN [facility] Start: 09-22-2019 Colonoscopy COLONOSCOPY [facility] Start: 09-22-2019 COLORECTAL CANCER SCREENING COLORECTAL CANCER SCREENING [facility] Start: 03-10-2018 End: 09-11-2017 *Hepatic Function Panel *Hepatic Function Panel [facility] Work Phone: Start: 03-10-2018 End: 09-11-2017 Lipid panel [AGGREGATE] *Lipid Profile CC PCP [facility] Work Phone: Start: 03-04-2018 End: 03-04-2018 Appointment Appointment [facility] Work Phone: Start: 08-28-2017 End: 09-09-2017 *Hepatic Function Panel *Hepatic Function Panel [facility] Work Phone: Start: 08-28-2017 End: 09-09-2017 Lipid panel [AGGREGATE] *Lipid Profile CC PCP [facility] Work Phone: Start: 04-29-2017 End: 04-29-2017 Radiologic exam knee complete 4/more views X-Ray, Knee [facility] Work Phone: Start: 03-05-2017 End: 03-05-2017 [employer]TS [employer]NAGEMENT INTERNS[employer] [facility] Work Phone: Start: 03-05-2017 End: 03-05-2017 Follow Up Appt 1 year Follow Up Appt 1 year [facility] Work Phone: Start: 02-21-2017 End: 02-25-2017 *Hepatic Function Panel *Hepatic Function Panel [facility] Work Phone: Start: 02-21-2017 End: 02-25-2017 Lipid panel [AGGREGATE] *Lipid Profile CC PCP [facility] Work Phone: Start: 09-05-2016 End: 09-05-2016 [employer]TS [employer]NAGEMENT INTERNS[employer] [facility] Work Phone: Start: 09-05-2016 End: 09-05-2016 Follow Up Appt 6 months Follow Up Appt 6 months [facility] Work Phone: Start: 08-14-2016 End: 08-21-2016 *Hepatic Function Panel *Hepatic Function Panel [facility] Work Phone: Start: 08-14-2016 End: 08-21-2016 Lipid panel [AGGREGATE] *Lipid Profile CC PCP [facility] Work Phone: Start: 02-21-2016 End: 02-21-2016 [employer]TS [employer]NA[employer]NS[employer] [facility] Work Phone: Start: 02-21-2016 [...] 11-23-2015 End: 11-23-2015 Cardiac Rehab Cardiac Rehab [facility] Work Phone: Start: 11-23-2015 End: 11-23-2015 [employer] [facility] Work Phone: Start: 11-23-2015 End: 02-25-2017 Ecg routine ecg w/least 12 lds w/i&r EKG (In office) [facility] Work Phone: Start: 11-23-2015 End: 11-23-2015 Follow Up Appt 3 months Follow Up Appt 3 months [facility] Work Phone: Start: 11-23-2015 End: 02-13-2016 Lipid panel [AGGREGATE] *Lipid Profile CC PCP [facility] Work Phone: Start: 2006 SHINGRIX VACCINE (1 of 2) SHINGRIX VACCINE (1 of 2) [facility] Start: 2001 COLOGUARD (FIT-DNA) COLOGUARD (FIT-DNA) [facility] Start: [address] COLONOGRAPHY [facility] Start: 2001 FECAL OCCULT BLOOD FECAL OCCULT BLOOD [facility] Start: 2001 SIGMOIDOSCOPY SIGMOIDOSCOPY [facility] Start: 1975 Urine microalbumin profile DTAP,TDAP,TD (1 - Tdap) [facility] Start: 1974 HEPATITIS C SCREENING HEPATITIS C SCREENING [facility] Start: 1974 HIV SCREENING HIV SCREENING [facility] Start: 1968 Adult depression screening assessment DEPRESSION SCREENING [facility] Patient Education [employer] Work Phone: Patient referral [facility] Work Phone: Payers Date Payer Category Payer Self-pay [id number] 2024 Private Health Insurance 101 [id number] 2020 Unknown [employer] PPO [id number] 2020-Present [phone] [address] [place] [address] PPO [id number] Unknown [id number] Unknown [id number] 62 Unknown [id number] 62 Unknown [id number] 62 Unknown [id number] 62 Social History Date Type Detail Facility Start: 02-13-2022 End: 01-31-2024 Tobacco smoking status KYIS Unknown if ever smoked [facility] Start: 06-01-2020 Non-smoker [facility] Start: 1955 Sex Assigned At Female C [facility] Start: 01-31-2024 [facility] Start: 01-06-2018 Alcohol intake Current non-dr cfo controller of alcohol (finding) [facility] Mental Status Date Assessment Result Facility 01-31-2024 Cognitive function Level Of Cons ciousness Awake;Alert;Appropriate;Follow s Commands [facility] Work Phone: Evaluation note 05-28-2025 Note Date & Type Note Facility 05-28-2025 Evaluation note Diagnosis Onset Date Resolution HLD (hyperlipidemia) chronic May 28 9:29am History of coronary artery stent placement November 01, 2015 resolved May 28, 2025 9:29am [facility] Work Phone: Note 04-09-2022 Telephone Encounter - MARIA ALEJANDRA Luo - 04/09/2022 3:22 PM EDTTelephone Encounter - Rom Montiel - 04/09/2022 2:02 PM EDT Note Date & Type Note Facility 04-09-2022 Miscellaneous Notes Sent the last 2 yrs to [facility] release in [place] Patient needs all mammograms sent to [facility] to their imaging dept. Thank you. documented in this encounter [facility] Progress note 04-21-2021 Note Date & Type Note Facility 04-21-2021 Note HNO ID: [id number] Author: Jesika Amanda Service: ? 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 HLD (hyperlipidemia) chronic History of coronary artery stent placement November 01, 2015 [facility] Work Phone: Evaluation note 11-01-2015 Note Date & Type Note Facility 11-01-2015 Evaluation note Diagnosis Onset Date HLD (hyperlipidemia) chronic History of coronary artery stent placement November 01, 2015 resolved [facility] Work Phone: History of Past illness Narrative 09-12-2010 Note Date & Type Note Facility 09-12-2010 History of Past i llness Narrative Problem Noted Date Resolved Date Unspecified constipation 010 documented as of this encounter (statuses as of 04/13/2022) [facility] Evaluation note Note Date & Type Note Facility Evaluation note No assessment information availa ble [facility] Work Phone: Hospital Discharge instructions Note Date & Type Note Facility Hospital Discharge instructions Additional Instructions Alternate Tylenol and ibuprofen every 3 hours as needed and use ice. [facility] Work Phone: Reason for referral (narrative) Note Date & Type Note Facility Reason for referral (narrative) No reason for referral information available [facility] Work Phone: Chief Complaint and Reason [...] 2025 8:20 am 1 y fu w [employer] per PT REQ May 28, 2025 9:29am Chief Complaint Admit Date EORDERS May 12, 2025 8:20 am 1 y fu w [employer] per PT REQ May 28, 2025 9:29am [...] Will Yes October 12 10:45am Power of Reprographics Technician Yes October 12, 2020 10:45am Advance Directive Response Recorded Date/ Time Name of Medical Power of Reprographics Technician Juan Acevedo, February 09, 2023 11:48pm Living Will Yes February 09, 2023 11:48pm Power of Reprographics Technician Yes February 09 11:48pm Advance Directive Response Recorded Date/ Time Living Will Yes January 31, 2024 1:51pm Power of Reprographics Technician Yes January 30 1:51pm Name of Medical Power of Reprographics Technician agnes January 31, 2024 1:51pm Advance Directive Response Recorded Date/ Time Living Will Yes January 31, 2024 1:51pm Do you have a Healthcare Power of Reprographics Technician? 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 Pineda Lucas MD Family Provider Active Dr. Asad Baron MD Primary Care Provider Active Team Status: Inactive Member Role Status Dates Dr. sAad Baron MD Primary Care Provi krunal, Attending Provider, Referring Provider Active Dr. Silvestre Lassiter MD Other Provider Active Team Status: Inactive Member Role Status Dates Dr. Asad Baron MD Primary Care Provider, Referring Provider Active Alma Lay RN SURGICAL, RN SURGICAL-C Attending Provider Active Team Status: Inactive Member [...] and content) DATE CREATED AUTHOR 04/14/2022 [facility] DATE CREATED AUTHOR AUTHOR'S ORGANIZ ATION 07/18/2025 [facility] FOR RECORDS PERTAINING TO PATIENTS WHO [...] BE BASED ON THE PRIMARY CLINICAL RECORDS. [employer] provides no warranty or guarantee of the accuracy or completeness of information in this document.
== END | disposition home or self-care (01) ==
PROVIDERS: PCP Family Medicine; Referring Provider Family Medicine; Visit Provider Family Medicine
DX: M81.0 Age-related osteoporosis without current pathological fracture (principal)
CPT/HCPCS: 77080

== ENCOUNTER → 2025-07-29 | Outpatient (CLI) | payer MEDICARE, SELFPAY ==
[2025-07-29 10:43] LABS: Anion Gap 9 (5-15); BUN 10 mg/dL (4-19); BUN/Creat Ratio 14.1 RATIO (10-20); Calcium,Total 9.0 mg/dL (7.6-11.0); Carbon Dioxide 24.1 mmol/L (21.0-32.0); Chloride 100 mmol/L (98-108); Glucose 87 mg/dL (70-99); Potassium 4.8 mmol/L (3.3-5.1)
== END | disposition home or self-care (01) ==
LOC: MTLAB 07:31
PROVIDERS: PCP Family Medicine; Referring Provider Family Medicine; Visit Provider Family Medicine
DX: Z00.00 Encounter for general adult medical examination without abnormal findings (principal)
CPT/HCPCS: 36415; 80048

== ENCOUNTER 2025-10-02 22:52 | Emergency (ER) | payer MEDICARE, SELFPAY ==
[2025-10-02 22:52] VITALS: BP 171/83; PULSE 65; RESP 18; TEMP 36.6; O2SAT 100; BMI 20.5
--- OUTSIDE RECORDS SUMMARY | 2025-10-02 23:19 | XMS RPT_ITS | CCD ---
Author Organization [facility] Care Team Providers Care Deli Manager Name Role Phone RAO Fuchs, Kathy [...] Asad Baron MD Attending Provider Asad Baron Primary Care Unavailable Loraine, Asad Attending Unavailable Baron, Asad Referring Unavailable Baron, Asad Primary Care Unavailable Baron, Asad Attending Unavailable Baron, Asad Referring Unavailable Baron, Asad Referring Unavailable Baron, Asad Primary Care Unavailable Baron, Asad Attending Unavailable Baron, Asad Primary Care Unavailable Sravani, [place] Attending Unavailable Silvestre Lassiter Referring Unavailable Asad Baron Primary Care Unavailable Silvestre Lassiter Attending Unavailable Asad Baron Referring Unavailable Allergies Allergy Classification Reported Allergen(s) Allergy Type Date of Onset Reaction(s) Facility (5 sources) apis mellifera venom; Translations: [BEE STINGS] allergy to substance 6 Swelling [facility] Work Phone: [phone] (2 sources) atorvastatin Drug Allergy 6 Vomiting, diarrhea [facility] Work Phone: [phone] (2 sources) carvedilol Drug Allergy 6 Diarrhea, muscle aches, cough [facility] Work Phone: [phone] (13 sources) cephalexin; Translations: [cephalexin] Drug Allergy 6 [facility] Work Phone: [phone] (4 sources) Penicillins (Antibiotic) drug allergy 6 [facility] Work Phone: [phone] (2 sources) BRILLINTA drug allergy 6 red rash [facility] Work Phone: [phone] (10 sources) atorvastatin; Translations: [atorvastatin calcium] Drug Allergy 2 Unknown [facility] (9 sources) carvedilol Drug Allergy 2 myalgias, cough, diarrhea [facility] (9 sources) Latex Allergy to substance 2 rash [facility] (11 sources) Penicillins; Translations: [Penicillins] Allergy to substance 6 Rash [facility] Work Phone: [phone] (9 sources) Ticagrelor Drug Allergy 2 rash [facility] (1 source) bee stings [Other] Propensity to adverse reactions 9 Rash, Swelling [facility] Work Phone: (6 sources) venom-honey bee Allergy to substance 2 Swelling [facility] (1 source) carvedilol Drug Allergy 5 [facility] (1 source) Latex Drug allergy (disorder) 5 [facility] (1 source) Ticagrelor Drug Allergy 5 [facility] (1 source) venom-honey bee Drug allergy (disorder) 5 [facility] Medications Current Medications Medication Drug [...] TABS One tablet by mouth daily ASPIRIN [id number] Jelly Redd RN Comment on above: Take one(1) tablet d aily. biotin 10 mg oral capsule (9 sources) Start: 03-02-20 take 1 capsule by mouth once daily Biotin 10,000 mcg capsule Active 30061 ug PO DAILY March 02, 2021 12:00am [id number] 0.3 ml EPINEPHrine 1 mg/ml auto-injector (9 [...] tablet Active 50 ug PO DAILY 90 February 13, 2022 5:06pm Start: 01-13-2021 End: [...] tablet by mouth every evening ATORVASTATIN CALCIUM [id number] Jelly Redd, RANJEET azithromycin 250 mg oral tablet (9 sources) [...] One tablet by mouth twice daily CARVEDILOL [id number] Silvestre Lassiter MD cholecalciferol 0.05 mg oral [...] One tablet by mouth daily CLOPIDOGREL BISULFATE [id number] Silvestre Lassiter MD doxycycline hyclate 100 mg oral capsule (6 sources) Tetracycline-class Drug Start: 08-11-2022 End: 08-21-2022 take 1 capsule by mouth twice daily Doxycycline Hyclate 100 mg capsule Discontinued 100 mg PO TWICE A DAY 20 10 0 August 11, 2022 12:00am August 20, 2022 12:00am August 21, 2022 12:05am sinusitis 84 hr estradiol 0.07457 mg/hr transdermal system (13 sources) Estrogen Start: 11-21-2015 End: 12-13-2015 VIVELLE-DOT 0.05 MG/24HR PTTW transdermal as directed ESTRADIOL [id number] Jelly Redd RN Start: 11-01-2015 End: 03-03-2018 Estradiol 1 EACH patch semiw eekly Discontinued 1 NMA November 01, 2015 1:00am March 03, 2018 9:42am flaxseed extract (2 sources) Non-Standardized Food Allergenic Extract, Non-Standardized Plant Allergenic Extract Start: 02-01-2016 take 1 tablet by mouth once daily FLAX SEED OIL CAPS One tablet by mouth daily FLAXSEED (LINSEED) CAPS [id number] Jelly Redd RN Flaxseed Oil oil (1 source) Flaxseed Oil oil linseed oil 1000 mg oral capsule (18 sources) Start: 01-13-2021 End: 03-02-2021 take 1 capsule by mouth twice daily at mealtime Flaxseed Oil 1,000 mg capsule Discontinued 1000 mg PO TWICE A DAY January 13, 2021 12:00am March 02, 2021 11:01am administer with meals Start: 01-18-2019 take 1 capsule by mo [facility] once daily Flaxseed Oil ([place]-3 Flaxseed Oil) 1,000 mg capsule Active 1000 [...] 3 as needed for chest pain. 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; Translations: [Other specified hypothyroidism] Chronic Comment on above: abnormal TSH with po sitive thyroid antibodies Unclassified (2 sources) Placement of stent in coronary artery ; Translations: [Presence of coronary angioplasty implant and graft] Onset: 11-21-2015 11-21-2015 Unclassified (2 sources) Long-term drug therapy; 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] Onset: 11-21-2015 11-21-2015 Past or Other Problems Problem Classification Problem Date Documented Date Episodic/Chronic Coronary atherosclerosis and other heart disease (3 sources) Presence of coronary angioplasty implant and graft; Translations: [Percutaneous transluminal coronary angioplasty status] Onset: 11-01-2015 Episodic Other aftercare (2 sources) correction (current) use of antithrombotics/antipl atelets; 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/antipl atelets] Onset: 11-21-2015 [...] Test Name Value Interpretation Reference Range Facility Basic Metabolic Profile (BMP )on 07-29-2025 BUN/CRE 14.1 RATIO Normal 10-20 [facility] Comment on above: Performed By: #### L 500.2500 #### [facility] [address] [place], [address] Calcium [Mass/Vol] 9.0 mg/dL Normal 7.6-11.0 [facility] Comment on above: Performed By: #### L 500.2500 #### [facility] [address] [place], [address] Chloride [Moles/Vol] 100 mmol/L Normal 98-108 [facility] Comment on above: Performed By: #### L 500.2500 #### [facility] [address] [place], [address] CO2 [Moles/Vol] 24.1 mmol/L Normal 21.0-32.0 [facility] Comment on above: Performed By: #### L 500.2500 #### [facility] [address] [place], [address] Creatinine [Mass/Vol] 0.67 mg/dL Low 0.70-1.20 [facility] Comment on above: Performed By: #### L 500.2500 #### [facility] [address] [place], [address] GAP 9 Normal 5-15 [facility] Comment on above: Performed By: #### L 500.2500 #### [facility] [address] [place], [address] GFR/1.73 sq M.predicted among non-blacks MDRD (S/P/Bld) [Vol rate/Area] 95 mL/min/{1.73_m2} Normal >60 [facility] Comment on above: Result Comment: mL/m in/1.73m2 CKD-EPI Creatinine Equation (2020) Performed By: #### L 500.2500 #### [facility] [address] [place], [address] Glucose [Mass/Vol] 87 mg/dL Normal 70-99 [facility] Comment on above: Performed By: #### L 500.2500 #### [facility] [address] [place], [address] Potassium [Moles/Vol] 4.8 mmol/L Normal 3.3-5.1 [facility] Comment on above: Performed By: #### L 500.2500 #### [facility] [address] [place], [address] Sodium [Moles/Vol] 133 mmol/L Normal 133-145 [facility] Comment on above: Performed By: #### L 500.2500 #### [facility] [address] [place], [address] Urea nitrogen [Mass/Vol] 10 mg/dL Normal 4-19 [facility] Comment on above: Performed By: #### L 500.2500 #### [facility] [address] [place], [address] Dexa Bone Density Studyon Dexa Bone Density Study [facility] Imaging Services [address] [place] [address] Dexa Bone Density Study MR#: [id number] Acct: [id number] Name: IVETTE ACEVEDO Rep #: [id number] : 1955 F 69 From: Julian Hutton MD PCP: Dr. Asad Baron MD Status: REG CLI Study: Dexa Bone Density Study Date of Exam: 07/28/25 Exam# [id number] Ordering Dr: Asad Baron MD PROCEDURE: DEXA BONE DENSITY STUDY 07/28/2025 REASON FOR EXAM: F, age 69 y/o . Postmenopausal screening. TECHNIQUE: Procedure Code: BDDBD Modality: DX Procedure: DEXA BONE DENSITY STUDY COMPARISON: 2023 FINDINGS: BMD and T-SCORES Lumbar spine: 0.905 g/cm2, T-score -1.4 Levels: L1 through L4 Change from prior: Increase of 10.8%. Left femoral neck: 0.582 g/cm2, T-score -2.4 Femoral neck comparison data not recommended for monitoring change. Prior T-score Left total hip: 0.640 g/cm2, T-score -2.5 Change from prior: Increase of 3.7%. Right femoral neck: 0.570 g/cm2, T-score -2.5 Femoral neck comparison data not recommended for monitoring change. Prior T-score Right total hip: 0.614 g/cm2, T-score -2.7 Change from prior: Increase of 1.1%. The World Health Organization has defined the following categories based on bone density: Normal bone density: T-score equal to or greater than -1.0 Osteopenia: T-score between -1.0 and -2.5 Osteoporosis: T-score equal to or less than -2.5 FRAX (or Comparable) Fracture Risk Assessment: 10 Year Probability of Fracture: Major Osteoporotic Fracture: 12% Hip Fracture: 3% (Note: FRAX is not to be reported in setting of normal range bone density, osteoporosis on DEXA, known history of osteoporosis, prior osteoporotic hip or vertebral fracture, or for any patient undergoing pharmacological treatment for bone loss.) The National Osteoporosis Foundation (NOF) recommends pharmacological treatment for patients with a FRAX 10-year risk of 3% or higher for a hip fracture, or 20% or higher for a major osteoporotic fracture, to prevent osteoporosis and reduce fracture risk. The patient does meet the pharmacological treatment recommendations for prevention of osteoporosis. BD/Dexa Bone Density Study IMPRESSION: OSTEOPOROSIS. Recommend follow-up as clinically warranted. Reading Location: [id number] CC: Dr. Asad Baron MD Program Checker: Signed Normal [facility] Breast imaging reportOrdered By: Amy Ge on 06-08-2025 Study report [facility] Imaging Services [address] [place] [address] SCRN MAMM (CAD)W/RAMYA BILAT MR#: [id number] Acct: [id number] Name: IVETTE ACEVEDO Rep #: [id number] : 1955 F 69 From: Johanna Ge MD PCP: Dr. Asad Baron MD Status: CARLA MARTIN Study:SCRN MAMM (CAD)W/RAMYA BILAT Date of Exa m: 06/08/25 Exam# [id number] Ordering Dr: Asad Baron MD EXAM: SCRN [...] be mailed to the patient. Reading Location: [facility] CC: Dr. Asad Baron MD ~ Program Checker: Signed [facility] SCRN MAMM (CAD)W/RAMYA BILATo n 06-08-2025 SCRN MAMM (CAD)W/RAMYA BILAT [facility] Imaging Services [address] [place] [address] SCRN MAMM (CAD)W/RAMYA BILAT MR#: [id number] Acct: [id number] Name: IVETTE ACEVEDO Rep #: [id number] : 1955 F 69 From: Amy Ge MD PCP: Dr. Asad Barno MD Status: REG CL Study: SCRN MAMM (CAD)W/RAMYA BILAT Date of Exam: 05/28 12/22 Exam# [id number] Ordering Dr: Asad Baron MD EXAM: SCRN [...] be mailed to the patient. Reading Location: [id number] CC: Dr. Asad Baron MD Program Checker: Signed Normal [facility] Cardiology Visit Reporton Cardiology Visit Report [facility] [address] [place] [address]. [address] [place] [address] OFFICE VISIT Date of Service: 05/28/25 MR#: [id number] Acct: [id number] Name: IVETTE ACEVEDO Rep #: [id number] : 1955 Provider: Dr. 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 Normal [facility] Bilirubin directOrdered By: Silvestre Lassiter on 05-12-2025 Bilirubin.direct [Mass/Vol] 0.23 mg/dL 0.00-0.30 [facility] Bilirubin, totalOrdered By: Silvestre Lassiter on 05-12-2025 Bilirubin [Mass/Vol] 0.53 mg/dL 0.00-1.30 [facility] Calculated very low density lipoprotein (VLDL) cholesterol measurementOrdered By: Silvestre Lassiter on 05-12-2025 Calculated very low density lipoprotein (VLDL) cholesterol measurement 14 mg/dL 5-40 [facility] LDL calc ser/plasOrdered By: Silvestre Lassiter on 05-12-2025 Cholesterol in LDL [Mass/Vol] 65 mg/dL [facility] Comment on above: Gttdkpnxrj=618-996 m g/dL & Higher Njui=012 mg/dL or greater Laboratory - Chemistry and C hemistry - challengeOrdered By: Silvestre Lassiter on 05-12-2025 AST [Catalytic activity/Vol] 26 U/L <32 [facility] Lipid Profileon 05-12-2025 CHOL:HDL 2.59 Normal [facility] Comment on above: Performed By: #### L 500.4100, L500.3400 #### [facility] [address] [place], [address] Cholesterol [Mass/Vol] 129 mg/dL Normal <=200 [facility] Comment on above: Result Comment: Chol esterol level, Desirable <200 mg/dL Borderline high cholesterol 200-239 mg/dL High cholesterol >=240 mg/dL Recommendations of the NCEP Adult Treatment Panel for the following risk-cutoff thresholds for the [place] population. Performed By: #### L 500.4100, L500.3400 #### [facility] [address] [place], [address] Cholesterol in HDL [Mass/Vol] 50 mg/dL Normal [facility] Comment on above: Result Comment: Kathy onal Cholesterol Education Program (NCEP) guidelines: <40 mg/dL: Low HDL-cholesterol (major risk factor for CHD) >= 60 mg/dL: High HDL-cholesterol (negative risk factor for CHD) HDL-cholesterol is affected by a number of factors, e.g. smoking, exercise, hormones, sex and age. Performed By: #### L 500.4100, L500.3400 #### [facility] [address] [place], [address] Cholesterol in LDL [Mass/Vol] 65 mg/dL Normal [facility] Comment on above: Result Comment: Bord makfqn=500-364 mg/dL Higher Dxiy=421 mg/dL or greater Performed By: #### L 500.4100, L500.3400 #### [facility] [address] [place], [address] Cholesterol in VLDL [Mass/Vol] 14 mg/dL Normal 5-40 [facility] Comment on above: Performed By: #### L 500.4100, L500.3400 #### [facility] [address] [place], [address] Triglyceride [Mass/Vol] 71 mg/dL Normal [facility] Comment on above: Result Comment: The drugs N-Acetylcysteine and Metamizole may falsely depress this assay. Normal range: <150 mg/dL Borderline High: 150-199 mg/dL High: 200-499 mg/dL Very High: >500 mg/dL Performed By: #### L 500.4100, L500.3400 #### [facility] [address] [place], [address] Liver Profileon 05-12-2025 Albumin [Mass/Vol] 4.3 g/dL Normal 3.4-4.8 [facility] Comment on above: Performed By: #### L 500.4100, L500.3400 #### [facility] [address] [place], [address] ALK PHOS 78 U/L Normal 35-104 [facility] Comment on above: Performed By: #### L 500.4100, L500.3400 #### [facility] [address] [place], [address] ALT [Catalytic activity/Vol] 15 U/L Normal <=34 [facility] Comment on above: Performed By: #### L 500.4100, L500.3400 #### [facility] [address] [place], [address] AST [Catalytic activity/Vol] 26 U/L Normal <=31 [facility] Comment on above: Performed By: #### L 500.4100, L500.3400 #### [facility] [address] [place], [address] Bilirubin [Mass/Vol] 0.53 mg/dL Normal 0.00-1.30 [facility] Comment on above: Performed By: #### L 500.4100, L500.3400 #### [facility] [address] [place], [address] Bilirubin.direct [Mass/Vol] 0.23 mg/dL Normal 0.00-0.30 [facility] Comment on above: Performed By: #### L 500.4100, L500.3400 #### [facility] [address] [place], [place], [address] Globulin (S) [Mass/Vol] 2.5 g/dL Normal 2.2-4.2 [facility] Comment on above: Performed By: #### L 500.4100, L500.3400 #### [facility] [address] [place], [address] T PROT 6.8 g/dL Normal 5.9-8.4 [facility] Comment on above: Performed By: #### L 500.4100, L500.3400 #### [facility] [address] [place], [place], [address] Screening total cholesterol/ high density lipoprotein (HDL) cholesterol ratioOrdered By: Silvestre Lassiter on 05-12-2025 Cholesterol.total/Chol esterol in HDL [Mass ratio] 2.59 {ratio} [facility] Serum globulin measurementOr dered By: Silvestre Lassiter on 05-12-2025 Globulin (S) [Mass/Vol] 2.5 g/dL 2.2-4.2 [facility] Serum or plasma alanine chung otransferase (ALT) measurementOrdered By: Silvestre Lassiter on 05-12-2025 ALT [Catalytic activity/Vol] 15 U/L <35 [facility] Serum or plasma albumin anderson urement (mass/volume)Ordered By: Silvestre Lassiter on 05-12-2025 Albumin [Mass/Vol] 4.3 g/dL 3.4-4.8 [facility] Serum or plasma alkaline cadence sphatase measurementOrdered By: Silvestre Lassiter on 05-12-2025 ALP [Catalytic activity/Vol] 78 U/L 35-104 [facility] Serum or plasma cholesterol in HDL measurement (mass/volume)Ordered By: Silvestre Lassiter on 05-12-2025 Cholesterol in HDL [Mass/Vol] 50 mg/dL >40 [facility] Comment on above: National Cholesterol Education Program (NCEP) guidelines:<40 mg/dL: Low HDL-cholesterol (major risk factor for CHD)>= 60 mg/dL: High HDL-cholesterol (negative risk factor for CHD)HDL-cholesterol is affected by a number of factors, e.g. smoking, exercise, hormones, sex and age. Serum or plasma cholesterol measurement (mass/volume)Ordered By: Silvestre Sravani on 05-12-2025 Cholesterol [Mass/Vol] 129 mg/dL <201 [facility] Comment on above: Cholesterol level, D esirable <200 mg/dLBorderline high cholesterol 200-239 mg/dLHigh cholesterol >=240 mg/dLRecommendations of the NCEP Adult Treatment Panel for the following risk-cutoff thresholds for the [place] population. Total proteinOrdered By: Yumiko asher Sravani on 05-12-2025 Protein [Mass/Vol] 6.8 g/dL 5.9-8.4 [facility] Triglycerides measurementOrd ered By: Silvestre [facility] on 05-12-2025 Triglyceride [Mass/Vol] 71 mg/dL <199 [facility] Comment on above: The drugs N-Acetylcy steine and Metamizole may falsely depress this assay. Normal range: <150 mg/dLBorderline High: 150-199 mg/dLHigh: 200-499 mg/dLVery High: >500 mg/dL Absolute lymphocyte countOrd ered By: Italia Guerrero on 01-31-2024 Lymphocytes Auto (Unsp spec) [#/Vol] 1.70 10*3/uL 0.83-4.51 [facility] Automated lymphocyte count a s percentage of total leukocytesOrdered By: Italia Guerrero on 01-31-2024 Lymphocytes/100 WBC Auto (Unsp spec) 28.2 % 19-41 [facility] Basophil percentageOrdered B y: Italia Guerrero on 01-31-2024 Basophils/100 WBC (Bld) 0.5 % 0-1 [facility] Chloride [Moles/Vol] 97 mmol/L 98-107 [facility] Eosinophils/100 WBC (Bld) 1.0 % 0-5 [facility] Glucose [Mass/Vol] 105 mg/dL 74-106 [facility] Comment on above: Fasting Glucose resu lt from 100 to 125 mg/dL suggests IMPAIRED HOMEOSTASIS per A.D.A. criteria. Hemoglobin (Bld) [Mass/Vol] 12.1 g/dL 12.0-15.0 [facility] Monocytes/100 WBC (Bld) 7.6 % 0-10 [facility] Neutrophils (Bld) [#/Vol] 3.8 10*3/uL 2.0-7.7 [facility] Neutrophils/100 WBC (Bld) 62.4 % 47-70 [facility] Potassium [Moles/Vol] 4.1 mmol/L 3.5-5.1 [facility] Sodium [Moles/Vol] 129 mmol/L 136-145 [facility] WBC (Bld) [#/Vol] 6.0 10*3/uL 4.4-11.0 [facility] Determination of erythrocyte mean corpuscular volume (MCV)Ordered By: Italia Guerrero on 01-31-2024 MCV (RBC) [Entitic vol] 86.2 fL 81-99 [facility] Erythrocyte distribution wid th ratioOrdered By: Italiasarah Guerrero on 01-31-2024 Erythrocyte distribution width (RBC) [Ratio] 12.1 % 11.6-14.6 [facility] Erythrocyte distribution wid th standard deviationOrdered By: Italia Guerrero on 01-31-2024 Erythrocyte distribution width (RBC) [Entitic vol] 38.4 fL 35.1-43.9 [facility] Hematocrit Auto (Bld) [Volum e fraction]Ordered By: Italia Guerrero on 01-31-2024 Hematocrit (Bld) [Volume fraction] 35.6 % 37-47 [facility] Immature granulocytes/100 WB C Auto (Bld)Ordered By: Italia Guerrero on 01-31-2024 Immature granulocytes/100 WBC (Bld) 0.300 % 0.0-0.9 [facility] Comment on above: IG% - Immature Granu locytes (promyelocytes, myelocytes and metamyelocytes) > 1% indicates that a LEFT SHIFT is Present. Laboratory - Chemistry and C hemistry - challengeOrdered By: Italia Guerrero on 01-31-2024 CO2 [Moles/Vol] 27.0 mmol/L 21.0-32.0 [facility] Urea nitrogen/Creatinine [Mass ratio] 11.3 mg/mg 10-20 [facility] Laboratory - Hematology and Cell countsOrdered By: Italia Guerrero on 01-31-2024 MCH (RBC) [Entitic mass] 29.3 pg 27.0-32.0 [facility] MCHC (RBC) [Mass/Vol] 34.0 g/dL 32-36 [facility] Nucleated RBC/100 WBC (Bld) [Ratio] 0 % 0-5 [facility] Platelet mean volume (Bld) [Entitic vol] 9.1 fL 6.2-12.0 [facility] Platelets (Bld) [#/Vol] 276 10*3/uL 150-450 [facility] No Panel InformationOrdered By: Italia Guerrero on 01-31-2024 Estimated Creatinine Clearance Calc 58.28 ml/min [facility] Estimated GFR (MDRD) Amer 106 mL/min >60 [facility] Comment on above: GFR Calc Estimated GFR (MDRD) Non-Af Amer 88 mL/min >60 [facility] Comment on above: Non- GFR Calc Troponin I High Sensitivity 6 pg/mL 3.0-54.0 [facility] Comment on above: Please Note: [place] t Units and Gender Specific Reference Ranges. For more information see Policy Stat Procedure [place] High Sensitivity Troponin (TNIH) and attachments. RBC Auto (Bld) [#/Vol]Ordere d By: Italia Guerrero on 01-31-2024 RBC (Bld) [#/Vol] 4.13 10*6/uL 4.2-5.4 [facility] Serum or plasma calcium anderson urement (mass/volume)Ordered By: Italia Guerrero on 01-31-2024 Calcium [Mass/Vol] 8.8 mg/dL 8.5-10.1 [facility] Serum or plasma creatinine m easurement (mass/volume)Ordered By: Italia Guerrero on 01-31-2024 Creatinine [Mass/Vol] 0.70 mg/dL 0.55-1.02 [facility] Comment on above: The validity of the calculated GFR & GFRAA in patients over 70 years has not been determined. Clinical correlation is essential. Serum or plasma urea nitroge n measurement (mass/volume)Ordered By: Italia Guerrero on 01-31-2024 Urea nitrogen [Mass/Vol] 8 mg/dL 7-18 [facility] Thin prep Papanicolaou smear with manual screeningOrdered By: Italia Guerrero on 01-31-2024 Thin prep Papanicolaou smear with manual screening 5 5-15 [facility] Basophil percentageOrdered B y: Dr. Baron on 02-01-2023 Bilirubin [Mass/Vol] 0.50 mg/dL 0.20-1.00 [facility] Comment on above: For patients on eltr ombopag therapy, use of Dimension [place] TBIL is not recommended. Chloride [Moles/Vol] 102 mmol/L 98-107 [facility] Cholesterol [Mass/Vol] 123 mg/dL <200 [facility] Comment on above: <200 mg/dL Desirable 200-240 mg/dL Borderline >240 mg/dL High Risk Glucose [Mass/Vol] 87 mg/dL 74-106 [facility] Potassium [Moles/Vol] 4.2 mmol/L 3.5-5.1 [facility] Protein [Mass/Vol] 7.1 g/dL 6.4-8.2 [facility] Sodium [Moles/Vol] 137 mmol/L 136-145 [facility] Triglyceride [Mass/Vol] 75 mg/dL <199 [facility] Comment on above: The drugs N-Acetylcy steine and Metamizole may falsely depress this assay.Serum Triglycerides Reference Interval Normal <150 mg/dL Borderline high 150 - 199 mg/dL High 200 - 499 mg/dL Very High > or = 500 mg/dL Direct bilirubinOrdered By: Dr. Baron on 02-01-2023 Bilirubin.direct [Mass/Vol] 0.15 mg/dL 0.00-0.30 [facility] Laboratory - Chemistry and C hemistry - challengeOrdered By: Dr. Baron on 02-01-2023 ALP [Catalytic activity/Vol] 101 U/L 45-117 [facility] ALT [Catalytic activity/Vol] 24 U/L 13-56 [facility] CO2 [Moles/Vol] 29.0 mmol/L 21.0-32.0 [facility] Free T4 [Mass/Vol] 1.22 ng/dL 0.76-1.46 [facility] Globulin (S) [Mass/Vol] 3.2 g/dL 2.2-4.2 [facility] Urea nitrogen/Creatinine [Mass ratio] 13.5 mg/mg 10-20 [facility] No Panel InformationOrdered By: Dr. Baron on 02-01-2023 Estimated GFR (MDRD) Amer 101 mL/min >60 [facility] Comment on above: GFR Calc Estimated GFR (MDRD) Non-Af Amer 83 mL/min >60 [facility] Comment on above: Non- GFR Calc Free Triiodothyronine (T3) pg/dL 2.7 pg/mL 2.18-3.98 [facility] Thyroid Stimulating Hormone (TSH) 1.28 uIU/mL 0.358-3.74 [facility] Serum or plasma albumin anderson urement (mass/volume)Ordered By: Dr. Baron on 02-01-2023 Albumin [Mass/Vol] 3.9 g/dL 3.2-5.0 [facility] Serum or plasma albumin/glob ulin mass ratioOrdered By: Dr. Baron on 02-01-2023 Albumin/Globulin [Mass ratio] 1.2 {ratio} 0.9-2.4 [facility] Serum or plasma calcium anderson urement (mass/volume)Ordered By: Dr. Baron on 02-01-2023 Calcium [Mass/Vol] 9.1 mg/dL 8.5-10.1 [facility] Serum or plasma cholesterol in HDL measurement (mass/volume)Ordered By: Dr. Baron on 02-01-2023 Cholesterol in HDL [Mass/Vol] 51 mg/dL >40 [facility] Comment on above: The drugs N-Acetylcy steine and Metamizole may falsely depress this assay. Reference Range HDL <40 mg/dL Low HDL Cholesterol HDL >or= 60 mg/dL High HDL Cholesterol Serum or plasma cholesterol in VLDL measurement (mass/volume)Ordered By: Dr. Baron on 02-01-2023 Cholesterol in VLDL [Mass/Vol] 15 mg/dL 5-40 [facility] Serum or plasma creatinine m easurement (mass/volume)Ordered By: Dr. Baron on 02-01-2023 Creatinine [Mass/Vol] 0.74 mg/dL 0.55-1.02 [facility] Comment on above: The validity of the calculated GFR & GFRAA in patients over 70 years has not been determined. Clinical correlation is essential. Serum or plasma low density lipoprotein (LDL) cholesterol measurement (mass/volume)Ordered By: Dr. Baron on 02-01-2023 Cholesterol in LDL [Mass/Vol] 57 mg/dL 0-130 [facility] Serum or plasma urea nitroge n measurement (mass/volume)Ordered By: Dr. Baron on 02-01-2023 Urea nitrogen [Mass/Vol] 10 mg/dL 7-18 [facility] Thin prep Papanicolaou smear with manual screeningOrdered By: Dr. Baron on 02-01-2023 Thin prep Papanicolaou smear with manual screening 23 U/L 15-37 [facility] Thin prep Papanicolaou smear with manual screening 6 5-15 [facility] CNPNon 04-09-2022 CNPN Telephone (RGMOB) ---- IVETTE ACEVEDO ([id number]) 1955 F Date Time Provider Department 04/09/22 ARPITA JAIMES During your visit today, we recorded the following information about you: Rom Montiel 04/09/2022 2:06 PM Signed Patient needs all mammograms sent to [facility] to their imaging dept. Thank you. MARIA ALEJANDRA Luo 04/09/2022 3:23 PM Signed Sent the last 2 yrs to [facility] release in syngo Allergies As [...] Status:Closed by ROM MONTIEL on 04/13/22 Normal [facility] Basophil percentageon 2021 Bilirubin [Mass/Vol] 0.30 mg/dL 0.20-1.00 [facility] Comment on above: For patients on eltr ombopag therapy, use of Dimension [place] TBIL is not recommended. Cholesterol [Mass/Vol] 131 mg/dL <200 [facility] Work Phone: Comment on above: <200 mg/dL Desirable 200-240 mg/dL Borderline >240 mg/dL High Risk Protein [Mass/Vol] 6.8 g/dL 6.4-8.2 [facility]: Triglyceride [Mass/Vol] 138 mg/dL <199 [facility] Work Phone: Comment on above: The drugs N-Acetylcy steine and Metamizole may falsely depress this assay.Serum Triglycerides Reference Interval Normal <150 mg/dL Borderline high 150 - 199 mg/dL High 200 - 499 mg/dL Very High > or = 500 mg/dL Direct bilirubinon 2 Bilirubin.direct [Mass/Vol] 0.08 mg/dL 0.00-0.30 [facility] Work Phone: Laboratory - Chemistry and C hemistry - challengeon 02-13-2022 ALP [Catalytic activity/Vol] 114 U/L 45-117 [facility] Work Phone: ALT [Catalytic activity/Vol] 28 U/L 13-56 [facility] Work Phone: Free T4 [Mass/Vol] 1.14 ng/dL 0.76-1.46 [facility] Work Phone: Globulin (S) [Mass/Vol] 3.2 g/dL 2.2-4.2 [facility] Work Phone: No Panel Informationon 02-13 Thyroid Stimulating Hormone (TSH) 0.77 uIU/mL 0.358-3.74 [facility] Work Phone: Serum or plasma albumin anderson urement (mass/volume)on 02-13-2022 Albumin [Mass/Vol] 3.6 g/dL 3.2-5.0 [facility] Work Phone: Serum or plasma cholesterol in HDL measurement (mass/volume)on 02-13-2022 Cholesterol in HDL [Mass/Vol] 45 mg/dL >40 [facility] Work Phone: Comment on above: The drugs N-Acetylcy steine and Metamizole may falsely depress this assay. Reference Range HDL <40 mg/dL Low HDL Cholesterol HDL >or= 60 mg/dL High HDL Cholesterol Serum or plasma cholesterol in VLDL measurement (mass/volume)on 02-13-2022 Cholesterol in VLDL [Mass/Vol] 28 mg/dL 5-40 [facility] Work Phone: Serum or plasma low density lipoprotein (LDL) cholesterol measurement (mass/volume)on 04-19-2022 Cholesterol in LDL [Mass/Vol] 58 mg/dL 0-130 [facility] Work Phone: Thin prep Papanicolaou smear with manual screeningon 02-13-2022 Thin prep Papanicolaou smear with manual screening 17 U/L 15-37 [facility] Work Phone: CNCOon 04-21-2021 [facility] HNO ID: [id number] Author: Mammography Coordinator Service: ? Author Type: Physician Type: Letter Filed: 04/24/2021 11:35 PM Note Text: April 21, 2021 PID: [id number] Ivette Kan Malissamatt [address] [place] [address] Dear Michael Minerva, We are pleased to inform you that [...] report will be kept on file at [facility] as part of your permanent medical record and are available for your continuing care. Thank you for allowing us to help in meeting your health care needs. Sincerely, Dr. Perrin Interpreting Radiologist [facility] (Normal over 40) Normal [facility] SCREENING W TOMOon 04-21 [facility] SCREENING W RAMYA * * *Final Report* * * DATE OF EXAM: Apr 21 2021 10:00AM WRW [id number] - [facility] SCREENING W RAMYA / PROCEDURE REASON: breast cancer screening * * * * Physician Interpretation * * * * RESULT: #[id number] - [facility] SCREENING W RAMYA BILATERAL DIGITAL SCREENING [...] made to exams dated: 04/01/2020 mammogram - [facility], 01/13/2019 mammogram, 01/06/2018 mammogram, 12/26/2015 mammogram, and 11/11/2014 mammogram - [facility]. There are scattered fibroglandular elements in both breasts. No significant masses, calcifications, or other findings are seen in either breast. There has been no significant interval change. IMPRESSION: NEGATIVE There is no mammographic evidence of malignancy. A 1 year screening mammogram is recommended. Lottie hope/courtney:04/21/2021 11:37:49 Residential Sales Representative(s): Brissa Hernandez RT(R)(M), [facility] letter sent: Normal over 40 [...] Health, Family Medicine, and Medical/Surgical Oncology, the [facility] has carefully reviewed the data and [...] their providers when to stop screening mammograms. Program Checker: Courtney Transcribe Date/Time: Apr 21 2021 9:22A Dictated by: LOTTIE PERRIN MD This examination was interpreted and the report reviewed and electronically signed by: LOTTIE PERRIN MD on Apr 21 2021 11:37AM EST [id number] [id number] Normal [facility] Lab Report: Lipid Profileon 09-06-2017 Cholesterol 139 mg/dL Invalid Interpretation Code 200 [facility] Work Phone: HDL Cholesterol 62 mg/dL Invalid Interpretation Code [facility] Work Phone: LDL Cholesterol 59 mg/dL Invalid Interpretation Code 0-130 [facility] Work Phone: [phone] Triglyceride 92 mg/dL Invalid Interpretation Code [facility] Work Phone: [phone] very low density lipoproteins 18 mg/dL Invalid Interpretation Code 5-40 [facility] Work Phone: [phone] Lab Report: Liver Profileon 09-06-2017 Alanine aminotransferase (ALT) 22 U/L Invalid Interpretation Code 12-78 [facility] Work Phone: [phone] Albumin 4.0 g/dL Invalid Interpretation Code 3.4-5.0 [facility] Work Phone: [phone] Alkaline phosphatase (ALP) 96 U/L Invalid Interpretation Code 45-117 [facility] Work Phone: [phone] Aspartate aminotransferase (AST) 17 U/L Invalid Interpretation Code 15-37 [facility] Phone: [phone] Bilirubin (direct) 0.15 mg/dL Invalid Interpretation Code 0.00-0.30 [facility] Work Phone: [phone] Bilirubin (total) 0.60 mg/dL Invalid Interpretation Code 0.20-1.00 [facility] Work Phone: [phone] Globulin 3.3 g/dL Invalid Interpretation Code 2.2-4.2 [facility] Phone: [phone] Protein 7.3 g/dL Invalid Interpretation Code 6.4-8.2 [facility] Phone: [phone] Office Visiton 04-29-2017 Documentation of current medications (procedure) Done Invalid Interpretation Code [facility] Work Phone: [phone] Tobacco use CPHS Never smoker Invalid Interpretation Code [facility] Phone: [phone] Office Visiton 03-05-2017 Fall risk assessment Fall risk assessment Invalid Interpretation Code [facility] Phone: [phone] Clinical Lists Update: Prelo beater boss 03-01-2017 Left ventricular Ejection fraction 35-40 Invalid Interpretation Code [facility] Phone: [phone] External Other: Preferred Me thod of Contacton 11-23-2015 [facility] phone Invalid Interpretation Code [facility] Phone: [phone] Office Visiton 11-23-2015 cardiac risk group C Invalid Interpretation Code [facility] Work Phone: [phone] General cardiovascular disease 10Y risk [#] Glo.Maria T'Lyssa N/A Invalid Interpretation Code [facility] Work Phone: [phone] Replaced Document: Renay Dutton CG Observationson 11-23-2015 EKG QRS axis 64 deg Invalid Interpretation Code [facility] Work Phone: [phone] Interpretation Sinus Bradycardia - Extensive T-abnormality - Anterior/lateral and inferior ischemia. ABNORMAL Invalid Interpretation Code [facility] Work Phone: [phone] P [place] 58 deg Invalid Interpretation Code [facility] Work Phone: [phone] DC Interval 120 ms Invalid Interpretation Code [facility] Work Phone: [phone] Pulse (Heart Rate) 57 /min Invalid Interpretation Code [facility] Work Phone: [phone] QRS Duration 102 ms Invalid Interpretation Code [facility] Work Phone: [phone] QT Interval new path ms Invalid Interpretation Code [facility] Work Phone: [phone] QTc Lambert 481 ms Invalid Interpretation Code [facility] Work Phone: [phone] T [place] 155 deg Invalid Interpretation Code [facility] Work Phone: [phone] Clinical Lists Update: Prelo beater boss 11-03-2015 Anion gap 9 mmol/L Invalid Interpretation Code [facility] Work Phone: [phone] Calcium 8.2 mg/dL Low [facility] Work Phone: [phone] Chloride 107 mmol/L Invalid Interpretation Code [facility] Work Phone: [phone] CO2 24 mmol/L Invalid Interpretation Code [facility] Work Phone: [phone] Creatinine 0.83 mg/dL Invalid Interpretation Code [facility] Work Phone: [phone] Erythrocytes (RBC) 4.35 10*6/uL Invalid Interpretation Code [facility] Work Phone: [phone] Glucose mass conc 91 mg/dL Invalid Interpretation Code [facility] Work Phone: [phone] Hematocrit (HCT) 37.2 % Invalid Interpretation Code [facility] Work Phone: [phone] Hemoglobin mass conc (Bld) 12.1 g/dL Invalid Interpretation Code [facility] Work Phone: [phone] Platelets 263 10*3/mm3 Invalid Interpretation Code [facility] Work Phone: [phone] Potassium molar conc 4.2 mmol/L Invalid Interpretation Code [facility] Work Phone: [phone] Sodium 135 mmol/L Invalid Interpretation Code [facility] Work Phone: [phone] Urea nitrogen 8 mg/dL Invalid Interpretation Code [facility] Work Phone: [phone] WBC (Leukocytes) 6.7 10*3/uL Invalid Interpretation Code [facility] Work Phone: [phone] Clinical Lists Update: Prelo beater boss 11-01-2015 BUN/Creatinine Ratio 9.2 mg/mg Low [facility] Work Phone: [phone] Vital Signs Date Time Vital Sign Value Performing Clinician Faci lity 05-28-2025 09:30-0400 Body height 165.[address] Asad Baron MD Work Phone: [facility] 05-28-2025 09:30-0400 Body mass index (BMI) [Ratio] 19.3 kg/m2 Dr. Asad Baron MD Work Phone: [facility] 05-28-2025 09:30-0400 Body weight 52.[address] Asad Baron MD Work Phone: [facility] 05-28-2025 09:30-0400 Diastolic blood pressure 68 mm[Hg] Dr. Asad Baron MD Work Phone: [facility] 05-28-2025 09:30-0400 Heart rate 60 /min Dr. Asad Baron MD Work Phone: [facility] 05-28-2025 09:30-0400 Respiratory rate 16 /min Dr. Asad Baron MD Work Phone: [facility] 05-28-2025 09:30-0400 Systolic blood pressure 112 mm[Hg] Dr. Asad Baron MD Work Phone: [facility] 01-31-2024 15:18-0400 Body temperature 97.6 [degF] [facility] 01-31-2024 15:18-0400 Diastolic blood pressure 70 mm[Hg] [facility] 01-31-2024 15:18-0400 Heart rate 80 /min [facility] 01-31-2024 15:18-0400 Respiratory rate 16 /min [facility] 01-31-2024 15:18-0400 SaO2% (BldA) [Mass fraction] 98 % [facility] 01-31-2024 15:18-0400 Systolic blood pressure 152 mm[Hg] [facility] 01-31-2024 13:43-0400 Body height 165.1 cm [facility] 01-31-2024 13:43-0400 Body mass index (BMI) [Ratio] 19.8 kg/m2 [facility] 01-31-2024 13:43-0400 Body weight 54.1 kg [facility] 03-04-2023 09:05-0400 Body height 167.[address] Asad Baron Work Phone: [facility] 03-04-2023 09:05-0400 Heart rate 62 /min Dr. Asad Baron Work Phone: [facility] 03-04-2023 09:04-0400 Body mass index (BMI) [Ratio] 19 kg/m2 Dr. Asad Baron Work Phone: [facility] 03-04-2023 09:04-0400 Body weight 53.[address] Asad Baron Work Phone: [facility] 03-04-2023 09:04-0400 Diastolic blood pressure 81 mm[Hg] Dr. Asad Baron Work Phone: [facility] 03-04-2023 09:04-0400 Respiratory rate 18 /min Dr. Asad Baron Work Phone: [facility] 03-04-2023 09:04-0400 SaO2% (BldA) [Mass fraction] 100 % Dr. Asad Baron Work Phone: [facility] 03-04-2023 09:04-0400 Systolic blood pressure 131 mm[Hg] Dr. Asad Baron Work Phone: [facility] 02-09-2023 22:34-0400 Body mass index (BMI) [Ratio] 19.4 kg/m2 Dr. Asad Baron Work Phone: [facility] 02-09-2023 22:34-0400 Body temperature 97.8 [degF] Dr. Asad Baron Work Phone: [facility] 02-09-2023 22:34-0400 Body weight 54.[address] Asad Baron Work Phone: [facility] 02-09-2023 22:34-0400 Diastolic blood pressure 66 mm[Hg] Dr. Asad Baron Work Phone: [facility] 02-09-2023 22:34-0400 Heart rate 65 /min Dr. Asad Baron Work Phone: [facility] 02-09-2023 22:34-0400 Respiratory rate 16 /min Dr. Asad Baron Work Phone: [facility] 02-09-2023 22:34-0400 SaO2% (BldA) [Mass fraction] 100 % Dr. Asad Baron Work Phone: [facility] 02-09-2023 22:34-0400 Systolic blood pressure 181 mm[Hg] Dr. Asad Baron Work Phone: [facility] 03-06-2022 09:13-0400 Body height 166.[address] Asad Baron Work Phone: [facility] Work Phone: 03-06-2022 09:13-0400 Body mass index (BMI) [Ratio] 19.3 kg/m2 Dr. Asad Baron Work Phone: [facility] Work Phone: 03-06-2022 09:13-0400 Body weight 53.[address] Asad Baron Work Phone: [facility] Work Phone: 03-06-2022 09:13-0400 Diastolic blood pressure 67 mm[Hg] Dr. Asad Baron Work Phone: [facility] Work Phone: 03-06-2022 09:13-0400 Heart rate 71 /min Dr. Asad Baron Work Phone: [facility] Work Phone: 03-06-2022 09:13-0400 Respiratory rate 18 /min Dr. Asad Baron Work Phone: [facility] Work Phone: 03-06-2022 09:13-0400 SaO2% (BldA) [Mass fraction] 100 % Dr. Asad Baron Work Phone: [facility] Work Phone: 03-06-2022 09:13-0400 Systolic blood pressure 110 mm[Hg] Dr. Asad Baron Work Phone: [facility] Work Phone: 03-06-2022 09:13-0400 Body height 166.[address] Asad Baron Work Phone: [facility] Work Phone: 03-06-2022 09:13-0400 Body mass index (BMI) [Ratio] 19.3 kg/m2 Dr. Asad Baron Work Phone: [facility] Work Phone: 03-06-2022 09:13-0400 Body weight 53.[address] Asad Baron Work Phone: [facility] Work Phone: 03-06-2022 09:13-0400 Diastolic blood pressure 67 mm[Hg] Dr. Asad Baron Work Phone: [facility] Work Phone: 03-06-2022 09:13-0400 Heart rate 71 /min Dr. Asad Baron Work Phone: [facility] Work Phone: 03-06-2022 09:13-0400 Respiratory rate 18 /min Dr. Asad Baron Work Phone: [facility] Work Phone: 03-06-2022 09:13-0400 SaO2% (BldA) [Mass fraction] 100 % Dr. Asad Baron Work Phone: [facility] Work Phone: 03-06-2022 09:13-0400 Systolic blood pressure 110 mm[Hg] Dr. Asad Baron Work Phone: [facility] Work Phone: 02-13-2022 14:46-0400 Body mass index (BMI) [Ratio] 19.1 kg/m2 Dr. Asad Baron Work Phone: [facility] Work Phone: 02-13-2022 14:42-0400 Body mass index (BMI) [Ratio] 19.4 kg/m2 Dr. Asad Baron Work Phone: [facility] Work Phone: 02-13-2022 14:42-0400 Body temperature 96.8 [degF] Dr. Asad Baron Work Phone: [facility] Work Phone: 02-13-2022 14:42-0400 Body weight 53.[address] Asad Baron Work Phone: [facility] Work Phone: 02-13-2022 14:42-0400 Diastolic blood pressure 76 mm[Hg] Dr. Asad Baron Work Phone: [facility] Work Phone: 02-13-2022 14:42-0400 Heart rate 71 /min Dr. Asad Baron Work Phone: [facility] Work Phone: 02-13-2022 14:42-0400 Respiratory rate 16 /min Dr. Asad Baron Work Phone: [facility] Work Phone: 02-13-2022 14:42-0400 SaO2% (BldA) [Mass fraction] 88 % Dr. Asad Baron Work Phone: [facility] Work Phone: 02-13-2022 14:42-0400 Systolic blood pressure 110 mm[Hg] Dr. Asad Baron Work Phone: [facility] Work Phone: 02-13-2022 14:42-0400 Body height 166.[address] Asad Baron Work Phone: [facility] Work Phone: 02-13-2022 14:42-0400 Body mass index (BMI) [Ratio] 19.4 kg/m2 Dr. Asad Baron Work Phone: [facility] Work Phone: 02-13-2022 14:42-0400 Body temperature 96.8 [degF] Dr. Asad Baron Work Phone: [facility] Work Phone: 02-13-2022 14:42-0400 Body weight 53.[address] Asad Baron Work Phone: [facility] Work Phone: 02-13-2022 14:42-0400 Diastolic blood pressure 76 mm[Hg] Dr. Asad Baron Work Phone: [facility] Work Phone: 02-13-2022 14:42-0400 Heart rate 71 /min Dr. Asad Baron Work Phone: [facility] Work Phone: 02-13-2022 14:42-0400 Respiratory rate 16 /min Dr. Asad Baron Work Phone: [facility] Work Phone: 02-13-2022 14:42-0400 SaO2% (BldA) [Mass fraction] 88 % Dr. Asad Baron Work Phone: [facility] Work Phone: 02-13-2022 14:42-0400 Systolic blood pressure 110 mm[Hg] Dr. Asad Baron Work Phone: [facility] Work Phone: 04-29-2017 09:23-0400 BMI (Body Mass Index) 20.17 kg/m2 Kathy Fuchs PA-C [facility] Work Phone: 04-29-2017 09:23-0400 Weight 56.7 kg Kathy Fuchs PA-C [facility] Work Phone: 03-05-2017 11:18-0400 BP Diastolic 60 mm[Hg] Kathy Fuchs PA-C [facility] Work Phone: 03-05-2017 11:18-0400 BP Systolic 110 mm[Hg] Kathy Fuchs PA-C [facility] Work Phone: 03-05-2017 11:18-0400 Height 167.64 cm Kathy Fuchs PA-C [facility] Work Phone: 03-05-2017 11:18-0400 Pulse (Heart Rate) 60 /min Kathy Fuchs PA-C [facility] Work Phone: 03-05-2017 11:18-0400 Respiratory Rate 20 /min Kathy Fuchs PA-C [facility] Work Phone: 09-05-2016 11:31-0500 BSA (Body Surface Area) 1.68 m2 Kathy Fuchs PA-C [facility] Work Phone: Encounters Encounter Date Encounter Type Care Provider Facility Start: 08-21-2025 Encounter for genera l adult medical examination without abnormal findings Asad Baron [facility] Start: 07-29-2025 End: 07-29-2025 ambulatory Asad Baron Facility:[facility] Start: 07-28-2025 End: 07-28-2025 ambulatory Asad Baron Facility:[facility] Start: 06-08-2025 End: 06-08-[address] Asad Baron MD Work Phone: -Outpatient Breast Imaging Start: 06-08-2025 End: 06-08-[address] Asad Baron MD -[facility]patient [facility] Work Phone: Start: 06-08-2025 End: 06-08-2025 ambulatory Asad Baron Facility:[facility] Start: 05-28-2025 End: 05-28-[address] Silvestre Lassiter MD -[facility] Work Phone: Start: 05-28-2025 End: 05-28-[address] Asad Baron MD Work Phone: -[facility] Start: 05-12-2025 End: 05-12-[address] Asad Baron MD Work Phone: -[facility] Start: 05-12-2025 End: 05-12-[address] Silvestre Lassiter MD -[facility] Work Phone: Start: 05-12-2025 End: 05-12-2025 ambulatory Asad Baron Facility:[facility] Start: 01-31-2024 End: 01-31-2024 Emergency department patient visit [facility]Emergency [facility] Work Phone: Start: 05-01-2023 End: 05-01-[address] Asad Baron Work Phone: [facility] Work Phone: Start: 05-01-2023 End: 05-01-[address] Asad Baron Work Phone: [facility]-Outpatient Breast Imaging Work Phone: Start: 03-04-2023 End: 03-04-[address] Asad Baron Work Phone: [facility] Work Phone: Start: 02-09-2023 End: 02-10-2023 Emergency department patient visit Dr. Asad Baron Work Phone: [facility]Emergency Department Work Phone: Start: 02-01-2023 End: 02-01-2023 ambulatory [facility] Work Phone: Start: 02-01-2023 End: 02-01-2023 Patient encounter procedure [facility] Start: 04-23-2022 End: 04-23-[address] Asad Baron Work Phone: [facility]-Outpatient Breast Imaging Start: 04-09-2022 Telephone encounter Arpita Jaimes [facility] Radiology Comment on above: Mammogram Request Start: 03-15-2022 Non-patient / Non-visit Dr. Lawrence Baron Work Phone: [facility] [facility] Start: 03-15-2022 End: 03-15-[address] [facility]ad [facility] Start: 03-06-2022 End: 03-06-[address] Asad Baron Work Phone: [facility] Start: 02-13-2022 End: 02-13-[address] Asad Baron [facility] Date Procedure Procedure Detail Performing Clinician Start: 06-08-2025 Screening mammography Maria T Baron MD Work Phone: Start: 01-31-2024 Plain chest X-ray Start: 05-01-2023 Screening mammography Maria T Baron Work Phone: Start: 04-23-2022 Screening mammography Maria T Baron Work Phone: Start: 03-15-2022 Radionuclide imaging of perfusion of myocardium under exercise stress Dr. 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 Silvestre Lassiter MD Comment on above: NCT-BZR-Azwn-Mid LAD w/ 2.5 x 18 mm Resolute Integrity Stent 11/01/2015 Start: 09-22-2014 Colonoscopy Arpita chiang PSS Plan of Treatment Date Care Activity Detail Author Start: 01-31-2024 [facility] Start: 06-28-2022 Influenza vaccination INFLUENZA (Season Ended) [facility] Start: 04-21-2022 Mammography MAMMOGRAM [facility] Start: 10-28-2021 ADVANCE DIRECTIVE DISCUSSION ADVANCE DIRECTIVE DISCUSSION [facility] Start: 2021 PNEUMOCOCCAL: 65+ (1 - PCV) PNEUMOCOCCAL: 65+ (1 - PCV) [facility] Start: 10-03-2021 DIABETES SCREEN DIABETES SCREEN [facility] Start: 07-04-2021 COVID-19 VACCINE (3 - Booster for Pfizer series) COVID-19 VACCINE (3 - Booster for Pfizer series) [facility] Start: 11-02-2020 LIPID SCREEN LIPID SCREEN [facility] Start: 09-22-2019 Colonoscopy COLONOSCOPY [facility] Start: 09-22-2019 COLORECTAL CANCER SCREENING COLORECTAL CANCER SCREENING [facility] Start: 03-10-2018 End: 09-11-2017 *Hepatic Function Panel *Hepatic Function Panel [facility] Work Phone: Start: 03-10-2018 End: 09-11-2017 Lipid panel [AGGREGATE] *Lipid Profile CC PCP [facility] Work Phone: Start: 03-04-2018 End: 03-04-2018 Appointment Appointment [facility] Work Phone: Start: 08-28-2017 End: 09-09-2017 *Hepatic Function Panel *Hepatic Function Panel [facility] Work Phone: Start: 08-28-2017 End: 09-09-2017 Lipid panel [AGGREGATE] *Lipid Profile CC PCP [facility] Work Phone: Start: 04-29-2017 End: 04-29-2017 Radiologic exam knee complete 4/more views X-Ray, Knee [facility] Work Phone: Start: 03-05-2017 End: 03-05-2017 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 [facility] Work Phone: Start: 03-05-2017 End: 03-05-2017 Follow Up Appt 1 year Follow Up Appt 1 year [facility] Work Phone: Start: 02-21-2017 End: 02-25-2017 *Hepatic Function Panel *Hepatic Function Panel [facility] Work Phone: Start: 02-21-2017 End: 02-25-2017 Lipid panel [AGGREGATE] *Lipid Profile CC PCP [facility] Work Phone: Start: 09-05-2016 End: 09-05-2016 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 [facility] Work Phone: Start: 09-05-2016 End: 09-05-2016 Follow Up Appt 6 months Follow Up Appt 6 months [facility] Work Phone: Start: 08-14-2016 End: 08-21-2016 *Hepatic Function Panel *Hepatic Function Panel [facility] Work Phone: Start: 08-14-2016 End: 08-21-2016 Lipid panel [AGGREGATE] *Lipid Profile CC PCP [facility] [employer] Work Phone: Start: 02-21-2016 End: 02-21-2016 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 [employer] Work Phone: Start: 11-23-2015 End: 02-25-2017 Ecg routine ecg w/least 12 lds w/i&r EKG (In office) [employer] Work Phone: Start: 11-23-2015 End: 11-23-2015 Follow Up Appt 3 months Follow Up Appt 3 months [employer] Work Phone: Start: 11-23-2015 End: 02-13-2016 Lipid panel [AGGREGATE] *Lipid Profile CC PCP [facility] [employer] Work Phone: Start: 2006 SHINGRIX VACCINE (1 of 2) SHINGRIX VACCINE (1 of 2) [facility] Start: 2001 COLOGUARD (FIT-DNA) COLOGUARD (FIT-DNA) [facility] Start: [address] COLONOGRAPHY [facility] Start: 2001 FECAL OCCULT BLOOD FECAL OCCULT BLOOD [facility] Start: 2001 SIGMOIDOSCOPY SIGMOIDOSCOPY [facility] Start: 1975 Urine microalbumin profile DTAP,TDAP,TD (1 - Tdap) [facility] Start: 1974 HEPATITIS C SCREENING HEPATITIS C SCREENING [facility] Start: 1974 HIV SCREENING HIV SCREENING [facility] Start: 1968 Adult depression screening assessment DEPRESSION SCREENING [facility] Patient Education [facility] Work Phone: Patient referral [facility] Work Phone: Payers Date Payer Category Payer Unknown [id number] 2025 Self-pay [id number] 2024 Private Health Insurance 101 [id number] 2020 Unknown [employer] PPO [id number] 2020-Present [phone] [address] [place] [address] PPO [id number] Unknown [id number] Unknown [id number] 62 Unknown [id number] 62 Unknown [id number] 62 Unknown [id number] 62 Unknown [id number] Social History Date Type Detail Facility Start: 02-13-2022 End: 01-31-2024 Tobacco smoking status NHIS Unknown if ever smoked [facility] Start: 06-01-2020 Non-smoker [facility] Start: 1955 [facility] Assigned At Female [facility] Start: 01-31-2024 Tobacco smoking stat us NHIS Never smoked tobacco [facility] Start: 01-06-2018 Alcohol intake Current non-dr health information managers of alcohol (finding) [facility] Mental Status Date Assessment Result Facility 01-31-2024 Cognitive function Level Of Cons ciousness Awake;Alert;Appropriate;Follow s Commands [facility] Work Phone: Evaluation note 05-28-2025 Note Date & Type Note Facility 05-28-2025 Evaluation note Diagnosis Onset Date Resolution HLD (hyperlipidemia) chronic May 28 9:29am History of coronary artery stent placement November 01, 2015 resolved May 28, 2025 9:29am [facility] Work Phone: Note 04-09-2022 Telephone Encounter - MARIA ALEJANDRA Luo - 04/09/2022 3:22 PM EDTTelephone Encounter - Rom Montiel - 04/09/2022 2:02 PM EDT Note Date & Type Note Facility 04-09-2022 Miscellaneous Notes Sent the last 2 yrs to [facility] release in [place] Patient needs all mammograms sent to [facility] to their imaging dept. Thank you. documented in this encounter [facility] Progress note 04-21-2021 Note Date & Type Note Facility 04-21-2021 Note HNO ID: [id number] Author: Jesika Amanda Service: ? 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 HLD (hyperlipidemia) chronic History of coronary artery stent placement November 01, 2015 resolved [facility] Work Phone: Evaluation note 11-01-2015 Note Date & Type Note Facility 11-01-2015 Evaluation note Diagnosis Onset Date HLD (hyperlipidemia) chronic History of coronary artery stent placement November 01, 2015 resolved [facility] Work Phone: History of Past illness Narrative 09-12-2010 Note Date & Type Note Facility 09-12-2010 History of Past i llness Narrative Problem Noted Date Resolved Date Unspecified constipation 010 documented as of this encounter (statuses as of 04/13/2022) [facility] Evaluation note Note Date & Type Note Facility Evaluation note No assessment information availa ble [facility] Work Phone: Hospital Discharge instructions Note Date & Type Note Facility Hospital Discharge instructions Additional Instructions Alternate Tylenol and ibuprofen every 3 hours as needed and use ice. 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 May 28, 2025 9:29am [...] Will Yes October 12 10:45am Power of Golf Starter And Ranger Yes October 12, 2020 10:45am Advance Directive Response Recorded Date/ Time Name of Medical Power of Golf Starter And Ranger Juan Acevedo, February 09, 2023 11:48pm Living Will Yes February 09, 2023 11:48pm Power of Golf Starter [employer] Ranger Yes February 09 11:48pm Advance Directive Response Recorded Date/ Time Living Will Yes January 31, 2024 1:51pm Power of Golf Starter And Ranger Yes January 30 1:51pm Name of Medical Power of Golf Starter And Ranger agnes January 31, 2024 1:51pm Advance Directive Response Recorded Date/ Time Living Will Yes January 31, 2024 1:51pm Do you have a Healthcare Power of Golf Starter And Ranger? Yes January 31, 2024 1:51pm Summary Purpose [...] or prosecute any alcohol or drug abuse patient.[facility] Reason for Visit (unrecogniz ed section and content) Reason Comments Mammogram Request Care Teams (unrecognized sec tion and content) Deli Manager Relationship Specialty Start Date End Date Asad Baron MD [address] [place] [address] [address] [place], [place] [address] PCP - General Family Practice 04/01/20 Agnes Murguia [address] [facility] [address] [place] [address] Referring General Surgery 07/05/20 Team [...] Primary Care Provider, Referring Provider Active Alma Lya NURSING RESIDENT, NURSING RESIDENT-C Attending Provider Active Team Status: Inactive Member [...] Status: Active Member Role/Relationship Status Dates Dr. Aasd Baron MD Primary Care Provider Active Team [...] section and content) DATE CREATED AUTHOR 04/14/2022 [facility] DATE CREATED AUTHOR AUTHOR'S ORGANIZ ATION 08/22/2025 [facility] FOR RECORDS PERTAINING TO PATIENTS WHO [...] BE BASED ON THE PRIMARY CLINICAL RECORDS. [employer] provides no warranty or guarantee of the accuracy or completeness of information in this document.
--- NOTE | 2025-10-02 23:53 | EDS_ITS ---
HPI History of Present Illness Chief Complaint: Eye Problem Narrative Narrative: Patient was seen and examined after presenting to ED for injury to the right eye she states that she was using the automatic withdrawal on the power cord of her iron and it hit her in the right eye she does wear contacts but was not wearing them at the time unknown last tetanus she states that she can still see but she does have sensitivity because of the pain to the light. 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) HLD (hyperlipidemia) Atherosclerotic heart disease of [place] coronary artery without angina pectoris Home Medications ?Medication ?Instructions ?Recorded ?Last Taken ?Type aspirin 81 mg tablet,delayed 81 mg PO DAILY 11/30/15 0 05/31/20 History release flaxseed oil 1,000 mg capsule 1,000 mg PO DAILY Unknown History (Ronceverte-3 Flaxseed Oil) epinephrine 0.3 mg/0.3 mL 0.3 mg IM Q5-15M PRN Allergy 01/13/21 Unknown History injection, auto-injector Symptoms biotin 10,000 mcg capsule 10,000 mcg PO DAILY 03/02/21 Unknown History cyanocobalamin (vitamin B-12) 5,000 mcg PO SA 03/02/21 Unknown History 5,000 mcg capsule metronidazole 0.75 % topical gel 1 applic topical CHEMO Y PRN Rash 03/02/21 Unknown History levothyroxine 50 mcg tablet 50 mcg PO DAILY #90 tabs 0 02/13/22 Unknown Rx metoprolol succinate 25 mg 25 mg PO QDAY #90 tabs 02/0 01/19 Unknown Rx tablet,extended release 24 hr (Toprol XL) simvastatin 20 mg tablet 20 mg PO QHS #90 tabs Unknown Rx alendronate 70 mg tablet 70 mg PO QWEEK Osteoporosis 05/28/25 Unknown History nitroglycerin 0.4 mg sublingual 0.4 mg sublingual Q5-1 5M PRN chest 09/28/25 Unknown Rx tablet (Nitrostat) pain #25 tabs Allergy/AdvReac Type Severity Reaction Status Date / Time cephalexin Allergy Unknown Verified 10/02/25 22:54 latex Allergy rash Verified 10/02/25 22:54 Penicillins Allergy Unknown Verified 10/02/25 22:54 venom-honey bee Allergy Swelling Verified 10/02/25 22:54 atorvastatin calcium (From AdvReac Unknown Verified 10/02/25 22:54 Lipitor) carvedilol (From Coreg) AdvReac myalgias, Verified 10/02/25 22:54 cough, diarrhea ticagrelor (From Brilinta) AdvReac rash Verified 10/02/25 22:54 Family History Father Myocardial infarction Heart disease Mother Colon cancer Aunt CAD (coronary artery disease) hx cardiac stents Other Cancer Melanoma Surgical History history excision buttock mass (06/08/20) History of hysterectomy (1995) History of coronary artery stent placement (11/01/15) Social History Smoking Status: Never smoker alcohol intake: never substance use type: does not use caffeine: Yes Type: coffee what type of physical activity do you participate in: weight training and other details: cardio frequency: 3-4 times per week duration: 30-45 minutes/day seatbelt use: always do you feel safe at home: Yes ROS ROS ED ROS Narrative Pertinent Positives: Right eye injury contact lens use Pertinent Negatives: Inability to see The remainder of review of systems negative unless otherwise stated in the HPI above. Systems reviewed including constitutional, psychiatric, cardiovascular, respiratory, integument, HENT, gastrointestinal. EXAM Physical Exam Narrative Exam Narrative: Afebrile hemodynamically stable does not appear toxic or in distress normocephalic pupil equal round reactive to light however it does appear that she likely has a defect there in the center of her cornea and under fluorescein stain it does appear that she has a corneal abrasion affecting the upper center portion of her cornea negative Sidel sign no hyphema or hypopyon Const Vital Signs: 10/02/25 22:52 Temperature 97.8 F Temperature Source Oral Pulse Rate 65 Respiratory Rate 18 Blood Pressure 171/83 H Blood Pressure Mean 112 Pulse Ox 100 Oxygen Delivery Method Room Air MDM MDM MDM Narrative Medical decision making narrative: Nursing notes, triage notes, available previous documentation, and vital signs were reviewed. Any discrepancies noted were addressed. Differential Diagnoses: No globe rupture not an ulcer but it is a corneal abrasion no vesicular lesions Interventions: Antibiotics Given: Gentamicin Previous Documentation Reviewed: None available or applicable at this time. ED Course: Patient presenting with right eye injury labs and imaging not clinically indicated she was given gentamicin ointment here in the emergency department we were about to update her tetanus but looks like she just had it done last year she has an fuel island attendant that she can follow-up with return precautions follow-up recommendations provided patient will be stable for discharge home. Visual acuity Right eye 20/15 This note was made utilizing voice recognition software. All attempts were made to correct spelling or other errors prior to note completion. However, due to the fast-paced nature of emergency medicine, some errors may still be present. Discharge Plan Triage Chief Complaint: Eye Problem ED Provider: Audrey Gusman Dx/Rx/DC Orders Clinical Impression: Corneal abrasion, right, Right eye injury Instructions: ED Corneal Abrasion Prescriptions: No Action flaxseed oil [Ronceverte-3 Flaxseed Oil] 1,000 mg capsule 1,000 mg PO DAILY biotin 10,000 mcg capsule 10,000 mcg PO DAILY cyanocobalamin (vitamin B-12) 5,000 mcg capsule 5,000 mcg PO SA metronidazole 0.75 % gel 1 applic topical DAILY PRN (Reason: Rash) epinephrine 0.3 mg/0.3 mL auto-injector 0.3 mg IM Q5-15M PRN (Reason: Allergy Symptoms) Rx Instructions: do not exceed 3 doses per episode alendronate 70 mg tablet 70 mg PO QWEEK Patient Comments: 1 tablet per week aspirin 81 MG tablet,delayed release (DR/EC) 81 mg PO DAILY levothyroxine 50 mcg tablet 50 mcg PO DAILY Qty: 90 3RF simvastatin 20 mg tablet 20 mg PO QHS Qty: 90 3RF metoprolol succinate [Toprol XL] 25 mg tablet extended release 24 hr 25 mg PO QDAY Qty: 90 3RF nitroglycerin [Nitrostat] 0.4 mg tablet, sublingual 0.4 mg SUBLINGUAL Q5-15M PRN (Reason: chest pain) Qty: 25 3RF Primary Care Provider: Asad Baron: Asad Baron MD [Primary Care Provider, Family Practice] Activity Restrictions/Additional Instructions: apply 2 drops six times a day for 5 days in your eye and follow-up with your fuel island attendant please return if having worsening symptoms or vision Print Language: Dominican Disposition Disposition: Home, Self Care
[2025-10-02] MEDS: Tetracaine 0.5% Ophthalmic Bottle 1 DRP RIGHT EYE (23:55)
[2025-10-02] MEDS: Gentamicin Sulfate 1 OPTH.BTL 2 DRP RIGHT EYE (23:56)
[2025-10-03 00:08] VITALS: BP 136/86; PULSE 66; RESP 16; TEMP 37.1; O2SAT 98
== END 2025-10-03 00:09 | disposition home or self-care (01) ==
PROVIDERS: Emergency Provider Specialist/Technologist Athletic Trainer; PCP Family Medicine; Visit Provider Specialist/Technologist Athletic Trainer
DX: S05.01XA Injury of conjunctiva and corneal abrasion without foreign body, right eye, initial encounter (principal); I25.10 Atherosclerotic heart disease of native coronary artery without angina pectoris; E78.5 Hyperlipidemia, unspecified; I25.2 Old myocardial infarction; Z79.82 Long term (current) use of aspirin; Z79.899 Other long term (current) drug therapy; E03.8 Other specified hypothyroidism; Z79.890 Hormone replacement therapy; Z90.710 Acquired absence of both cervix and uterus; Z95.5 Presence of coronary angioplasty implant and graft; X58.XXXA Exposure to other specified factors, initial encounter
CPT/HCPCS: 90715; 99283